=== PATIENT | male | born 1970 | race Two or more races ===

== ENCOUNTER 2018-07-22 13:27 | Inpatient (IN) | payer OTHER ==
[~2018-07-22] VITALS: Ht 167.6 cm; Wt 101.6 kg
[2018-07-22 14:02] LABS: Basophils # (auto) 0 uL; Basophils % (auto) 0.4 % (0.0-2.0); Eosinophils # (auto) 0.1 uL; Eosinophils % (auto) 1.5 % (0.0-7.0); Hematocrit 46.4 % (41.0-53.0); Hemoglobin 15.3 g/dL (13.5-17.5); Lymphocytes # (auto) 1.1 uL; Lymphocytes % (auto) 12.9 % (10.0-50.0); Mean Corpuscular Hemoglobin 31.7 pg (28.0-32.0); Mean Corpuscular Hgb Conc. 33.1 g/dL (32.0-36.0); Mean Corpuscular Volume 95.8 fL (80.0-100.0); Monocytes % (auto) 11.2 % (0.0-12.0); Neutrophils # (auto) 6.4 uL; Nucleated Red Blood Cells % 0.1 %; Platelet Count (auto) 155 10^3/uL (140-450); Red Blood Cells 4.84 10^6/uL (4.5-5.90); Red Cell Distribution Width 13.9 % (11.8-14.3); White Blood Cell 8.7 10^3/uL (4.4-10.8)
[2018-07-22 14:22] LABS: Albumin 3.2 g/dL (3.4-5.0); Magnesium 2.3 mg/dL (1.6-2.6); Potassium 4.5 mmol/L (3.5-5.1)
[2018-07-22 14:24] LABS: BUN/Creatinine Ratio 19.8
[2018-07-22 14:39] LABS: Bilirubin, Total 0.6 mg/dL (0.2-1.0); Total Protein 7.7 g/dL (6.4-8.2)
[2018-07-22] MEDS ORDERED: IOHEXOL 350 MG/ML 100ML IJ ONE (18:07)
[2018-07-22] MEDS ORDERED: MORPHINE SULFATE 4 MG/ML SYR/VIAL IV PRN (20:30)
[2018-07-22] MEDS ORDERED: NITROGLYCERIN 0.4 MG SL TAB SL PRN (20:30)
[2018-07-22] MEDS ORDERED: TEMAZEPAM 15 MG CAP PO PRN (20:30)
[2018-07-22] MEDS ORDERED: ONDANSETRON HCL 4 MG/2 ML VIAL IV PRN (20:30)
[2018-07-22] MEDS ORDERED: FUROSEMIDE 20 MG/2 ML VIAL IV ONE (20:30)
[2018-07-22] MEDS ORDERED: ACETAMINOPHEN 325 MG TAB PO PRN (20:30)
[2018-07-22 21:59] LABS: Urine Bacteria NONE SEEN /hpf (None Seen); Urine Blood Negative /uL (Negative); Urine Specific Gravity 1.015 (1.001-1.035); Urine WBC <1 /hpf (0 - 3)
[2018-07-22] MEDS ORDERED: ATORVASTATIN 20 MG TAB PO SCH (22:00)
[2018-07-22] MEDS: FAMOTIDINE 20 MG TAB PO SCH (22:06)
[2018-07-23 03:35] VITALS: BP 151/100
[2018-07-23] MEDS ORDERED: cloNIDine HCL 0.1 MG TAB PO ONE (05:45)
[2018-07-23] MEDS ORDERED: FUROSEMIDE 20 MG TAB PO SCH (06:00)
[2018-07-23 07:15] LABS: Basophils # (auto) 0 uL; Basophils % (auto) 0.5 % (0.0-2.0); Eosinophils # (auto) 0.1 uL; Eosinophils % (auto) 2.3 % (0.0-7.0); Hematocrit 46.4 % (41.0-53.0); Hemoglobin 15.4 g/dL (13.5-17.5); Lymphocytes # (auto) 0.9 uL; Lymphocytes % (auto) 16.3 % (10.0-50.0); Mean Corpuscular Hemoglobin 31.3 pg (28.0-32.0); Mean Corpuscular Hgb Conc. 33.3 g/dL (32.0-36.0); Monocytes # (auto) 0.6 uL; Monocytes % (auto) 10.6 % (0.0-12.0); Neutrophils % (auto) 70.3 % (37.0-80.0); Nucleated Red Blood Cells % 0.1 %; Platelet Count (auto) 143 10^3/uL (140-450); Red Blood Cells 4.93 10^6/uL (4.5-5.90); Red Cell Distribution Width 14.2 % (11.8-14.3); White Blood Cell 5.6 10^3/uL (4.4-10.8)
[2018-07-23 07:35] LABS: Albumin 3.1 g/dL (3.4-5.0); BUN/Creatinine Ratio 18.3; Calcium 8.3 mg/dL (8.5-10.1); Potassium 4.2 mmol/L (3.5-5.1)
[2018-07-23 07:36] LABS: Bilirubin, Total 0.7 mg/dL (0.2-1.0); Total Protein 7.7 g/dL (6.4-8.2)
[2018-07-23] MEDS: FAMOTIDINE 20 MG TAB PO SCH (08:20)
[2018-07-23] MEDS ORDERED: ASPirin 81 mg TAB PO SCH (10:00)
[2018-07-23 10:13] VITALS: BP 141/101
== END 2018-07-23 12:56 | disposition left against medical advice (07) | DRG 292 ==
LOC: ER 13:31 → TELE 20:25
PROVIDERS: ADMIT Nurse Practitioner; ATTEND Internal Medicine
DX: I50.31 Acute diastolic (congestive) heart failure (principal); I31.3 Pericardial effusion (noninflammatory); R18.8 Other ascites; F19.10 Other psychoactive substance abuse, uncomplicated; R06.03 Acute respiratory distress; K74.60 Unspecified cirrhosis of liver; Z87.891 Personal history of nicotine dependence
CPT/HCPCS: 36415; 71046; 71275; 80053; 81001; 83735; 83880; 84484; 85025; 85379; 87804; 93005; 96374; 99291; G0378

== ENCOUNTER 2022-06-24 02:43 | Inpatient (IN) | payer OTHER, MEDICAID ==
[~2022-06-24] VITALS: Ht 167.6 cm; Wt 75.0 kg
[~2022-06-24 02:43] MED LIST: ASPI-325 PO; ATOR20TA50 PO; CAR3125T PO; CLOP75TA70 PO; FURO40TA4 PO; LISI-716 PO; POTA-220 PO
[2022-06-24 04:03] LABS: Basophils # (auto) 0 10 ^3/uL (0-0.2); Basophils % (auto) 0.4 % (0.0-2.0); Eosinophils # (auto) 0.1 10 ^3/uL (0-0.8); Hematocrit 46.4 % (41.0-53.0); Hemoglobin 15.4 g/dL (13.5-17.5); Lymphocytes # (auto) 1.8 10 ^3/uL (0.4-5.4); Lymphocytes % (auto) 25.9 % (10.0-50.0); Mean Corpuscular Hemoglobin 30.5 pg (28.0-32.0); Mean Corpuscular Hgb Conc. 33.1 g/dL (32.0-36.0); Mean Corpuscular Volume 92.2 fL (80.0-100.0); Monocytes # (auto) 0.6 10 ^3/uL (0-1.3); Monocytes % (auto) 8.4 % (0.0-12.0); Neutrophils # (auto) 4.3 10 ^3/uL (1.6-8.6); Neutrophils % (auto) 63.3 % (37.0-80.0); Nucleated Red Blood Cells % 0.2 %; Red Blood Cells 5.03 10^6/uL (4.5-5.90); Red Cell Distribution Width 13.7 % (11.8-14.3); White Blood Cell 6.8 10^3/uL (4.4-10.8)
[2022-06-24 04:19] LABS: Albumin 2.8 g/dL (3.4-5.0); BUN/Creatinine Ratio 25.6; Calcium 8.4 mg/dL (8.5-10.1); Potassium 4.2 mmol/L (3.5-5.1)
[2022-06-24 04:22] LABS: Bilirubin, Total 0.4 mg/dL (0.2-1.0); Total Protein 7.2 g/dL (6.4-8.2)
[2022-06-24] MEDS ORDERED: LORazepam 2MG/ML-1ML VIAL IV ONE ×2 (07:30→20:45)
[2022-06-24] MEDS ORDERED: ASPirin 81 mg TAB PO ONE (07:30)
[2022-06-24] MEDS ORDERED: SODIUM CHLORIDE 0.9% 1,000 ML IV SCH (09:15)
[2022-06-24] MEDS ORDERED: NITROGLYCERIN 0.4 MG SL TAB SL PRN (09:15)
[2022-06-24] MEDS ORDERED: MORPHINE SULFATE INJ 2 MG/ml SYRG IV PRN (09:15)
[2022-06-24] MEDS ORDERED: ENOXAPARIN SOD 80 MG/0.8ML SYRINGE SC ONE (09:30)
[2022-06-24 09:47] LABS: INR 1.09 (0.9-1.15); Partial Thromboplastin Time 28.3 sec (24.6-33.4)
[2022-06-24] MEDS: POTASSIUM CHL 10 Meq TABLET PO SCH (09:49)
[2022-06-24] MEDS: LISINOPRIL 10 MG TAB PO SCH (09:49)
[2022-06-24] MEDS: CARVEDILOL 3.125 MG TAB PO SCH ×2 (09:50→21:31)
[2022-06-24] MEDS ORDERED: DEXTROSE (50%) 50ML SYRG IV PRN ×2 (10:45→11:30)
[2022-06-24] MEDS ORDERED: FUROSEMIDE 20 MG/2 ML VIAL IV ONE (10:45)
[2022-06-24] MEDS ORDERED: CLOPIDOGREL BISULFATE 75 MG TAB PO ONE (10:45)
[2022-06-24] MEDS ORDERED: ACCU-CHEK COMFORT CURVE STRIP VI SCH (11:30)
[2022-06-24] MEDS: InsuLIN REG 1unit/0.01ml Soln (100units/ml) SC SCH ×3 (11:30→21:53)
[2022-06-24] MEDS ORDERED: InsuLIN REG 1unit/0.01ml Soln (100units/ml) SC SCH ×2 (11:30→22:00)
[2022-06-24] MEDS ORDERED: hydrALAZINE HCL 20 MG/ML VL IV PRN (11:30)
[2022-06-24 11:55] LABS: Cholesterol 128 mg/dL (< 200)
[2022-06-24 11:57] LABS: HDL Cholesterol 53 mg/dL (40-59); LDL Cholesterol 73 mg/dL (< 100); Triglycerides 72 mg/dL (< 150)
[2022-06-24] MEDS: ACCU-CHEK COMFORT CURVE STRIP VI SCH ×3 (11:59→21:31)
[2022-06-24] MEDS: FUROSEMIDE 20 MG/2 ML VIAL IV SCH (17:47)
[2022-06-24] MEDS: ATORVASTATIN 20 MG TAB PO SCH (21:30)
[2022-06-24] MEDS ORDERED: ENOXAPARIN SOD 80 MG/0.8ML SYRINGE SC SCH (22:00)
[2022-06-24] MEDS ORDERED: ENOXAPARIN SOD 100 MG/1 ML SYRINGE SC SCH (22:00)
[2022-06-25] VITALS (9 sets, daily range): BP systolic 96–138; BP diastolic 71–98
[2022-06-25 02:50] LABS: Alcohol, Urine < 3.0 mg/dL (0-10); Amphetamine Screen, Urine POSITIVE (NEGATIVE); Barbiturate Scree,Urine NEGATIVE (NEGATIVE); Benzodiazephine Screen, Urine NEGATIVE (NEGATIVE); Cannabinoid Screen, Urine NEGATIVE (NEGATIVE); Cocaine Screen, Urine NEGATIVE (NEGATIVE); Phencyclidine Screen, Urine NEGATIVE (NEGATIVE)
[2022-06-25 02:53] LABS: Urine Bacteria FEW /hpf (None Seen); Urine Blood 3+ /uL (Negative); Urine Specific Gravity 1.016 (1.001-1.035); Urine WBC 1 /hpf (0 - 3)
[2022-06-25 02:57] LABS: Opiate Scree,Urine NEGATIVE (NEGATIVE)
[2022-06-25] MEDS: ACCU-CHEK COMFORT CURVE STRIP VI SCH ×4 (06:19→22:00)
[2022-06-25] MEDS: InsuLIN REG 1unit/0.01ml Soln (100units/ml) SC SCH ×4 (06:20→22:00)
[2022-06-25] MEDS: FUROSEMIDE 20 MG/2 ML VIAL IV SCH ×2 (06:21→17:55)
[2022-06-25 06:24] LABS: INR 1.08 (0.9-1.15); Partial Thromboplastin Time 32.1 sec (24.6-33.4)
[2022-06-25 06:32] LABS: Basophils # (auto) 0.1 10 ^3/uL (0-0.2); Basophils % (auto) 0.6 % (0.0-2.0); Eosinophils # (auto) 0.1 10 ^3/uL (0-0.8); Eosinophils % (auto) 1.6 % (0.0-7.0); Hematocrit 49.8 % (41.0-53.0); Hemoglobin 16.6 g/dL (13.5-17.5); Lymphocytes # (auto) 1.9 10 ^3/uL (0.4-5.4); Lymphocytes % (auto) 22.6 % (10.0-50.0); Mean Corpuscular Hemoglobin 30.6 pg (28.0-32.0); Mean Corpuscular Hgb Conc. 33.3 g/dL (32.0-36.0); Mean Corpuscular Volume 91.9 fL (80.0-100.0); Monocytes # (auto) 0.8 10 ^3/uL (0-1.3); Neutrophils # (auto) 5.6 10 ^3/uL (1.6-8.6); Neutrophils % (auto) 66.2 % (37.0-80.0); Nucleated Red Blood Cells % 0.1 %; Red Blood Cells 5.42 10^6/uL (4.5-5.90); Red Cell Distribution Width 13.7 % (11.8-14.3); White Blood Cell 8.5 10^3/uL (4.4-10.8)
[2022-06-25 06:38] LABS: Potassium 4.7 mmol/L (3.5-5.1)
[2022-06-25 06:57] LABS: Albumin 2.9 g/dL (3.4-5.0); Bilirubin, Total 0.8 mg/dL (0.2-1.0); Calcium 8.4 mg/dL (8.5-10.1); Total Protein 7.5 g/dL (6.4-8.2)
[2022-06-25] MEDS ORDERED: FUROSEMIDE 20 MG TAB PO SCH (07:00)
[2022-06-25] MEDS ORDERED: IODIXANOL 320MG/ML 100ML BTL IV ONE (13:01)
[2022-06-25] MEDS ORDERED: LIDOCAINE 2%HCL (LOCAL ANESTH.) INJ 10ml MDV ONE (13:02)
[2022-06-25] MEDS ORDERED: HEPARIN SODIUM (PORCINE) 5000 UNITS/ML 1ML VIAL ONE (13:04)
[2022-06-25] MEDS ORDERED: ANGIOMAX 250 MG VIAL IV ONE (13:04)
[2022-06-25] MEDS ORDERED: MIDAZOLAM HCL 2MG/2ML 2ml VIAL (1mg/ml) ONE (13:05)
[2022-06-25] MEDS ORDERED: VERAPAMIL 2.5MG/ML INJ 2ML VIAL IV ONE (13:05)
[2022-06-25] MEDS ORDERED: fentaNYL CITRATE 100 MCG/2 ML VL ONE (13:05)
[2022-06-25] MEDS ORDERED: SODIUM CHL 0.9% 0 ML ONE (13:05)
[2022-06-25] MEDS: LISINOPRIL 10 MG TAB PO SCH (14:20)
[2022-06-25] MEDS: CLOPIDOGREL BISULFATE 75 MG TAB PO SCH (14:21)
[2022-06-25] MEDS: CARVEDILOL 3.125 MG TAB PO SCH ×2 (14:21→22:00)
[2022-06-25] MEDS: ASPirin-EC 81 mg tab PO SCH (14:21)
[2022-06-25] MEDS: POTASSIUM CHL 10 Meq TABLET PO SCH (14:22)
[2022-06-25] MEDS: NICOTINE 7MG/24HR TOPICAL PATCH TD SCH (14:24)
[2022-06-25] MEDS: ONDANSETRON HCL 4 MG/2 ML VIAL IV PRN (17:55)
[2022-06-25] MEDS: ACETAMINOPHEN 325 MG TAB PO PRN (17:56)
[2022-06-25] MEDS: ATORVASTATIN 20 MG TAB PO SCH (22:00)
[2022-06-26 05:00] VITALS: BP 118/79
[2022-06-26 05:38] LABS: BUN/Creatinine Ratio 27.4; Calcium 8.8 mg/dL (8.5-10.1); Magnesium 2.1 mg/dL (1.6-2.6); Potassium 4.6 mmol/L (3.5-5.1)
[2022-06-26] MEDS: FUROSEMIDE 20 MG/2 ML VIAL IV SCH (06:00)
[2022-06-26] MEDS: InsuLIN REG 1unit/0.01ml Soln (100units/ml) SC SCH ×2 (06:31→12:14)
[2022-06-26 09:00] VITALS: BP 126/86
[2022-06-26] MEDS: ASPirin-EC 81 mg tab PO SCH (09:19)
[2022-06-26] MEDS: POTASSIUM CHL 10 Meq TABLET PO SCH (09:19)
[2022-06-26] MEDS: CARVEDILOL 3.125 MG TAB PO SCH (09:19)
[2022-06-26] MEDS: CLOPIDOGREL BISULFATE 75 MG TAB PO SCH (09:19)
[2022-06-26] MEDS: NICOTINE 7MG/24HR TOPICAL PATCH TD SCH (09:20)
[2022-06-26] MEDS: LISINOPRIL 10 MG TAB PO SCH (09:20)
[2022-06-26] MEDS: ACETAMINOPHEN 325 MG TAB PO PRN (11:09)
[2022-06-26] MEDS: ACCU-CHEK COMFORT CURVE STRIP VI SCH (12:13)
[2022-06-26] MEDS: ONDANSETRON HCL 4 MG/2 ML VIAL IV PRN (12:27)
[2022-06-26 12:57] VITALS: BP 107/73
[2022-06-26] MEDS ORDERED: FUROSEMIDE 20 MG/2 ML VIAL IV ONE (13:00)
[2022-06-26] MEDS ORDERED: POTASSIUM CHL 20 Meq TABLET PO ONE (13:00)
[2022-06-26 15:18] VITALS: BP 107/73
[2022-06-26 16:32] VITALS: BP 125/45
== END 2022-06-26 18:08 | disposition home or self-care (01) | DRG 280 ==
LOC: ER 02:43 → TELE 09:12 → TELE-WESTW 06-25 16:03
PROVIDERS: ADMIT Registered Nurse; ATTEND Internal Medicine
PROC: 4A023N7 Measurement of Cardiac Sampling and Pressure, Left Heart, Percutaneous Approach (ICD-10-PCS; principal; 2022-06-25)
PROC: B211YZZ Fluoroscopy of Multiple Coronary Arteries using Other Contrast (ICD-10-PCS; 2022-06-25)
PROC: B215YZZ Fluoroscopy of Left Heart using Other Contrast (ICD-10-PCS; 2022-06-25)
DX: I21.4 Non-ST elevation (NSTEMI) myocardial infarction (principal); I50.21 Acute systolic (congestive) heart failure; E11.9 Type 2 diabetes mellitus without complications; E78.5 Hyperlipidemia, unspecified; F17.200 Nicotine dependence, unspecified, uncomplicated; I11.0 Hypertensive heart disease with heart failure; R91.8 Other nonspecific abnormal finding of lung field; F15.10 Other stimulant abuse, uncomplicated; Z20.822 Contact with and (suspected) exposure to COVID-19; I25.10 Atherosclerotic heart disease of native coronary artery without angina pectoris; I25.2 Old myocardial infarction; Z95.5 Presence of coronary angioplasty implant and graft; Z83.3 Family history of diabetes mellitus; Z86.711 Personal history of pulmonary embolism
CPT/HCPCS: 36415; 71045; 80048; 80053; 80061; 80307; 81001; 82962; 83735; 83880; 84443; 84484; 85025; 85610; 85730; 87426; 93005; 93458; 96374; 99152; 99291; G0378; J1815; J2001; J2250; J2405; Q9967

== ENCOUNTER → 2022-09-17 | Emergency (ER) | payer OTHER, MEDICAID ==
[~2022-09-17] VITALS: Ht 167.6 cm; Wt 73.4 kg
[2022-09-17 18:34] VITALS: BP 137/80
== END | disposition left against medical advice (07) ==
LOC: ER 16:24
DX: R10.30 Lower abdominal pain, unspecified (principal); R21 Rash and other nonspecific skin eruption; Z53.21 Procedure and treatment not carried out due to patient leaving prior to being seen by health care provider

== ENCOUNTER 2023-04-02 11:12 | Inpatient (IN) | payer SELFPAY ==
[~2023-04-02] VITALS: Ht 167.6 cm; Wt 74.4 kg
[~2023-04-02 11:12] MED LIST changes: +ATOR40TA52 PO; +EMPA1TAB PO; +INSLANTI SC; +INSLISPI SC; -LISI-716 PO; +LISI10TA34 PO; +SACU1TAB PO; +SPIR25TA PO; +[UNRECOGNIZED DRUG - CODE] PO
[2023-04-02] MEDS ORDERED: ONDANSETRON HCL 4 MG/2 ML VIAL IV ONE (11:30)
[2023-04-02] MEDS ORDERED: NALOXONE HCL 1MG/ML 2ML SYRINGE IV ONE (11:45)
[2023-04-02 12:02] LABS: Basophils # (auto) 0 10 ^3/uL (0-0.2); Basophils % (auto) 0.4 % (0.0-2.0); Eosinophils # (auto) 0.1 10 ^3/uL (0-0.8); Eosinophils % (auto) 2.4 % (0.0-7.0); Hemoglobin 16.8 g/dL (13.5-17.5); Lymphocytes # (auto) 1.5 10 ^3/uL (0.4-5.4); Lymphocytes % (auto) 25.4 % (10.0-50.0); Mean Corpuscular Hemoglobin 31.1 pg (28.0-32.0); Mean Corpuscular Hgb Conc. 34.2 g/dL (32.0-36.0); Mean Corpuscular Volume 90.9 fL (80.0-100.0); Monocytes # (auto) 0.5 10 ^3/uL (0-1.3); Monocytes % (auto) 9.3 % (0.0-12.0); Neutrophils # (auto) 3.6 10 ^3/uL (1.6-8.6); Neutrophils % (auto) 62.5 % (37.0-80.0); Nucleated Red Blood Cells % 0.1 %; Red Blood Cells 5.39 10^6/uL (4.5-5.90); White Blood Cell 5.8 10^3/uL (4.4-10.8)
[2023-04-02 12:42] LABS: Alanine Aminotransferase 24 U/L (7-40); Albumin 4.1 g/dL (3.2-4.8); Alkaline Phosphatase 67 U/L (46-116); Anion Gap 9 (5-15); Aspartate Aminotransferase 30 U/L (13-40); BUN/Creatinine Ratio 17.3 (10.0-20.0); Bilirubin, Total 1.4 mg/dL (0.2-1.0); Blood Urea Nitrogen 18 mg/dL (9-23); Carbon Dioxide 26 mmol/L (20-30); Chloride 104 mmol/L (98-107); Glucose 240 mg/dL (74-106); Potassium 3.4 mmol/L (3.5-5.1); Sodium 139 mmol/L (136-145); Total Protein 7.3 g/dL (5.7-8.2)
[2023-04-02] MEDS ORDERED: ASPirin 325 MG TAB PO ONE (13:00)
[2023-04-02 13:39] LABS: Acetaminophen < 2.0 UG/ML (10.0-20.0)
[2023-04-02 13:42] LABS: Salicylate < 3.0 mg/dL (2.8-20.0)
[2023-04-02 13:50] VITALS: PULSE 60; RESP 14; O2SAT 91
[2023-04-02] MEDS ORDERED: NITROGLYCERIN 0.4 MG SL TAB SL PRN (14:00)
[2023-04-02] MEDS ORDERED: ALBUTEROL MEDNEB 2.5 mg/3ml NEB NEB PRN (14:00)
[2023-04-02] MEDS ORDERED: MORPHINE SULFATE INJ 2 MG/ml SYRG IV PRN (14:00)
[2023-04-02] MEDS ORDERED: ACETAMINOPHEN 500 MG TAB PO PRN (14:00)
[2023-04-02] MEDS ORDERED: ONDANSETRON HCL 4 MG/2 ML VIAL IV PRN (14:00)
[2023-04-02] MEDS ORDERED: DOCUSATE SOD 100 MG CAP PO PRN (14:00)
[2023-04-02] MEDS ORDERED: NALOXONE HCL 0.4 MG/ML VIAL IV ONE (14:00)
[2023-04-02] MEDS ORDERED: IPRATROPIUM BROM 0.5 MG/2.5ML INH SOL NEB PRN (14:00)
[2023-04-02] MEDS ORDERED: DEXTROSE (50%) 50ML SYRG IV PRN (14:00)
[2023-04-02 15:02] VITALS: BP 149/83; PULSE 76; RESP 16; TEMP 97.5; O2SAT 98
[2023-04-02 15:51] LABS: Urine Bacteria MOD /hpf (None Seen); Urine Blood Negative /uL (Negative); Urine Clarity HAZY (Clear); Urine Color Yellow (Yellow); Urine Mucus MODERATE (None Seen); Urine Protein, UAD 2+ (Negative); Urine Specific Gravity 1.034 (1.001-1.035); Urine Sperm PRESENT /hpf (None Seen); Urine WBC 3 /hpf (0 - 3); Urine pH 5.5 (5.0-8.0)
[2023-04-02 16:02] LABS: Amphetamine Screen, Urine Pos (NEGATIVE)
[2023-04-02 16:03] LABS: Barbiturate Scree,Urine Neg (NEGATIVE); Benzodiazephine Screen, Urine Neg (NEGATIVE); Cannabinoid Screen, Urine Neg (NEGATIVE); Cocaine Screen, Urine Neg (NEGATIVE); Opiate Scree,Urine Neg (NEGATIVE); Phencyclidine Screen, Urine Neg (NEGATIVE)
[2023-04-02] MEDS: ACCU-CHEK COMFORT CURVE STRIP VI SCH ×2 (18:05→23:09)
[2023-04-02] MEDS: InsuLIN REG 1unit/0.01ml Soln (100units/ml) SC SCH ×2 (18:05→23:05)
[2023-04-02 19:00] VITALS: O2SAT 94
[2023-04-02] MEDS ORDERED: ATORVASTATIN 20 MG TAB PO SCH (22:00)
[2023-04-02 23:00] VITALS: BP 124/76; PULSE 60; RESP 18; TEMP 97.4; O2SAT 99
[2023-04-02 23:07] VITALS: PULSE 60; RESP 18; O2SAT 99
[2023-04-02] MEDS: CARVEDILOL 3.125 MG TAB PO SCH (23:07)
[2023-04-03 05:00] VITALS: BP 110/71; PULSE 67; RESP 19; TEMP 97.7; O2SAT 95
[2023-04-03] MEDS: InsuLIN REG 1unit/0.01ml Soln (100units/ml) SC SCH (06:16)
[2023-04-03 06:23] VITALS: O2SAT 95
[2023-04-03] MEDS ORDERED: EMPAGLIFLOZIN 10 MG TAB PO SCH (07:00)
[2023-04-03] MEDS: ACCU-CHEK COMFORT CURVE STRIP VI SCH (07:00)
[2023-04-03 08:00] VITALS: PULSE 62; RESP 20; O2SAT 96
[2023-04-03] MEDS ORDERED: cefTRIAXone 1GM/50ML D5W 50 ML IV SCH (09:00)
[2023-04-03] MEDS: CARVEDILOL 3.125 MG TAB PO SCH (09:41)
[2023-04-03 09:57] VITALS: BP 108/73; PULSE 62; RESP 20; TEMP 97.9; O2SAT 96
[2023-04-03] MEDS ORDERED: FUROSEMIDE 40 MG TAB PO SCH (10:00)
[2023-04-03] MEDS ORDERED: CLOPIDOGREL BISULFATE 75 MG TAB PO SCH (10:00)
[2023-04-03] MEDS ORDERED: SPIRONOLACTONE 25 MG TAB PO SCH (10:00)
[2023-04-03] MEDS ORDERED: ASPirin-EC 81 mg tab PO SCH (10:00)
[2023-04-03 13:35] VITALS: BP 100/71; PULSE 63; RESP 19; TEMP 97.3; O2SAT 94
== END 2023-04-03 16:00 | disposition home or self-care (01) | DRG 917 ==
LOC: ER 11:12 → EDBD 11:12 → TELE 13:51 → TELE-CENTR 21:33
PROVIDERS: ADMIT Nurse Practitioner Acute Care; ATTEND Nurse Practitioner Acute Care
DX: T40.411A Poisoning by fentanyl or fentanyl analogs, accidental (unintentional), initial encounter (principal); I21.A1 Myocardial infarction type 2; I50.23 Acute on chronic systolic (congestive) heart failure; I42.0 Dilated cardiomyopathy; Z59.01 Sheltered homelessness; I11.0 Hypertensive heart disease with heart failure; E11.9 Type 2 diabetes mellitus without complications; J45.909 Unspecified asthma, uncomplicated; E78.5 Hyperlipidemia, unspecified; I07.1 Rheumatic tricuspid insufficiency; I25.10 Atherosclerotic heart disease of native coronary artery without angina pectoris; Z83.3 Family history of diabetes mellitus; Z87.891 Personal history of nicotine dependence; Z95.5 Presence of coronary angioplasty implant and graft; Y92.89 Other specified places as the place of occurrence of the external cause; Z86.711 Personal history of pulmonary embolism; Z79.4 Long term (current) use of insulin; Z91.199 Patient's noncompliance with other medical treatment and regimen due to unspecified reason
CPT/HCPCS: 36415; 70450; 71045; 80053; 80307; 80329; 81001; 82962; 84484; 85025; 93005; G0378; J1815; J2405

== ENCOUNTER 2023-05-26 16:59 | Inpatient (IN) | payer SELFPAY ==
[~2023-05-26] VITALS: Ht 167.6 cm; Wt 63.6 kg
[2023-05-26 18:39] LABS: INR 1.14 (0.9-1.15); Prothrombin Time 11.9 sec (9.3-11.8)
[2023-05-26 18:43] LABS: Alanine Aminotransferase 22 U/L (7-40); Alkaline Phosphatase 110 U/L (46-116)
[2023-05-26 18:44] LABS: Albumin 3.6 g/dL (3.2-4.8); Anion Gap 9 (5-15); Aspartate Aminotransferase 22 U/L (13-40); BUN/Creatinine Ratio 22.4 (10.0-20.0); Bilirubin, Total 0.9 mg/dL (0.2-1.0); Blood Urea Nitrogen 19 mg/dL (9-23); Carbon Dioxide 20 mmol/L (20-30); Chloride 109 mmol/L (98-107); Glucose 215 mg/dL (74-106); Magnesium 1.8 mg/dL (1.6-2.6); Sodium 138 mmol/L (136-145); Total Protein 6.3 g/dL (5.7-8.2)
[2023-05-26 19:12] LABS: Basophils # (auto) 0 10 ^3/uL (0-0.2); Basophils % (auto) 0.7 % (0.0-2.0); Eosinophils # (auto) 0.1 10 ^3/uL (0-0.8); Eosinophils % (auto) 2.5 % (0.0-7.0); Hematocrit 44.6 % (41.0-53.0); Lymphocytes % (auto) 16.9 % (10.0-50.0); Mean Corpuscular Hemoglobin 31.2 pg (28.0-32.0); Mean Corpuscular Hgb Conc. 33.5 g/dL (32.0-36.0); Mean Corpuscular Volume 93.1 fL (80.0-100.0); Monocytes # (auto) 0.7 10 ^3/uL (0-1.3); Monocytes % (auto) 11.2 % (0.0-12.0); Neutrophils % (auto) 68.7 % (37.0-80.0); Nucleated Red Blood Cells % 0.2 %; Red Blood Cells 4.79 10^6/uL (4.5-5.90); Red Cell Distribution Width 14.1 % (11.8-14.3); White Blood Cell 5.8 10^3/uL (4.4-10.8)
[2023-05-26] MEDS ORDERED: ASPirin 325 MG TAB PO ONE (19:45)
[2023-05-26] MEDS ORDERED: FUROSEMIDE 100 MG/10ML VIAL IV ONE (20:00)
[2023-05-26] MEDS ORDERED: MORPHINE SULFATE INJ 2 MG/ml SYRG IV PRN (22:30)
[2023-05-26] MEDS ORDERED: hydrALAZINE HCL 20 MG/ML VL IV PRN (22:30)
[2023-05-26] MEDS ORDERED: ACETAMINOPHEN 325 MG TAB PO PRN (22:30)
[2023-05-26] MEDS ORDERED: NITROGLYCERIN 0.4 MG SL TAB SL PRN (22:30)
[2023-05-26] MEDS ORDERED: ONDANSETRON HCL 4 MG/2 ML VIAL IV PRN (22:30)
[2023-05-26 22:32] LABS: COVID19 ANTIGEN SOFIA FIA NEGATIVE (NEGATIVE)
[2023-05-27 06:26] LABS: Basophils # (auto) 0 10 ^3/uL (0-0.2); Basophils % (auto) 0.7 % (0.0-2.0); Eosinophils # (auto) 0.2 10 ^3/uL (0-0.8); Eosinophils % (auto) 3.6 % (0.0-7.0); Hematocrit 46.3 % (41.0-53.0); Hemoglobin 15.7 g/dL (13.5-17.5); Lymphocytes # (auto) 1.3 10 ^3/uL (0.4-5.4); Lymphocytes % (auto) 20.1 % (10.0-50.0); Mean Corpuscular Hemoglobin 31.3 pg (28.0-32.0); Mean Corpuscular Volume 92.1 fL (80.0-100.0); Monocytes # (auto) 0.9 10 ^3/uL (0-1.3); Monocytes % (auto) 13.1 % (0.0-12.0); Neutrophils # (auto) 4.1 10 ^3/uL (1.6-8.6); Neutrophils % (auto) 62.5 % (37.0-80.0); Nucleated Red Blood Cells % 0.1 %; Red Blood Cells 5.02 10^6/uL (4.5-5.90); Red Cell Distribution Width 14.1 % (11.8-14.3); White Blood Cell 6.6 10^3/uL (4.4-10.8)
[2023-05-27 06:37] LABS: Alanine Aminotransferase 20 U/L (7-40); Albumin 3.9 g/dL (3.2-4.8); Alkaline Phosphatase 98 U/L (46-116); Anion Gap 8 (5-15); Aspartate Aminotransferase 22 U/L (13-40); BUN/Creatinine Ratio 14.8 (10.0-20.0); Blood Urea Nitrogen 17 mg/dL (9-23); Calcium 8.7 mg/dL (8.5-10.1); Carbon Dioxide 24 mmol/L (20-30); Chloride 107 mmol/L (98-107); Glucose 145 mg/dL (74-106); Potassium 4.1 mmol/L (3.5-5.1); Sodium 139 mmol/L (136-145)
[2023-05-27 06:38] LABS: Bilirubin, Total 0.9 mg/dL (0.2-1.0)
[2023-05-27] MEDS: FUROSEMIDE 20 MG/2 ML VIAL IV SCH ×2 (07:52→17:39)
[2023-05-27 09:13] VITALS: BP 128/93; PULSE 57; PULSE 70; RESP 16; TEMP 98.1; O2SAT 96
[2023-05-27] MEDS: CARVEDILOL 3.125 MG TAB PO SCH ×2 (10:00→20:31)
[2023-05-27] MEDS: ASPirin 81 mg TAB PO SCH (10:23)
[2023-05-27] MEDS: CLOPIDOGREL BISULFATE 75 MG TAB PO SCH (10:28)
[2023-05-27] MEDS: LISINOPRIL 10 MG TAB PO SCH (10:40)
[2023-05-27 12:00] VITALS: BP 127/84; PULSE 60; RESP 18; TEMP 98.2; O2SAT 93
[2023-05-27 16:00] VITALS: BP 131/81; PULSE 91; RESP 18; TEMP 98; O2SAT 96
[2023-05-27 18:55] LABS: Urine Bacteria NONE SEEN /hpf (None Seen); Urine Blood Negative /uL (Negative); Urine Clarity Clear (Clear); Urine Color Yellow (Yellow); Urine Protein, UAD 1+ (Negative); Urine Specific Gravity 1.018 (1.001-1.035); Urine WBC <1 /hpf (0 - 3); Urine pH 6.5 (5.0-8.0)
[2023-05-27 19:05] LABS: Amphetamine Screen, Urine Pos (NEGATIVE); Barbiturate Scree,Urine Neg (NEGATIVE); Benzodiazephine Screen, Urine Neg (NEGATIVE); Cannabinoid Screen, Urine Neg (NEGATIVE); Cocaine Screen, Urine Neg (NEGATIVE); Opiate Scree,Urine Neg (NEGATIVE); Phencyclidine Screen, Urine Neg (NEGATIVE)
[2023-05-27 19:30] VITALS: PULSE 73; RESP 19; O2SAT 94
[2023-05-27 20:35] VITALS: BP 112/72; PULSE 73; RESP 16; TEMP 97.9; O2SAT 98
[2023-05-27 22:00] VITALS: BP 137/72; PULSE 74; RESP 18; TEMP 97.7; O2SAT 100
[2023-05-27] MEDS ORDERED: ATORVASTATIN 20 MG TAB PO SCH (22:00)
[2023-05-28 04:52] VITALS: BP 123/74; PULSE 85; RESP 20; TEMP 97.8; O2SAT 99
[2023-05-28] MEDS: FUROSEMIDE 20 MG/2 ML VIAL IV SCH (05:41)
[2023-05-28] MEDS ORDERED: DEXTROSE (50%) 50ML SYRG IV PRN (06:15)
[2023-05-28] MEDS ORDERED: EMPAGLIFLOZIN 10 MG TAB PO SCH (07:00)
[2023-05-28 08:00] VITALS: PULSE 89
[2023-05-28 08:30] VITALS: BP 120/69; PULSE 87; RESP 20; TEMP 98; O2SAT 96
[2023-05-28] MEDS: ASPirin 81 mg TAB PO SCH (08:30)
[2023-05-28] MEDS: LISINOPRIL 10 MG TAB PO SCH (08:30)
[2023-05-28] MEDS: CLOPIDOGREL BISULFATE 75 MG TAB PO SCH (08:30)
[2023-05-28] MEDS: CARVEDILOL 3.125 MG TAB PO SCH (08:31)
[2023-05-28] MEDS ORDERED: SPIRONOLACTONE 25 MG TAB PO SCH (10:00)
[2023-05-28] MEDS ORDERED: InsuLIN REG 1unit/0.01ml Soln (100units/ml) SC SCH (12:00)
[2023-05-28] MEDS ORDERED: ACCU-CHEK COMFORT CURVE STRIP VI SCH (12:00)
[2023-05-28 12:30] VITALS: BP 121/65; PULSE 90; RESP 20; TEMP 98.3; O2SAT 96
[2023-05-28 12:34] VITALS: BP 121/65; PULSE 90
== END 2023-05-28 13:35 | disposition home or self-care (01) | DRG 280 ==
LOC: ER 16:59 → TELE 22:33 → TELE-WESTW 05-27 08:52
PROVIDERS: ADMIT Nurse Practitioner; ATTEND Family Medicine
DX: I21.4 Non-ST elevation (NSTEMI) myocardial infarction (principal); I50.43 Acute on chronic combined systolic (congestive) and diastolic (congestive) heart failure; J96.00 Acute respiratory failure, unspecified whether with hypoxia or hypercapnia; I42.7 Cardiomyopathy due to drug and external agent; E11.9 Type 2 diabetes mellitus without complications; E78.00 Pure hypercholesterolemia, unspecified; I11.0 Hypertensive heart disease with heart failure; F15.10 Other stimulant abuse, uncomplicated; F17.200 Nicotine dependence, unspecified, uncomplicated; F19.10 Other psychoactive substance abuse, uncomplicated; T50.905A Adverse effect of unspecified drugs, medicaments and biological substances, initial encounter; I25.10 Atherosclerotic heart disease of native coronary artery without angina pectoris; Z20.822 Contact with and (suspected) exposure to COVID-19; I27.20 Pulmonary hypertension, unspecified; Z83.3 Family history of diabetes mellitus; Z71.6 Tobacco abuse counseling; Z90.79 Acquired absence of other genital organ(s); Z91.199 Patient's noncompliance with other medical treatment and regimen due to unspecified reason; Z95.5 Presence of coronary angioplasty implant and graft; Y92.89 Other specified places as the place of occurrence of the external cause
CPT/HCPCS: 36415; 71045; 80053; 80307; 81001; 83735; 83880; 84484; 85025; 85610; 85730; 87426; 93005; 96374; 96375; G0378; J2405

== ENCOUNTER 2023-06-15 12:48 | Inpatient (IN) | payer MEDICAID ==
[~2023-06-15] VITALS: Ht 167.6 cm; Wt 77.8 kg
[~2023-06-15 12:48] MED LIST changes: -ASPI-325 PO; -ATOR20TA50 PO; -POTA-220 PO
[2023-06-15 14:33] LABS: Basophils # (auto) 0 10 ^3/uL (0-0.2); Basophils % (auto) 0.6 % (0.0-2.0); Eosinophils # (auto) 0.1 10 ^3/uL (0-0.8); Eosinophils % (auto) 2.5 % (0.0-7.0); Hematocrit 47.3 % (41.0-53.0); Hemoglobin 15.6 g/dL (13.5-17.5); Lymphocytes % (auto) 19.2 % (10.0-50.0); Mean Corpuscular Hemoglobin 30.8 pg (28.0-32.0); Mean Corpuscular Volume 93.6 fL (80.0-100.0); Monocytes # (auto) 0.5 10 ^3/uL (0-1.3); Monocytes % (auto) 9.5 % (0.0-12.0); Neutrophils # (auto) 3.6 10 ^3/uL (1.6-8.6); Neutrophils % (auto) 68.2 % (37.0-80.0); Red Blood Cells 5.06 10^6/uL (4.5-5.90); Red Cell Distribution Width 14.2 % (11.8-14.3); White Blood Cell 5.2 10^3/uL (4.4-10.8)
[2023-06-15] MEDS ORDERED: FUROSEMIDE 40 MG/4 ML VIAL IV ONE (14:45)
[2023-06-15 14:51] LABS: Alanine Aminotransferase 26 U/L (7-40); Albumin 3.5 g/dL (3.2-4.8); Alkaline Phosphatase 77 U/L (46-116); Anion Gap 4 (5-15); Aspartate Aminotransferase 44 U/L (13-40); BUN/Creatinine Ratio 17.9 (10.0-20.0); Blood Urea Nitrogen 19 mg/dL (9-23); Calcium 8.4 mg/dL (8.7-10.4); Carbon Dioxide 28 mmol/L (20-30); Chloride 108 mmol/L (98-107); Glucose 185 mg/dL (74-106); Magnesium 1.9 mg/dL (1.6-2.6); Potassium 4.3 mmol/L (3.5-5.1); Sodium 140 mmol/L (136-145)
[2023-06-15 14:52] LABS: Bilirubin, Total 0.7 mg/dL (0.2-1.0); Total Protein 6.1 g/dL (5.7-8.2)
[2023-06-15] MEDS ORDERED: HEPARIN SODIUM (PORCINE) 5000 UNITS/ML 1ML VIAL IV ONE (15:45)
[2023-06-15] MEDS ORDERED: HEPARIN DRIP/D5W 100UNITS/ML 250 ML IV SCH (15:45)
[2023-06-15] MEDS ORDERED: NITROGLYCERIN 0.4 MG SL TAB SL PRN (16:00)
[2023-06-15] MEDS ORDERED: MORPHINE SULFATE INJ 2 MG/ml SYRG IV PRN (16:00)
[2023-06-15] MEDS ORDERED: DEXTROSE (50%) 50ML SYRG IV PRN (16:00)
[2023-06-15 16:12] LABS: Triglycerides 103 mg/dL (< 150)
[2023-06-15 16:13] LABS: LDL Cholesterol 91 mg/dL (< 100)
[2023-06-15 16:14] LABS: Cholesterol 144 mg/dL (< 200); HDL Cholesterol 40 mg/dL (40-59)
[2023-06-15 16:29] LABS: INR 1.17 (0.9-1.15); Partial Thromboplastin Time 28.2 SEC (24.5-34.5); Prothrombin Time 12.2 sec (9.3-11.8)
[2023-06-15 16:45] VITALS: PULSE 93; RESP 93; O2SAT 94
[2023-06-15] MEDS: InsuLIN REG 1unit/0.01ml Soln (100units/ml) SC SCH ×2 (17:00→22:31)
[2023-06-15] MEDS: ACCU-CHEK COMFORT CURVE STRIP VI SCH ×2 (17:18→22:31)
[2023-06-15] MEDS: ACETAMINOPHEN 325 MG TAB PO PRN (18:43)
[2023-06-15 20:00] VITALS: PULSE 86; RESP 26; O2SAT 97
[2023-06-15] MEDS ORDERED: ATORVASTATIN 20 MG TAB PO SCH (22:00)
[2023-06-15] MEDS: SACUBITRIL-VALSARTAN 24mg/26mg TAB PO SCH (22:30)
[2023-06-15] MEDS: CLOPIDOGREL BISULFATE 75 MG TAB PO SCH (22:30)
[2023-06-15] MEDS: CARVEDILOL 3.125 MG TAB PO SCH (22:31)
[2023-06-15 23:32] LABS: INR 1.23 (0.9-1.15); Partial Thromboplastin Time 47.5 SEC (24.5-34.5); Prothrombin Time 12.7 sec (9.3-11.8)
[2023-06-16] MEDS ORDERED: HEPARIN DRIP/D5W 100UNITS/ML 250 ML IV SCH (00:15)
[2023-06-16] MEDS: ACETAMINOPHEN 325 MG TAB PO PRN (01:42)
[2023-06-16 05:29] LABS: INR 1.24 (0.9-1.15); Partial Thromboplastin Time 54.1 SEC (24.5-34.5); Prothrombin Time 12.8 sec (9.3-11.8)
[2023-06-16 05:36] LABS: Alanine Aminotransferase 22 U/L (7-40); Albumin 3.2 g/dL (3.2-4.8); Alkaline Phosphatase 65 U/L (46-116); Anion Gap 8 (5-15); Aspartate Aminotransferase 31 U/L (13-40); Bilirubin, Total 0.7 mg/dL (0.2-1.0); Blood Urea Nitrogen 17 mg/dL (9-23); Calcium 8.2 mg/dL (8.5-10.1); Carbon Dioxide 23 mmol/L (20-30); Chloride 108 mmol/L (98-107); Glucose 160 mg/dL (74-106); Potassium 4.2 mmol/L (3.5-5.1); Sodium 139 mmol/L (136-145); Total Protein 5.8 g/dL (5.7-8.2)
[2023-06-16 06:41] LABS: Amphetamine Screen, Urine Pos (NEGATIVE)
[2023-06-16 06:42] LABS: Barbiturate Scree,Urine Neg (NEGATIVE); Benzodiazephine Screen, Urine Neg (NEGATIVE); Cannabinoid Screen, Urine Neg (NEGATIVE); Cocaine Screen, Urine Neg (NEGATIVE); Opiate Scree,Urine Neg (NEGATIVE); Phencyclidine Screen, Urine Neg (NEGATIVE)
[2023-06-16 06:45] LABS: Urine Bacteria NONE SEEN /hpf (None Seen); Urine Blood Negative /uL (Negative); Urine Clarity Clear (Clear); Urine Color Yellow (Yellow); Urine Mucus FEW (None Seen); Urine Protein, UAD 2+ (Negative); Urine Specific Gravity 1.026 (1.001-1.035); Urine Urobilinogen Normal (Negative); Urine WBC 2 /hpf (0 - 3)
[2023-06-16] MEDS ORDERED: EMPAGLIFLOZIN 10 MG TAB PO SCH (07:00)
[2023-06-16] MEDS: InsuLIN REG 1unit/0.01ml Soln (100units/ml) SC SCH ×2 (07:00→11:30)
[2023-06-16] MEDS: ACCU-CHEK COMFORT CURVE STRIP VI SCH ×2 (07:08→11:30)
[2023-06-16 07:30] VITALS: PULSE 74; RESP 21; O2SAT 100
[2023-06-16 08:42] LABS: COVID19 ANTIGEN SOFIA FIA NEGATIVE (NEGATIVE)
[2023-06-16] MEDS ORDERED: ASPirin-EC 81 mg tab PO SCH (10:00)
[2023-06-16] MEDS ORDERED: SPIRONOLACTONE 25 MG TAB PO SCH (10:00)
[2023-06-16] MEDS ORDERED: FUROSEMIDE 20 MG/2 ML VIAL IV SCH (10:00)
[2023-06-16] MEDS ORDERED: FUROSEMIDE 40 MG/4 ML VIAL IV SCH (10:00)
[2023-06-16 10:33] VITALS: PULSE 75; RESP 17; O2SAT 94
[2023-06-16 11:18] LABS: Basophils # (auto) 0 10 ^3/uL (0-0.2); Basophils % (auto) 0.6 % (0.0-2.0); Eosinophils # (auto) 0.2 10 ^3/uL (0-0.8); Eosinophils % (auto) 3.5 % (0.0-7.0); Hematocrit 46.3 % (41.0-53.0); Hemoglobin 15.6 g/dL (13.5-17.5); Lymphocytes # (auto) 1.5 10 ^3/uL (0.4-5.4); Lymphocytes % (auto) 22.9 % (10.0-50.0); Mean Corpuscular Hemoglobin 31.6 pg (28.0-32.0); Mean Corpuscular Hgb Conc. 33.8 g/dL (32.0-36.0); Mean Corpuscular Volume 93.4 fL (80.0-100.0); Monocytes # (auto) 0.6 10 ^3/uL (0-1.3); Monocytes % (auto) 9.3 % (0.0-12.0); Neutrophils # (auto) 4.3 10 ^3/uL (1.6-8.6); Neutrophils % (auto) 63.7 % (37.0-80.0); Nucleated Red Blood Cells % 0.1 %; Red Blood Cells 4.95 10^6/uL (4.5-5.90); Red Cell Distribution Width 14.3 % (11.8-14.3); White Blood Cell 6.7 10^3/uL (4.4-10.8)
[2023-06-16] MEDS: SACUBITRIL-VALSARTAN 24mg/26mg TAB PO SCH (11:25)
[2023-06-16] MEDS: CARVEDILOL 3.125 MG TAB PO SCH (11:27)
[2023-06-16] MEDS: CLOPIDOGREL BISULFATE 75 MG TAB PO SCH (11:28)
[2023-06-16 11:43] LABS: INR 1.11 (0.9-1.15); Partial Thromboplastin Time 63.2 SEC (24.5-34.5); Prothrombin Time 11.6 sec (9.3-11.8)
[2023-06-16 13:00] VITALS: BP 125/80; PULSE 75; RESP 17; TEMP 97.1; O2SAT 93
== END 2023-06-16 14:10 | disposition left against medical advice (07) | DRG 194 ==
LOC: ER 12:48 → TELE 15:51 → TELE-WESTW 06-16 10:25
PROVIDERS: ADMIT Nurse Practitioner Family; ATTEND Family Medicine
DX: I11.0 Hypertensive heart disease with heart failure (principal); I21.A1 Myocardial infarction type 2; I42.0 Dilated cardiomyopathy; I25.10 Atherosclerotic heart disease of native coronary artery without angina pectoris; I50.23 Acute on chronic systolic (congestive) heart failure; E78.5 Hyperlipidemia, unspecified; F15.10 Other stimulant abuse, uncomplicated; Z20.822 Contact with and (suspected) exposure to COVID-19; Z83.3 Family history of diabetes mellitus; Z98.61 Coronary angioplasty status; Z53.29 Procedure and treatment not carried out because of patient's decision for other reasons; Z91.199 Patient's noncompliance with other medical treatment and regimen due to unspecified reason; Z91.148 Patient's other noncompliance with medication regimen for other reason; I25.2 Old myocardial infarction
CPT/HCPCS: 36415; 71045; 80053; 80061; 80307; 81001; 82962; 83036; 83735; 83880; 84443; 84484; 85025; 85379; 85610; 85730; 87081; 87426; 93005; 93970; 99291; G0378; J1815

== ENCOUNTER 2023-11-13 16:41 | Inpatient (IN) | payer MEDICAID, OTHER ==
[~2023-11-13] VITALS: Ht 167.6 cm; Wt 75.5 kg
[~2023-11-13 16:41] MED LIST changes: -CAR3125T PO; +CARV-214 PO
[2023-11-13 17:45] LABS: Basophils # (auto) 0.1 10 ^3/uL (0-0.2); Basophils % (auto) 0.9 % (0.0-2.0); Eosinophils # (auto) 0.2 10 ^3/uL (0-0.8); Eosinophils % (auto) 2.5 % (0.0-7.0); Hemoglobin 16.9 g/dL (13.5-17.5); Lymphocytes # (auto) 1.5 10 ^3/uL (0.4-5.4); Lymphocytes % (auto) 22.9 % (10.0-50.0); Mean Corpuscular Hemoglobin 31.4 pg (28.0-32.0); Mean Corpuscular Hgb Conc. 33.7 g/dL (32.0-36.0); Mean Corpuscular Volume 93.1 fL (80.0-100.0); Monocytes # (auto) 0.5 10 ^3/uL (0-1.3); Monocytes % (auto) 8.2 % (0.0-12.0); Neutrophils # (auto) 4.4 10 ^3/uL (1.6-8.6); Neutrophils % (auto) 65.5 % (37.0-80.0); Nucleated Red Blood Cells % 0.2 %; Red Blood Cells 5.38 10^6/uL (4.5-5.90); Red Cell Distribution Width 13.7 % (11.8-14.3); White Blood Cell 6.7 10^3/uL (4.4-10.8)
[2023-11-13 17:52] LABS: Alanine Aminotransferase 33 U/L (7-40); Albumin 3.9 g/dL (3.2-4.8); Alkaline Phosphatase 97 U/L (46-116); Anion Gap 3 (5-15); Aspartate Aminotransferase 31 U/L (13-40); BUN/Creatinine Ratio 14.5 (10.0-20.0); Blood Urea Nitrogen 18 mg/dL (9-23); Carbon Dioxide 28 mmol/L (20-30); Chloride 105 mmol/L (98-107); Glucose 201 mg/dL (74-106); Potassium 4.6 mmol/L (3.5-5.1); Sodium 136 mmol/L (136-145)
[2023-11-13 17:53] LABS: Bilirubin, Total 0.7 mg/dL (0.2-1.0)
[2023-11-13 18:02] LABS: INR 1.06 (0.9-1.15); Partial Thromboplastin Time 26.4 SEC (24.5-34.5); Prothrombin Time 11.2 sec (9.3-11.8)
[2023-11-13] MEDS: ASPirin 325 MG TAB PO ONE (19:01)
[2023-11-13] MEDS: HEPARIN SODIUM (PORCINE) 5000 UNITS/ML 1ML VIAL IV ONE (19:16)
[2023-11-13 19:40] VITALS: PULSE 77; RESP 16; O2SAT 94
[2023-11-13] MEDS: HEPARIN DRIP/D5W 100UNITS/ML 250 ML IV SCH (19:50)
[2023-11-13] MEDS ORDERED: ONDANSETRON HCL 4 MG/2 ML VIAL IV PRN (21:45)
[2023-11-13] MEDS ORDERED: hydrALAZINE HCL 20 MG/ML VL IV PRN (21:45)
[2023-11-13] MEDS ORDERED: DEXTROSE (50%) 50ML SYRG IV PRN (21:45)
[2023-11-13] MEDS ORDERED: DOCUSATE SOD 100 MG CAP PO PRN (21:45)
[2023-11-13] MEDS ORDERED: ACETAMINOPHEN 325 MG TAB PO PRN (21:45)
[2023-11-13] MEDS: ACCU-CHEK COMFORT CURVE STRIP VI SCH (22:00)
[2023-11-13] MEDS: SODIUM CHLOR 0.9% PF (SALINE LOCK) 10ML VIAL/SYR IV SCH (22:00)
[2023-11-13] MEDS: InsuLIN REG 1unit/0.01ml Soln (100units/ml) SC SCH (23:06)
[2023-11-13] MEDS: FUROSEMIDE 40 MG/4 ML VIAL IV ONE (23:07)
[2023-11-13] MEDS: ATORVASTATIN 20 MG TAB PO SCH (23:07)
[2023-11-13] MEDS: CARVEDILOL 3.125 MG TAB PO SCH (23:07)
[2023-11-13] MEDS: ALBUTEROL SULF 2.5 MG/0.5ML(0.5%) NEB SOLN NEB ONE (23:41)
[2023-11-13] MEDS: IPRATROPIUM BROM 0.5 MG/2.5ML INH SOL NEB ONE (23:41)
[2023-11-14] VITALS (9 sets, daily range): BP systolic 108–135; BP diastolic 69–96; PULSE 68–80; RESP 15–20; TEMP 97.3–98.3; O2SAT 96–99
[2023-11-14] MEDS: MELATONIN 5 MG TAB PO ONE ×2 (00:13→21:47)
[2023-11-14 02:22] LABS: Basophils # (auto) 0 10 ^3/uL (0-0.2); Basophils % (auto) 0.6 % (0.0-2.0); Eosinophils # (auto) 0.2 10 ^3/uL (0-0.8); Eosinophils % (auto) 2.8 % (0.0-7.0); Hematocrit 49.8 % (41.0-53.0); Hemoglobin 16.9 g/dL (13.5-17.5); Lymphocytes # (auto) 1.7 10 ^3/uL (0.4-5.4); Lymphocytes % (auto) 27.6 % (10.0-50.0); Mean Corpuscular Hemoglobin 31.6 pg (28.0-32.0); Mean Corpuscular Volume 92.8 fL (80.0-100.0); Monocytes # (auto) 0.5 10 ^3/uL (0-1.3); Monocytes % (auto) 8.2 % (0.0-12.0); Neutrophils # (auto) 3.8 10 ^3/uL (1.6-8.6); Neutrophils % (auto) 60.8 % (37.0-80.0); Nucleated Red Blood Cells % 0.2 %; Red Blood Cells 5.36 10^6/uL (4.5-5.90); Red Cell Distribution Width 13.8 % (11.8-14.3); White Blood Cell 6.3 10^3/uL (4.4-10.8)
[2023-11-14 02:38] LABS: Alanine Aminotransferase 31 U/L (7-40); Albumin 3.8 g/dL (3.2-4.8); Alkaline Phosphatase 71 U/L (46-116); Anion Gap 6 (5-15); Aspartate Aminotransferase 27 U/L (13-40); BUN/Creatinine Ratio 18.3 (10.0-20.0); Blood Urea Nitrogen 20 mg/dL (9-23); Calcium 9.1 mg/dL (8.7-10.4); Carbon Dioxide 25 mmol/L (20-30); Chloride 106 mmol/L (98-107); Glucose 135 mg/dL (74-106); Sodium 137 mmol/L (136-145)
[2023-11-14 02:39] LABS: Bilirubin, Total 0.9 mg/dL (0.2-1.0); Total Protein 7.1 g/dL (5.7-8.2)
[2023-11-14] MEDS: HYDROcodone-ACET 5/325MG TAB PO PRN (02:55)
[2023-11-14] MEDS: HEPARIN DRIP/D5W 100UNITS/ML 250 ML IV SCH (03:19)
[2023-11-14] MEDS: NITROGLYCERIN 0.4 MG SL TAB SL PRN (04:06)
[2023-11-14] MEDS: MORPHINE SULFATE INJ 2 MG/ml SYRG IV PRN (04:25)
[2023-11-14 04:38] LABS: Urine Bacteria None Seen /hpf (None Seen)
[2023-11-14 04:48] LABS: Urine Blood Negative /uL (Negative); Urine Clarity Clear (Clear); Urine Color Light-Yellow (Yellow); Urine Protein, UAD 1+ (Negative); Urine Specific Gravity 1.009 (1.001-1.035); Urine Urobilinogen Normal (Negative); Urine WBC <1 /hpf (0 - 3)
[2023-11-14] MEDS: InsuLIN REG 1unit/0.01ml Soln (100units/ml) SC SCH (06:03)
[2023-11-14] MEDS: ASPirin 81 mg TAB PO SCH (10:37)
[2023-11-14] MEDS: FUROSEMIDE 40 MG/4 ML VIAL IV SCH (10:38)
[2023-11-14 11:21] LABS: INR 1.13 (0.9-1.15); Partial Thromboplastin Time 62.5 SEC (24.5-34.5); Prothrombin Time 11.9 sec (9.3-11.8)
[2023-11-14 14:00] LABS: Amphetamine Screen, Urine Pos (NEGATIVE); Barbiturate Scree,Urine Neg (NEGATIVE); Benzodiazephine Screen, Urine Neg (NEGATIVE); Cocaine Screen, Urine Neg (NEGATIVE); Opiate Scree,Urine Neg (NEGATIVE)
[2023-11-14 14:01] LABS: Cannabinoid Screen, Urine Neg (NEGATIVE); Phencyclidine Screen, Urine Neg (NEGATIVE)
[2023-11-14 17:12] LABS: INR 1.16 (0.9-1.15); Partial Thromboplastin Time 63.9 SEC (24.5-34.5); Prothrombin Time 12.2 sec (9.3-11.8)
[2023-11-14 22:08] LABS: INR 1.13 (0.9-1.15); Partial Thromboplastin Time 53.1 SEC (24.5-34.5); Prothrombin Time 11.9 sec (9.3-11.8)
[2023-11-15 01:00] VITALS: BP 112/88; PULSE 69; RESP 20; TEMP 98.3; O2SAT 99
[2023-11-15 04:11] LABS: INR 1.18 (0.9-1.15); Prothrombin Time 12.4 sec (9.3-11.8)
[2023-11-15 05:00] VITALS: BP 112/75; PULSE 59; RESP 18; TEMP 97.9; O2SAT 99
[2023-11-15 08:00] VITALS: BP 117/88; PULSE 51; PULSE 79; PULSE 84; RESP 16; RESP 18; TEMP 97.8; O2SAT 94; O2SAT 97
[2023-11-15 08:16] LABS: INR 1.15 (0.9-1.15); Prothrombin Time 12.1 sec (9.3-11.8)
[2023-11-15 08:28] LABS: Partial Thromboplastin Time 70.9 SEC (24.5-34.5)
[2023-11-15 09:11] LABS: Basophils # (auto) 0.1 10 ^3/uL (0-0.2); Basophils % (auto) 0.7 % (0.0-2.0); Eosinophils # (auto) 0.2 10 ^3/uL (0-0.8); Eosinophils % (auto) 2.4 % (0.0-7.0); Hematocrit 51.1 % (41.0-53.0); Hemoglobin 17.2 g/dL (13.5-17.5); Lymphocytes # (auto) 1.5 10 ^3/uL (0.4-5.4); Lymphocytes % (auto) 16.9 % (10.0-50.0); Mean Corpuscular Hemoglobin 30.9 pg (28.0-32.0); Mean Corpuscular Hgb Conc. 33.6 g/dL (32.0-36.0); Mean Corpuscular Volume 91.9 fL (80.0-100.0); Monocytes # (auto) 0.7 10 ^3/uL (0-1.3); Monocytes % (auto) 8.1 % (0.0-12.0); Neutrophils # (auto) 6.5 10 ^3/uL (1.6-8.6); Neutrophils % (auto) 71.9 % (37.0-80.0); Nucleated Red Blood Cells % 0.1 %; Red Blood Cells 5.56 10^6/uL (4.5-5.90); Red Cell Distribution Width 13.8 % (11.8-14.3)
[2023-11-15 12:00] VITALS: BP 117/81; PULSE 85; RESP 16; TEMP 97.8; O2SAT 95
[2023-11-15 16:00] VITALS: BP 126/57; PULSE 75; RESP 18; TEMP 97.8; O2SAT 98
[2023-11-15 20:00] VITALS: BP 122/67; PULSE 61; PULSE 72; RESP 16; RESP 20; TEMP 98.4; O2SAT 98
[2023-11-15] MEDS: HEPARIN DRIP/D5W 100UNITS/ML 250 ML IV SCH (20:00)
[2023-11-15 20:03] LABS: Basophils # (auto) 0 10 ^3/uL (0-0.2); Basophils % (auto) 0.6 % (0.0-2.0); Eosinophils # (auto) 0.2 10 ^3/uL (0-0.8); Eosinophils % (auto) 3.1 % (0.0-7.0); Hematocrit 50.1 % (41.0-53.0); Hemoglobin 16.8 g/dL (13.5-17.5); Lymphocytes # (auto) 1.3 10 ^3/uL (0.4-5.4); Lymphocytes % (auto) 16.7 % (10.0-50.0); Mean Corpuscular Hemoglobin 30.8 pg (28.0-32.0); Mean Corpuscular Hgb Conc. 33.5 g/dL (32.0-36.0); Mean Corpuscular Volume 91.8 fL (80.0-100.0); Monocytes # (auto) 0.6 10 ^3/uL (0-1.3); Monocytes % (auto) 8.4 % (0.0-12.0); Neutrophils # (auto) 5.4 10 ^3/uL (1.6-8.6); Neutrophils % (auto) 71.2 % (37.0-80.0); Nucleated Red Blood Cells % 0.1 %; Red Blood Cells 5.46 10^6/uL (4.5-5.90); Red Cell Distribution Width 13.5 % (11.8-14.3); White Blood Cell 7.6 10^3/uL (4.4-10.8)
[2023-11-15 20:26] LABS: INR 1.16 (0.9-1.15); Partial Thromboplastin Time 60.1 SEC (24.5-34.5); Prothrombin Time 12.2 sec (9.3-11.8)
[2023-11-16] VITALS (8 sets, daily range): BP systolic 106–124; BP diastolic 76–88; PULSE 61–76; RESP 16–20; TEMP 96.7–98.7; O2SAT 95–99
[2023-11-16 06:50] LABS: INR 1.15 (0.9-1.15); Partial Thromboplastin Time 62.4 SEC (24.5-34.5); Prothrombin Time 12.1 sec (9.3-11.8)
[2023-11-16 09:23] LABS: Basophils # (auto) 0 10 ^3/uL (0-0.2); Basophils % (auto) 0.6 % (0.0-2.0); Eosinophils # (auto) 0.2 10 ^3/uL (0-0.8); Hematocrit 51.4 % (41.0-53.0); Hemoglobin 17.3 g/dL (13.5-17.5); Lymphocytes # (auto) 1.5 10 ^3/uL (0.4-5.4); Lymphocytes % (auto) 19.9 % (10.0-50.0); Mean Corpuscular Hemoglobin 30.9 pg (28.0-32.0); Mean Corpuscular Hgb Conc. 33.7 g/dL (32.0-36.0); Mean Corpuscular Volume 91.6 fL (80.0-100.0); Monocytes # (auto) 0.8 10 ^3/uL (0-1.3); Monocytes % (auto) 10.8 % (0.0-12.0); Neutrophils # (auto) 4.9 10 ^3/uL (1.6-8.6); Neutrophils % (auto) 65.7 % (37.0-80.0); Nucleated Red Blood Cells % 0.3 %; Red Blood Cells 5.61 10^6/uL (4.5-5.90); White Blood Cell 7.5 10^3/uL (4.4-10.8)
[2023-11-16 11:43] LABS: INR 1.13 (0.9-1.15); Partial Thromboplastin Time 65.3 SEC (24.5-34.5); Prothrombin Time 11.9 sec (9.3-11.8)
[2023-11-16] MEDS: TEMAZEPAM 15 MG CAP PO ONE (23:27)
[2023-11-17 05:00] VITALS: BP 118/85; PULSE 69; RESP 17; TEMP 98.6; O2SAT 91
[2023-11-17 06:03] LABS: Basophils # (auto) 0 10 ^3/uL (0-0.2); Basophils % (auto) 0.6 % (0.0-2.0); Eosinophils # (auto) 0.2 10 ^3/uL (0-0.8); Eosinophils % (auto) 3.2 % (0.0-7.0); Hematocrit 52.7 % (41.0-53.0); Lymphocytes # (auto) 1.6 10 ^3/uL (0.4-5.4); Lymphocytes % (auto) 22.5 % (10.0-50.0); Mean Corpuscular Hemoglobin 31.3 pg (28.0-32.0); Mean Corpuscular Hgb Conc. 34.1 g/dL (32.0-36.0); Mean Corpuscular Volume 91.7 fL (80.0-100.0); Monocytes # (auto) 0.8 10 ^3/uL (0-1.3); Monocytes % (auto) 11.4 % (0.0-12.0); Neutrophils # (auto) 4.5 10 ^3/uL (1.6-8.6); Neutrophils % (auto) 62.3 % (37.0-80.0); Nucleated Red Blood Cells % 0.2 %; Red Blood Cells 5.75 10^6/uL (4.5-5.90); Red Cell Distribution Width 13.8 % (11.8-14.3); White Blood Cell 7.3 10^3/uL (4.4-10.8)
[2023-11-17 06:13] LABS: INR 1.15 (0.9-1.15); Partial Thromboplastin Time 65.1 SEC (24.5-34.5); Prothrombin Time 12.1 sec (9.3-11.8)
[2023-11-17 08:00] VITALS: BP 127/90; PULSE 64; PULSE 73; RESP 22; TEMP 98.6; O2SAT 97
[2023-11-17] MEDS ORDERED: ASPI-498 PO (09:50)
[2023-11-17] MEDS ORDERED: FURO1TAB31 PO (09:50)
[2023-11-17] MEDS ORDERED: CARV6.2517 PO (09:50)
[2023-11-17] MEDS ORDERED: ATOR-507 PO (09:50)
[2023-11-17] MEDS ORDERED: POTA-36 PO (09:50)
== END 2023-11-17 11:00 | disposition home or self-care (01) | DRG 190 ==
LOC: ER 16:41 → TELE 23:50 → TELE-CENTR 23:50
PROVIDERS: ADMIT Nurse Practitioner Family; ATTEND Family Medicine
DX: I21.4 Non-ST elevation (NSTEMI) myocardial infarction (principal); I50.23 Acute on chronic systolic (congestive) heart failure; I27.20 Pulmonary hypertension, unspecified; I42.0 Dilated cardiomyopathy; E11.65 Type 2 diabetes mellitus with hyperglycemia; I11.0 Hypertensive heart disease with heart failure; E78.00 Pure hypercholesterolemia, unspecified; F15.10 Other stimulant abuse, uncomplicated; I08.3 Combined rheumatic disorders of mitral, aortic and tricuspid valves; I50.82 Biventricular heart failure; Z87.891 Personal history of nicotine dependence; Z83.3 Family history of diabetes mellitus; Z95.5 Presence of coronary angioplasty implant and graft; Z82.0 Family history of epilepsy and other diseases of the nervous system; Z91.148 Patient's other noncompliance with medication regimen for other reason
CPT/HCPCS: 36415; 71045; 80053; 80307; 81001; 82962; 83880; 84484; 85025; 85379; 85610; 85730; 87081; 93005; 93306; 94640; 96365; 96375; 96376; 99291; G0378; J1815

== ENCOUNTER 2023-12-03 05:34 | Inpatient (IN) | payer OTHER ==
[~2023-12-03] VITALS: Ht 167.6 cm; Wt 105.0 kg
[~2023-12-03 05:34] MED LIST changes: +ASPI-498 PO; +ATOR-507 PO; +CARV6.2517 PO; +FURO1TAB31 PO; +POTA-36 PO
[2023-12-03 06:30] VITALS: PULSE 77; RESP 15; O2SAT 97
[2023-12-03 06:50] LABS: Basophils # (auto) 0.1 10 ^3/uL (0-0.2); Basophils % (auto) 0.9 % (0.0-2.0); Eosinophils # (auto) 0.2 10 ^3/uL (0-0.8); Eosinophils % (auto) 3.2 % (0.0-7.0); Hematocrit 49.7 % (41.0-53.0); Hemoglobin 16.8 g/dL (13.5-17.5); Lymphocytes # (auto) 1.6 10 ^3/uL (0.4-5.4); Lymphocytes % (auto) 24.5 % (10.0-50.0); Mean Corpuscular Hgb Conc. 33.7 g/dL (32.0-36.0); Mean Corpuscular Volume 91.9 fL (80.0-100.0); Monocytes # (auto) 0.6 10 ^3/uL (0-1.3); Monocytes % (auto) 9.5 % (0.0-12.0); Neutrophils % (auto) 61.9 % (37.0-80.0); Nucleated Red Blood Cells % 0.1 %; Red Blood Cells 5.41 10^6/uL (4.5-5.90); Red Cell Distribution Width 13.7 % (11.8-14.3); White Blood Cell 6.6 10^3/uL (4.4-10.8)
[2023-12-03 07:05] LABS: INR 1.03 (0.9-1.15); Partial Thromboplastin Time 26.2 SEC (24.5-34.5); Prothrombin Time 10.9 sec (9.3-11.8)
[2023-12-03 07:14] LABS: Alanine Aminotransferase 28 U/L (7-40); Albumin 3.8 g/dL (3.2-4.8); Alkaline Phosphatase 93 U/L (46-116); Anion Gap 6 (5-15); Aspartate Aminotransferase 28 U/L (13-40); BUN/Creatinine Ratio 20.5 (10.0-20.0); Bilirubin, Total 0.5 mg/dL (0.2-1.0); Blood Urea Nitrogen 17 mg/dL (9-23); Calcium 8.7 mg/dL (8.5-10.1); Carbon Dioxide 24 mmol/L (20-30); Chloride 109 mmol/L (98-107); Glucose 127 mg/dL (74-106); Potassium 4.7 mmol/L (3.5-5.1); Sodium 139 mmol/L (136-145); Total Protein 6.7 g/dL (5.7-8.2)
[2023-12-03 08:00] VITALS: PULSE 90; RESP 25; O2SAT 95
[2023-12-03] MEDS: ASPirin 81 mg TAB PO ONE (08:02)
[2023-12-03] MEDS: ACETAMINOPHEN 325 MG TAB PO ONE (08:02)
[2023-12-03] MEDS: FUROSEMIDE 40 MG/4 ML VIAL IV ONE (09:27)
[2023-12-03] MEDS: ASPirin-EC 81 mg tab PO SCH (10:00)
[2023-12-03] MEDS: SPIRONOLACTONE 25 MG TAB PO SCH (10:00)
[2023-12-03] MEDS ORDERED: PATIENTS OWN MEDICATION (Carvedilol (Coreg) 1 TAB) PO SCH (10:00)
[2023-12-03] MEDS: PATIENTS OWN MEDICATION (Lisinopril 10 MG) PO SCH (10:00)
[2023-12-03] MEDS ORDERED: NITROGLYCERIN 0.4 MG SL TAB SL PRN ×2 (10:00)
[2023-12-03] MEDS ORDERED: MORPHINE SULFATE INJ 2 MG/ml SYRG IV PRN (10:00)
[2023-12-03] MEDS: CLOPIDOGREL BISULFATE 75 MG TAB PO SCH (10:33)
[2023-12-03] MEDS: DOCUSATE SOD 100 MG CAP PO SCH (10:33)
[2023-12-03] MEDS: CARVEDILOL 3.125 MG TAB PO SCH (10:34)
[2023-12-03] MEDS: SACUBITRIL-VALSARTAN 24mg/26mg TAB PO SCH (10:34)
[2023-12-03] MEDS: MORPHINE SULFATE 4 MG/ML SYR/VIAL IV PRN (10:35)
[2023-12-03 10:42] LABS: INR 1.07 (0.9-1.15); Prothrombin Time 11.3 sec (9.3-11.8)
[2023-12-03 14:16] VITALS: BP 123/93; PULSE 65; RESP 16; TEMP 98.2; O2SAT 95
[2023-12-03] MEDS ORDERED: ENOXAPARIN SOD 60 MG/0.6 ML SYRINGE SC SCH (16:00)
[2023-12-03 17:00] VITALS: BP 129/86; PULSE 67; RESP 18; TEMP 97.7; O2SAT 98
[2023-12-03] MEDS: FUROSEMIDE 40 MG/4 ML VIAL IV SCH (17:30)
[2023-12-03] MEDS: ENOXAPARIN SOD 60 MG/0.6 ML SYRINGE SC SCH (17:30)
[2023-12-03] MEDS: MORPHINE SULFATE INJ 2 MG/ml SYRG IV PRN (18:34)
[2023-12-03 20:00] VITALS: PULSE 70; RESP 20; O2SAT 96
[2023-12-03 21:00] VITALS: BP 122/86; PULSE 73; RESP 20; TEMP 97.8; O2SAT 96
[2023-12-03 21:37] LABS: Urine Bacteria None Seen /hpf (None Seen); Urine WBC None Seen /hpf (0 - 3)
[2023-12-03 21:45] LABS: Urine Blood Negative /uL (Negative); Urine Clarity Clear (Clear); Urine Color Colorless (Yellow); Urine Protein, UAD TRACE (Negative); Urine Specific Gravity 1.007 (1.001-1.035); Urine Urobilinogen Normal (Negative)
[2023-12-03] MEDS: ACETAMINOPHEN 325 MG TAB PO PRN (21:53)
[2023-12-04] VITALS (9 sets, daily range): BP systolic 111–122; BP diastolic 63–86; PULSE 64–79; RESP 18–20; TEMP 97.6–98; O2SAT 91–98
[2023-12-04] MEDS: EMPAGLIFLOZIN 10 MG TAB PO SCH (05:43)
[2023-12-04 06:35] LABS: Basophils # (auto) 0 10 ^3/uL (0-0.2); Basophils % (auto) 0.5 % (0.0-2.0); Eosinophils # (auto) 0.2 10 ^3/uL (0-0.8); Lymphocytes % (auto) 16.2 % (10.0-50.0); Monocytes # (auto) 0.8 10 ^3/uL (0-1.3); Nucleated Red Blood Cells % 0.4 %
[2023-12-04 06:37] LABS: Eosinophils % (auto) 2.6 % (0.0-7.0); Hemoglobin 19.6 g/dL (13.5-17.5); Lymphocytes # (auto) 1.4 10 ^3/uL (0.4-5.4); Mean Corpuscular Hemoglobin 31.2 pg (28.0-32.0); Mean Corpuscular Hgb Conc. 33.9 g/dL (32.0-36.0); Monocytes % (auto) 8.7 % (0.0-12.0); Neutrophils # (auto) 6.4 10 ^3/uL (1.6-8.6); Red Blood Cells 6.29 10^6/uL (4.5-5.90); Red Cell Distribution Width 13.9 % (11.8-14.3); White Blood Cell 8.9 10^3/uL (4.4-10.8)
[2023-12-04 06:42] LABS: Alanine Aminotransferase 26 U/L (7-40); Albumin 3.9 g/dL (3.2-4.8); Alkaline Phosphatase 69 U/L (46-116); Anion Gap 8 (5-15); Aspartate Aminotransferase 25 U/L (13-40); BUN/Creatinine Ratio 16.2 (10.0-20.0); Bilirubin, Total 1.1 mg/dL (0.2-1.0); Blood Urea Nitrogen 16 mg/dL (9-23); Calcium 9.4 mg/dL (8.5-10.1); Carbon Dioxide 23 mmol/L (20-30); Chloride 104 mmol/L (98-107); Cholesterol 178 mg/dL (< 200); Glucose 122 mg/dL (74-106); HDL Cholesterol 54 mg/dL (40-59); LDL Cholesterol 121 mg/dL (< 100); Potassium 4.4 mmol/L (3.5-5.1); Sodium 135 mmol/L (136-145); Total Protein 7.4 g/dL (5.7-8.2); Triglycerides 106 mg/dL (< 150)
[2023-12-04 06:49] LABS: Hematocrit 57.8 % (41.0-53.0)
[2023-12-04 08:27] LABS: Phosphorus 5.3 mg/dL (2.4-5.1)
[2023-12-04] MEDS: ENOXAPARIN SOD 60 MG/0.6 ML SYRINGE SC SCH (09:19)
[2023-12-04] MEDS: ATORVASTATIN 20 MG TAB PO SCH (09:19)
[2023-12-04] MEDS: ENOXAPARIN SOD 40 MG/0.4 ML SYRINGE SC ONE (14:30)
[2023-12-04 15:43] LABS: Amphetamine Screen, Urine Neg (NEGATIVE); Barbiturate Scree,Urine Neg (NEGATIVE); Benzodiazephine Screen, Urine Neg (NEGATIVE); Cannabinoid Screen, Urine Neg (NEGATIVE); Cocaine Screen, Urine Neg (NEGATIVE); Opiate Scree,Urine Neg (NEGATIVE); Phencyclidine Screen, Urine Neg (NEGATIVE)
[2023-12-04] MEDS: IBUPROFEN 600 MG TAB PO PRN (22:14)
[2023-12-05] VITALS (8 sets, daily range): BP systolic 105–142; BP diastolic 73–90; PULSE 61–79; RESP 16–18; TEMP 98–98.7; O2SAT 93–100
[2023-12-05] MEDS: ONDANSETRON HCL 4 MG/2 ML VIAL IV PRN (05:45)
[2023-12-05 06:43] LABS: Basophils # (auto) 0 10 ^3/uL (0-0.2); Basophils % (auto) 0.5 % (0.0-2.0); Eosinophils # (auto) 0.2 10 ^3/uL (0-0.8); Eosinophils % (auto) 2.6 % (0.0-7.0); Hemoglobin 19.8 g/dL (13.5-17.5); Lymphocytes # (auto) 1.6 10 ^3/uL (0.4-5.4); Lymphocytes % (auto) 21.8 % (10.0-50.0); Mean Corpuscular Hemoglobin 31.5 pg (28.0-32.0); Mean Corpuscular Hgb Conc. 34.4 g/dL (32.0-36.0); Mean Corpuscular Volume 91.5 fL (80.0-100.0); Monocytes # (auto) 0.8 10 ^3/uL (0-1.3); Monocytes % (auto) 10.2 % (0.0-12.0); Neutrophils # (auto) 4.8 10 ^3/uL (1.6-8.6); Neutrophils % (auto) 64.9 % (37.0-80.0); Nucleated Red Blood Cells % 0.1 %; Red Blood Cells 6.28 10^6/uL (4.5-5.90); Red Cell Distribution Width 13.9 % (11.8-14.3); White Blood Cell 7.4 10^3/uL (4.4-10.8)
[2023-12-05 06:51] LABS: Hematocrit 57.5 % (41.0-53.0)
[2023-12-05 07:15] LABS: Alanine Aminotransferase 23 U/L (7-40); Alkaline Phosphatase 65 U/L (46-116); Anion Gap 8 (5-15); Blood Urea Nitrogen 24 mg/dL (9-23); Calcium 9.6 mg/dL (8.7-10.4); Carbon Dioxide 26 mmol/L (20-30); Chloride 102 mmol/L (98-107); Glucose 121 mg/dL (74-106); Potassium 4.3 mmol/L (3.5-5.1); Sodium 136 mmol/L (136-145)
[2023-12-05 07:16] LABS: Albumin 3.8 g/dL (3.2-4.8); Aspartate Aminotransferase 21 U/L (13-40)
[2023-12-05 07:17] LABS: Bilirubin, Total 0.8 mg/dL (0.2-1.0); Phosphorus 4.8 mg/dL (2.4-5.1); Total Protein 7.5 g/dL (5.7-8.2)
[2023-12-05] MEDS: ENOXAPARIN SOD 40 MG/0.4 ML SYRINGE SC SCH (09:37)
[2023-12-06 01:00] VITALS: BP 104/61; PULSE 64; RESP 17; TEMP 98; O2SAT 100
[2023-12-06 05:00] VITALS: BP 109/68; PULSE 93; RESP 18; TEMP 98.1; O2SAT 92
[2023-12-06 07:30] VITALS: PULSE 68
[2023-12-06 08:40] VITALS: BP 112/79; PULSE 67; RESP 17; TEMP 97.8; O2SAT 97
[2023-12-06] MEDS ORDERED: CARV-214 PO (12:21)
[2023-12-06] MEDS ORDERED: ACET-1882 PO (12:21)
[2023-12-06] MEDS ORDERED: LANC-636 XX (12:21)
[2023-12-06] MEDS ORDERED: BLOO1KIT60 XX (12:21)
[2023-12-06] MEDS ORDERED: METF500S3 PO (12:21)
[2023-12-06 12:35] VITALS: BP 105/79; PULSE 67; RESP 17; TEMP 98; O2SAT 95
[2023-12-06 13:48] VITALS: BP 105/79; PULSE 67; RESP 17; TEMP 98; O2SAT 95
[2023-12-06] MEDS ORDERED: FUROSEMIDE 20 MG TAB PO SCH (18:00)
== END 2023-12-06 15:16 | disposition home or self-care (01) | DRG 812 ==
LOC: ER 05:34 → TELE 09:55 → TELE-E-ADS 13:37
PROVIDERS: ADMIT Internal Medicine; ATTEND Internal Medicine
DX: T43.651A Poisoning by methamphetamines accidental (unintentional), initial encounter (principal); J96.00 Acute respiratory failure, unspecified whether with hypoxia or hypercapnia; I21.A1 Myocardial infarction type 2; I50.23 Acute on chronic systolic (congestive) heart failure; I11.0 Hypertensive heart disease with heart failure; I27.20 Pulmonary hypertension, unspecified; I42.7 Cardiomyopathy due to drug and external agent; E78.00 Pure hypercholesterolemia, unspecified; F12.90 Cannabis use, unspecified, uncomplicated; F17.210 Nicotine dependence, cigarettes, uncomplicated; I25.10 Atherosclerotic heart disease of native coronary artery without angina pectoris; E11.9 Type 2 diabetes mellitus without complications; Z83.3 Family history of diabetes mellitus; Z79.4 Long term (current) use of insulin; Z79.899 Other long term (current) drug therapy; Z95.5 Presence of coronary angioplasty implant and graft; Z82.0 Family history of epilepsy and other diseases of the nervous system; Y92.89 Other specified places as the place of occurrence of the external cause
CPT/HCPCS: 36415; 71045; 80053; 80061; 80307; 81001; 82306; 82607; 83036; 83735; 83880; 84100; 84443; 84484; 85025; 85379; 85610; 85730; 93005; G0378; J2405

== ENCOUNTER 2024-01-14 14:57 | Inpatient (IN) | payer OTHER ==
[~2024-01-14] VITALS: Ht 167.6 cm; Wt 72.0 kg
[~2024-01-14 14:57] MED LIST changes: +ACET-1882 PO; -ATOR-507 PO; +BLOO1KIT60 XX; -CARV6.2517 PO; -FURO40TA4 PO; +LANC-636 XX; -LISI10TA34 PO; +METF500S3 PO; -POTA-36 PO; -[UNRECOGNIZED DRUG - CODE] PO
[2024-01-14 15:36] LABS: Basophils # (auto) 0 10 ^3/uL (0-0.2); Basophils % (auto) 0.6 % (0.0-2.0); Eosinophils # (auto) 0.2 10 ^3/uL (0-0.8); Eosinophils % (auto) 3.7 % (0.0-7.0); Hematocrit 47.9 % (41.0-53.0); Hemoglobin 16.1 g/dL (13.5-17.5); Lymphocytes # (auto) 1.4 10 ^3/uL (0.4-5.4); Lymphocytes % (auto) 23.1 % (10.0-50.0); Mean Corpuscular Hemoglobin 30.8 pg (28.0-32.0); Mean Corpuscular Hgb Conc. 33.6 g/dL (32.0-36.0); Mean Corpuscular Volume 91.7 fL (80.0-100.0); Monocytes # (auto) 0.7 10 ^3/uL (0-1.3); Monocytes % (auto) 10.5 % (0.0-12.0); Neutrophils # (auto) 3.9 10 ^3/uL (1.6-8.6); Neutrophils % (auto) 62.1 % (37.0-80.0); Nucleated Red Blood Cells % 0.1 %; Platelet Count (auto) 184 10^3/uL (140-450); Red Blood Cells 5.22 10^6/uL (4.5-5.90); White Blood Cell 6.2 10^3/uL (4.4-10.8)
[2024-01-14 15:50] LABS: Alanine Aminotransferase 27 U/L (7-40); Alkaline Phosphatase 98 U/L (46-116); Calcium 9.1 mg/dL (8.7-10.4); Carbon Dioxide 31 mmol/L (20-30); Chloride 110 mmol/L (98-107)
[2024-01-14 15:51] LABS: Albumin 3.7 g/dL (3.2-4.8); Anion Gap 2 (5-15); Aspartate Aminotransferase 29 U/L (13-40); BUN/Creatinine Ratio 21.1 (10.0-20.0); Bilirubin, Total 0.6 mg/dL (0.2-1.0); Blood Urea Nitrogen 19 mg/dL (9-23); Glucose 98 mg/dL (74-106); Potassium 4.4 mmol/L (3.5-5.1); Sodium 143 mmol/L (136-145); Total Protein 6.5 g/dL (5.7-8.2)
[2024-01-14] MEDS: ASPirin 325 MG TAB PO ONE (16:49)
[2024-01-14] MEDS: NITROGLYCERIN 0.4 MG SL TAB SL ONE (16:51)
[2024-01-14 17:25] VITALS: PULSE 78; RESP 14; O2SAT 97
[2024-01-14] MEDS: FUROSEMIDE 40 MG/4 ML VIAL IV ONE (18:02)
[2024-01-14 19:30] VITALS: PULSE 74; RESP 16; O2SAT 96
[2024-01-14 20:14] LABS: Urine Bacteria None Seen /hpf (None Seen)
[2024-01-14 20:23] LABS: Urine Blood Negative /uL (Negative); Urine Clarity Clear (Clear); Urine Color Colorless (Yellow); Urine Protein, UAD Negative (Negative); Urine Specific Gravity 1.006 (1.001-1.035); Urine Urobilinogen Normal (Negative); Urine WBC <1 /hpf (0 - 3)
[2024-01-14] MEDS ORDERED: DOCUSATE SOD 100 MG CAP PO PRN (21:15)
[2024-01-14] MEDS ORDERED: ACETAMINOPHEN 325 MG TAB PO PRN (21:15)
[2024-01-14] MEDS ORDERED: DEXTROSE (50%) 50ML SYRG IV PRN (21:15)
[2024-01-14] MEDS: InsuLIN REG 1unit/0.01ml Soln (100units/ml) SC SCH (22:00)
[2024-01-14] MEDS: ACCU-CHEK COMFORT CURVE STRIP VI SCH (22:20)
[2024-01-14] MEDS: SODIUM CHLOR 0.9% PF (SALINE LOCK) 10ML VIAL/SYR IV SCH (22:24)
[2024-01-14] MEDS: ATORVASTATIN 20 MG TAB PO SCH (22:24)
[2024-01-14] MEDS: HYDROcodone-ACET 5/325MG TAB PO PRN (23:22)
[2024-01-14] MEDS ORDERED: NITROGLYCERIN 0.4 MG SL TAB SL PRN (23:45)
[2024-01-15] VITALS (7 sets, daily range): BP systolic 121–135; BP diastolic 68–97; PULSE 56–79; RESP 16–22; TEMP 97.4–98.5; O2SAT 92–96
[2024-01-15] MEDS: MORPHINE SULFATE INJ 2 MG/ml SYRG IV PRN (00:08)
[2024-01-15] MEDS: ONDANSETRON HCL 4 MG/2 ML VIAL IV PRN (00:08)
[2024-01-15 05:46] LABS: Basophils # (auto) 0.1 10 ^3/uL (0-0.2); Basophils % (auto) 0.6 % (0.0-2.0); Eosinophils # (auto) 0.3 10 ^3/uL (0-0.8); Eosinophils % (auto) 3.3 % (0.0-7.0); Hematocrit 50.6 % (41.0-53.0); Hemoglobin 17.2 g/dL (13.5-17.5); Lymphocytes # (auto) 1.9 10 ^3/uL (0.4-5.4); Lymphocytes % (auto) 22.8 % (10.0-50.0); Mean Corpuscular Hemoglobin 31.1 pg (28.0-32.0); Mean Corpuscular Volume 91.4 fL (80.0-100.0); Monocytes # (auto) 0.7 10 ^3/uL (0-1.3); Monocytes % (auto) 8.7 % (0.0-12.0); Neutrophils # (auto) 5.5 10 ^3/uL (1.6-8.6); Neutrophils % (auto) 64.6 % (37.0-80.0); Nucleated Red Blood Cells % 0.2 %; Platelet Count (auto) 188 10^3/uL (140-450); Red Blood Cells 5.53 10^6/uL (4.5-5.90); Red Cell Distribution Width 14.2 % (11.8-14.3); White Blood Cell 8.5 10^3/uL (4.4-10.8)
[2024-01-15 06:17] LABS: Alanine Aminotransferase 25 U/L (7-40); Albumin 3.8 g/dL (3.2-4.8); Alkaline Phosphatase 82 U/L (46-116); Anion Gap 1 (5-15); Aspartate Aminotransferase 26 U/L (13-40); BUN/Creatinine Ratio 13.9 (10.0-20.0); Blood Urea Nitrogen 15 mg/dL (9-23); Calcium 9.3 mg/dL (8.7-10.4); Carbon Dioxide 29 mmol/L (20-30); Chloride 107 mmol/L (98-107); Glucose 120 mg/dL (74-106); Potassium 5.5 mmol/L (3.5-5.1); Sodium 137 mmol/L (136-145)
[2024-01-15 06:18] LABS: Bilirubin, Total 0.8 mg/dL (0.2-1.0)
[2024-01-15 06:19] LABS: Total Protein 6.9 g/dL (5.7-8.2)
[2024-01-15] MEDS: ASPirin 81 mg TAB PO SCH (10:34)
[2024-01-15] MEDS: CLOPIDOGREL BISULFATE 75 MG TAB PO SCH (10:34)
[2024-01-15] MEDS: FUROSEMIDE 40 MG/4 ML VIAL IV SCH ×2 (10:35→17:02)
[2024-01-15] MEDS: CARVEDILOL 3.125 MG TAB PO ONE (10:42)
[2024-01-15 11:08] LABS: Amphetamine Screen, Urine Neg (NEGATIVE)
[2024-01-15 11:09] LABS: Barbiturate Scree,Urine Neg (NEGATIVE); Benzodiazephine Screen, Urine Neg (NEGATIVE); Cannabinoid Screen, Urine Neg (NEGATIVE); Cocaine Screen, Urine Neg (NEGATIVE); Opiate Scree,Urine Neg (NEGATIVE); Phencyclidine Screen, Urine Neg (NEGATIVE)
[2024-01-15] MEDS: SACUBITRIL-VALSARTAN 24mg/26mg TAB PO SCH (23:08)
[2024-01-15] MEDS: CARVEDILOL 3.125 MG TAB PO SCH (23:09)
[2024-01-16 05:00] VITALS: BP 107/64; PULSE 52; RESP 18; TEMP 98; O2SAT 99
[2024-01-16 08:00] VITALS: BP 125/82; PULSE 61; PULSE 67; PULSE 73; RESP 16; RESP 18; TEMP 97.2; O2SAT 95; O2SAT 97
[2024-01-16] MEDS: EMPAGLIFLOZIN 10 MG TAB PO SCH (11:31)
[2024-01-16 13:09] VITALS: BP 117/84; PULSE 67; RESP 18; TEMP 97.9; O2SAT 95
== END 2024-01-16 14:25 | disposition home or self-care (01) | DRG 194 ==
LOC: ER 14:57 → TELE-EAST 23:46 → TELE 23:46 → TELE-EAST 01-15 02:40
PROVIDERS: ADMIT Nurse Practitioner Family; ATTEND Family Medicine
DX: I11.0 Hypertensive heart disease with heart failure (principal); I21.A1 Myocardial infarction type 2; I27.20 Pulmonary hypertension, unspecified; T43.621A Poisoning by amphetamines, accidental (unintentional), initial encounter; I50.23 Acute on chronic systolic (congestive) heart failure; I42.0 Dilated cardiomyopathy; E11.9 Type 2 diabetes mellitus without complications; F15.10 Other stimulant abuse, uncomplicated; I25.10 Atherosclerotic heart disease of native coronary artery without angina pectoris; I36.1 Nonrheumatic tricuspid (valve) insufficiency; E87.5 Hyperkalemia; E78.00 Pure hypercholesterolemia, unspecified; Z79.1 Long term (current) use of non-steroidal anti-inflammatories (NSAID); Z79.899 Other long term (current) drug therapy; Z79.82 Long term (current) use of aspirin; Z79.4 Long term (current) use of insulin; Z86.711 Personal history of pulmonary embolism; Z82.0 Family history of epilepsy and other diseases of the nervous system; Z83.3 Family history of diabetes mellitus; Z91.199 Patient's noncompliance with other medical treatment and regimen due to unspecified reason; Z91.148 Patient's other noncompliance with medication regimen for other reason; Z87.891 Personal history of nicotine dependence; Z98.61 Coronary angioplasty status; Y92.89 Other specified places as the place of occurrence of the external cause
CPT/HCPCS: 36415; 71045; 80053; 80307; 81001; 82962; 83880; 84484; 85025; 93005; 93971; 99291; G0378; J1815; J2405

== ENCOUNTER 2024-03-02 06:14 | Inpatient (IN) | payer OTHER ==
[~2024-03-02] VITALS: Ht 167.6 cm; Wt 72.5 kg
[2024-03-02] MEDS: ASPirin 81 mg TAB PO ONE (08:15)
[2024-03-02] MEDS: SODIUM CHLORIDE 0.9% 1,000 ML IV ONE (08:15)
[2024-03-02 08:54] LABS: Basophils # (auto) 0 10 ^3/uL (0-0.2); Basophils % (auto) 0.5 % (0.0-2.0); Eosinophils # (auto) 0.1 10 ^3/uL (0-0.8); Eosinophils % (auto) 1.4 % (0.0-7.0); Hemoglobin 18.5 g/dL (13.5-17.5); Lymphocytes # (auto) 1.5 10 ^3/uL (0.4-5.4); Lymphocytes % (auto) 16.1 % (10.0-50.0); Mean Corpuscular Hemoglobin 32.8 pg (28.0-32.0); Mean Corpuscular Hgb Conc. 35.7 g/dL (32.0-36.0); Mean Corpuscular Volume 91.8 fL (80.0-100.0); Monocytes # (auto) 0.8 10 ^3/uL (0-1.3); Monocytes % (auto) 8.6 % (0.0-12.0); Neutrophils # (auto) 6.9 10 ^3/uL (1.6-8.6); Neutrophils % (auto) 73.4 % (37.0-80.0); Nucleated Red Blood Cells % 0.1 %; Platelet Count (auto) 197 10^3/uL (140-450); Red Blood Cells 5.66 10^6/uL (4.5-5.90); Red Cell Distribution Width 14.2 % (11.8-14.3); White Blood Cell 9.4 10^3/uL (4.4-10.8)
[2024-03-02 09:05] LABS: Alanine Aminotransferase 32 U/L (7-40); Albumin 4.4 g/dL (3.2-4.8); Alkaline Phosphatase 86 U/L (46-116); Anion Gap 6 (5-15); Aspartate Aminotransferase 26 U/L (13-40); BUN/Creatinine Ratio 14.2 (10.0-20.0); Bilirubin, Total 0.9 mg/dL (0.2-1.0); Blood Urea Nitrogen 16 mg/dL (9-23); Calcium 9.5 mg/dL (8.7-10.4); Carbon Dioxide 27 mmol/L (20-31); Chloride 106 mmol/L (98-107); Glucose 121 mg/dL (74-106); Potassium 4.6 mmol/L (3.5-5.1); Sodium 139 mmol/L (136-145)
[2024-03-02 12:50] LABS: Urine Bacteria None Seen /hpf (None Seen)
[2024-03-02 13:18] LABS: Urine Blood Negative /uL (Negative); Urine Clarity Clear (Clear); Urine Color Yellow (Yellow); Urine Mucus FEW (None Seen); Urine Protein, UAD 2+ (Negative); Urine Specific Gravity 1.024 (1.001-1.035); Urine Urobilinogen Normal (Negative); Urine WBC <1 /hpf (0 - 3); Urine pH 5.5 (5.0-9.0)
[2024-03-02] MEDS ORDERED: MORPHINE SULFATE INJ 2 MG/ml SYRG IV PRN (17:00)
[2024-03-02] MEDS ORDERED: NITROGLYCERIN 0.4 MG SL TAB SL PRN (17:00)
[2024-03-02] MEDS ORDERED: TEMAZEPAM 15 MG CAP PO PRN (17:00)
[2024-03-02] MEDS ORDERED: ONDANSETRON HCL 4 MG/2 ML VIAL IV PRN (17:00)
[2024-03-02 21:30] VITALS: PULSE 84; RESP 15; O2SAT 96
[2024-03-02] MEDS: FUROSEMIDE 40 MG/4 ML VIAL IV ONE (21:35)
[2024-03-02 21:42] VITALS: BP 128/88; PULSE 76; RESP 20; TEMP 97.9; O2SAT 97
[2024-03-02 22:18] VITALS: PULSE 76; RESP 20; O2SAT 97
[2024-03-02] MEDS: SACUBITRIL-VALSARTAN 24mg/26mg TAB PO SCH (22:57)
[2024-03-02] MEDS: CARVEDILOL 3.125 MG TAB PO SCH (23:00)
[2024-03-03] VITALS (8 sets, daily range): BP systolic 99–130; BP diastolic 65–89; PULSE 55–75; RESP 14–18; TEMP 96.8–98.1; O2SAT 92–100
[2024-03-03] MEDS: FUROSEMIDE 40 MG/4 ML VIAL IV SCH (06:00)
[2024-03-03] MEDS: EMPAGLIFLOZIN 10 MG TAB PO SCH (06:14)
[2024-03-03 07:10] LABS: Basophils # (auto) 0.1 10 ^3/uL (0-0.2); Basophils % (auto) 0.7 % (0.0-2.0); Eosinophils # (auto) 0.2 10 ^3/uL (0-0.8); Eosinophils % (auto) 2.4 % (0.0-7.0); Hematocrit 53.9 % (41.0-53.0); Hemoglobin 18.8 g/dL (13.5-17.5); Lymphocytes # (auto) 1.6 10 ^3/uL (0.4-5.4); Lymphocytes % (auto) 20.1 % (10.0-50.0); Mean Corpuscular Hemoglobin 32.1 pg (28.0-32.0); Mean Corpuscular Hgb Conc. 34.8 g/dL (32.0-36.0); Monocytes # (auto) 0.9 10 ^3/uL (0-1.3); Monocytes % (auto) 11.3 % (0.0-12.0); Neutrophils # (auto) 5.1 10 ^3/uL (1.6-8.6); Neutrophils % (auto) 65.5 % (37.0-80.0); Nucleated Red Blood Cells % 0.1 %; Platelet Count (auto) 194 10^3/uL (140-450); Red Blood Cells 5.86 10^6/uL (4.5-5.90); Red Cell Distribution Width 14.5 % (11.8-14.3); White Blood Cell 7.8 10^3/uL (4.4-10.8)
[2024-03-03 07:14] LABS: Alanine Aminotransferase 27 U/L (7-40); Albumin 4.1 g/dL (3.2-4.8); Alkaline Phosphatase 74 U/L (46-116); Anion Gap 7 (5-15); Aspartate Aminotransferase 26 U/L (13-40); BUN/Creatinine Ratio 14.8 (10.0-20.0); Bilirubin, Total 1.3 mg/dL (0.2-1.0); Blood Urea Nitrogen 13 mg/dL (9-23); Calcium 9.4 mg/dL (8.7-10.4); Carbon Dioxide 24 mmol/L (20-31); Chloride 104 mmol/L (98-107); Glucose 126 mg/dL (74-106); Potassium 4.1 mmol/L (3.5-5.1); Sodium 135 mmol/L (136-145); Total Protein 7.5 g/dL (5.7-8.2)
[2024-03-03] MEDS: CLOPIDOGREL BISULFATE 75 MG TAB PO SCH (10:56)
[2024-03-03] MEDS: SPIRONOLACTONE 25 MG TAB PO SCH (10:57)
[2024-03-03] MEDS: ASPirin-EC 81 mg tab PO SCH (10:57)
[2024-03-03] MEDS: ACETAMINOPHEN 325 MG TAB PO PRN (13:03)
[2024-03-03 13:09] LABS: Amphetamine Screen, Urine Pos (NEGATIVE); Barbiturate Scree,Urine Neg (NEGATIVE); Benzodiazephine Screen, Urine Neg (NEGATIVE); Cannabinoid Screen, Urine Neg (NEGATIVE); Cocaine Screen, Urine Neg (NEGATIVE); Opiate Scree,Urine Neg (NEGATIVE); Phencyclidine Screen, Urine Neg (NEGATIVE)
[2024-03-03] MEDS: FUROSEMIDE 40 MG TAB PO SCH (16:00)
[2024-03-03 19:04] LABS: Chloride 102 mmol/L (98-107); Potassium 4.7 mmol/L (3.5-5.1); Sodium 136 mmol/L (136-145)
[2024-03-03 19:05] LABS: Anion Gap 5 (5-15); Carbon Dioxide 29 mmol/L (20-31)
[2024-03-03 19:10] LABS: BUN/Creatinine Ratio 16.8 (10.0-20.0); Blood Urea Nitrogen 18 mg/dL (9-23); Glucose 99 mg/dL (74-106)
[2024-03-03] MEDS: ATORVASTATIN 20 MG TAB PO SCH (21:59)
[2024-03-04 00:31] VITALS: BP 93/58; PULSE 55; RESP 14; TEMP 96.6; O2SAT 97
[2024-03-04 04:48] VITALS: BP 122/82; PULSE 64; RESP 13; TEMP 97.7; O2SAT 96
[2024-03-04 07:50] LABS: Basophils # (auto) 0 10 ^3/uL (0-0.2); Basophils % (auto) 0.6 % (0.0-2.0); Eosinophils # (auto) 0.2 10 ^3/uL (0-0.8); Monocytes # (auto) 0.8 10 ^3/uL (0-1.3); Red Cell Distribution Width 14.5 % (11.8-14.3)
[2024-03-04 07:57] LABS: Eosinophils % (auto) 2.3 % (0.0-7.0); Hematocrit 61.9 % (41.0-53.0); Lymphocytes # (auto) 1.4 10 ^3/uL (0.4-5.4); Lymphocytes % (auto) 18.3 % (10.0-50.0); Mean Corpuscular Hemoglobin 31.9 pg (28.0-32.0); Mean Corpuscular Hgb Conc. 34.8 g/dL (32.0-36.0); Mean Corpuscular Volume 91.7 fL (80.0-100.0); Neutrophils # (auto) 5.3 10 ^3/uL (1.6-8.6); Neutrophils % (auto) 68.8 % (37.0-80.0); Platelet Count (auto) 213 10^3/uL (140-450); Red Blood Cells 6.75 10^6/uL (4.5-5.90); White Blood Cell 7.8 10^3/uL (4.4-10.8)
[2024-03-04 08:00] LABS: Hemoglobin 21.5 g/dL (13.5-17.5)
[2024-03-04 08:10] VITALS: PULSE 63; PULSE 69; RESP 14
[2024-03-04 08:55] LABS: % Iron Saturation 32.6 % (20-55)
[2024-03-04 09:00] VITALS: BP 107/77; PULSE 69; RESP 14; TEMP 97.5; O2SAT 98
[2024-03-04] MEDS ORDERED: FURO1TAB31 PO (09:19)
[2024-03-04] MEDS ORDERED: SACU1TAB PO (09:19)
[2024-03-04] MEDS ORDERED: CLOP75TA70 PO (09:19)
[2024-03-04] MEDS ORDERED: ATOR40TA52 PO (09:19)
[2024-03-04] MEDS ORDERED: CARV-214 PO (09:19)
[2024-03-04] MEDS ORDERED: SPIR25TA PO (09:19)
[2024-03-04] MEDS ORDERED: METF500S3 PO (09:19)
[2024-03-04] MEDS ORDERED: ASPI-498 PO (09:19)
[2024-03-04] MEDS ORDERED: EMPA1TAB PO (09:19)
[2024-03-04 09:36] LABS: Platelet Estimate Adequate; Tear Drop Cells FEW
[2024-03-04] MEDS ORDERED: SPIRONOLACTONE 25 MG TAB PO SCH (10:00)
[2024-03-04] MEDS ORDERED: FUROSEMIDE 40 MG TAB PO SCH (10:00)
[2024-03-04 11:41] VITALS: BP 107/77; PULSE 69; RESP 14; TEMP 97.5; O2SAT 93
[2024-03-04 13:00] VITALS: BP 107/74; PULSE 78; RESP 16; TEMP 97.8; O2SAT 98
== END 2024-03-04 16:37 | disposition home or self-care (01) | DRG 194 ==
LOC: ER 06:14 → TELE-WESTW 16:52 → TELE 17:35 → TELE-WESTW 21:42
PROVIDERS: ADMIT Nurse Practitioner Family; ATTEND Student in an Organized Health Care Education/Training Program
DX: I11.0 Hypertensive heart disease with heart failure (principal); J96.21 Acute and chronic respiratory failure with hypoxia; I21.A1 Myocardial infarction type 2; I50.43 Acute on chronic combined systolic (congestive) and diastolic (congestive) heart failure; I27.20 Pulmonary hypertension, unspecified; F15.10 Other stimulant abuse, uncomplicated; E11.9 Type 2 diabetes mellitus without complications; E78.5 Hyperlipidemia, unspecified; I25.10 Atherosclerotic heart disease of native coronary artery without angina pectoris; I42.0 Dilated cardiomyopathy; F17.210 Nicotine dependence, cigarettes, uncomplicated; Z79.84 Long term (current) use of oral hypoglycemic drugs; Z79.899 Other long term (current) drug therapy; Z91.199 Patient's noncompliance with other medical treatment and regimen due to unspecified reason; Z83.3 Family history of diabetes mellitus; Z95.5 Presence of coronary angioplasty implant and graft; Z82.0 Family history of epilepsy and other diseases of the nervous system
CPT/HCPCS: 36415; 71045; 71046; 80048; 80053; 80307; 81001; 83540; 83550; 83735; 83880; 84443; 84484; 85025; 85379; 93005; 96361; 96374; G0378

== ENCOUNTER 2024-04-05 08:01 | Inpatient (IN) | payer OTHER ==
[~2024-04-05] VITALS: Ht 167.6 cm; Wt 74.9 kg
[~2024-04-05 08:01] MED LIST changes: -INSLANTI SC; -INSLISPI SC
--- NOTE | 2024-04-05 08:23 | ED.PDOC ---
SOB-HPI HPI Comments 53-year-old male with PMHx CHF, HTN, DM, [place], HLD presents with a chief complaint of SOB x 3 days. Patient states that he feels SOB upon exertion and at rest. Patient mentions that the SOB has been worsening over the past x 3 days. Patient relays that he has been taking his Lasix and ASA as prescribed. Patient has history of methamphetamine abuse. No other symptoms or modifying factors present at this time. Chief Complaint: Shortness of Breath Time Seen by MD: 08:17 Primary Care Provider: NONE Reviewed notes: Medications, Allergies Information Source: Patient Mode of Arrival: Ambulatory Severity: Moderate Timing: Days Duration: Since onset Context: At Rest, With Light Exertion PE Risk Factors: None History of: CHF Prehospital treatment: None Modifying Factors: Laying flat Past Medical History PAST MEDICAL HISTORY: CHF, DM, High Lipids, HTN, [place] Surgical History: PTCA Family History Family History: Family hx of DM Social History Smoker: Quit Less Than 1 Year, Cigarettes Alcohol: Occasionally Drugs: Marijuana, Methamphetamine Lives In: Home Constitutional: denies: chills, diaphoresis, fatigue, fever, malaise, sweats, weakness, others EENTM: denies: blurred vision, double vision, ear bleeding, ear discharge, ear drainage, ear pain, ear ringing, eye pain, eye redness, hearing loss, mouth pain, mouth swelling, nasal discharge, nose bleeding, nose congestion, nose pain, photophobia, tearing, throat pain, throat swelling, voice changes, others Respiratory: reports: SOB at rest, shortness of breath, SOB with excertion; denies: cough, hemoptysis, orthopnea, stridor, wheezing, others Cardiovascular: denies: chest pain, dizzy spells, diaphoresis, Dyspnea on exertion, edema, irregular heart beat, left arm pain, lightheadedness, palpitations, PND, syncope, others Gastrointestinal: denies: abdomen distended, abdominal pain, blood streaked bowels, constipated, diarrhea, dysphagia, difficulty swallowing, hematemesis, melena, nausea, poor appetite, poor fluid intake, rectal bleeding, rectal pain, vomiting, others Genitourinary: denies: burning, dysuria, flank pain, frequency, hematuria, incontinence, penile discharge, penile sore, pain, testicle pain, testicle swelling, urgency, others Neurological: denies: dizziness, fainting, headache, left sided numbness, left sided weakness, numbness, paresthesia, pre-existing deficit, right sided numbness, right sided weakness, seizure, speech problems, tingling, tremors, weakness, others Musculoskeletal: denies: back pain, gout, joint pain, joint swelling, muscle pain, muscle stiffness, neck pain, others Integumetry: denies: bruises, change in color, change in hair/nails, dryness, laceration, lesions, lumps, rash, wounds, others Allergic/Immunocompromised: denies: Difficulty Healing, Frequent Infections, Hives, Itching, others Hematologic/Lymphatic: denies: anemia, blood clots, easy bleeding, easy bruising, swollen glands, others Endocrine: denies: excessive hunger, excessive sweating, excessive thirst, excessive urination, flushing, intolerance to cold, intolerance to heat, unexplained weight gain, unexplained weight loss, others Psychiatric: denies: anxiety, bipolar disorder, depression, hopeless, panic disorder, schizophrenia, sleepless, suicidal, others All Other Systems: Reviewed and Negative Physical Exam General Appearance: Moderate Distress, Normal HEENT: Normal ENT Inspection, Pharynx Normal, TMs Normal Neck: Full Range of Motion, Non-Tender, Normal, Normal Inspection Respiratory: Chest Non-Tender, No Accessory Muscle Use, Normal Breath Sounds, Respiratory Distress Cardiovascular: No Edema, No JVD, No Murmur, No Gallop, Normal Peripheral Pulses, Regular Rate/Rhythm Breast Exam: Deferred Gastrointestinal: No Organomegaly, Non Tender, No Pulsatile Mass, Normal Bowel Sounds, Soft Genitalia: Deferred Pelvic: Deferred Rectal: Deferred Extremities: No calf tenderness, Normal capillary refill, Normal inspection, Normal range of motion, Non-tender, No pedal edema Musculoskeletal : Apperance: Normal Neurologic: Alert, capacity planning engineer II-XII nml as Tested, No Motor Deficits, Normal Affect, Normal Mood, No Sensory Deficits Cerebellar Function: NOT DONE Reflexes: NOT DONE Skin: Dry, Normal Color, Warm Peripheral Pulses: 3+ Radial (R), 3+ Radial (L) Lymphatic: No Adenopathy Was a procedure done? Was a procedure done?: No Differential Dx Differential Diagnosis: Anxiety, Asthma, Bronchitis X-Ray, Labs, Meds, VS Vital Signs Date Time Temp Pulse Resp B/P (MAP) Pulse Ox O2 Delivery O2 Flow Rate FiO2 04/05/24 08:38 97.0 84 18 122/81 (95) 99 97.0 04/05/24 08:38 18 99 Nasal Cannula* 2 28 04/05/24 08:10 97.9 76 18 139/95 (110) 96 04/05/24 08:10 72 04/05/24 08:10 18 96 Room Air* 0 21 Lab Test 04/05/24 08:30 Range/Units White Blood Count Pending Red Blood Count Pending Hemoglobin Pending Hematocrit Pending Mean Corpuscular Volume Pending Mean Corpuscular Hemoglobin Pending Mean Corpuscular Hemoglobin Concent Pending Red Cell Distribution Width Pending Platelet Count Pending Mean Platelet Volume Pending Neutrophils (%) (Auto) Pending Lymphocytes (%) (Auto) Pending Monocytes (%) (Auto) Pending Basophils (%) (Auto) Pending Neutrophils # (Auto) Pending Lymphocytes # (Auto) Pending Monocytes # (Auto) Pending Sodium Level Pending Potassium Level Pending Chloride Level Pending Carbon Dioxide Level Pending Anion Gap Pending Blood Urea Nitrogen Pending Creatinine Pending Glomerular Filtration Rate Calc Pending BUN/Creatinine Ratio Pending Serum Glucose Pending Calcium Level Pending B-Type Natriuretic Peptide Pending Patient alert. Complaining of shortness a breath. Vitals stable. Answering all questions. No leg swelling. Continues to use accessory muscles. Possible anxiety. Used drugs in the past. Reviewed his previous visit. EKG reviewed does not show any acute changes. Continues to have shortness a breath. Chest x-ray reviewed does not show any acute changes. Explained to the patient. Continue cardiac monitoring. Time of 1ST Reevaluation: 08:47 Reevaluation 1ST: Unchanged Patient Education/Counseling: Diagnosis, Treatment, Prognosis Family Education/Counseling: No Family Present Departure 1 Departure Time of Disposition: 08:32 Impression: Primary Impression: CHF (congestive heart failure) Qualified Codes: I50.43 - Acute on chronic combined systolic (congestive) and diastolic (congestive) heart failure Disposition: ADMITTED INPATIENT Admit to: Med Surg Condition: Guarded Critical Care Note Critical Care Time?: Yes (45 min-critical care time only) Stability Stability form required: No Heart Score Heart Score: Heart Score Response (Comments) Value History Slightly Suspicious 0 EKG Normal 0 Age 45-64 1 Risk Factors >3 or Hx ASHD 2 Troponin Normal limit 0 Total 3 I personally scribed for PAMELA FINCH MD ([email or web address]) on 04/05/24 at 08:23. Electronically submitted by Daniel Rubio ([email or web address]). PAMELA FINCH MD Apr 05, 2024 08:23
[2024-04-05 08:38] VITALS: RESP 18; O2SAT 99
--- NOTE | 2024-04-05 08:55 | DVH ---
XY CHEST PORTABLE, HISTORY: sob COMPARISON: XY CHEST PORTABLE on DOS: 03/03/24, XY CHEST PORTABLE on DOS: 01/14/24, XY CHEST PORTABLE o n DOS: 12/03/23 XY CHEST PORTABLE on DOS: 03/03/24, XY CHEST PORTABLE on DOS: 01/14/24, XY CHEST PORTABLE on DOS: 4 TECHNICAL DATA: 1 view of the chest was obtained. FINDINGS: Lines and tubes: None Cardiomediastinal silhouette: prominent Pulmonary vasculature: normal Lung expansion: normal Lung airspace: normal Lung interstitium: normal Pleura: normal Pneumothorax: no Bones: Unremarkable Other: no IMPRESSION: No acute intrathoracic abnormality.
[2024-04-05 08:58] LABS: Basophils # (auto) 0 10 ^3/uL (0-0.2); Eosinophils # (auto) 0.1 10 ^3/uL (0-0.8); Lymphocytes # (auto) 1.2 10 ^3/uL (0.4-5.4); Lymphocytes % (auto) 18.8 % (10.0-50.0); Monocytes # (auto) 0.5 10 ^3/uL (0-1.3); Neutrophils # (auto) 4.5 10 ^3/uL (1.6-8.6)
[2024-04-05 09:00] LABS: Basophils % (auto) 0.3 % (0.0-2.0); Hematocrit 53.5 % (41.0-53.0); Hemoglobin 17.8 g/dL (13.5-17.5); Mean Corpuscular Hgb Conc. 33.3 g/dL (32.0-36.0); Mean Corpuscular Volume 93.3 fL (80.0-100.0); Monocytes % (auto) 8.5 % (0.0-12.0); Neutrophils % (auto) 70.4 % (37.0-80.0); Nucleated Red Blood Cells % 0.3 %; Platelet Count (auto) 171 10^3/uL (140-450); Red Blood Cells 5.73 10^6/uL (4.5-5.90); Red Cell Distribution Width 14.1 % (11.8-14.3); White Blood Cell 6.4 10^3/uL (4.4-10.8)
[2024-04-05 09:05] LABS: Chloride 108 mmol/L (98-107); Potassium 4.4 mmol/L (3.5-5.1); Sodium 136 mmol/L (136-145)
[2024-04-05 09:06] LABS: Anion Gap 4 (5-15); Calcium 9.4 mg/dL (8.7-10.4); Carbon Dioxide 24 mmol/L (20-31)
[2024-04-05 09:11] LABS: BUN/Creatinine Ratio 22.4 (10.0-20.0); Blood Urea Nitrogen 17 mg/dL (9-23); Glucose 145 mg/dL (74-106)
[2024-04-05] MEDS ORDERED: ONDANSETRON HCL 4 MG/2 ML VIAL IV PRN (10:00)
[2024-04-05] MEDS ORDERED: NITROGLYCERIN 0.4 MG SL TAB SL PRN (10:00)
[2024-04-05] MEDS ORDERED: ACETAMINOPHEN 325 MG TAB PO PRN (10:00)
[2024-04-05] MEDS ORDERED: DEXTROSE (50%) 50ML SYRG IV PRN (10:00)
[2024-04-05] MEDS ORDERED: MORPHINE SULFATE INJ 2 MG/ml SYRG IV PRN (10:00)
--- NOTE | 2024-04-05 10:02 | DVHHP2 ---
History of Present Illness Reason for Visit: Acute exacerbation of congestive heart failure History of Present Illness The patient is a 53-year-old male with past medical history of CHF hyperlipidemi a NV, DM, and hypertension who presented to [facility] ED with complaint of shortness of breaths for the past 3 days. Patient reports symptoms progressively get worse with shortness of breaths at rest, with exertion, getting worse today that prompted this visit. Patient was seen and evaluated in the ED, laboratory data shows WBC 6.4, platelets 171, sodium 136, potassium 4.4, BUN 17, creatinine 0.76, glucose 145, BNP 1281.74, blood pressure 122/81, heart rate 84, temperature 97.0 F, O2 saturation 99% on oxygen. Chest x-ray showed no acute intrathoracic abnormality. Patient was started on IV Lasix, please see medication orders section in the computer. On my assessment, patient denies chest pain, no headache, no dizziness, diaphoresis, currently on oxygen, no nausea, no vomiting, no fever, no chills. Patient was admitted for further evaluation and medical management. Past Medical History CHF, DM, High Lipids, HTN, [place] Past Surgical History PTCA Family History Reviewed, noncontributory to the management of this case. Past Social History The patient lives at home, denies smoking, alcohol or illicit drugs abuse. Review of Systems Constitutional: Yes: Weakness; No: Fever, Chills, Sweats, Malaise, Other Eyes: No: Pain, Vision change, Conjunctivae inflammation, Eyelid inflammation, Other, Redness ENT: No: Ear pain, Ear discharge, Nose pain, Nose discharge, Nose congestion, Mouth pain, Mouth swelling, Throat pain, Throat swelling, Other Respiratory: Shortness of breath, SOB with excertion, Other (SOB at rest); No: Cough, Dry, Wheezing, Hemoptysis, Pleuritic Pain, Sputum, Wheezing Cardiovascular: No: Chest Pain, Palpitations, Orthopnea, Paroxysmal Noc. Dyspnea, Edema, Lt Headedness, Other Gastrointestinal: No: Nausea, Vomiting, Abdominal Pain, Diarrhea, Constipation, Melena, Hematochezia, Other Genitourinary: No Dysuria, No Frequency, No Incontinence, No Hematuria, No Retention, No Other Musculoskeletal: No: other, neck pain, shoulder pain, arm pain, back pain, hand pain, leg pain, foot pain Skin: No: Rash, Lesions, Jaundice, Bruising, Other Neurological: No: Weakness, Numbness, Incoordination, Change in speech, Confusion, Seizures, Other Allergies: Coded Allergies: No Known Drug Allergy (Verified Allergy, Unknown, 04/01/23) Exam Vital Signs Vital Signs Date Time Temp Pulse Resp B/P (MAP) Pulse Ox O2 Delivery O2 Flow Rate FiO2 04/05/24 08:38 97.0 84 18 122/81 (95) 99 97.0 04/05/24 08:38 Nasal Cannula* 2 28 General Appearance: Alert, Oriented X3, Cooperative, No acute distress HEENT: Atraumatic, PERRLA, EOMI, Mucous membr. moist/pink Respiratory: Clear to auscultation, Normal air movement Cardiovascular: Regular rate, Normal S1, Normal S2, No murmurs Abdominal: Normal bowel sounds, Soft, No tenderness, No hepatospenomegaly, No masses Extremities: No clubbing, No cyanosis, No edema, Normal pulses, No tenderness/swelling Skin: No rashes, No breakdown, No significant lesion Neuro: Normal speech, Normal tone, Sensation intact, Cranial nerves 3-12 NL, Reflexes 2+, Other (Generalized weakness) Psych/Mental Status: Mental status NL, Mood NL Labs/Xrays Labs Test 04/05/24 08:30 Range/Units White Blood Count 6.4 4.4-10.8 10^3/uL Red Blood Count 5.73 4.5-5.90 10^6/uL Hemoglobin 17.8 H 13.5-17.5 g/dL Hematocrit 53.5 H 41.0-53.0 % Mean Corpuscular Volume 93.3 80.0-100.0 fL Mean Corpuscular Hemoglobin 31.0 28.0-32.0 pg Mean Corpuscular Hemoglobin Concent 33.3 32.0-36.0 g/dL Red Cell Distribution Width 14.1 11.8-14.3 % Platelet Count 171 140-450 10^3/uL Mean Platelet Volume 8.6 6.9-10.8 fL Neutrophils (%) (Auto) 70.4 37.0-80.0 % Lymphocytes (%) (Auto) 18.8 10.0-50.0 % Monocytes (%) (Auto) 8.5 0.0-12.0 % Eosinophils (%) (Auto) 2.0 0.0-7.0 % Basophils (%) (Auto) 0.3 0.0-2.0 % Neutrophils # (Auto) 4.5 1.6-8.6 10 ^3/uL Lymphocytes # (Auto) 1.2 0.4-5.4 10 ^3/uL Monocytes # (Auto) 0.5 0-1.3 10 ^3/uL Eosinophils # (Auto) 0.1 0-0.8 10 ^3/uL Basophils # (Auto) 0 0-0.2 10 ^3/uL Nucleated Red Blood Cells 0.3 % Sodium Level 136 136-145 mmol/L Potassium Level 4.4 3.5-5.1 mmol/L Chloride Level 108 H 98-107 mmol/L Carbon Dioxide Level 24 20-31 mmol/L Anion Gap 4 L 5-15 Blood Urea Nitrogen 17 9-23 mg/dL Creatinine 0.76 0.700-1.30 mg/dL Glomerular Filtration Rate Calc 108 >90 mL/min BUN/Creatinine Ratio 22.4 H 10.0-20.0 Serum Glucose 145 H 74-106 mg/dL Calcium Level 9.4 8.7-10.4 mg/dL B-Type Natriuretic Peptide 1281.74 0-100 pg/mL PATIENT: SOPHIE STORY ACCT: [id number] UNIT: [id number] : 1970 LOC: ER ROOM / BED: / AGE / SEX: 53 / M ADM STATUS: REG ER SERVICE 0820 ORDERING PHYSICIAN: PAMELA FINCH MD PROCEDURE(s): CXRP - CHEST PORTABLE REASON: sob ORDER NUMBER(s): [id number], ACCESSION NUMBER(s): [id number] XY CHEST PORTABLE, HISTORY: sob COMPARISON: XY CHEST PORTABLE on DOS: 03/03/24, XY CHEST PORTABLE on DOS: 01/14/24, XY CHEST PORTABLE on DOS: 12/03/23 XY CHEST PORTABLE on DOS: 03/03/24, XY CHEST PORTABLE on DOS: 01/14/24, XY CHEST PORTABLE on DOS: 12/03/23 TECHNICAL DATA: 1 view of the chest was obtained. FINDINGS: Lines and tubes: None Cardiomediastinal silhouette: prominent Pulmonary vasculature: normal Lung expansion: normal Lung airspace: normal Lung interstitium: normal Pleura: normal Pneumothorax: no Bones: Unremarkable Other: no IMPRESSION: No acute intrathoracic abnormality. Assessment/Plan Assessment/Plan Acute respiratory distress Generalized weakness Diabetes mellitus with hyperglycemia Acute exacerbation of congestive heart failure Plan 1. Admit to telemetry unit 2. Breathing treatment 3. Pain control management 4. Management of fluids and electrolytes 5. Consultation for hospitalist 6. Diagnostic tests chest x-ray 7. DVT prophylaxis-on aspirin 8. Repeat labs CBC, CMP in a.m. 9. Continue with current medical management 10. Treatment plan discussed with patient and RN. Patient verbalized understanding. Plan discussed with: Patient, Other (RN) Problem List: (1) Acute respiratory distress (2) Generalized weakness (3) Diabetes mellitus with hyperglycemia (4) Acute exacerbation of congestive heart failure Date of Service: Apr 05, 2024 Billing Provider: BAUDILIO COOLEY DNP Common Visit Codes: [id number] INP/OBS CARE (HIGH) BAUDILIO COOLEY DNP Apr 05, 2024 10:02
[2024-04-05] MEDS: CLOPIDOGREL BISULFATE 75 MG TAB PO SCH (10:52)
[2024-04-05] MEDS: CARVEDILOL 3.125 MG TAB PO SCH (10:53)
[2024-04-05] MEDS: ASPirin 81 mg TAB PO SCH (10:53)
[2024-04-05] MEDS: ACCU-CHEK COMFORT CURVE STRIP VI SCH (10:54)
[2024-04-05] MEDS: FUROSEMIDE 40 MG/4 ML VIAL IV ONE (10:54)
[2024-04-05] MEDS: InsuLIN REG 1unit/0.01ml Soln (100units/ml) SC SCH (11:04)
[2024-04-05] MEDS: SODIUM CHLOR 0.9% PF (SALINE LOCK) 10ML VIAL/SYR IV SCH (14:07)
[2024-04-05 16:36] VITALS: BP 132/94; PULSE 73; PULSE 86; RESP 18; TEMP 97; O2SAT 96
[2024-04-05] MEDS: HYDROcodone-ACET 5/325MG TAB PO PRN (16:36)
[2024-04-05 17:00] VITALS: BP 123/85; PULSE 67; RESP 17; TEMP 97.9; O2SAT 93
[2024-04-05] MEDS ORDERED: FURO1TAB31 PO (18:07)
[2024-04-05] MEDS ORDERED: METF-929 PO (18:07)
[2024-04-05] MEDS ORDERED: ASPI-543 PO (18:07)
[2024-04-05] MEDS ORDERED: EMPA1TAB PO (18:07)
[2024-04-05] MEDS ORDERED: CLOP75TA70 PO (18:07)
[2024-04-05 20:00] VITALS: PULSE 60; PULSE 62; RESP 18; O2SAT 98
[2024-04-05 21:00] VITALS: BP 113/78; PULSE 62; RESP 18; TEMP 98; O2SAT 93
[2024-04-05] MEDS: ATORVASTATIN 20 MG TAB PO SCH (22:23)
[2024-04-06] VITALS (9 sets, daily range): BP systolic 99–124; BP diastolic 69–75; PULSE 59–70; RESP 16–20; TEMP 97.7–98.4; O2SAT 92–98
[2024-04-06 06:20] LABS: Basophils # (auto) 0 10 ^3/uL (0-0.2); Basophils % (auto) 0.6 % (0.0-2.0); Eosinophils # (auto) 0.2 10 ^3/uL (0-0.8); Eosinophils % (auto) 2.8 % (0.0-7.0); Lymphocytes # (auto) 1.1 10 ^3/uL (0.4-5.4); Lymphocytes % (auto) 15.7 % (10.0-50.0); Mean Corpuscular Hemoglobin 31.9 pg (28.0-32.0); Mean Corpuscular Hgb Conc. 34.6 g/dL (32.0-36.0); Mean Corpuscular Volume 92.2 fL (80.0-100.0); Monocytes # (auto) 0.8 10 ^3/uL (0-1.3); Monocytes % (auto) 11.6 % (0.0-12.0); Neutrophils # (auto) 4.8 10 ^3/uL (1.6-8.6); Neutrophils % (auto) 69.3 % (37.0-80.0); Platelet Count (auto) 191 10^3/uL (140-450); Red Blood Cells 5.96 10^6/uL (4.5-5.90); Red Cell Distribution Width 14.1 % (11.8-14.3); White Blood Cell 6.9 10^3/uL (4.4-10.8)
[2024-04-06 06:32] LABS: Alanine Aminotransferase 23 U/L (7-40); Alkaline Phosphatase 71 U/L (46-116); Anion Gap 6 (5-15); Aspartate Aminotransferase 22 U/L (13-40); BUN/Creatinine Ratio 23.5 (10.0-20.0); Bilirubin, Total 1.3 mg/dL (0.2-1.0); Blood Urea Nitrogen 23 mg/dL (9-23); Calcium 9.7 mg/dL (8.7-10.4); Carbon Dioxide 27 mmol/L (20-31); Chloride 104 mmol/L (98-107); Glucose 106 mg/dL (74-106); Potassium 4.3 mmol/L (3.5-5.1); Sodium 137 mmol/L (136-145); Total Protein 7.5 g/dL (5.7-8.2)
[2024-04-06] MEDS: FUROSEMIDE 40 MG/4 ML VIAL IV SCH (08:42)
--- NOTE | 2024-04-06 08:42 | ECG ---
[facility] Test Date: 2024-04-05 Test Time: 08:10:48 Pat Name: SOPHIE STORY Department: ER Room: [address] [place] [address] 6 Gender: M Material Flow Analyst: DR RICE: 1970 Requested By: PAMELA FINCH Order Number: [id number] Reading MD: Max Gallo Measurements Intervals [place] Rate: 72 P: 36 DC: 174 QRS: 78 QRSD: 106 T: 135 QT: 445 QTc: 488 Interpretive Statements Sinus rhythm Probable left atrial enlargement Left ventricular hypertrophy Abnormal T, consider ischemia, lateral leads Electronically Signed On 04-07-2024 11:53:01 PST by Max Gallo Please click the below link to view image of tracing.
[2024-04-06] MEDS: DOCUSATE SOD 100 MG CAP PO PRN (08:43)
--- NOTE | 2024-04-06 12:17 | CONS ---
Pharmacy Clinical Information: From Concurrent Heart Failure CQM, KyleAustyn is a 53 year old male with PMH of CHF, HLD, [place], DM, and HTN. His home medications for heart failure include entresto, empagliflozin, carvedilol, and spironolactone. His inpatient medications include carvedilol and furosemide. 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
--- NOTE | 2024-04-06 14:08 | DVHPN2 ---
Subjective Patient reports that his respiratory status has improved Reviewed: Care Plan, H&P, Labs, Medications Changes from previous H/P or p: No Changes Eyes: No Pain, No Vision change, No Conjunctivae inflammation, No Eyelid inflammation, No Other, No Redness ENT: No Ear pain, No Ear discharge, No Nose pain, No Nose discharge, No Nose congestion, No Mouth pain, No Mouth swelling, No Throat pain, No Throat swelling, No Other Cardiovascular: No Chest Pain, No Palpitations, No Orthopnea, No Paroxysmal Noc. Dyspnea, No Edema, No Lt Headedness, No Other Respiratory: No Cough, No Dry; Shortness of breath, SOB with excertion; No Wheezing, No Hemoptysis, No Pleuritic Pain, No Sputum; Other (SOB at rest) Gastrointestinal: No Nausea, No Vomiting, No Abdominal Pain, No Diarrhea, No Constipation, No Melena, No Hematochezia, No Other Genitourinary: No Dysuria, No Frequency, No Incontinence, No Hematuria, No Retention, No Other Musculoskeletal: No other, No neck pain, No shoulder pain, No arm pain, No back pain, No hand pain, No leg pain, No foot pain Skin: No Rash, No Lesions, No Jaundice, No Bruising, No Other Objective Vitals Vital Signs Date Time Temp Pulse Resp B/P (MAP) Pulse Ox O2 Delivery O2 Flow Rate FiO2 04/06/24 12:19 97.9 70 16 99/69 (79) 94 97.9 04/06/24 08:00 Nasal Cannula* 2 28 Intake/Output Intake and Output 04/06/24 07:00 Intake Total 950 ml Output Total 1501 ml Balance -551 ml Intake Oral 950 ml Output Urine Total 1500 ml Stool Total 1 ml # Voids 2 General Appearance: Alert, Oriented X3, Cooperative, mild distress HEENT: Atraumatic, PERRLA Lungs: Clear to auscultation, Normal air movement Cardiovascular: Normal S1, Normal S2 Abdomen: Normal bowel sounds, Soft, No tenderness Musculoskeletal: Normal sensory function, Normal motor function Neuro: Normal gait, Normal speech Psych/Mental Status: Mental status NL, Mood NL Medications Current Medications Medications Dose Ordered Sig/Kimberly Route Start Time Stop Time Status Last Admin Dose Admin Aspirin 81 mg DAILY PO 04/05/24 10:00 04/06/24 08:42 81 MG Clopidogrel Bisulfate 75 mg DAILY PO 04/05/24 10:00 04/06/24 08:43 75 MG Carvedilol 3.125 mg Q12HR PO 04/05/24 10:00 04/06/24 08:43 3.125 MG Furosemide 40 mg DAILY IV 04/06/24 10:00 04/06/24 08:42 40 MG Atorvastatin Calcium 40 mg HS PO 04/05/24 22:00 04/05/24 22:23 40 MG Diagnostic Test (Pha) 1 strip ACHS 04/05/24 11:30 04/06/24 10:46 1 STRIP Insulin Human Regular ACHS SC 04/05/24 11:30 04/06/24 11:02 6 UNITS Dextrose 50 ml UD PRN IV 04/05/24 10:00 Sodium Chloride 10 ml Q8HR IV 04/05/24 14:00 04/06/24 10:46 10 ML Acetaminophen/ Hydrocodone Bitart 1 tab Q4HP PRN PO 04/05/24 10:00 04/06/24 08:44 1 TAB Ondansetron HCl 4 mg Q4HP PRN IV 04/05/24 10:00 Docusate Sodium 100 mg BIDPRN PRN PO 04/05/24 10:00 04/06/24 08:43 100 MG Acetaminophen 650 mg Q6HP PRN PO 04/05/24 10:00 Nitroglycerin 0.4 mg Q5MINP PRN SL 04/05/24 10:00 Morphine Sulfate 2 mg Q30M PRN IV 04/05/24 10:00 Laboratory Results Laboratory Tests 04/06/24 05:30 Chemistry Test 04/06/24 05:30 Albumin 4.0 g/dL (3.2-4.8) Calcium Level 9.7 mg/dL (8.7-10.4) Total Protein 7.5 g/dL (5.7-8.2) LFT Test 04/06/24 05:30 Alanine Aminotransferase (ALT) 23 U/L (7-40) Alkaline Phosphatase 71 U/L (46-116) Aspartate Amino Transferase (AST) 22 U/L (13-40) Total Bilirubin 1.3 mg/dL (0.2-1.0) H Microbiology Microbiology Date/Time Source Procedure Growth Status 04/05/24 18:30 Nose MRSA Screen - Final Complete Labs and/or images reviewed: Labs reviewed by me, Image(s) reviewed by me Assessment/Plan Assessment/Plan Impression: -acute hypoxic respiratory failure -acute decompensated systolic and diastolic heart failure -history of coronary artery disease with stent placement to RCA -history of amphetamine use Plan: -discussed plan of care with the patient. Patient states that he does intermittently use methamphetamines. Patient also reports that his insurance has stopped coverage and certain medications and due to the cost he states he was not taking them. Patient states it may be Entresto after questioning the patient. -UDS -continue dual antiplatelet therapy -chest x-ray reviewed. No pulmonary vascular congestion. Change IV diuretic to p.o. Lasix 20 mg p.o. daily -continue carvedilol, add lisinopril 10 mg p.o. daily -reassess vital signs tomorrow, possibly add further GDM T medications Total time spent with patient discussing and formulating plan of care: 35 minutes. This medical document was created using an electronic medical record system with [employer] dictation system. Although this document has been carefully reviewed, there may still be some phonetic and typographical errors. These areas are purely typographical due to imperfections of the software programs, and do not reflect any compromise in the patient's medical care. Plan discussed with: Patient, Other (RN) My Orders Orders - ELEANOR PITTS NP Procedure Category Date Status Time Drug Screen LAB 04/06/24 Logged 10:35 Date of Service: Apr 06, 2024 Billing Provider: ELEANOR PITTS NP Common Visit Codes: [id number] INP/OBS CARE(HIGH) ELEANOR PITTS NP Apr 06, 2024 14:08
[2024-04-07 01:00] VITALS: BP 123/90; PULSE 79; RESP 18; TEMP 97.9; O2SAT 94
[2024-04-07 04:01] LABS: Amphetamine Screen, Urine Pos (NEGATIVE); Barbiturate Scree,Urine Neg (NEGATIVE); Benzodiazephine Screen, Urine Neg (NEGATIVE); Cocaine Screen, Urine Neg (NEGATIVE); Opiate Scree,Urine Pos (NEGATIVE); Phencyclidine Screen, Urine Neg (NEGATIVE)
[2024-04-07 04:03] LABS: Cannabinoid Screen, Urine Neg (NEGATIVE)
[2024-04-07 05:00] VITALS: BP 125/91; PULSE 90; RESP 18; TEMP 98; O2SAT 91
[2024-04-07 08:00] VITALS: PULSE 59; PULSE 68; RESP 15; O2SAT 96
[2024-04-07] MEDS: LISINOPRIL 5 MG TAB PO SCH (08:38)
[2024-04-07] MEDS: FUROSEMIDE 20 MG TAB PO SCH (08:39)
[2024-04-07 09:26] VITALS: BP 132/86; PULSE 73; RESP 15; TEMP 98.1; O2SAT 96
[2024-04-07] MEDS ORDERED: LISI-275 PO (11:49)
[2024-04-07 12:49] VITALS: BP 115/78; PULSE 64; RESP 16; TEMP 98.2; O2SAT 94
--- NOTE | 2024-04-07 12:49 | DVHDS2 ---
Discharge Summary Date of Admission Apr 05, 2024 at 10:02 Date of Discharge: Apr 07, 2024 Admitting Diagnosis Acute decompensated systolic heart failure Labs/Diagnostic Data: Laboratory Results Test 04/07/24 11:26 04/07/24 02:15 04/06/24 05:30 04/05/24 08:30 POC Glucose 116 mg/dl (70-106) Urine Opiates Screen Pos (NEGATIVE) Urine Fentanyl Screen Neg (NEGATIVE) Urine Barbiturates Screen Neg (NEGATIVE) Urine Phencyclidine Screen Neg (NEGATIVE) Urine Amphetamines Screen Pos (NEGATIVE) Urine Benzodiazepines Screen Neg (NEGATIVE) Urine Cocaine Screen Neg (NEGATIVE) Urine Cannabinoids Screen Neg (NEGATIVE) White Blood Count 6.9 10^3/uL (4.4-10.8) Red Blood Count 5.96 10^6/uL (4.5-5.90) Hemoglobin 19.0 g/dL (13.5-17.5) Hematocrit 55.0 % (41.0-53.0) Mean Corpuscular Volume 92.2 fL (80.0-100.0) Mean Corpuscular Hemoglobin 31.9 pg (28.0-32.0) Mean Corpuscular Hemoglobin Concent 34.6 g/dL (32.0-36.0) Red Cell Distribution Width 14.1 % (11.8-14.3) Platelet Count 191 10^3/uL (140-450) Mean Platelet Volume 8.4 fL (6.9-10.8) Neutrophils (%) (Auto) 69.3 % (37.0-80.0) Lymphocytes (%) (Auto) 15.7 % (10.0-50.0) Monocytes (%) (Auto) 11.6 % (0.0-12.0) Eosinophils (%) (Auto) 2.8 % (0.0-7.0) Basophils (%) (Auto) 0.6 % (0.0-2.0) Neutrophils # (Auto) 4.8 10 ^3/uL (1.6-8.6) Lymphocytes # (Auto) 1.1 10 ^3/uL (0.4-5.4) Monocytes # (Auto) 0.8 10 ^3/uL (0-1.3) Eosinophils # (Auto) 0.2 10 ^3/uL (0-0.8) Basophils # (Auto) 0 10 ^3/uL (0-0.2) Nucleated Red Blood Cells 0.0 % Sodium Level 137 mmol/L (136-145) Potassium Level 4.3 mmol/L (3.5-5.1) Chloride Level 104 mmol/L (98-107) Carbon Dioxide Level 27 mmol/L (20-31) Anion Gap 6 (5-15) Blood Urea Nitrogen 23 mg/dL (9-23) Creatinine 0.98 mg/dL (0.700-1.30) Glomerular Filtration Rate Calc 93 mL/min (>90) BUN/Creatinine Ratio 23.5 (10.0-20.0) Serum Glucose 106 mg/dL (74-106) Calcium Level 9.7 mg/dL (8.7-10.4) Total Bilirubin 1.3 mg/dL (0.2-1.0) Aspartate Amino Transferase (AST) 22 U/L (13-40) Alanine Aminotransferase (ALT) 23 U/L (7-40) Alkaline Phosphatase 71 U/L (46-116) Total Protein 7.5 g/dL (5.7-8.2) Albumin 4.0 g/dL (3.2-4.8) B-Type Natriuretic Peptide 1281.74 pg/mL (0-100) Other Laboratory Tests 04/06/24 05:30 Brief Hx & Hospital Course: History of Present Illness The patient is a 53-year-old male with past medical history of CHF hyperlipidemia GA, DM, and hypertension who presented to [facility] ED with complaint of shortness of breaths for the past 3 days. Patient reports symptoms progressively get worse with shortness of breaths at rest, with exertion, getting worse today that prompted this visit. Patient was seen and evaluated in the ED, laboratory data shows WBC 6.4, platelets 171, sodium 136, potassium 4.4, BUN 17, creatinine 0.76, glucose 145, BNP 1281.74, blood pressure 122/81, heart rate 84, temperature 97.0 F, O2 saturation 99% on oxygen. Chest x-ray showed no acute intrathoracic abnormality. Patient was started on IV Lasix, please see medication orders section in the computer. On my assessment, patient denies chest pain, no headache, no dizziness, diaphoresis, currently on oxygen, no nausea, no vomiting, no fever, no chills. Patient was admitted for further evaluation and medical management. Course of hospitalization: Patient was placed on O2 supplementation which has been weaned off. Further discussion with the patient reveals that he continues to use methamphetamines in addition to not being able to afford his current medications for heart failure which she believes is Entresto. Patient states that the medication is not covered by his insurance. Patient was continued on IV diuresis, beta-charlotte therapy with carvedilol, spironolactone, as well as starting lisinopril in the hospital to monitor for tolerance by the patient with respect to his blood pressure. The patient states that his symptoms have improved. He will be discharged home with continuation of carvedilol, spironolactone, p.o. Lasix, as well as lisinopril 5 mg p.o. daily. He is instructed to follow up with his PCP in 1-2 weeks. The patient was also found to be positive for amphetamines on UDS. Lifestyle modification education given to the patient with respect to stop using illicit drugs was performed with the patient. Patient states that he will attempt to stop using drugs and has turned down any resources at this time. Physical exam General: Alert and Oriented x3. No acute distress. Well-nourished. Eyes: EOMI. Anicteric. HENT: Moist mucous membranes. Poor dentition Lungs: Clear to auscultation bilaterally. No accessory muscle use. Cardiovascular: Regular rate and rhythm. No murmur. No JVD. Abdomen: Soft, non-tender and non-distended. No palpable masses. Extremities: No edema. Non-tender. Skin: No rashes or lesions. Warm. Neurologic: No focal neurological deficits. CN II-XII grossly intact, but not individually tested. Psychiatric: Cooperative. Appropriate mood and affect. Total time spent with patient discussing and formulating plan of care: 35 minutes. This medical document was created using an electronic medical record system with [employer] system. Although this document has been carefully reviewed, there may still be some phonetic and typographical errors. These areas are purely typographical due to imperfections of the software programs, and do not reflect any compromise in the patient's medical care. 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 Continue beta-charlotte therapy, change CLAUDIA inhibitor to lisinopril, continue Lasix 36 Discharge Statement: "Patient was advised to return to the ER or call 911 if any headaches, dizziness, shortness of breath, chest pain, abdominal pain, bleeding, fevers, or worsening of medical condition. Patient was counseled about treatment plan, medications, possible side effects, patientverbalized understanding. All questions were answered to the best of my ability. This discharge took greater then 30 minutes in planning, reviewing documentation, counseling the patient, and discussing with other team members." ASSESSMENT ASSESSMENT Assessment Acute decompensated systolic heart failure Date of Service: Apr 07, 2024 Billing Provider: ELEANOR PITTS NP Common Visit Codes: 07862-HCT/OBS DISCH DAY >30min ELEANOR PITTS NP Apr 07, 2024 12:49
[2024-04-07 13:23] VITALS: BP 132/86; PULSE 73; TEMP 36.8
== END 2024-04-07 15:40 | disposition home or self-care (01) | DRG 194 ==
LOC: ER 08:01 → TELE 10:02 → TELE-E-ADS 11:48
PROVIDERS: ADMIT Nurse Practitioner Acute Care; ATTEND Nurse Practitioner Acute Care
DX: I11.0 Hypertensive heart disease with heart failure (principal); J96.01 Acute respiratory failure with hypoxia; I50.43 Acute on chronic combined systolic (congestive) and diastolic (congestive) heart failure; E11.65 Type 2 diabetes mellitus with hyperglycemia; E78.5 Hyperlipidemia, unspecified; I25.10 Atherosclerotic heart disease of native coronary artery without angina pectoris; Z79.899 Other long term (current) drug therapy; Z87.891 Personal history of nicotine dependence; Z83.3 Family history of diabetes mellitus; Z95.5 Presence of coronary angioplasty implant and graft; F15.10 Other stimulant abuse, uncomplicated
CPT/HCPCS: 36415; 71045; 80048; 80053; 80307; 82962; 83880; 85025; 87081; 93005; 96374; 96375; 99291; G0378; J1815

== ENCOUNTER 2024-05-05 04:31 | Inpatient (IN) | payer OTHER ==
[~2024-05-05] VITALS: Ht 167.6 cm; Wt 79.5 kg
[2024-05-05] VITALS (8 sets, daily range): BP systolic 113–148; BP diastolic 65–92; PULSE 70–102; RESP 10–21; TEMP 97.5–98.8; O2SAT 93–98
[~2024-05-05 04:31] MED LIST changes: -ACET-1882 PO; -BLOO1KIT60 XX; -EMPA1TAB PO; -LANC-636 XX; +LISI-275 PO; -SACU1TAB PO
--- NOTE | 2024-05-05 04:58 | ED.PDOC ---
SOB-HPI HPI Comments A 53 year old male presents to the ED with a chief complaint of shortness of breath onset 1 week. Patient states he began experiencing a cough with yellow phlegm about 1 week ago, causing shortness of breath. Patient states he was admitted to this hospital about 1 month ago due to CHF exacerbation. He is currently experiencing LUQ pain as well as nausea, vomiting, diarrhea, dizziness. Past medical history of HTN, MO, HLD, DM, CHF. Denies chest pain. No other symptoms or modifying factors present at this time. Chief Complaint: Chest Pain Time Seen by MD: 04:43 Primary Care Provider: NONE Reviewed notes: Medications, Allergies Mode of Arrival: Ambulatory Severity: Moderate Timing: Weeks Duration: Since onset PE Risk Factors: None Prehospital treatment: None Modifying Factors: Laying flat Associated Signs and Symptoms: Cough If cough with SOB: Yellow Vital Signs Vital Signs Date Time Temp Pulse Resp B/P (MAP) Pulse Ox O2 Delivery O2 Flow Rate FiO2 05/05/24 05:35 18 96 Room Air* 0 21 05/05/24 04:36 86 05/05/24 04:35 97.9 143/103 (116) Past Medical History PAST MEDICAL HISTORY: CHF, DM, High Lipids, HTN, MO Surgical History: PTCA, Unknown Family History Family History: Family hx of DM Social History Smoker: Quit Less Than 1 Year, Cigarettes Alcohol: Occasionally Drugs: Marijuana, Methamphetamine Lives In: Home EKG EKG : Pulse Rate (adult): 164 [place]: Normal Cardiac Rhythm: NSR (86 bpm) Comments Right axis deviation. Borderline T wave abnormalities. Borderline prolonged QT interval. N-stemi. Was a procedure done? Was a procedure done?: No X-Ray, Labs, Meds, VS Vital Signs Date Time Temp Pulse Resp B/P (MAP) Pulse Ox O2 Delivery O2 Flow Rate FiO2 05/05/24 05:35 18 96 Room Air* 0 21 05/05/24 04:36 86 05/05/24 04:35 97.9 86 18 143/103 (116) 95 Lab Test 05/05/24 04:45 Range/Units White Blood Count 5.7 4.4-10.8 10^3/uL Red Blood Count 5.03 4.5-5.90 10^6/uL Hemoglobin 15.7 13.5-17.5 g/dL Hematocrit 46.7 41.0-53.0 % Mean Corpuscular Volume 92.9 80.0-100.0 fL Mean Corpuscular Hemoglobin 31.2 28.0-32.0 pg Mean Corpuscular Hemoglobin Concent 33.6 32.0-36.0 g/dL Red Cell Distribution Width 13.2 11.8-14.3 % Platelet Count 196 140-450 10^3/uL Mean Platelet Volume 7.5 6.9-10.8 fL Neutrophils (%) (Auto) 61.8 37.0-80.0 % Lymphocytes (%) (Auto) 23.3 10.0-50.0 % Monocytes (%) (Auto) 10.9 0.0-12.0 % Eosinophils (%) (Auto) 3.2 0.0-7.0 % Basophils (%) (Auto) 0.8 0.0-2.0 % Neutrophils # (Auto) 3.5 1.6-8.6 10 ^3/uL Lymphocytes # (Auto) 1.3 0.4-5.4 10 ^3/uL Monocytes # (Auto) 0.6 0-1.3 10 ^3/uL Eosinophils # (Auto) 0.2 0-0.8 10 ^3/uL Basophils # (Auto) 0 0-0.2 10 ^3/uL Nucleated Red Blood Cells 0.0 % Sodium Level 139 136-145 mmol/L Potassium Level 4.3 3.5-5.1 mmol/L Chloride Level 109 H 98-107 mmol/L Carbon Dioxide Level 25 20-31 mmol/L Anion Gap 5 5-15 Blood Urea Nitrogen 17 9-23 mg/dL Creatinine 1.17 0.700-1.30 mg/dL Glomerular Filtration Rate Calc 75 >90 mL/min BUN/Creatinine Ratio 14.5 10.0-20.0 Serum Glucose 164 H 74-106 mg/dL Calcium Level 8.7 8.7-10.4 mg/dL Total Bilirubin 0.4 0.2-1.0 mg/dL Aspartate Amino Transferase (AST) 16 13-40 U/L Alanine Aminotransferase (ALT) 19 7-40 U/L Alkaline Phosphatase 96 46-116 U/L Troponin I High Sensitivity 447 *H </=54 ng/L B-Type Natriuretic Peptide 1115.84 0-100 pg/mL Total Protein 6.7 5.7-8.2 g/dL Albumin 3.6 3.2-4.8 g/dL Current Medications Medications (Trade) Dose Ordered Sig/Kimberly Route Start Time Stop Time Status Last Admin Albuterol (Ventolin Medneb) 2.5 mg ONCE ONCE NEB 05/05/24 05:00 05/05/24 05:01 DC 05/05/24 05:33 Ipratropium [place] (Atrovent Medneb) 0.5 mg ONCE ONCE NEB 05/05/24 05:00 05/05/24 05:01 DC 05/05/24 05:35 Aspirin 324 mg ONCE ONCE PO 05/05/24 05:00 05/05/24 05:01 DC 05/05/24 05:52 [place] [id number] Ph: [phone] DIAGNOSTIC IMAGING Diagnostic Imaging Report : [id number] Signed PATIENT: SOPHIE STORY ACCT: [id number] UNIT: [id number] : 1970 LOC: ER ROOM / BED: / AGE / SEX: 53 / M ADM STATUS: REG ER SERVICE [id number] ORDERING PHYSICIAN: CHRISTA TRIMBLE MD PROCEDURE(s): CXR1 - CHEST XRAY 1 VIEW REASON: cp ORDER NUMBER(s): [id number], ACCESSION NUMBER(s): [id number] CHEST RADIOGRAPH Indication: cp Technique: Single frontal view of the chest was obtained Comparison: XY CHEST PORTABLE on DOS: 04/05/24, XY CHEST PORTABLE on DOS: 03/03/24, XY CHEST PORTABLE on DOS: 01/14/24, XY CHEST PORTABLE on DOS: 12/03/23, XY CHEST PORTABLE on DOS: 11/13/23 FINDINGS: Lines and Tubes: None Lungs: No focal consolidation. Pleura: No effusion. No pneumothorax. Cardiomediastinal contours: Unremarkable Bones: No acute osseous abnormality. IMPRESSION: No acute cardiopulmonary disease. ATED BY: ANGEL GOSS MD DICTATED DATE/TIME: 05/05/24518 SIGNED BY: ANGEL GOSS MD SIGNED DATE/TIME: 05/05/24518 CC: Time of 1ST Reevaluation: 05:13 Reevaluation 1ST: Unchanged Patient Education/Counseling: Diagnosis, Treatment, Prognosis Family Education/Counseling: No Family Present Departure 1 Departure Time of Disposition: 05:57 Impression: Primary Impression: Non-STEMI (non-ST elevated myocardial infarction) Additional Impression: Shortness of breath Disposition: ADMITTED INPATIENT Condition: Guarded Critical Care Note Critical Care Time?: No Stability Stability form required: No I personally scribed for CHRISTA TRIMBLE MD ([email or web address]) on 05/05/24 at 04:58. Electronically submitted by Crystal Odonnell ([email or web address]). I personally scribed for CHRISTA TRIMBLE MD ([email or web address]) on 05/05/24 at 05:27. Electronically submitted by Crystal Odonnell ([email or web address]). I personally scribed for CHRISTA TRIMBLE MD ([email or web address]) on 05/05/24 at 05:49. Electronically submitted by Crystal Odonnell ([email or web address]). I personally scribed for CHRISTA TRIMBLE MD ([email or web address]) on 05/05/24 at 05:59. Electronically submitted by Crystal Odonnell ([email or web address]). CHRISTA TRIMBLE MD May 05, 2024 04:58
[2024-05-05 05:13] LABS: Basophils # (auto) 0 10 ^3/uL (0-0.2); Basophils % (auto) 0.8 % (0.0-2.0); Eosinophils # (auto) 0.2 10 ^3/uL (0-0.8); Eosinophils % (auto) 3.2 % (0.0-7.0); Hematocrit 46.7 % (41.0-53.0); Hemoglobin 15.7 g/dL (13.5-17.5); Lymphocytes # (auto) 1.3 10 ^3/uL (0.4-5.4); Lymphocytes % (auto) 23.3 % (10.0-50.0); Mean Corpuscular Hemoglobin 31.2 pg (28.0-32.0); Mean Corpuscular Hgb Conc. 33.6 g/dL (32.0-36.0); Mean Corpuscular Volume 92.9 fL (80.0-100.0); Monocytes # (auto) 0.6 10 ^3/uL (0-1.3); Monocytes % (auto) 10.9 % (0.0-12.0); Neutrophils # (auto) 3.5 10 ^3/uL (1.6-8.6); Neutrophils % (auto) 61.8 % (37.0-80.0); Platelet Count (auto) 196 10^3/uL (140-450); Red Blood Cells 5.03 10^6/uL (4.5-5.90); Red Cell Distribution Width 13.2 % (11.8-14.3); White Blood Cell 5.7 10^3/uL (4.4-10.8)
--- NOTE | 2024-05-05 05:22 | DVH ---
CHEST RADIOGRAPH Indication: cp Technique: Single frontal view of the chest was obtained Comparison: XY CHEST PORTABLE on DOS: 04/05/24, XY CHEST PORTABLE on DOS: 03/03/24, XY CHEST PORTABLE o n DOS: 01/14/24, XY CHEST PORTABLE on DOS: 12/03/23, XY CHEST PORTABLE on DOS: 11/13/23 FINDINGS: Lines and Tubes: None Lungs: No focal consolidation. Pleura: No effusion. No pneumothorax. Cardiomediastinal contours: Unremarkable Bones: No acute osseous abnormality. IMPRESSION: No acute cardiopulmonary disease.
[2024-05-05 05:26] LABS: Alanine Aminotransferase 19 U/L (7-40); Albumin 3.6 g/dL (3.2-4.8); Alkaline Phosphatase 96 U/L (46-116); Anion Gap 5 (5-15); Aspartate Aminotransferase 16 U/L (13-40); BUN/Creatinine Ratio 14.5 (10.0-20.0); Bilirubin, Total 0.4 mg/dL (0.2-1.0); Blood Urea Nitrogen 17 mg/dL (9-23); Carbon Dioxide 25 mmol/L (20-31); Potassium 4.3 mmol/L (3.5-5.1); Sodium 139 mmol/L (136-145); Total Protein 6.7 g/dL (5.7-8.2)
[2024-05-05 05:33] LABS: Calcium 8.7 mg/dL (8.7-10.4); Chloride 109 mmol/L (98-107); Glucose 164 mg/dL (74-106)
[2024-05-05] MEDS: ALBUTEROL SULF 2.5 MG/0.5ML(0.5%) NEB SOLN NEB ONE (05:33)
[2024-05-05] MEDS: IPRATROPIUM BROM 0.5 MG/2.5ML INH SOL NEB ONE (05:35)
[2024-05-05] MEDS: ASPirin 81 mg TAB PO ONE (05:52)
[2024-05-05] MEDS: HEPARIN DRIP/D5W 100UNITS/ML 250 ML IV SCH (06:00)
[2024-05-05] MEDS: HEPARIN SODIUM (PORCINE) 5000 UNITS/ML 1ML VIAL IV ONE (06:00)
[2024-05-05 06:29] LABS: INR 1.07 (0.9-1.15); Partial Thromboplastin Time 27.2 SEC (24.5-34.5); Prothrombin Time 11.3 sec (9.3-11.8)
--- NOTE | 2024-05-05 06:34 | DVHHP2 ---
History of Present Illness Reason for Visit: Chest pain History of Present Illness KyleAustyn C 53-year-old male with past medical history of hypertension, CT, hyperlipidemia, diabetes, CHF, and PTCA who presents to the ED today with chest pain and shortness of breath x1 week. Patient also reports that he has some epigastric pain, N/V, and dizziness. Patient reports that he has a dry cough with no phlegm production. Patient denies any diarrhea, headache, and back pain. Cardiovascular: CHF, HTN, CT, hyperipidemia Endocrine: Diabetes Past Surgical History PTCA Smoke: Quit ALCOHOL: occassional Drugs: Marijuana, Other (meth) Lives: with Family Domestic Violence: Neg Review of Systems Constitutional: No: Fever, Chills, Sweats, Weakness, Malaise, Other Eyes: No: Pain, Vision change, Conjunctivae inflammation, Eyelid inflammation, Other, Redness ENT: No: Ear pain, Ear discharge, Nose pain, Nose discharge, Nose congestion, Mouth pain, Mouth swelling, Throat pain, Throat swelling, Other Respiratory: Cough; No: Dry, Shortness of breath, SOB with excertion, Wheezing, Hemoptysis, Pleuritic Pain, Sputum, Wheezing, Other Cardiovascular: Chest Pain; No: Palpitations, Orthopnea, Paroxysmal Noc. Dyspnea, Edema, Lt Headedness, Other Gastrointestinal: Nausea, Vomiting; No: Abdominal Pain, Diarrhea, Constipation, Melena, Hematochezia, Other Genitourinary: No Dysuria, No Frequency, No Incontinence, No Hematuria, No Retention, No Other Musculoskeletal: No: other, neck pain, shoulder pain, arm pain, back pain, hand pain, leg pain, foot pain Skin: No: Rash, Lesions, Jaundice, Bruising, Other Neurological: Other (dizziness); No: Weakness, Numbness, Incoordination, Change in speech, Confusion, Seizures Allergies: Coded Allergies: No Known Drug Allergy (Verified Allergy, Unknown, 04/01/23) Medications Current Medications Medications Dose Ordered Sig/Kimberly Route Start Time Stop Time Status Last Admin Dose Admin Heparin Sodium/ Dextrose 250 ml @ 8.184 mls/ hr Q24H IV 05/05/24 06:00 UNV Exam Vital Signs Vital Signs Date Time Temp Pulse Resp B/P (MAP) Pulse Ox O2 Delivery O2 Flow Rate FiO2 05/05/24 06:06 97.8 102 18 148/94 (112) 98 97.8 05/05/24 06:06 Nasal Cannula* 2 28 General Appearance: Alert, Oriented X3, Cooperative, No acute distress HEENT: Atraumatic, PERRLA, EOMI, Mucous membr. moist/pink Respiratory: Clear to auscultation, Normal air movement Cardiovascular: Normal S1, Normal S2, No murmurs Abdominal: Normal bowel sounds, Soft, No tenderness, No hepatospenomegaly, No masses Extremities: No clubbing, No cyanosis, No edema, Normal pulses, No tenderness/swelling Skin: No rashes, No breakdown, No significant lesion Neuro: Normal gait, Normal speech, Strength at 5/5 X4 ext, Normal tone Psych/Mental Status: Mental status NL, Mood NL Labs/Xrays Labs Test 05/05/24 05:53 05/05/24 04:45 Range/Units White Blood Count 5.7 4.4-10.8 10^3/uL Red Blood Count 5.03 4.5-5.90 10^6/uL Hemoglobin 15.7 13.5-17.5 g/dL Hematocrit 46.7 41.0-53.0 % Mean Corpuscular Volume 92.9 80.0-100.0 fL Mean Corpuscular Hemoglobin 31.2 28.0-32.0 pg Mean Corpuscular Hemoglobin Concent 33.6 32.0-36.0 g/dL Red Cell Distribution Width 13.2 11.8-14.3 % Platelet Count 196 140-450 10^3/uL Mean Platelet Volume 7.5 6.9-10.8 fL Neutrophils (%) (Auto) 61.8 37.0-80.0 % Lymphocytes (%) (Auto) 23.3 10.0-50.0 % Monocytes (%) (Auto) 10.9 0.0-12.0 % Eosinophils (%) (Auto) 3.2 0.0-7.0 % Basophils (%) (Auto) 0.8 0.0-2.0 % Neutrophils # (Auto) 3.5 1.6-8.6 10 ^3/uL Lymphocytes # (Auto) 1.3 0.4-5.4 10 ^3/uL Monocytes # (Auto) 0.6 0-1.3 10 ^3/uL Eosinophils # (Auto) 0.2 0-0.8 10 ^3/uL Basophils # (Auto) 0 0-0.2 10 ^3/uL Nucleated Red Blood Cells 0.0 % Sodium Level 139 136-145 mmol/L Potassium Level 4.3 3.5-5.1 mmol/L Chloride Level 109 H 98-107 mmol/L Carbon Dioxide Level 25 20-31 mmol/L Anion Gap 5 5-15 Blood Urea Nitrogen 17 9-23 mg/dL Creatinine 1.17 0.700-1.30 mg/dL Glomerular Filtration Rate Calc 75 >90 mL/min BUN/Creatinine Ratio 14.5 10.0-20.0 Serum Glucose 164 H 74-106 mg/dL Calcium Level 8.7 8.7-10.4 mg/dL Total Bilirubin 0.4 0.2-1.0 mg/dL Aspartate Amino Transferase (AST) 16 13-40 U/L Alanine Aminotransferase (ALT) 19 7-40 U/L Alkaline Phosphatase 96 46-116 U/L B-Type Natriuretic Peptide 1115.84 0-100 pg/mL Total Protein 6.7 5.7-8.2 g/dL Albumin 3.6 3.2-4.8 g/dL CHEST RADIOGRAPH Indication: cp Technique: Single frontal view of the chest was obtained Comparison: XY CHEST PORTABLE on DOS: 04/05/24, XY CHEST PORTABLE on DOS: 03/03/24, XY CHEST PORTABLE on DOS: 01/14/24, XY CHEST PORTABLE on DOS: 12/03/23, XY CHEST PORTABLE on DOS: 11/13/23 FINDINGS: Lines and Tubes: None Lungs: No focal consolidation. Pleura: No effusion. No pneumothorax. Cardiomediastinal contours: Unremarkable Bones: No acute osseous abnormality. IMPRESSION: No acute cardiopulmonary disease. Assessment/Plan Assessment/Plan Assessment: NSTEMI type 2 Obesity History of hypertension CT Hyperlipidemia Diabetes CHF Smoker Marijuana use Meth abuse Plan: Admit to tele Cardiology consult EKG noted Chest x-ray noted Lipid panel Urine drug screen Echo TSH HgbA1C 7.2 ISS and Accu-Cheks Diet as tolerated Monitor labs Trend troponins Pain management Antiemetics Counseled on smoking cessation and substance abuse Home medications reconciled Plan discussed with: Patient Date of Service: May 05, 2024 Billing Provider: SUNDEEP SMITHP Common Visit Codes: 57838-OYSSTCS INP/OBS CARE (MOD) SUNDEEP SMITH [facility] May 05, 2024 06:34
--- NOTE | 2024-05-05 06:40 | ECG ---
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
--- NOTE | 2024-05-05 06:40 | ECG ---
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
[2024-05-05 07:30] LABS: Triglycerides 97 mg/dL (< 150)
[2024-05-05 07:31] LABS: LDL Cholesterol 82 mg/dL (< 100)
[2024-05-05 07:32] LABS: Cholesterol 133 mg/dL (< 200); HDL Cholesterol 40 mg/dL (40-59)
[2024-05-05 07:32] LABS: COVID19 ANTIGEN SOFIA FIA NEGATIVE (NEGATIVE); Rapid Influenza A Negative (Negative); Rapid Influenza B Negative (Negative)
[2024-05-05] MEDS ORDERED: DEXTROSE (50%) 50ML SYRG IV PRN (08:30)
[2024-05-05] MEDS ORDERED: MORPHINE SULFATE INJ 2 MG/ml SYRG IV PRN (08:30)
[2024-05-05] MEDS ORDERED: NITROGLYCERIN 0.4 MG SL TAB SL PRN ×2 (08:30)
[2024-05-05] MEDS ORDERED: ONDANSETRON HCL 4 MG/2 ML VIAL IV PRN (08:30)
[2024-05-05] MEDS ORDERED: MORPHINE SULFATE 4 MG/ML SYR/VIAL IV PRN (08:30)
[2024-05-05] MEDS ORDERED: PATIENTS OWN MEDICATION (Atorvastatin Calcium 1 TAB) PO SCH (10:00)
[2024-05-05] MEDS ORDERED: ASPirin 325 MG TAB PO SCH (10:00)
--- NOTE | 2024-05-05 10:45 | DVHINCON2 ---
Date Seen: May 05, 2024 Referring Physician KENNY Pires Reason for Consultation NSTEMI History of Present Illness This is a 53-year-old male patient who presents to the emergency room with chief complaint of shortness of breath, cough, and chest pain that began one week ago. The patient describes the chest pain as provoked by cough, sharp in nature, midsternal and with radiation to right and left side of chest. Aggravating factors include deep inhalation. The patient decided to come to the emergency room for further evaluation. Cardiology has been consulted for elevated troponin level. Initial twelve lead electrocardiogram reveals normal sinus rhythm with left ventricular hypertrophy without any significant ST segment changes. Initial troponin level of 447ng/L with flat trend thereafter. Initial BNP level of 1115.84pg/mL. Significant past medical history includes coronary artery disease status post multiple PTCAs x2 OLIVIA (on ASA), ischemic/drug-induced cardiomyopathy, congestive heart failure, hypertension, history of pulmonary embolism, type 2 diabetes mellitus, and polysubstance abuse. Patient reports he has not followed up with any paper bag inspector in the outpatient setting. He reports he has been compliant with all of his medications. The patient denies any recent drug use. Patient was recently seen at this facility last month and toxicology report from 04/07/2024 reveals positive amphetamine use. Past Medical History Past medical history reviewed. No other significant than mentioned above. Past Surgical History Denies Family History: Alzheimer's disease G8 FATHER Diabetes mellitus G8 FATHER, Onset:Unknown Hypertension G8 FATHER Family History Family history reviewed. Social History Patient reports prior history of amphetamine use Last toxicology report from 04/07/2024 reveals amphetamine use The patient has a 10 year pack history, reports he no longer smokes Patient denies any alcohol use Allergies: Coded Allergies: No Known Drug Allergy (Verified Allergy, Unknown, 04/01/23) Home Meds Active Scripts Lisinopril (Lisinopril) 5 Mg Tab, 5 MG PO DAILY for 30 Days, #30 TAB 3 Refills Prov:ELEANOR PITTS NP 04/07/24 Metformin HCl (Metformin Hydrochloride) 500 Mg/5 Ml Sanrda, 500 MG PO BID for 30 Days, #60 ML Prov:AYAKA SCHMIDT MD 03/04/24 Carvedilol (COREG) 3.125 Mg Tab, 3.125 MG PO Q12HR for 30 Days, #60 TAB Prov:AYAKA SCHMIDT MD 03/04/24 Furosemide (Lasix) 40 Mg Tab, 40 MG PO DAILY, #90 TAB Prov:AYAKA SCHMIDT MD 03/04/24 Aspirin (ASPIRIN 81) 81 Mg Tab, 81 MG PO DAILY, #90 TAB Prov:AYAKA SCHMIDT MD 03/04/24 Spironolactone (Aldactone) 25 Mg Tab, 12.5 MG PO DAILY, #30 TAB 5 Refills Prov:AYAKA SCHMIDT MD 03/04/24 Atorvastatin Calcium (ATORVASTATIN CALCIUM) 40 Mg Tab, 1 TAB PO DAILY, #30 TAB 5 Refills Prov:AYAKA SCHMIDT MD 03/04/24 Clopidogrel Bisulfate (CLOPIDOGREL) 75 Mg Tab, 1 TAB PO DAILY, #30 TAB 5 Refills Prov:AYAKA SCHMIDT MD 03/04/24 Home Meds Home medications reviewed. Current Medications Current Medications Medications (Trade) Dose Ordered Sig/Kimberly Route PRN Reason Start Time Stop Time Status Last Admin Heparin Sodium/ Dextrose 250 ml @ 8 mls/hr Q24H IV 05/05/24 06:00 05/05/24 09:33 DC Aspirin 81 mg DAILY PO 05/05/24 10:00 UNV Aspirin 325 mg DAILY PO 05/05/24 10:00 UNV Atorvastatin Calcium (Lipitor) 40 mg HS PO 05/05/24 22:00 Morphine Sulfate 2 mg Q30MP PRN IV FOR CHEST PAIN 05/05/24 08:30 UNV Acetaminophen (Tylenol Tablet) 650 mg Q6HP PRN PO MILD PAIN (1-3 PAIN SCALE) 05/05/24 08:30 Lorazepam (Ativan Tablet) 0.5 mg Q6HP PRN PO ANXIETY 05/05/24 08:30 Docusate Sodium (Colace Capsule) 100 mg DAILY PO 05/05/24 10:00 Nitroglycerin (Ntrostat Sublingual) 0.4 mg Q5MINP PRN SL FOR CHEST PAIN 05/05/24 08:30 Ondansetron HCl (Zofran) 4 mg Q4HP PRN IV NAUSEA / VOMITING 05/05/24 08:30 Nitroglycerin (Ntrostat Sublingual) 0.4 mg Q5MINP PRN SL FOR CHEST PAIN 05/05/24 08:30 UNV Morphine Sulfate 2 mg Q30M PRN IV FOR CHEST PAIN 05/05/24 08:30 Diagnostic Test (Pha) (Accu-Chek Comfort Curve T) 1 strip IQ4HR 05/05/24 12:00 Insulin Human Regular (InsuLIN R) IQ4HR SC 05/05/24 12:00 Dextrose 50 ml UD PRN IV Blood Sugar LESS THAN 60 05/05/24 08:30 Aspirin (Ecotrin Enteric Coated Tablet) 81 mg DAILY PO 05/05/24 10:00 UNV Carvedilol (Coreg Tablet) 3.125 mg Q12HR PO 05/05/24 10:00 Furosemide (Lasix Tablet) 40 mg DAILY PO 05/05/24 10:00 Lisinopril (Zestril Tablet) 5 mg DAILY PO 05/05/24 10:00 Spironolactone (Aldactone) 12.5 mg DAILY PO 05/05/24 10:00 Patient Own Medication 1 tab DAILY PO 05/05/24 10:00 UNV Guaifenesin/ Dextromethorphan (Robitussin-Dm Liquid) 10 ml Q4HP PRN PO FOR COUGH 05/05/24 10:15 Review of Systems Constitutional: No symptom reported Ears, Nose, & Throat: No symptom reported Eyes: No symptom reported Neurological: No symptoms reported Pulmonary/Respiratory: Shortness of breath, cough Cardiovascular: Chest pain Gastrointestinal: No symptom reported Genitourinary: No symptom reported Musculoskeletal: No symptom reported Skin: No symptom reported Psychiatric: No symptom reported Endocrine: No symptom reported Hematologic/Lymphatic: No symptom reported Vital Signs Vital Signs Date Time Temp Pulse Resp B/P (MAP) Pulse Ox O2 Delivery O2 Flow Rate FiO2 05/05/24 08:00 68 05/05/24 06:29 97.8 10 131/91 (104) 98 97.8 05/05/24 06:29 Nasal Cannula* 4 36 Physical Exam General Appearance: Cooperative. Obese Pulmonary/Respiratory: Clear, bilateral breaths sounds. Cardiovascular/Chest: Regular rate and rhythm. Peripheral Pulses: 2+ Radial (R). 2+ Radial (L). 2+ Pedal (R). 2+ Pedal (L) Abdominal Exam: Normal bowel sounds. Ankle Exam: Negative ankle edema Lower extremities: Negative lower extremity edema Neuro/Mental Status: A/OX4, coherent. Thoughts/Psych: Normal thought pattern. Appropriate mood and affect. Good judgment and insight. Appearance: No acute distress. Skin Exam: Normal inspection. Normal color. Warm and dry. Labs/Diagnostic Data Labs Test 05/05/24 08:15 05/05/24 05:50 05/05/24 04:45 Range/Units Troponin I High Sensitivity 455 *H </=54 ng/L Influenza Type A Antigen Negative Negative Influenza Type B Antigen Negative Negative SARS-CoV-2 Antigen (Rapid) Negative NEGATIVE White Blood Count 5.7 4.4-10.8 10^3/uL Red Blood Count 5.03 4.5-5.90 10^6/uL Hemoglobin 15.7 13.5-17.5 g/dL Hematocrit 46.7 41.0-53.0 % Mean Corpuscular Volume 92.9 80.0-100.0 fL Mean Corpuscular Hemoglobin 31.2 28.0-32.0 pg Mean Corpuscular Hemoglobin Concent 33.6 32.0-36.0 g/dL Red Cell Distribution Width 13.2 11.8-14.3 % Platelet Count 196 140-450 10^3/uL Mean Platelet Volume 7.5 6.9-10.8 fL Neutrophils (%) (Auto) 61.8 37.0-80.0 % Lymphocytes (%) (Auto) 23.3 10.0-50.0 % Monocytes (%) (Auto) 10.9 0.0-12.0 % Eosinophils (%) (Auto) 3.2 0.0-7.0 % Basophils (%) (Auto) 0.8 0.0-2.0 % Neutrophils # (Auto) 3.5 1.6-8.6 10 ^3/uL Lymphocytes # (Auto) 1.3 0.4-5.4 10 ^3/uL Monocytes # (Auto) 0.6 0-1.3 10 ^3/uL Eosinophils # (Auto) 0.2 0-0.8 10 ^3/uL Basophils # (Auto) 0 0-0.2 10 ^3/uL Nucleated Red Blood Cells 0.0 % Prothrombin Time 11.3 9.3-11.8 sec Prothrombin Time INR 1.07 0.9-1.15 Activated Partial Thromboplast Time 27.2 24.5-34.5 SEC Sodium Level 139 136-145 mmol/L Potassium Level 4.3 3.5-5.1 mmol/L Chloride Level 109 H 98-107 mmol/L Carbon Dioxide Level 25 20-31 mmol/L Anion Gap 5 5-15 Blood Urea Nitrogen 17 9-23 mg/dL Creatinine 1.17 0.700-1.30 mg/dL Glomerular Filtration Rate Calc 75 >90 mL/min BUN/Creatinine Ratio 14.5 10.0-20.0 Serum Glucose 164 H 74-106 mg/dL Calcium Level 8.7 8.7-10.4 mg/dL Total Bilirubin 0.4 0.2-1.0 mg/dL Aspartate Amino Transferase (AST) 16 13-40 U/L Alanine Aminotransferase (ALT) 19 7-40 U/L Alkaline Phosphatase 96 46-116 U/L B-Type Natriuretic Peptide 1115.84 0-100 pg/mL Total Protein 6.7 5.7-8.2 g/dL Albumin 3.6 3.2-4.8 g/dL Triglycerides Level 97 < 150 mg/dL Cholesterol Level 133 < 200 mg/dL LDL Cholesterol 82 < 100 mg/dL HDL Cholesterol 40 40-59 mg/dL Thyroid Stimulating Hormone (TSH) 0.87 0.55-4.78 uIU/mL Assessment Acute on chronic decompensated HFrEF, NYHA class III NSTEMI type II secondary to above Noncardiac chest pain, likely pleuritic Coronary artery disease status post multiple PTCAs x2 OLIVIA (on ASA) Ischemic/drug-induced cardiomyopathy Hypertension Pulmonary hypertension Mitral and tricuspid valve regurgitation, moderate degree History of pulmonary embolism Type 2 diabetes mellitus, uncontrolled (Hgb A1c 7.2%) Polysubstance abuse Obesity Plan/Recommendation We will continue with the following plan/recommendations (Dr. Santos): * Echocardiogram reveals EF 10%, RVSP 67 mmHg * Initiate GDMT for CHF as tolerated * Strict intake and output, daily weights, maintain fluid restriction * Preload and afterload reduction * Single antiplatelet therapy and lipid-lowering agent * UDS Patient seen and examined at bedside with . Elevated troponin level likely secondary to CHF exacerbation. Twelve lead electrocardiogram does not show any significant ST segment changes. Patient educated on medical compliance including routine follow up with Cardiology in the outpatient setting. We will continue with conservative medical management at this time. Thank you for allowing us to care for this patient. Please call with any questions or concerns. Critical care time spent: 43 minutes This medical document was created using an electronic medical record system with voice recognition software and computerized dictation system. Although this document has been carefully reviewed, there might still be some phonetic and typographical errors. Occasional wrong-word or ``sound-alike substitutions may have occurred due to the inherent limitations of voice recognition software. These areas are purely typographical due to imperfections of the software programs and do not reflect any compromise in the patient's medical care. Please read the chart carefully and recognize, using context, where these substitutions have occurred. Plan discussed with: Patient NYHA Physical activity limitations: Class3(Marked) ordinary (activity causes symtoms) Date of Service: May 05, 2024 Billing Provider: KENYA SANTOS MD Cardiology Common Codes: [id number] INP/OBS CARE (High) Cardiology Consultation Codes: [id number] CONSULT <45MIN VAISHALI OSUNA May 05, 2024 10:45
[2024-05-05] MEDS: LORazepam 0.5 MG TAB PO PRN (11:07)
[2024-05-05] MEDS: CARVEDILOL 3.125 MG TAB PO SCH (11:08)
[2024-05-05] MEDS: LISINOPRIL 5 MG TAB PO SCH (11:08)
[2024-05-05] MEDS: DOCUSATE SOD 100 MG CAP PO SCH (11:08)
[2024-05-05] MEDS: SPIRONOLACTONE 25 MG TAB PO SCH (11:09)
[2024-05-05] MEDS: FUROSEMIDE 40 MG TAB PO SCH (11:09)
[2024-05-05] MEDS: guaiFENesin-DM 100/10mg/5ml SYR PO ONE (11:10)
[2024-05-05] MEDS: PNEUMOCOCCAL VACC POLYS 25 MCG/0.5 ML VIAL IM ONE (11:30)
[2024-05-05] MEDS: INFLUENZA TRIVALENT 2024-2025 0.5 ML INJ IM ONE (11:30)
--- NOTE | 2024-05-05 12:58 | DVHPNRES ---
Progress Note Date Seen: May 05, 2024 Resident Creating Document: REBEKAH BARNES RESIDENT Medical Necessity Reason Pt with a Central, PICC or Fol: No Subjective Review of Systems Austyn Wright is a 53-year-old male with a PMH of HTN, HLD, type 2 DM, CAD, PA, PTCA x2 presented to the ED with the chief complaints of cough, shortness of breath and chest pain since 1 week. Patient reported on the day of he developed cough which is associated with worsening of shortness of breaths and later developed chest pain which is pressure-like initially substernal and later towards left chest which is intermittent no radiating, aggravated by exertion, coughing relieved by sitting upright, taking oxygen. Patient reported he does have fever, chills and chronic diarrhea. Patient reported does he uses methamphetamines and last consumption was 3 weeks ago. Patient reported he is on home oxygen 2 L for past 2 months. Patient is sexually active with ex- uses contraception. on my assessment patient denies nausea, vomiting, palpitations, diaphoresis, abdominal pain, or and other acute associated symptoms . Patient reported he had multiple admissions in this facility for ACS and CHF exacerbation. PMH: HTN, HLD, type 2 DM, CAD, PA, PTCA x2 PSH: PTCA, OLIVIA x2 Family history: Reviewed, noncontributory Social history: Lives at home. smokes less than 1 pack per week, methamphetamine and marijuana abuse but denies alcohol and other drug abuse. Sexually active with ex- Allergies: No known allergies Patient seen and examined at the bedside. Patient reported improvement in his pain since admission, no new complaints. Currently on 2-3 L of oxygen at N/C. Currently patient is on Coreg, Lasix 40 mg. Consulted cardiology for further evaluation. Echocardiogram, pending Objective vital signs Vital Sign Date Time Temp Pulse Resp B/P (MAP) Pulse Ox O2 Delivery O2 Flow Rate FiO2 05/05/24 12:56 97.5 73 21 141/90 (107) 95 97.5 05/05/24 10:39 Nasal Cannula* 3 32 medications Current Medications Medications Dose Ordered Sig/Kimberly Route Start Time Stop Time Status Last Admin Dose Admin Aspirin 81 mg DAILY PO 05/05/24 10:00 UNV Aspirin 325 mg DAILY PO 05/05/24 10:00 UNV Atorvastatin Calcium 40 mg HS PO 05/05/24 22:00 Morphine Sulfate 2 mg Q30MP PRN IV 05/05/24 08:30 UNV Acetaminophen 650 mg Q6HP PRN PO 05/05/24 08:30 Lorazepam 0.5 mg Q6HP PRN PO 05/05/24 08:30 05/05/24 11:07 0.5 MG Docusate Sodium 100 mg DAILY PO 05/05/24 10:00 05/05/24 11:08 100 MG Nitroglycerin 0.4 mg Q5MINP PRN SL 05/05/24 08:30 Ondansetron HCl 4 mg Q4HP PRN IV 05/05/24 08:30 Nitroglycerin 0.4 mg Q5MINP PRN SL 05/05/24 08:30 UNV Morphine Sulfate 2 mg Q30M PRN IV 05/05/24 08:30 Diagnostic Test (Pha) 1 strip IQ4HR 05/05/24 12:00 Insulin Human Regular IQ4HR SC 05/05/24 12:00 Dextrose 50 ml UD PRN IV 05/05/24 08:30 Aspirin 81 mg DAILY PO 05/05/24 10:00 UNV Carvedilol 3.125 mg Q12HR PO 05/05/24 10:00 05/05/24 11:08 3.125 MG Furosemide 40 mg DAILY PO 05/05/24 10:00 05/05/24 11:09 40 MG Lisinopril 5 mg DAILY PO 05/05/24 10:00 05/05/24 11:08 5 MG Spironolactone 12.5 mg DAILY PO 05/05/24 10:00 05/05/24 11:09 12.5 MG Patient Own Medication 1 tab DAILY PO 05/05/24 10:00 UNV Guaifenesin/ Dextromethorphan 10 ml Q4HP PRN PO 05/05/24 10:15 Examination Pt is lying on bed General Appearance: Alert, Oriented X3, Cooperative, Not in acute distress HEENT: Atraumatic, Mucous membranes moist/pink Respiratory:On 2 L oxygen NC. Clear to auscultation, Normal air movement, No added sounds Cardiovascular: Regular rate, Normal S1, Normal S2, No murmurs Abdominal: Active bowel sounds, Soft, no distention, no tenderness Extremities: No edema, Normal pulses, No tenderness/swelling Skin: No Significant rash, except past surgical scars Neuro: Normal speech, sensorimotor deficits none Psych/Mental Status: Mental status NL, Mood NL Nurse was there as melloerone during examination laboratory and microbiology Laboratory Tests 05/05/24 04:45 Test 05/05/24 04:45 Range/Units Serum Glucose 164 H 74-106 mg/dL Labs and/or images reviewed: Labs reviewed by me, Image(s) reviewed by me Problem List/Assessment/Plan Problem List/Assessment/Plan # Acute on chronic systolic CHF likely due to polysubstance abuse # Acute on chronic decompensated HFrEF, NYHA class III # acute hypoxic respiratory failure # Coronary artery disease status post multiple PTCAs x2 OLIVIA (on ASA) # Ischemic/drug-induced cardiomyopathy # NSTEMI type 2 likely due to above # ruled out acute pericarditis - currently on telemetry unit - currently on 2-3 L oxygen NC - elevated BNP & troponins x3 - currently on Coreg 3.125 mg and Lasix 40 mg IV b.i.d. - ordered new echocardiogram showed LVEF 10% with RVSP 67 mmHg -initiated GDM T as tolerated -cardiology consulted and evaluated the patient, advised single antiplatelet therapy and lipid-lowering agent, advised about medical compliance and follow up with Cardiology in outpatient. # likely acute bronchitis - currently on guanfacine # uncontrolled type 2 DM with HbA1c 7.2 - continuously monitor - currently on moderate ISS # polysubstance abuse methamphetamines and cannabinoids - UDS - counseled regarding cessation for 17 minutes # History of pulmonary embolism SCDs for now Protonix Cardiac diet Reconciled home meds Goals of care discussed with the patient for more than 27 minutes: Full code status Case management discussed with Dr. Calzada, patient and nurse Plan discussed with: Patient My Orders My Orders Orders - REBEKAH BARNES RESIDENT Procedure Category Date Status Time Acute Hepatitis Panel LAB 05/05/24 In Process 12:47 Hiv 1&2 Antibody LAB 05/05/24 Logged 12:47 RPR LAB 05/05/24 Logged 12:47 Vitamin D, 25-Hydroxy LAB 05/05/24 In Process 12:47 Vitamin B12 LAB 05/05/24 In Process 12:47 Urinalysis LAB 05/05/24 Logged 12:47 Magnesium LAB 05/05/24 In Process 12:47 Blood Alcohol LAB 05/05/24 In Process 12:47 Date of Service: May 05, 2024 Billing Provider: AKHIL CALZADA MD Common Visit Codes: [id number] INP/OBS CARE(HIGH) Secondary Visit Codes: [id number] CARE PLAN 30 MINUTES LATOSHA BARNESPetraSHELLY RESIDENT May 05, 2024 12:58 AKHIL CALZADA MD May 07, 2024 21:04
--- NOTE | 2024-05-05 12:59 | DVHSR ---
APPROVED REPORT EXAM: Two-dimensional and M-mode echocardiogram with Doppler and color Doppler. Blood Pressure: 148/94 mmHg INDICATION Chest Pain RISK FACTORS Height: 66, Weight: 150 DIMENSIONS LVDd6.0 (3.8-5.7cm)LA (2D)5.0 (1.9-4.0cm)Aortic Root3.1 (2.0-3.7cm) LVDs5.6 (2.5-4.0cm)LA (MM) (1.9-4.0cm)Aortic Cusp Exc1.5 (1.5-2.0cm) EF (%) 13.0 (55-70%)Rt. Atrium4.8 (1.9-4.0cm)Asc. Aorta cm IVSd1.1 (0.7-1.1cm)RV (D) (1.8-2.4cm) PWd1.4 (0.7-1.1cm) Mitral Valve MitralMitral Stenosis E wave1.08m/sMV Mean GR.mmHg A wavem/sMV Peak GR.76mmHg E/A ratio0.02D MVAcm2 Aortic Valve Aortic ValveAortic Stenosis V11.03m/Yue Mean GR.3mmHg V21.13m/Yue Peak GR.5mmHg LVOT Diameter2.1 (1.8-2.4cm)Doppler AVA3.16cm2 AI P 1/2 Vkpb191.04ms Pulmonic Valve V20.75m/s Tricuspid Valve TR Velocity3.31m/s [id number] Conclusion Severely dilated left ventricle. Severely reduced left ventricular systolic function estimated eject ion fraction of 10%. There is a grade 1 diastolic dysfunction. Severely dilated right ventricle. Severely reduced right ventricular systolic function. Severely el evated right ventricular systolic pressure 67 mm of mercury. Moderately dilated left atrium. Normal-sized right atrium. The aortic valve is mildly thickened no significant stenosis or regurgitation. There is a moderate mitral valve regurgitation. There is a moderate tricuspid valve regurgitation. The pulmonary valve is grossly normal. No pericardial effusion.
[2024-05-05 13:18] LABS: Magnesium 1.9 mg/dL (1.6-2.6)
[2024-05-05 13:21] LABS: Blood Alcohol < 3.0 mg/dL (<10)
[2024-05-05] MEDS: InsuLIN REG 1unit/0.01ml Soln (100units/ml) SC SCH (13:22)
[2024-05-05] MEDS: ACCU-CHEK COMFORT CURVE STRIP VI SCH (13:30)
[2024-05-05 13:52] LABS: Hepatitis A Ab IgM Negative; Hepatitis B Surface Antigen Negative (Negative)
[2024-05-05 13:53] LABS: Hepatitis B Core IgM Negative (Negative); Hepatitis C Antibody Negative (Negative)
[2024-05-05 14:34] LABS: Urine Bacteria None Seen /hpf (None Seen)
[2024-05-05 14:45] LABS: Urine Blood Negative /uL (Negative); Urine Clarity Clear (Clear); Urine Color Colorless (Yellow); Urine Protein, UAD Negative (Negative); Urine Specific Gravity 1.007 (1.001-1.035); Urine Urobilinogen Normal (Negative); Urine WBC <1 /hpf (0 - 3)
[2024-05-05 14:56] LABS: Amphetamine Screen, Urine Pos (NEGATIVE)
[2024-05-05 14:57] LABS: Phencyclidine Screen, Urine Neg (NEGATIVE)
[2024-05-05 14:58] LABS: Barbiturate Scree,Urine Neg (NEGATIVE); Benzodiazephine Screen, Urine Neg (NEGATIVE); Cannabinoid Screen, Urine Neg (NEGATIVE); Cocaine Screen, Urine Neg (NEGATIVE); Opiate Scree,Urine Neg (NEGATIVE)
[2024-05-05] MEDS: guaiFENesin-DM 100/10mg/5ml SYR PO PRN (16:55)
[2024-05-05] MEDS: ATORVASTATIN 20 MG TAB PO SCH (21:19)
[2024-05-06 01:00] VITALS: BP 114/71; PULSE 63; RESP 18; TEMP 98.1; O2SAT 100
[2024-05-06] MEDS: ACETAMINOPHEN 325 MG TAB PO PRN (01:23)
[2024-05-06 05:00] VITALS: BP 131/79; PULSE 68; RESP 18; TEMP 98.2; O2SAT 92
[2024-05-06 06:13] LABS: Basophils # (auto) 0 10 ^3/uL (0-0.2); Basophils % (auto) 0.5 % (0.0-2.0); Eosinophils # (auto) 0.2 10 ^3/uL (0-0.8); Eosinophils % (auto) 3.3 % (0.0-7.0); Hemoglobin 16.2 g/dL (13.5-17.5); Lymphocytes # (auto) 1.2 10 ^3/uL (0.4-5.4); Lymphocytes % (auto) 16.5 % (10.0-50.0); Mean Corpuscular Hemoglobin 31.1 pg (28.0-32.0); Mean Corpuscular Hgb Conc. 33.8 g/dL (32.0-36.0); Monocytes # (auto) 0.6 10 ^3/uL (0-1.3); Monocytes % (auto) 7.8 % (0.0-12.0); Neutrophils # (auto) 5.4 10 ^3/uL (1.6-8.6); Neutrophils % (auto) 71.9 % (37.0-80.0); Nucleated Red Blood Cells % 0.3 %; Platelet Count (auto) 221 10^3/uL (140-450); Red Blood Cells 5.21 10^6/uL (4.5-5.90); Red Cell Distribution Width 13.3 % (11.8-14.3); White Blood Cell 7.5 10^3/uL (4.4-10.8)
[2024-05-06 06:40] LABS: Alanine Aminotransferase 16 U/L (7-40); Albumin 3.5 g/dL (3.2-4.8); Alkaline Phosphatase 75 U/L (46-116); Anion Gap 8 (5-15); Aspartate Aminotransferase 16 U/L (13-40); BUN/Creatinine Ratio 15.6 (10.0-20.0); Bilirubin, Total 0.8 mg/dL (0.2-1.0); Blood Urea Nitrogen 14 mg/dL (9-23); Calcium 9.1 mg/dL (8.7-10.4); Carbon Dioxide 28 mmol/L (20-31); Chloride 103 mmol/L (98-107); Potassium 3.7 mmol/L (3.5-5.1); Sodium 139 mmol/L (136-145); Total Protein 6.7 g/dL (5.7-8.2)
[2024-05-06 06:43] LABS: Glucose 158 mg/dL (74-106)
[2024-05-06 08:00] VITALS: BP 127/87; PULSE 69; PULSE 76; RESP 18; TEMP 98.2; O2SAT 90
[2024-05-06 08:57] VITALS: BP 117/85; PULSE 70; RESP 16; TEMP 98.8; O2SAT 97
[2024-05-06] MEDS ORDERED: ASPirin 81 mg TAB PO SCH (10:00)
[2024-05-06] MEDS ORDERED: EMPA1TAB PO (10:05)
[2024-05-06] MEDS ORDERED: ACET-1882 PO (10:05)
[2024-05-06] MEDS ORDERED: DEXT1SYP9 PO (10:05)
--- NOTE | 2024-05-06 10:49 | DVHPN2 ---
Consult Progress Note Date Seen: May 06, 2024 Subjective Review of Systems: CVS:Normal, RESPIRATORY:Normal, NEURO:Normal Objective vital signs Vital Sign Date Time Temp Pulse Resp B/P (MAP) Pulse Ox O2 Delivery O2 Flow Rate FiO2 05/06/24 08:57 98.8 70 16 117/85 (96) 97 98.8 05/05/24 20:00 Nasal Cannula* 3 32 Total Intake and Output 05/05/24 05/05/24 05/06/24 15:00 23:00 07:00 Intake Total 110 ml 330 ml 300 ml Output Total 500 ml 450 ml Balance 110 ml -170 ml -150 ml medications Current Medications Medications Dose Ordered Sig/Kimberly Route Start Time Stop Time Status Last Admin Dose Admin Atorvastatin Calcium 40 mg HS PO 05/05/24 22:00 05/05/24 21:19 40 MG Morphine Sulfate 2 mg Q30MP PRN IV 05/05/24 08:30 UNV Acetaminophen 650 mg Q6HP PRN PO 05/05/24 08:30 05/06/24 01:23 650 MG Lorazepam 0.5 mg Q6HP PRN PO 05/05/24 08:30 05/05/24 22:40 0.5 MG Docusate Sodium 100 mg DAILY PO 05/05/24 10:00 05/05/24 11:08 100 MG Nitroglycerin 0.4 mg Q5MINP PRN SL 05/05/24 08:30 Ondansetron HCl 4 mg Q4HP PRN IV 05/05/24 08:30 Nitroglycerin 0.4 mg Q5MINP PRN SL 05/05/24 08:30 UNV Morphine Sulfate 2 mg Q30M PRN IV 05/05/24 08:30 Diagnostic Test (Pha) 1 strip IQ4HR 05/05/24 12:00 05/06/24 08:00 1 STRIP Insulin Human Regular IQ4HR SC 05/05/24 12:00 05/05/24 17:05 2 UNITS Dextrose 50 ml UD PRN IV 05/05/24 08:30 Aspirin 81 mg DAILY PO 05/06/24 10:00 Carvedilol 3.125 mg Q12HR PO 05/05/24 10:00 05/05/24 21:19 3.125 MG Furosemide 40 mg DAILY PO 05/05/24 10:00 05/05/24 11:09 40 MG Lisinopril 5 mg DAILY PO 05/05/24 10:00 05/05/24 11:08 5 MG Spironolactone 12.5 mg DAILY PO 05/05/24 10:00 05/05/24 11:09 12.5 MG Patient Own Medication 1 tab DAILY PO 05/05/24 10:00 UNV Guaifenesin/ Dextromethorphan 10 ml Q4HP PRN PO 05/05/24 10:15 05/05/24 22:40 10 ML Empaglifozin 10 mg DAILY PO 05/06/24 10:00 Examination: LUNGS:Normal, CVS:Normal, NEURO:Normal laboratory and microbiology Laboratory Tests 05/06/24 05:07 Test 05/06/24 05:07 Range/Units Serum Glucose 158 H 74-106 mg/dL Problem List/Assessment/Plan Problem List/Assessment/Plan Acute on chronic decompensated HFrEF, NYHA class III NSTEMI type II secondary to above Noncardiac chest pain, likely pleuritic Coronary artery disease status post multiple PTCAs x2 OLIVIA (on ASA) Ischemic/drug-induced cardiomyopathy Hypertension Pulmonary hypertension Mitral and tricuspid valve regurgitation, moderate degree History of pulmonary embolism Type 2 diabetes mellitus, uncontrolled (Hgb A1c 7.2%) Polysubstance abuse Obesity Plan/Recommendation (Dr. Santos) * Echocardiogram reveals EF 10%, RVSP 67 mmHg * Continue GDMT for CHF as tolerated * Strict intake and output, daily weights, maintain fluid restriction * Preload and afterload reduction * Single antiplatelet therapy and lipid-lowering agent Patient up for discharge. Advised to follow-up with a primary stand in in the outpatient setting. Please call in need of further follow-up. Thank you for allowing us to care for this patient. This medical document was created using an electronic medical record system with voice recognition software and computerized dictation system. Although this document has been carefully reviewed, there might still be some phonetic and typographical errors. Occasional wrong-word or ``sound-alike substitutions may have occurred due to the inherent limitations of voice recognition software. These areas are purely typographical due to imperfections of the software programs and do not reflect any compromise in the patient's medical care. Please read the chart carefully and recognize, using context, where these substitutions have occurred. Plan discussed with: Patient, Other Date of Service: May 06, 2024 Billing Provider: KENYA SANTOS MD Cardiology Common Codes: [id number] INP/OBS CARE(Mod) INDIRA LOREDO [facility] May 06, 2024 10:49
[2024-05-06] MEDS: EMPAGLIFLOZIN 10 MG TAB PO SCH (11:03)
[2024-05-06] MEDS: ASPirin-EC 81 mg tab PO SCH (11:04)
[2024-05-06 13:30] VITALS: BP 117/85; PULSE 70; RESP 16; TEMP 98.8; O2SAT 97
--- NOTE | 2024-05-06 14:16 | DVHDSRES ---
Discharge Summary Date of Admission Resident Creating Document: REBEKAH BARNES RESIDENT May 05, 2024 at 08:17 Date of Discharge: May 06, 2024 Admitting Diagnosis Chest pain and shortness of Breath Labs/Diagnostic Data: Laboratory Results Test 05/06/24 05:07 05/06/24 04:08 05/05/24 14:00 05/05/24 13:49 White Blood Count 7.5 10^3/uL (4.4-10.8) Red Blood Count 5.21 10^6/uL (4.5-5.90) Hemoglobin 16.2 g/dL (13.5-17.5) Hematocrit 48.0 % (41.0-53.0) Mean Corpuscular Volume 92.0 fL (80.0-100.0) Mean Corpuscular Hemoglobin 31.1 pg (28.0-32.0) Mean Corpuscular Hemoglobin Concent 33.8 g/dL (32.0-36.0) Red Cell Distribution Width 13.3 % (11.8-14.3) Platelet Count 221 10^3/uL (140-450) Mean Platelet Volume 7.9 fL (6.9-10.8) Neutrophils (%) (Auto) 71.9 % (37.0-80.0) Lymphocytes (%) (Auto) 16.5 % (10.0-50.0) Monocytes (%) (Auto) 7.8 % (0.0-12.0) Eosinophils (%) (Auto) 3.3 % (0.0-7.0) Basophils (%) (Auto) 0.5 % (0.0-2.0) Neutrophils # (Auto) 5.4 10 ^3/uL (1.6-8.6) Lymphocytes # (Auto) 1.2 10 ^3/uL (0.4-5.4) Monocytes # (Auto) 0.6 10 ^3/uL (0-1.3) Eosinophils # (Auto) 0.2 10 ^3/uL (0-0.8) Basophils # (Auto) 0 10 ^3/uL (0-0.2) Nucleated Red Blood Cells 0.3 % Sodium Level 139 mmol/L (136-145) Potassium Level 3.7 mmol/L (3.5-5.1) Chloride Level 103 mmol/L (98-107) Carbon Dioxide Level 28 mmol/L (20-31) Anion Gap 8 (5-15) Blood Urea Nitrogen 14 mg/dL (9-23) Creatinine 0.90 mg/dL (0.700-1.30) Glomerular Filtration Rate Calc 103 mL/min (>90) BUN/Creatinine Ratio 15.6 (10.0-20.0) Serum Glucose 158 mg/dL (74-106) Calcium Level 9.1 mg/dL (8.7-10.4) Total Bilirubin 0.8 mg/dL (0.2-1.0) Aspartate Amino Transferase (AST) 16 U/L (13-40) Alanine Aminotransferase (ALT) 16 U/L (7-40) Alkaline Phosphatase 75 U/L (46-116) Total Protein 6.7 g/dL (5.7-8.2) Albumin 3.5 g/dL (3.2-4.8) POC Glucose 124 mg/dl (70-106) Urine Color Colorless (Yellow) Urine Clarity Clear (Clear) Urine pH 5.0 (5.0-9.0) Urine Specific [place] 1.007 (1.001-1.035) Urine Protein Negative (Negative) Urine Ketones Negative (Negative) Urine Blood Negative /uL (Negative) Urine Nitrite Negative (Negative) Urine Bilirubin Negative (Negative) Urine Urobilinogen Normal mg/dL (Negative) Urine Leukocyte Esterase Negative /uL (Negative) Urine RBC <1 /hpf (0 - 3) Urine WBC <1 /hpf (0 - 3) Urine Squamous Epithelial Cells None seen /hpf (<5) Urine Bacteria None seen /hpf (None Seen) Urine Glucose Normal mg/dL (Normal) Urine Opiates Screen Neg (NEGATIVE) Urine Fentanyl Screen Neg (NEGATIVE) Urine Barbiturates Screen Neg (NEGATIVE) Urine Phencyclidine Screen Neg (NEGATIVE) Urine Amphetamines Screen Pos (NEGATIVE) Urine Benzodiazepines Screen Neg (NEGATIVE) Urine Cocaine Screen Neg (NEGATIVE) Urine Cannabinoids Screen Neg (NEGATIVE) RPR Titer Additional Testing 1:64 titer (NonRea<1:1) HIV (1&2) Antibody Negative (Negative) Test 05/05/24 08:15 05/05/24 05:50 05/05/24 04:45 Troponin I High Sensitivity 455 ng/L (</=54) Influenza Type A Antigen Negative (Negative) Influenza Type B Antigen Negative (Negative) SARS-CoV-2 Antigen (Rapid) Negative (NEGATIVE) Prothrombin Time 11.3 sec (9.3-11.8) Prothrombin Time INR 1.07 (0.9-1.15) Activated Partial Thromboplast Time 27.2 SEC (24.5-34.5) Hemoglobin A1c 7.2 % A1C (<5.7) Magnesium Level 1.9 mg/dL (1.6-2.6) B-Type Natriuretic Peptide 1115.84 pg/mL (0-100) Triglycerides Level 97 mg/dL (< 150) Cholesterol Level 133 mg/dL (< 200) LDL Cholesterol 82 mg/dL (< 100) HDL Cholesterol 40 mg/dL (40-59) Vitamin B12 Level 554 pg/mL (211-911) Vitamin D 25-Hydroxy 13.8 ng/mL (30.0-100) Thyroid Stimulating Hormone (TSH) 0.87 uIU/mL (0.55-4.78) Plasma/Serum Blood Alcohol < 3.0 mg/dL (<10) Hepatitis A IgM Antibody Negative Hepatitis B Surface Antigen Negative (Negative) Hepatitis B Core IgM Antibody Negative (Negative) Hepatitis C Antibody Negative (Negative) Other Laboratory Tests 05/06/24 05:07 Brief Hx & Hospital Course: Austyn Wright is a 53-year-old male with a PMH of HTN, HLD, type 2 DM, CAD, MT, PTCA x2 presented to the ED with the chief complaints of cough, shortness of breath and chest pain since 1 week. Patient reported on the day of he developed cough which is associated with worsening of shortness of breaths and later developed chest pain which is pressure-like initially substernal and later towards left chest which is intermittent no radiating, aggravated by exertion, coughing relieved by sitting upright, taking oxygen. Patient reported he does have fever, chills and chronic diarrhea. Patient reported does he uses methamphetamines and last consumption was 3 weeks ago. Patient reported he is on home oxygen 2 L for past 2 months. Patient is sexually active with ex- uses contraception. on my assessment patient denies nausea, vomiting, palpitations, diaphoresis, abdominal pain, or and other acute associated symptoms . Patient reported he had multiple admissions in this facility for ACS and CHF exacerbation. Patient required hospital admission for further evaluation and management of chest pain. Elevated BNP & troponins x3 positive. Echocardiogram showed LVEF 10% with RVSP 67 mmHg. Patient was on 2-3 L oxygen, eventually improved breathing. weight loss consultant evaluated the patient advised single antiplatelet therapy and lipid-lowering agent, advised about medical compliance and follow up with Cardiology in outpatient. Blood Bank Laboratory Technician advised GDM D therapy as tolerated. UDS was positive for polysubstance abuse methamphetamines and cannabinoids, counseled regarding cessation for more than 17 minutes. Patient's glucose was continuously monitored due to hyperglycemia. Patient condition was improved, hemodynamically stable and in condition to be discharged home with optimal medical treatment. Patient was advised about healthy lifestyle habits including diet, exercise, cessation of polysubstance abuse and to follow up with PCP and Cardiology after the discharge. Pt is lying on bed General Appearance: Alert, Oriented X3, Cooperative, Not in acute distress HEENT: Atraumatic, Mucous membranes moist/pink Respiratory: Clear to auscultation, Normal air movement, No added sounds Cardiovascular: Regular rate, Normal S1, Normal S2, No murmurs Abdominal: Active bowel sounds, Soft, no distention, no tenderness Extremities: No edema, Normal pulses, No tenderness/swelling Skin: No Significant rash, except past surgical scars Neuro: Normal speech, sensorimotor deficits none Psych/Mental Status: Mental status NL, Mood NL Nurse was there as sharperone during examination Operations or Procedures CXR No acute cardiopulmonary abnormalities detected ECHO Conclusion Severely dilated left ventricle. Severely reduced left ventricular systolic function estimated ejection fraction of 10%. There is a grade 1 diastolic dysfunction. Severely dilated right ventricle. Severely reduced right ventricular systolic function. Severely elevated right ventricular systolic pressure 67 mm of mercury. Moderately dilated left atrium. Normal-sized right atrium. The aortic valve is mildly thickened no significant stenosis or regurgitation. There is a moderate mitral valve regurgitation. There is a moderate tricuspid valve regurgitation. The pulmonary valve is grossly normal. No pericardial effusion. Condition at Discharge: Stable Final Diagnosis/Problems List # Acute on chronic systolic CHF likely due to polysubstance abuse # Acute on chronic decompensated HFrEF, NYHA class III # acute hypoxic respiratory failure # Coronary artery disease status post multiple PTCAs x2 OLIVIA (on ASA) # Ischemic/drug-induced cardiomyopathy # NSTEMI type 2 likely due to above # Likely acute pericarditis # likely acute bronchitis # uncontrolled type 2 DM with HbA1c 7.2 # polysubstance abuse methamphetamines and cannabinoids # History of pulmonary embolism Discharge Disposition: Home Discharge Instruct/Medications Diet: Consistent carbohydrate, Cardiac 2g Na,low cholest Activity: No Restrictions, As Tolerated Follow Up/Referral: pcp and cardio Medications: per EMR Discharge Statement: "Patient was advised to return to the ER or call 911 if any headaches, dizziness, shortness of breath, chest pain, abdominal pain, bleeding, fevers, or worsening of medical condition. Patient was counseled about treatment plan, medications, possible side effects, patientverbalized understanding. All questions were answered to the best of my ability. This discharge took greater then 30 minutes in planning, reviewing documentation, counseling the patient, and discussing with other team members." ASSESSMENT ASSESSMENT Assessment ACute on cheonic HFrEF Date of Service: May 06, 2024 Billing Provider: AKHIL OTTO MD Common Visit Codes: 47212-OTP/OBS DISCH DAY >30min REBEKAH BARNES RESIDENT May 06, 2024 14:15 AKHIL OTTO MD May 07, 2024 21:04
== END 2024-05-06 14:45 | disposition home or self-care (01) | DRG 812 ==
LOC: ER 04:31 → TELE 08:17 → TELE-EAST 09:41
PROVIDERS: ADMIT Internal Medicine Geriatric Medicine; ATTEND Internal Medicine Geriatric Medicine
DX: T43.621A Poisoning by amphetamines, accidental (unintentional), initial encounter (principal); J96.01 Acute respiratory failure with hypoxia; I21.A1 Myocardial infarction type 2; I30.9 Acute pericarditis, unspecified; I50.23 Acute on chronic systolic (congestive) heart failure; T40.721A Poisoning by synthetic cannabinoids, accidental (unintentional), initial encounter; I11.0 Hypertensive heart disease with heart failure; I27.20 Pulmonary hypertension, unspecified; E66.9 Obesity, unspecified; E78.5 Hyperlipidemia, unspecified; F17.200 Nicotine dependence, unspecified, uncomplicated; I25.10 Atherosclerotic heart disease of native coronary artery without angina pectoris; I08.1 Rheumatic disorders of both mitral and tricuspid valves; I42.7 Cardiomyopathy due to drug and external agent; J20.9 Acute bronchitis, unspecified; I25.5 Ischemic cardiomyopathy; E11.9 Type 2 diabetes mellitus without complications; Z68.28 Body mass index [BMI] 28.0-28.9, adult; Z83.3 Family history of diabetes mellitus; Z86.711 Personal history of pulmonary embolism; Z82.49 Family history of ischemic heart disease and other diseases of the circulatory system; Z82.0 Family history of epilepsy and other diseases of the nervous system; Y92.89 Other specified places as the place of occurrence of the external cause
CPT/HCPCS: 36415; 71045; 80053; 80061; 80074; 80307; 80320; 81001; 82306; 82607; 82962; 83036; 83735; 83880; 84443; 84484; 85025; 85610; 85730; 86592; 86703; 87426; 87804; 93005; 93306; 94640; G0378; J1815

== ENCOUNTER 2024-06-10 00:46 | Inpatient (IN) | payer OTHER ==
[~2024-06-10] VITALS: Ht 167.6 cm; Wt 78.9 kg
[~2024-06-10 00:46] MED LIST changes: +ACET-1882 PO; -CLOP75TA70 PO; +DEXT1SYP9 PO; +EMPA1TAB PO
--- NOTE | 2024-06-10 01:28 | DVH ---
CHEST RADIOGRAPH Indication: cough/sob Technique: Single frontal view of the chest was obtained Comparison: XY CHEST XRAY 1 VIEW on DOS: 05/05/24, XY CHEST PORTABLE on DOS: 04/05/24, XY CHEST PORTABL E on DOS: 03/03/24 FINDINGS: Lines and Tubes: None Lungs: Clear Pleura: No effusion. No pneumothorax. Cardiomediastinal contours: Unremarkable Bones: Unremarkable IMPRESSION: Clear lungs.
--- NOTE | 2024-06-10 01:31 | ED.PDOC ---
SOB-HPI HPI Comments HPI: Poor Historian. 53-year-old male presents to emergency department for evaluation of two day history of shoe off and productive cough. Denies any sick contacts. Denies any fever. Patient uses 2 L nasal cannula at home. Past Medcial History: CHF, hypertension, diabetes, cardiac stents Past Surgical History: Cardiac stents REVIEW OF SYSTEMS: CONSTITUTIONAL: Denies acute: fever, diaphoresis, chills, generalized weakness. HEAD: Denies acute: headache, photophobia Eyes: Denies acute: Double vision, vision loss, eye pain, eye discharge. EARS: Denies acute: tinnitus, hearing loss, ear discharge, ear pain, THROAT: Denies acute: sore throat, swelling, difficulty swallowing , pain with swallow ing, change in voice. NECK: Denies acute: neck pain, neck swelling, stiff neck. HEART: Denies acute : chest pain, palpitations, LUNGS: Denies acute: wheezing, hemoptysis ABDOMEN: Denies acute: abdominal pain, Nausea, Vomiting, diarrhea, melena , hematemesis, hematochezia SKIN: Denies acute: rash, redness, lesions, itchiness. EXTREMITIES: Denies acute: calf pain, numbness, tingling, weakness, denies pain in extremity. Denies acute: Low back pain. Neuro: Denies acute: focal neurological deficit, motor or sensory focal neurological deficit, tremors, seizure like activity, confusion, dizziness, change in mental status, loss of bowel or bladder function, cauda equina like symptoms. : Denies acute: dysuria, hematuria, flank pain, increase in urinary frequency. PSYCH: Denies acute: hallucination, suicidal ideation, homicidal ideation. PHYSICAL EXAM: General: no acute distress, awake and alert. Head: normocephalic, atraumatic. Neck: supple, trachea is midline, no swelling. Throat: Normal phonation. Eyes:, no erythema, no purulent discharge, no proptosis, no icterus. Heart: regular rate, regular rhythm, no significant murmur appreciated. Lungs: no apparent respiratory distress, Able to speak in full sentences. No wheezing, no rhonchi, no crackles. No stridors Clear to auscultation bilaterally. Abdomen: non tender to palpation, non distended, soft, no guarding, no rebound, + bowel sounds. Neuro: Awake, Alert, oriented to name, self, situation, follows commands GCS=15. Speech is normal. Skin: no petechia, no purpura, no cyanosis, non-pale, not jaundice. Lower extremities: --trace bilateral - Pitting edema no deformity, no focal swelling, no calf TTP. Makes eye contact. moves all four extremities. Face: no apparent facial droop. Ambulating in the ED independently. Chief Complaint: Shortness of Breath Time Seen by MD: 00:47 Primary Care Provider: NONE Reviewed notes: Nurses Notes, Allergies Information Source: Patient Mode of Arrival: Ambulatory Past Medical History PAST MEDICAL HISTORY: CHF, DM, High Lipids, HTN, RI Surgical History: PTCA, Unknown Family History Family History: Family hx of DM Social History Smoker: Quit Less Than 1 Year, Cigarettes Alcohol: Occasionally Drugs: Marijuana, Methamphetamine Lives In: Home X-Ray, Labs, Meds, VS Vital Signs Date Time Temp Pulse Resp B/P (MAP) Pulse Ox O2 Delivery O2 Flow Rate FiO2 06/10/24 01:15 96 Room Air* 0 21 06/10/24 01:08 98.6 97 20 145/105 (118) 96 Lab Test 06/10/24 01:42 06/10/24 01:10 Range/Units White Blood Count 7.4 4.4-10.8 10^3/uL Red Blood Count 5.90 4.5-5.90 10^6/uL Hemoglobin 18.5 H 13.5-17.5 g/dL Hematocrit 54.7 H 41.0-53.0 % Mean Corpuscular Volume 92.7 80.0-100.0 fL Mean Corpuscular Hemoglobin 31.3 28.0-32.0 pg Mean Corpuscular Hemoglobin Concent 33.8 32.0-36.0 g/dL Red Cell Distribution Width 13.6 11.8-14.3 % Platelet Count 196 140-450 10^3/uL Mean Platelet Volume 8.1 6.9-10.8 fL Neutrophils (%) (Auto) 70.1 37.0-80.0 % Lymphocytes (%) (Auto) 14.3 10.0-50.0 % Monocytes (%) (Auto) 14.5 H 0.0-12.0 % Eosinophils (%) (Auto) 0.6 0.0-7.0 % Basophils (%) (Auto) 0.5 0.0-2.0 % Neutrophils # (Auto) 5.2 1.6-8.6 10 ^3/uL Lymphocytes # (Auto) 1.1 0.4-5.4 10 ^3/uL Monocytes # (Auto) 1.1 0-1.3 10 ^3/uL Eosinophils # (Auto) 0 0-0.8 10 ^3/uL Basophils # (Auto) 0 0-0.2 10 ^3/uL Nucleated Red Blood Cells 0.1 % Lactic Acid Level 1.3 0.4-2.0 mmol/L Troponin I High Sensitivity 478 *H </=54 ng/L B-Type Natriuretic Peptide 1349.29 0-100 pg/mL Influenza Type A Antigen Negative Negative Influenza Type B Antigen Negative Negative SARS-CoV-2 Antigen (Rapid) Positive *A NEGATIVE Departure 1 Departure Time of Disposition: 02:36 Impression: Primary Impression: COVID-19 virus infection Additional Impressions: Elevated troponin Dyspnea Elevated brain natriuretic peptide (BNP) level Disposition: ADMITTED INPATIENT Admit to: Tele Condition: Guarded Discharged With: Self HARPAL ARMENTA DO Jun 10, 2024 01:31
[2024-06-10 01:57] LABS: Basophils # (auto) 0 10 ^3/uL (0-0.2); Basophils % (auto) 0.5 % (0.0-2.0); Eosinophils # (auto) 0 10 ^3/uL (0-0.8); Hemoglobin 18.5 g/dL (13.5-17.5); Monocytes # (auto) 1.1 10 ^3/uL (0-1.3); Nucleated Red Blood Cells % 0.1 %
[2024-06-10 01:59] LABS: Eosinophils % (auto) 0.6 % (0.0-7.0); Hematocrit 54.7 % (41.0-53.0); Lymphocytes # (auto) 1.1 10 ^3/uL (0.4-5.4); Lymphocytes % (auto) 14.3 % (10.0-50.0); Mean Corpuscular Hemoglobin 31.3 pg (28.0-32.0); Mean Corpuscular Hgb Conc. 33.8 g/dL (32.0-36.0); Mean Corpuscular Volume 92.7 fL (80.0-100.0); Monocytes % (auto) 14.5 % (0.0-12.0); Neutrophils # (auto) 5.2 10 ^3/uL (1.6-8.6); Neutrophils % (auto) 70.1 % (37.0-80.0); Platelet Count (auto) 196 10^3/uL (140-450); Red Cell Distribution Width 13.6 % (11.8-14.3); White Blood Cell 7.4 10^3/uL (4.4-10.8)
[2024-06-10 02:15] LABS: Rapid Influenza A Negative (Negative); Rapid Influenza B Negative (Negative)
[2024-06-10 02:17] LABS: COVID19 ANTIGEN SOFIA FIA POSITIVE (NEGATIVE)
[2024-06-10] MEDS: ALBUTEROL SULF 2.5 MG/0.5ML(0.5%) NEB SOLN NEB ONE (03:19)
[2024-06-10] MEDS: IPRATROPIUM BROM 0.5 MG/2.5ML INH SOL NEB ONE (03:19)
[2024-06-10 03:20] LABS: Alanine Aminotransferase 19 U/L (7-40); Albumin 4.1 g/dL (3.2-4.8); Alkaline Phosphatase 82 U/L (46-116); Anion Gap 7 (5-15); Aspartate Aminotransferase 28 U/L (13-40); BUN/Creatinine Ratio 12.4 (10.0-20.0); Blood Urea Nitrogen 14 mg/dL (9-23); Calcium 9.3 mg/dL (8.7-10.4); Carbon Dioxide 22 mmol/L (20-31); Chloride 104 mmol/L (98-107); Potassium 4.9 mmol/L (3.5-5.1); Total Protein 7.8 g/dL (5.7-8.2)
[2024-06-10 03:40] LABS: Glucose 147 mg/dL (74-106); Sodium 133 mmol/L (136-145)
[2024-06-10] MEDS: ASPirin 325 MG TAB PO ONE (04:21)
[2024-06-10] MEDS: FUROSEMIDE 40 MG/4 ML VIAL IV ONE (04:21)
[2024-06-10] MEDS: DexAMETHasone SOD PHOS 10MG/1ML VIAL INJ IM ONE (04:21)
--- NOTE | 2024-06-10 07:50 | ECG ---
[facility] Test Date: 2024-06-10 Test Time: 01:09:32 Pat Name: SOPHIE STORY Department: ER Room: [address] [place] [address] Gender: M Document Imaging Specialist: MAURI : 1970 Requested By: HARPAL ARMENTA Order Number: [id number] Reading MD: Max Gallo Measurements Intervals [place] Rate: 93 P: 58 IA: 153 QRS: 91 QRSD: 100 T: 63 QT: 380 QTc: 473 Interpretive Statements Sinus rhythm Probable left atrial enlargement Right axis deviation Abnormal R-wave progression, late transition Consider left ventricular hypertrophy Baseline wander in lead(s) V6 Electronically Signed On 06-10-2024 13:14:42 PST by Max Gallo Please click the below link to view image of tracing.
[2024-06-10] MEDS ORDERED: MORPHINE SULFATE INJ 2 MG/ml SYRG IV PRN (11:45)
[2024-06-10] MEDS ORDERED: NITROGLYCERIN 0.4 MG SL TAB SL PRN ×2 (11:45)
[2024-06-10] MEDS ORDERED: MORPHINE SULFATE 4 MG/ML SYR/VIAL IV PRN (11:45)
[2024-06-10] MEDS ORDERED: ONDANSETRON HCL 4 MG/2 ML VIAL IV PRN (11:45)
[2024-06-10] MEDS ORDERED: ACETAMINOPHEN 325 MG TAB PO PRN (11:45)
[2024-06-10] MEDS ORDERED: ALBUTEROL SULF 2.5 MG/0.5ML(0.5%) NEB SOLN NEB SCH (12:00)
[2024-06-10] MEDS ORDERED: REMDESIVIR PER PHARMACY 0 ML IV SCH (12:00)
[2024-06-10] MEDS ORDERED: IPRATROPIUM BROM 0.5 MG/2.5ML INH SOL NEB PRN (12:00)
[2024-06-10] MEDS ORDERED: ALBUTEROL SULF 2.5 MG/0.5ML(0.5%) NEB SOLN NEB PRN (12:00)
[2024-06-10] MEDS ORDERED: IPRATROPIUM BROM 0.5 MG/2.5ML INH SOL NEB SCH (12:00)
[2024-06-10] MEDS ORDERED: ALBUTEROL SULF HFA 90MCG INH 200DOSE IN PRN (12:15)
[2024-06-10 12:19] VITALS: BP 122/85; PULSE 77; RESP 18; O2SAT 94
--- NOTE | 2024-06-10 12:27 | DVHHP2 ---
History of Present Illness Reason for Visit: Chest pain and SOB History of Present Illness Austyn Wright is a 53-year-old male with past medical history of hypertension, hyperlipidemia, diabetes, CHF, CO, and PTCA x2 who presents to the ED with chest pain, shortness of breath, nausea and cough x4 days. Patient reports that he was shaking cigarettes with his neighbor who was recently sick. Patient also reports that he uses 2 L of oxygen via nasal cannula at home. Patient also reports that he smokes half a pack of cigarettes per day and uses meth but denies drinking. Patient denies abdominal pain, vomiting, diarrhea, fever, chills, lightheadedness, and dizziness. Cardiovascular: HTN, CO, hyperipidemia Endocrine: Diabetes Past Surgical History PTCA x2 Family History: None Smoke: <1 pack per day ALCOHOL: none Drugs: Other (Methamphetamine) Lives: with Family Domestic Violence: Neg Review of Systems Constitutional: No: Fever, Chills, Sweats, Weakness, Malaise, Other Eyes: No: Pain, Vision change, Conjunctivae inflammation, Eyelid inflammation, Other, Redness ENT: No: Ear pain, Ear discharge, Nose pain, Nose discharge, Nose congestion, Mouth pain, Mouth swelling, Throat pain, Throat swelling, Other Respiratory: Cough, Shortness of breath; No: Dry, SOB with excertion, Wheezing, Hemoptysis, Pleuritic Pain, Sputum, Wheezing, Other Cardiovascular: Chest Pain; No: Palpitations, Orthopnea, Paroxysmal Noc. Dyspnea, Edema, Lt Headedness, Other Gastrointestinal: Nausea; No: Vomiting, Abdominal Pain, Diarrhea, Constipation, Melena, Hematochezia, Other Genitourinary: No Dysuria, No Frequency, No Incontinence, No Hematuria, No Retention, No Other Musculoskeletal: No: other, neck pain, shoulder pain, arm pain, back pain, hand pain, leg pain, foot pain Skin: No: Rash, Lesions, Jaundice, Bruising, Other Neurological: No: Weakness, Numbness, Incoordination, Change in speech, Confusion, Seizures, Other Allergies: Coded Allergies: No Known Drug Allergy (Verified Allergy, Unknown, 04/01/23) Medications Current Medications Medications Dose Ordered Sig/Kimberly Route Start Time Stop Time Status Last Admin Dose Admin Aspirin 81 mg DAILY PO 06/11/24 10:00 UNV Morphine Sulfate 2 mg Q30MP PRN IV 06/10/24 11:45 UNV Acetaminophen 650 mg Q6HP PRN PO 06/10/24 11:45 UNV Nitroglycerin 0.4 mg Q5MINP PRN SL 06/10/24 11:45 UNV Ondansetron HCl 4 mg Q4HP PRN IV 06/10/24 11:45 UNV Nitroglycerin 0.4 mg Q5MINP PRN SL 06/10/24 11:45 UNV Morphine Sulfate 2 mg Q30M PRN IV 06/10/24 11:45 UNV Exam Vital Signs Vital Signs Date Time Temp Pulse Resp B/P (MAP) Pulse Ox O2 Delivery O2 Flow Rate FiO2 06/10/24 08:40 98.7 77 18 122/85 (97) 94 98.7 06/10/24 03:19 Room Air* 0 21 General Appearance: Alert, Oriented X3, Cooperative, mild distress HEENT: Atraumatic, PERRLA, EOMI, Mucous membr. moist/pink Respiratory: Normal air movement Cardiovascular: Regular rate, Normal S1, Normal S2, No murmurs Abdominal: Normal bowel sounds, Soft, No tenderness, No hepatospenomegaly, No masses Extremities: No clubbing, No cyanosis, No edema, Normal pulses, No tenderness/swelling Skin: No rashes, No breakdown, No significant lesion Neuro: Normal gait, Normal speech, Strength at 5/5 X4 ext, Normal tone, Sensation intact Psych/Mental Status: Mental status NL, Mood NL Labs/Xrays Labs Test 06/10/24 04:48 06/10/24 02:37 06/10/24 01:42 06/10/24 01:10 Range/Units Troponin I High Sensitivity 462 *H </=54 ng/L Sodium Level 133 L 136-145 mmol/L Potassium Level 4.9 3.5-5.1 mmol/L Chloride Level 104 98-107 mmol/L Carbon Dioxide Level 22 20-31 mmol/L Anion Gap 7 5-15 Blood Urea Nitrogen 14 9-23 mg/dL Creatinine 1.13 0.700-1.30 mg/dL Glomerular Filtration Rate Calc 78 >90 mL/min BUN/Creatinine Ratio 12.4 10.0-20.0 Serum Glucose 147 H 74-106 mg/dL Calcium Level 9.3 8.7-10.4 mg/dL Total Bilirubin 1.0 0.2-1.0 mg/dL Aspartate Amino Transferase (AST) 28 13-40 U/L Alanine Aminotransferase (ALT) 19 7-40 U/L Alkaline Phosphatase 82 46-116 U/L Total Protein 7.8 5.7-8.2 g/dL Albumin 4.1 3.2-4.8 g/dL White Blood Count 7.4 4.4-10.8 10^3/uL Red Blood Count 5.90 4.5-5.90 10^6/uL Hemoglobin 18.5 H 13.5-17.5 g/dL Hematocrit 54.7 H 41.0-53.0 % Mean Corpuscular Volume 92.7 80.0-100.0 fL Mean Corpuscular Hemoglobin 31.3 28.0-32.0 pg Mean Corpuscular Hemoglobin Concent 33.8 32.0-36.0 g/dL Red Cell Distribution Width 13.6 11.8-14.3 % Platelet Count 196 140-450 10^3/uL Mean Platelet Volume 8.1 6.9-10.8 fL Neutrophils (%) (Auto) 70.1 37.0-80.0 % Lymphocytes (%) (Auto) 14.3 10.0-50.0 % Monocytes (%) (Auto) 14.5 H 0.0-12.0 % Eosinophils (%) (Auto) 0.6 0.0-7.0 % Basophils (%) (Auto) 0.5 0.0-2.0 % Neutrophils # (Auto) 5.2 1.6-8.6 10 ^3/uL Lymphocytes # (Auto) 1.1 0.4-5.4 10 ^3/uL Monocytes # (Auto) 1.1 0-1.3 10 ^3/uL Eosinophils # (Auto) 0 0-0.8 10 ^3/uL Basophils # (Auto) 0 0-0.2 10 ^3/uL Nucleated Red Blood Cells 0.1 % Lactic Acid Level 1.3 0.4-2.0 mmol/L B-Type Natriuretic Peptide 1349.29 0-100 pg/mL Influenza Type A Antigen Negative Negative Influenza Type B Antigen Negative Negative SARS-CoV-2 Antigen (Rapid) Positive *A NEGATIVE CHEST RADIOGRAPH Indication: cough/sob Technique: Single frontal view of the chest was obtained Comparison: XY CHEST XRAY 1 VIEW on DOS: 05/05/24, XY CHEST PORTABLE on DOS: 04/05/24, XY CHEST PORTABLE on DOS: 03/03/24 FINDINGS: Lines and Tubes: None Lungs: Clear Pleura: No effusion. No pneumothorax. Cardiomediastinal contours: Unremarkable Bones: Unremarkable IMPRESSION: Clear lungs. Assessment/Plan Assessment/Plan Assessment/Plan: Atypical chest pain r/o ACS Acute on chronic CHF exacerbation History of PTCA x2 Hyponatremia COVID positive Respiratory treatments remdisivir pharmacy dosing Decadron given in ER Aspirin Lasix EKG Elevated troponin's Influenza panel Chest x-ray noted Lactic BNP Cardiology consult EKG in a.m. Labs A.m. labs Echo done on 05/05/24 EF 10% Chronic hypertension Chronic hyperlipidemia Goal directed medication therapy heart failure Carvedilol continue home medication Lasix, spironolactone continue home medication Jardiance, continue home medication Atorvastatin, continue home medication Lisinopril, continue home medication Diabetes uncontrolled Hemoglobin A1c ISS and Accu-Checks Substance abuse Counseled patient on cessation of substance abuse FEN/PPX cardiac diet hl DVT ppx - Patient ambulating no need for dvt ppx PUD ppx - not indicated no history of GERD or GIB home medications reconciled discussed plan of care with patient and nurse Admit to tele Plan discussed with: Patient My Orders Orders - SUNDEEP SMITH Procedure Category Date Status Time * Cardiology Consult CONS 06/10/24 Transmitted 10:48 Admit ADMIT 06/10/24 Transmitted 11:42 Code Status CODE 06/10/24 Transmitted 11:42 Vital Signs JESSICA 06/10/24 In Process 11:42 International Accounting Manager JESSICA 06/10/24 In Process 11:42 Cardiac DIET 06/10/24 Transmitted Diet-2gna,Lofat,Lochol Lunch Aspirin Tablet PHA 06/11/24 Logged 10:00 Morphine Sulfate PHA 06/10/24 Logged Injection 11:45 Acetaminophen Tablet PHA 06/10/24 Logged (Tylenol Tablet) 11:45 Complete Blood Count LAB 06/11/24 Verified 04:00 Comprehensive LAB 06/11/24 Verified Metabolic Panel 04:00 Education - Smoking JESSICA 06/10/24 In Process Cessation 11:42 Nitroglycerin PHA 06/10/24 Logged Sublingual (Ntrostat 11:45 Ondansetron Hcl PHA 06/10/24 Logged (Zofran) 11:45 Electrocardigram EKG 06/11/24 Logged 04:00 Cardiac JESSICA 06/10/24 In Process Rehabilitation - Outpa Nitroglycerin PHA 06/10/24 Logged Sublingual (Ntrostat 11:45 Morphine Sulfate PHA 06/10/24 Logged Injection 11:45 Stat Ekg For Chest JESSICA 06/10/24 In Process Pain 11:42 Notify Of Changes [facility] 06/10/24 In Process From Base 11:42 Aviation Metalsmith For JESSICA 06/10/24 In Process 24 Hours 11:42 Emergency Dysrhythmia [facility] 06/10/24 In Process Protocol 11:42 Rhythm Strips Once [facility] 06/10/24 In Process Every Shift 11:42 Oxygen By Nasal RT 06/10/24 Transmitted Cannula 11:42 Furosemide Injection PHA 06/11/24 Verified (Lasix Injection) 10:00 Aspirin Enteric PHA 06/11/24 Verified Coated Tablet 10:00 Carvedilol Tablet PHA 06/10/24 Verified (Coreg Tablet) 22:00 Empagliflozin PHA 06/11/24 Verified (Jardiance) 10:00 Furosemide Tablet PHA 06/11/24 Verified (Lasix Tablet) 10:00 Lisinopril Tablet PHA 06/11/24 Verified (Zestril Tablet) 10:00 Spironolactone PHA 06/11/24 Verified (Aldactone) 10:00 (Nf) Atorvastatin PHA 06/11/24 Verified Calcium 10:00 Date of Service: Jun 10, 2024 Billing Provider: SUNDEEP SMITH Common Visit Codes: [id number] INP/OBS CARE (HIGH) SUNDEEP SMITH Jun 10, 2024 12:27
[2024-06-10] MEDS ORDERED: DEXTROSE (50%) 50ML SYRG IV PRN (12:30)
[2024-06-10 13:02] VITALS: PULSE 67; RESP 24; O2SAT 88
[2024-06-10] MEDS: REMDESIVIR 200mg in NS 210mL LOADING DOSE ADULT IV ONE (13:50)
--- NOTE | 2024-06-10 17:03 | DVHINCON2 ---
Date Seen: Jun 10, 2024 Referring Physician KENNY Pires Reason for Consultation Elevated troponin and history of PTCA History of Present Illness This is a 53-year-old male patient who presents to the emergency room with chief complaint of shortness of breath and chest pain. The patient reports that he began experiencing a cough approximately four days ago and began to notice shortness of breath and chest pain associated with his cough. He describes the chest pain as provoked by coughing or upon deep inhalation, intermittent, sharp in nature, substernal and nonradiating. Initial twelve lead electrocardiogram reveals normal sinus rhythm with nonspecific ST segment depression to lateral lead (V6). Initial troponin level of 478ng/L with flat trend thereafter. Initial BNP level of 1349.29pg/mL. Significant past medical history includes coronary artery disease status post multiple PTCAs x2 OLIVIA (on ASA), ischemic/drug-induced cardiomyopathy, congestive heart failure, hypertension, history of pulmonary embolism, type 2 diabetes mellitus, and polysubstance abuse. Patient reports he has not followed up with any home day care provider in the outpatient setting. He reports he has been compliant with all of his medications. The patient does admit to recent methamphetamine use within the past three days. Of note, the patient was seen and discharged from this facility last month for similar complaints. Past Medical History Past medical history reviewed. No other significant than mentioned above. Past Surgical History Denies Family History: Alzheimer's disease G8 FATHER Diabetes mellitus G8 FATHER, Onset:Unknown Hypertension G8 FATHER Family History Family history reviewed. Social History Patient reports amphetamine use approximately three days ago, toxicology screen positive for amphetamines Patient has a 10 pack-year history, states he currently smokes approximately one pack per week now Patient denies any alcohol use Allergies: Coded Allergies: No Known Drug Allergy (Verified Allergy, Unknown, 04/01/23) Home Meds Active Scripts Empagliflozin (Jardiance) 10 Mg Tab, 10 MG PO DAILY for 30 Days, #30 TAB Prov:JUDD ESTES RESIDENT 05/06/24 Dextromethorphan-Guaifenesin (Robitussin-Dm) 10 Ml Sr, 10 ML PO Q4HP PRN for 10 Days, #10 SYP Prov:JUDD ESTES RESIDENT 05/06/24 Acetaminophen (Acetaminophen) 325 Mg Tab, 650 MG PO Q6HP PRN for 10 Days, #80 TAB Prov:JUDD ESTES 05/06/24 Lisinopril (Lisinopril) 5 Mg Tab, 5 MG PO DAILY for 30 Days, #30 TAB 3 Refills Prov:ELEANOR PITTS NP 04/07/24 Metformin HCl (Metformin Hydrochloride) 500 Mg/5 Ml Sandra, 500 MG PO BID for 30 Days, #60 ML Prov:AYAKA SCHMIDT MD 03/04/24 Carvedilol (COREG) 3.125 Mg Tab, 3.125 MG PO Q12HR for 30 Days, #60 TAB Prov:AYAKA SCHMIDT MD 03/04/24 Furosemide (Lasix) 40 Mg Tab, 40 MG PO DAILY, #90 TAB Prov:AYAKA SCHMIDT MD 03/04/24 Aspirin (ASPIRIN 81) 81 Mg Tab, 81 MG PO DAILY, #90 TAB Prov:AYAKA SCHMIDT MD 03/04/24 Spironolactone (Aldactone) 25 Mg Tab, 12.5 MG PO DAILY, #30 TAB 5 Refills Prov:AYAKA SCHMIDT MD 03/04/24 Atorvastatin Calcium (ATORVASTATIN CALCIUM) 40 Mg Tab, 1 TAB PO DAILY, #30 TAB 5 Refills Prov:AYAKA SCHMIDT MD 03/04/24 Home Meds Home medications reviewed. Current Medications Current Medications Medications (Trade) Dose Ordered Sig/Kimberly Route PRN Reason Start Time Stop Time Status Last Admin Aspirin 81 mg DAILY PO 06/11/24 10:00 UNV Morphine Sulfate 2 mg Q30MP PRN IV FOR CHEST PAIN 06/10/24 11:45 Acetaminophen (Tylenol Tablet) 650 mg Q6HP PRN PO MILD PAIN (1-3 PAIN SCALE) 06/10/24 11:45 Nitroglycerin (Ntrostat Sublingual) 0.4 mg Q5MINP PRN SL FOR CHEST PAIN 06/10/24 11:45 Ondansetron HCl (Zofran) 4 mg Q4HP PRN IV NAUSEA / VOMITING 06/10/24 11:45 Nitroglycerin (Ntrostat Sublingual) 0.4 mg Q5MINP PRN SL FOR CHEST PAIN 06/10/24 11:45 UNV Morphine Sulfate 2 mg Q30M PRN IV FOR CHEST PAIN 06/10/24 11:45 UNV Furosemide (Lasix Injection) 40 mg DAILY IV 06/11/24 10:00 Aspirin (Ecotrin Enteric Coated Tablet) 81 mg DAILY PO 06/11/24 10:00 Carvedilol (Coreg Tablet) 3.125 mg Q12HR PO 06/10/24 22:00 Empaglifozin (Jardiance) 10 mg DAILY PO 06/11/24 10:00 Furosemide (Lasix Tablet) 40 mg DAILY PO 06/11/24 10:00 UNV Lisinopril (Zestril Tablet) 5 mg DAILY PO 06/11/24 10:00 Spironolactone (Aldactone) 12.5 mg DAILY PO 06/11/24 10:00 Atorvastatin Calcium (Lipitor) 40 mg HS PO 06/11/24 22:00 Remdesivir 0 ml @ 0 mls/hr PER PHARMACY IV 06/10/24 12:00 06/12/24 12:01 Albuterol (Ventolin Medneb) 2.5 mg Q6HWA NEB 06/10/24 12:00 06/10/24 12:18 DC Albuterol (Ventolin Medneb) 2.5 mg Q4HPRN PRN NEB SHORTNESS OF BREATH 06/10/24 12:00 Cancel Ipratropium [place] (Atrovent Medneb) 0.5 mg Q4HPRN PRN NEB SHORTNESS OF BREATH 06/10/24 12:00 Ipratropium [place] (Atrovent Medneb) 0.5 mg Q6HWA NEB 06/10/24 12:00 06/10/24 12:18 DC Albuterol (Ventolin Hfa) 180 mcg TID PRN IN SHORTNESS OF BREATH 06/10/24 12:15 Diagnostic Test (Pha) (Accu-Chek Comfort Curve T) 1 strip ACHS 06/10/24 17:00 Insulin Human Regular (InsuLIN R) ACHS SC 06/10/24 17:00 Dextrose 50 ml UD PRN IV Blood Sugar LESS THAN 60 06/10/24 12:30 Remdesivir 100 mg/ Sodium Chloride 250 ml @ 250 mls/hr DAILY@1500 IV 06/11/24 15:00 06/12/24 15:59 Review of Systems Constitutional: No symptom reported Ears, Nose, & Throat: No symptom reported Eyes: No symptom reported Neurological: No symptoms reported Pulmonary/Respiratory: Shortness of breath Cardiovascular: Chest pain Gastrointestinal: No symptom reported Genitourinary: No symptom reported Musculoskeletal: No symptom reported Skin: No symptom reported Psychiatric: No symptom reported Endocrine: No symptom reported Hematologic/Lymphatic: No symptom reported Vital Signs Vital Signs Date Time Temp Pulse Resp B/P (MAP) Pulse Ox O2 Delivery O2 Flow Rate FiO2 06/10/24 15:13 69 102/57 (72) 94 06/10/24 15:02 20 06/10/24 13:02 Nasal Cannula* 2 28 06/10/24 08:40 98.7 98.7 Physical Exam General Appearance: Cooperative. Well-developed. Well-nourished. No acute distress. Pulmonary/Respiratory: Coarse bilateral upper lobes Cardiovascular/Chest: Regular rate and rhythm. Peripheral Pulses: 2+ Radial (R). 2+ Radial (L). 2+ Pedal (R). 2+ Pedal (L) Abdominal Exam: Normal bowel sounds. Ankle Exam: Negative ankle edema Lower extremities: Negative lower extremity edema Neuro/Mental Status: A/OX4, coherent. Thoughts/Psych: Normal thought pattern. Appropriate mood and affect. Good judgment and insight. Appearance: No acute distress. Skin Exam: Normal inspection. Normal color. Warm and dry. Labs/Diagnostic Data Labs Test 06/10/24 04:48 06/10/24 02:37 06/10/24 01:42 06/10/24 01:10 Range/Units Troponin I High Sensitivity 462 *H </=54 ng/L Sodium Level 133 L 136-145 mmol/L Potassium Level 4.9 3.5-5.1 mmol/L Chloride Level 104 98-107 mmol/L Carbon Dioxide Level 22 20-31 mmol/L Anion Gap 7 5-15 Blood Urea Nitrogen 14 9-23 mg/dL Creatinine 1.13 0.700-1.30 mg/dL Glomerular Filtration Rate Calc 78 >90 mL/min BUN/Creatinine Ratio 12.4 10.0-20.0 Serum Glucose 147 H 74-106 mg/dL Calcium Level 9.3 8.7-10.4 mg/dL Total Bilirubin 1.0 0.2-1.0 mg/dL Aspartate Amino Transferase (AST) 28 13-40 U/L Alanine Aminotransferase (ALT) 19 7-40 U/L Alkaline Phosphatase 82 46-116 U/L Total Protein 7.8 5.7-8.2 g/dL Albumin 4.1 3.2-4.8 g/dL White Blood Count 7.4 4.4-10.8 10^3/uL Red Blood Count 5.90 4.5-5.90 10^6/uL Hemoglobin 18.5 H 13.5-17.5 g/dL Hematocrit 54.7 H 41.0-53.0 % Mean Corpuscular Volume 92.7 80.0-100.0 fL Mean Corpuscular Hemoglobin 31.3 28.0-32.0 pg Mean Corpuscular Hemoglobin Concent 33.8 32.0-36.0 g/dL Red Cell Distribution Width 13.6 11.8-14.3 % Platelet Count 196 140-450 10^3/uL Mean Platelet Volume 8.1 6.9-10.8 fL Neutrophils (%) (Auto) 70.1 37.0-80.0 % Lymphocytes (%) (Auto) 14.3 10.0-50.0 % Monocytes (%) (Auto) 14.5 H 0.0-12.0 % Eosinophils (%) (Auto) 0.6 0.0-7.0 % Basophils (%) (Auto) 0.5 0.0-2.0 % Neutrophils # (Auto) 5.2 1.6-8.6 10 ^3/uL Lymphocytes # (Auto) 1.1 0.4-5.4 10 ^3/uL Monocytes # (Auto) 1.1 0-1.3 10 ^3/uL Eosinophils # (Auto) 0 0-0.8 10 ^3/uL Basophils # (Auto) 0 0-0.2 10 ^3/uL Nucleated Red Blood Cells 0.1 % Hemoglobin A1c 7.4 H <5.7 % A1C Lactic Acid Level 1.3 0.4-2.0 mmol/L B-Type Natriuretic Peptide 1349.29 0-100 pg/mL Influenza Type A Antigen Negative Negative Influenza Type B Antigen Negative Negative SARS-CoV-2 Antigen (Rapid) Positive *A NEGATIVE Assessment Acute on chronic decompensated HFrEF, NYHA class III COVID positive NSTEMI type II secondary to above Noncardiac chest pain, likely pleuritic Coronary artery disease status post multiple PTCAs x2 OLIVIA (on ASA) Ischemic/drug-induced cardiomyopathy Hypertension Pulmonary hypertension Mitral and tricuspid valve regurgitation, moderate degree History of pulmonary embolism Type 2 diabetes mellitus, uncontrolled (Hgb A1c 7.4%) Polysubstance abuse Obesity Plan/Recommendation We will continue with the following plan/recommendations (Dr. Mcdaniel): * Echocardiogram from 05/05/24 reveals EF 10%, RVSP 67 mmHg * Initiate guideline directed medical therapy for CHF as tolerated * Strict intake and output, daily weights, maintain fluid restriction * Preload and afterload reduction * Single antiplatelet therapy and lipid-lowering agent * Risk factor modifications, counseled * Adherence to medication regimen * Cessation of substance use Patient seen and examined at bedside with . At this time we will continue with conservative medical management. Thank you for allowing us to care for this patient. Please call with any questions or concerns. Critical care time spent: 44 minutes This medical document was created using an electronic medical record system with voice recognition software and computerized dictation system. Although this document has been carefully reviewed, there might still be some phonetic and typographical errors. Occasional wrong-word or ``sound-alike substitutions may have occurred due to the inherent limitations of voice recognition software. These areas are purely typographical due to imperfections of the software programs and do not reflect any compromise in the patient's medical care. Please read the chart carefully and recognize, using context, where these substitutions have occurred. Plan discussed with: Patient NYHA Physical activity limitations: Class3(Marked) ordinary (activity causes symtoms) Date of Service: Jun 10, 2024 Billing Provider: VAISHALI OSUNA Cardiology Common Codes: [id number] INP/OBS CARE (High) Cardiology Consultation Codes: [id number] CONSULT <45MIN VAISHALI OSUNA Jun 10, 2024 17:03
[2024-06-10 17:09] LABS: Urine Bacteria None Seen /hpf (None Seen)
[2024-06-10 17:26] LABS: Urine Blood Negative /uL (Negative); Urine Clarity Clear (Clear); Urine Color Light-Yellow (Yellow); Urine Protein, UAD 1+ (Negative); Urine Specific Gravity 1.033 (1.001-1.035); Urine Squamous Epithelial Cell None Seen /hpf (<5); Urine Urobilinogen Normal (Negative); Urine WBC <1 /hpf (0 - 3); Urine pH 5.5 (5.0-9.0)
[2024-06-10] MEDS: ACCU-CHEK COMFORT CURVE STRIP VI SCH (17:40)
[2024-06-10] MEDS: InsuLIN REG 1unit/0.01ml Soln (100units/ml) SC SCH (17:45)
[2024-06-10 18:07] LABS: Amphetamine Screen, Urine Pos (NEGATIVE); Barbiturate Scree,Urine Neg (NEGATIVE); Benzodiazephine Screen, Urine Neg (NEGATIVE); Cannabinoid Screen, Urine Neg (NEGATIVE); Cocaine Screen, Urine Neg (NEGATIVE); Opiate Scree,Urine Neg (NEGATIVE); Phencyclidine Screen, Urine Neg (NEGATIVE)
[2024-06-10 19:50] VITALS: RESP 14; O2SAT 94
--- NOTE | 2024-06-10 21:03 | DVHINCON2 ---
Date Seen: Jun 10, 2024 Referring Physician KENNY Pires Reason for Consultation Elevated troponin and history of PTCA History of Present Illness This is a 53-year-old male with a past medical history includes coronary artery disease status post multiple PTCAs x2 OLIVIA (on ASA), ischemic/drug-induced c ardiomyopathy, congestive heart failure, hypertension, history of pulmonary embolism, type 2 diabetes mellitus, and polysubstance abuse who presents to the ED with complaint of shortness of breath and chest pain. Patient reports that he began experiencing a cough approximately four days ago and began to notice shortness of breath and chest pain associated with his cough. He describes the chest pain as provoked by coughing or upon deep inhalation, intermittent, sharp in nature, substernal and nonradiating. Initial twelve lead electrocardiogram reveals normal sinus rhythm with nonspecific ST segment depression to lateral lead (V6). Initial troponin level of 478ng/L with flat trend thereafter. Initial BNP level of 1349.29pg/mL. Chest x-ray shows NAD. Patient reports he has not followed up with any supervisor labor gang in the outpatient setting. He reports he has been compliant with all of his medications. The patient does admit to recent methamphetamine use within the past three days. Of note, the patient was seen and discharged from this facility last month for similar complaints. Family History: Alzheimer's disease G8 FATHER Diabetes mellitus G8 FATHER, Onset:Unknown Hypertension G8 FATHER Allergies: Coded Allergies: No Known Drug Allergy (Verified Allergy, Unknown, 04/01/23) Home Meds Active Scripts Empagliflozin (Jardiance) 10 Mg Tab, 10 MG PO DAILY for 30 Days, #30 TAB Prov:JUDD ESTES RESIDENT 05/06/24 Dextromethorphan-Guaifenesin (Robitussin-Dm) 10 Ml Sr, 10 ML PO Q4HP PRN for 10 Days, #10 SYP Prov:JUDD ESTES RESIDENT 05/06/24 Acetaminophen (Acetaminophen) 325 Mg Tab, 650 MG PO Q6HP PRN for 10 Days, #80 TAB Prov:JUDD ESTES RESIDENT 05/06/24 Lisinopril (Lisinopril) 5 Mg Tab, 5 MG PO DAILY for 30 Days, #30 TAB 3 Refills Prov:ELEANOR PITTS NP 04/07/24 Metformin HCl (Metformin Hydrochloride) 500 Mg/5 Ml Sandra, 500 MG PO BID for 30 Days, #60 ML Prov:AYAKA SCHMIDT MD 03/04/24 Carvedilol (COREG) 3.125 Mg Tab, 3.125 MG PO Q12HR for 30 Days, #60 TAB Prov:AYAKA SCHMIDT MD 03/04/24 Furosemide (Lasix) 40 Mg Tab, 40 MG PO DAILY, #90 TAB Prov:AYAKA SCHMIDT MD 03/04/24 Aspirin (ASPIRIN 81) 81 Mg Tab, 81 MG PO DAILY, #90 TAB Prov:AYAKA SCHMIDT MD 03/04/24 Spironolactone (Aldactone) 25 Mg Tab, 12.5 MG PO DAILY, #30 TAB 5 Refills Prov:AYAKA SCHMIDT MD 03/04/24 Atorvastatin Calcium (ATORVASTATIN CALCIUM) 40 Mg Tab, 1 TAB PO DAILY, #30 TAB 5 Refills Prov:AYAKA SCHMIDT MD 03/04/24 Current Medications Current Medications Medications (Trade) Dose Ordered Sig/Kimberly Route PRN Reason Start Time Stop Time Status Last Admin Aspirin 81 mg DAILY PO 06/11/24 10:00 UNV Morphine Sulfate 2 mg Q30MP PRN IV FOR CHEST PAIN 06/10/24 11:45 Acetaminophen (Tylenol Tablet) 650 mg Q6HP PRN PO MILD PAIN (1-3 PAIN SCALE) 06/10/24 11:45 Nitroglycerin (Ntrostat Sublingual) 0.4 mg Q5MINP PRN SL FOR CHEST PAIN 06/10/24 11:45 Ondansetron HCl (Zofran) 4 mg Q4HP PRN IV NAUSEA / VOMITING 06/10/24 11:45 Nitroglycerin (Ntrostat Sublingual) 0.4 mg Q5MINP PRN SL FOR CHEST PAIN 06/10/24 11:45 UNV Morphine Sulfate 2 mg Q30M PRN IV FOR CHEST PAIN 06/10/24 11:45 UNV Furosemide (Lasix Injection) 40 mg DAILY IV 06/11/24 10:00 Aspirin (Ecotrin Enteric Coated Tablet) 81 mg DAILY PO 06/11/24 10:00 Carvedilol (Coreg Tablet) 3.125 mg Q12HR PO 06/10/24 22:00 Empaglifozin (Jardiance) 10 mg DAILY PO 06/11/24 10:00 Furosemide (Lasix Tablet) 40 mg DAILY PO 06/11/24 10:00 UNV Lisinopril (Zestril Tablet) 5 mg DAILY PO 06/11/24 10:00 Spironolactone (Aldactone) 12.5 mg DAILY PO 06/11/24 10:00 Atorvastatin Calcium (Lipitor) 40 mg HS PO 06/11/24 22:00 Remdesivir 0 ml @ 0 mls/hr PER PHARMACY IV 06/10/24 12:00 06/12/24 12:01 Albuterol (Ventolin Medneb) 2.5 mg Q6HWA NEB 06/10/24 12:00 06/10/24 12:18 DC Albuterol (Ventolin Medneb) 2.5 mg Q4HPRN PRN NEB SHORTNESS OF BREATH 06/10/24 12:00 Cancel Ipratropium [place] (Atrovent Medneb) 0.5 mg Q4HPRN PRN NEB SHORTNESS OF BREATH 06/10/24 12:00 Ipratropium [place] (Atrovent Medneb) 0.5 mg Q6HWA NEB 06/10/24 12:00 06/10/24 12:18 DC Albuterol (Ventolin Hfa) 180 mcg TID PRN IN SHORTNESS OF BREATH 06/10/24 12:15 Diagnostic Test (Pha) (Accu-Chek Comfort Curve T) 1 strip ACHS 06/10/24 17:00 06/10/24 17:40 Insulin Human Regular (InsuLIN R) ACHS SC 06/10/24 17:00 06/10/24 17:45 Dextrose 50 ml UD PRN IV Blood Sugar LESS THAN 60 06/10/24 12:30 Remdesivir 100 mg/ Sodium Chloride 250 ml @ 250 mls/hr DAILY@1500 IV 06/11/24 15:00 06/12/24 15:59 Review of Systems Constitutional: No symptom reported Ears, Nose, & Throat: No symptom reported Eyes: No symptom reported Neurological: No symptoms reported Pulmonary/Respiratory: Shortness of breath Cardiovascular: Chest pain Gastrointestinal: No symptom reported Genitourinary: No symptom reported Musculoskeletal: No symptom reported Skin: No symptom reported Psychiatric: No symptom reported Endocrine: No symptom reported Hematologic/Lymphatic: No symptom reported Vital Signs Vital Signs Date Time Temp Pulse Resp B/P (MAP) Pulse Ox O2 Delivery O2 Flow Rate FiO2 06/10/24 18:00 66 118/72 (87) 96 06/10/24 15:02 20 06/10/24 13:02 Nasal Cannula* 2 28 06/10/24 08:40 98.7 98.7 Physical Exam GENERAL: Awake, alert, oriented. LUNGS: Clear. CARDIOVASCULAR: Heart sounds are good. ABDOMEN: Soft. Labs/Diagnostic Data Labs Test 06/10/24 17:00 06/10/24 04:48 06/10/24 02:37 06/10/24 01:42 Range/Units Urine Color Light-yellow Yellow Urine Clarity Clear Clear Urine pH 5.5 5.0-9.0 Urine Specific [place] 1.033 1.001-1.035 Urine Protein 1+ H Negative Urine Ketones Negative Negative Urine Blood Negative Negative /uL Urine Nitrite Negative Negative Urine Bilirubin Negative Negative Urine Urobilinogen Normal Negative mg/dL Urine Leukocyte Esterase Negative Negative /uL Urine RBC 1 0 - 3 /hpf Urine WBC <1 0 - 3 /hpf Urine Squamous Epithelial Cells None seen <5 /hpf Urine Bacteria None seen None Seen /hpf Urine Glucose 4+ H Normal mg/dL Urine Opiates Screen Neg NEGATIVE Urine Fentanyl Screen Neg NEGATIVE Urine Barbiturates Screen Neg NEGATIVE Urine Phencyclidine Screen Neg NEGATIVE Urine Amphetamines Screen Pos NEGATIVE Urine Benzodiazepines Screen Neg NEGATIVE Urine Cocaine Screen Neg NEGATIVE Urine Cannabinoids Screen Neg NEGATIVE Troponin I High Sensitivity 462 *H </=54 ng/L Sodium Level 133 L 136-145 mmol/L Potassium Level 4.9 3.5-5.1 mmol/L Chloride Level 104 98-107 mmol/L Carbon Dioxide Level 22 20-31 mmol/L Anion Gap 7 5-15 Blood Urea Nitrogen 14 9-23 mg/dL Creatinine 1.13 0.700-1.30 mg/dL Glomerular Filtration Rate Calc 78 >90 mL/min BUN/Creatinine Ratio 12.4 10.0-20.0 Serum Glucose 147 H 74-106 mg/dL Calcium Level 9.3 8.7-10.4 mg/dL Total Bilirubin 1.0 0.2-1.0 mg/dL Aspartate Amino Transferase (AST) 28 13-40 U/L Alanine Aminotransferase (ALT) 19 7-40 U/L Alkaline Phosphatase 82 46-116 U/L Total Protein 7.8 5.7-8.2 g/dL Albumin 4.1 3.2-4.8 g/dL White Blood Count 7.4 4.4-10.8 10^3/uL Red Blood Count 5.90 4.5-5.90 10^6/uL Hemoglobin 18.5 H 13.5-17.5 g/dL Hematocrit 54.7 H 41.0-53.0 % Mean Corpuscular Volume 92.7 80.0-100.0 fL Mean Corpuscular Hemoglobin 31.3 28.0-32.0 pg Mean Corpuscular Hemoglobin Concent 33.8 32.0-36.0 g/dL Red Cell Distribution Width 13.6 11.8-14.3 % Platelet Count 196 140-450 10^3/uL Mean Platelet Volume 8.1 6.9-10.8 fL Neutrophils (%) (Auto) 70.1 37.0-80.0 % Lymphocytes (%) (Auto) 14.3 10.0-50.0 % Monocytes (%) (Auto) 14.5 H 0.0-12.0 % Eosinophils (%) (Auto) 0.6 0.0-7.0 % Basophils (%) (Auto) 0.5 0.0-2.0 % Neutrophils # (Auto) 5.2 1.6-8.6 10 ^3/uL Lymphocytes # (Auto) 1.1 0.4-5.4 10 ^3/uL Monocytes # (Auto) 1.1 0-1.3 10 ^3/uL Eosinophils # (Auto) 0 0-0.8 10 ^3/uL Basophils # (Auto) 0 0-0.2 10 ^3/uL Nucleated Red Blood Cells 0.1 % Hemoglobin A1c 7.4 H <5.7 % A1C Lactic Acid Level 1.3 0.4-2.0 mmol/L B-Type Natriuretic Peptide 1349.29 0-100 pg/mL Test 06/10/24 01:10 Range/Units Influenza Type A Antigen Negative Negative Influenza Type B Antigen Negative Negative SARS-CoV-2 Antigen (Rapid) Positive *A NEGATIVE Assessment Acute on chronic decompensated HFrEF, NYHA class III. COVID positive. NSTEMI type II secondary to above. Noncardiac chest pain, likely pleuritic. Coronary artery disease status post multiple PTCAs x2 OLIVIA (on ASA). Ischemic/drug-induced cardiomyopathy. Hypertension. Pulmonary hypertension. Mitral and tricuspid valve regurgitation, moderate degree. History of pulmonary embolism. Type 2 diabetes mellitus, uncontrolled (Hgb A1c 7.4%). Polysubstance abuse. Obesity. Plan/Recommendation I agree with your ongoing assessment and care of plan. Patient has been seen by Lorie Chandler NP on my behalf, her and I discussed the plan with the patient. Echocardiogram from 05/05/24 reveals EF 10%, RVSP 67 mmHg. Initiate guideline directed medical therapy for CHF as tolerated. Strict intake and output, daily weights, maintain fluid restriction. Preload and afterload reduction. Single antiplatelet therapy and lipid-lowering agent. Risk factor modifications, counseled. Adherence to medication regimen. Cessation of substance use. Additional plan as per the hospital course. Plan discussed with: Patient NYHA Physical activity limitations: Class3(Marked) ordinary Date of Service: Jun 10, 2024 Billing Provider: TORI ROB MD Cardiology Common Codes: [id number] INP/OBS CARE (High) Cardiology Consultation Codes: [id number] CONSULT <45MIN TORI ROB MD Jun 10, 2024 19:55
[2024-06-10 21:48] VITALS: BP 126/72; PULSE 75; PULSE 76; RESP 15; RESP 18; TEMP 98.6; O2SAT 95; O2SAT 96
[2024-06-10] MEDS: CARVEDILOL 3.125 MG TAB PO SCH (22:56)
[2024-06-10 23:30] VITALS: O2SAT 95
[2024-06-10] MEDS: HYDROcodone-ACET 5/325MG TAB PO PRN (23:58)
[2024-06-11] VITALS (10 sets, daily range): BP systolic 108–122; BP diastolic 67–82; PULSE 62–80; RESP 17–19; TEMP 97–97.9; O2SAT 90–98
[2024-06-11 06:47] LABS: Basophils # (auto) 0 10 ^3/uL (0-0.2); Basophils % (auto) 0.1 % (0.0-2.0); Eosinophils # (auto) 0 10 ^3/uL (0-0.8); Nucleated Red Blood Cells % 0.1 %
[2024-06-11 06:50] LABS: Hematocrit 50.9 % (41.0-53.0); Hemoglobin 17.6 g/dL (13.5-17.5); Lymphocytes # (auto) 0.9 10 ^3/uL (0.4-5.4); Lymphocytes % (auto) 9.3 % (10.0-50.0); Mean Corpuscular Hemoglobin 31.4 pg (28.0-32.0); Mean Corpuscular Hgb Conc. 34.5 g/dL (32.0-36.0); Mean Corpuscular Volume 90.8 fL (80.0-100.0); Monocytes % (auto) 10.5 % (0.0-12.0); Neutrophils # (auto) 7.8 10 ^3/uL (1.6-8.6); Neutrophils % (auto) 80.1 % (37.0-80.0); Platelet Count (auto) 205 10^3/uL (140-450); Red Blood Cells 5.61 10^6/uL (4.5-5.90); Red Cell Distribution Width 13.4 % (11.8-14.3); White Blood Cell 9.8 10^3/uL (4.4-10.8)
[2024-06-11 07:06] LABS: Alanine Aminotransferase 18 U/L (7-40); Albumin 3.8 g/dL (3.2-4.8); Alkaline Phosphatase 72 U/L (46-116); Anion Gap 9 (5-15); Aspartate Aminotransferase 18 U/L (13-40); BUN/Creatinine Ratio 28.3 (10.0-20.0); Bilirubin, Total 0.7 mg/dL (0.2-1.0); Calcium 9.5 mg/dL (8.7-10.4); Carbon Dioxide 22 mmol/L (20-31); Chloride 103 mmol/L (98-107); Potassium 4.7 mmol/L (3.5-5.1)
[2024-06-11 07:13] LABS: Blood Urea Nitrogen 30 mg/dL (9-23); Glucose 169 mg/dL (74-106); Sodium 134 mmol/L (136-145)
[2024-06-11 07:17] LABS: Total Protein 7.5 g/dL (5.7-8.2)
[2024-06-11] MEDS: SPIRONOLACTONE 25 MG TAB PO SCH (09:50)
[2024-06-11] MEDS: ASPirin-EC 81 mg tab PO SCH (09:51)
[2024-06-11] MEDS: LISINOPRIL 5 MG TAB PO SCH (09:57)
[2024-06-11] MEDS: FUROSEMIDE 40 MG/4 ML VIAL IV SCH (09:58)
[2024-06-11] MEDS: EMPAGLIFLOZIN 10 MG TAB PO SCH (09:58)
[2024-06-11] MEDS ORDERED: ASPirin 81 mg TAB PO SCH (10:00)
[2024-06-11] MEDS ORDERED: FUROSEMIDE 40 MG TAB PO SCH (10:00)
--- NOTE | 2024-06-11 15:13 | DVHPN2 ---
Assessment/Plan Assessment/Plan Progress note Subjective 53 yo M with amphetamine use, HFrEF, admitted with SOB, found to have COVID. seen by cardio seen by me during rounds on nasal canula, at home uses O2 as needed. improving. no active chest pain Objective Physical exam alert oriented x4 on nasal canula s1 s2 RRR systolic murmur mild rhonchi abdomen soft nontender trace LE edema Assessment and plan COVID PNA acute on chronic systolic heart failure heart failure with reduced ejection fraction type 2 SC 2/2 PNA CAD s/p OLIVIA on ASA methamphetamine use HTN PH hx of PE NIDDM c/w remdesevir, decadron cardio recs appreciated titrate O2 to keep spo2 > 88% ISS resume home meds lasix maintain net -500-1L Diet cardiac DVT ppx lovenox Plan discussed with: Patient My Orders Orders - AYAKA SCHMIDT MD Procedure Category Date Status Time Basic Metabolic Panel LAB 06/12/24 Verified 04:00 Magnesium LAB 06/12/24 Verified 04:00 Phosphorus LAB 06/12/24 Verified 04:00 Enoxaparin Sodium PHA 06/12/24 Transmitted (Lovenox) 10:00 Dexamethasone PHA 06/12/24 Verified Injection (Decadron 10:00 Dexamethasone PHA 06/11/24 Verified Injection (Decadron 15:15 Date of Service: Jun 11, 2024 Billing Provider: AYAKA SCHMIDT MD Common Visit Codes: [id number] INP/OBS CARE(HIGH) AYAKA SCHMIDT MD Jun 11, 2024 15:13
[2024-06-11] MEDS: DexAMETHasone SOD PHOS 10MG/1ML VIAL INJ IV ONE (15:46)
[2024-06-11] MEDS: REMDESIVIR 100mg in NS 230mL (3 DAY REGIMEN) IV SCH (16:34)
[2024-06-11] MEDS: ATORVASTATIN 20 MG TAB PO SCH (21:53)
--- NOTE | 2024-06-11 22:00 | DVHPN2 ---
Progress Note - Dictate Date Seen: Jun 11, 2024 Medical Necessity Reason Pt with a Central, PICC or Fol: No Subjective Patient was seen and evaluated in follow up. Patient is on 2 LPM NC. Patient is c/o generalized pain. BUN 30, GLUC 264. Covid +, receiving Remdesivir therapy. Patient is on 2 LPM NC. vital signs Vital Sign Date Time Temp Pulse Resp B/P (MAP) Pulse Ox O2 Delivery O2 Flow Rate FiO2 06/11/24 16:40 97.7 64 17 108/73 (85) 98 97.7 06/11/24 10:00 Nasal Cannula* 2 28 Total Intake and Output 06/10/24 06/10/24 06/11/24 15:00 23:00 07:00 Intake Total 150 ml Output Total 500 ml Balance -500 ml 150 ml medications Current Medications Medications Dose Ordered Sig/Kimberly Route Start Time Stop Time Status Last Admin Dose Admin Aspirin 81 mg DAILY PO 06/11/24 10:00 UNV Morphine Sulfate 2 mg Q30MP PRN IV 06/10/24 11:45 Acetaminophen 650 mg Q6HP PRN PO 06/10/24 11:45 Nitroglycerin 0.4 mg Q5MINP PRN SL 06/10/24 11:45 Ondansetron HCl 4 mg Q4HP PRN IV 06/10/24 11:45 Nitroglycerin 0.4 mg Q5MINP PRN SL 06/10/24 11:45 UNV Morphine Sulfate 2 mg Q30M PRN IV 06/10/24 11:45 UNV Furosemide 40 mg DAILY IV 06/11/24 10:00 06/11/24 09:58 40 MG Aspirin 81 mg DAILY PO 06/11/24 10:00 06/11/24 09:51 81 MG Carvedilol 3.125 mg Q12HR PO 06/10/24 22:00 06/11/24 09:57 3.125 MG Empaglifozin 10 mg DAILY PO 06/11/24 10:00 06/11/24 09:58 10 MG Furosemide 40 mg DAILY PO 06/11/24 10:00 UNV Lisinopril 5 mg DAILY PO 06/11/24 10:00 06/11/24 09:57 5 MG Spironolactone 12.5 mg DAILY PO 06/11/24 10:00 06/11/24 09:50 12.5 MG Atorvastatin Calcium 40 mg HS PO 06/11/24 22:00 Remdesivir 0 ml @ 0 mls/hr PER PHARMACY IV 06/10/24 12:00 06/12/24 12:01 Albuterol 2.5 mg Q4HPRN PRN NEB 06/10/24 12:00 Cancel Ipratropium [place] 0.5 mg Q4HPRN PRN NEB 06/10/24 12:00 Cancel Albuterol 180 mcg TID PRN IN 06/10/24 12:15 Cancel Diagnostic Test (Pha) 1 strip ACHS 06/10/24 17:00 06/11/24 16:55 1 STRIP Insulin Human Regular ACHS SC 06/10/24 17:00 06/11/24 16:55 6 UNITS Dextrose 50 ml UD PRN IV 06/10/24 12:30 Remdesivir 100 mg/ Sodium Chloride 250 ml @ 250 mls/hr DAILY@1500 IV 06/11/24 15:00 06/12/24 15:59 06/11/24 16:34 250 MLS/HR Acetaminophen/ Hydrocodone Bitart 1 tab Q6HPRN PRN PO 06/10/24 23:45 06/11/24 09:59 1 TAB Enoxaparin Sodium 40 mg DAILY SC 06/12/24 10:00 Dexamethasone Sodium Phosphate 6 mg DAILY IV 06/12/24 10:00 objective GENERAL: Awake, alert, oriented. LUNGS: Clear. CARDIOVASCULAR: Heart sounds are good. ABDOMEN: Soft. laboratory and microbiology Laboratory Tests 06/11/24 05:57 Test 06/11/24 05:57 Range/Units Serum Glucose 169 H 74-106 mg/dL Problem List Acute on chronic decompensated HFrEF, NYHA class III. COVID positive. NSTEMI type II secondary to above. Noncardiac chest pain, likely pleuritic. Coronary artery disease status post multiple PTCAs x2 OLIVIA (on ASA). Ischemic/drug-induced cardiomyopathy. Hypertension. Pulmonary hypertension. Mitral and tricuspid valve regurgitation, moderate degree. History of pulmonary embolism. Type 2 diabetes mellitus, uncontrolled (Hgb A1c 7.4%). Polysubstance abuse. Obesity. Assessment/Plan Continued all current supportive medical care. Morphine and [place] for pain management. Aspirin, Lipitor. Coreg, Lisinopril. DVT prophylactics. Jardiance. Diuretics with Lasix. Additional plan as per the hospital course. Plan discussed with: Patient TORI ROB MD Jun 11, 2024 18:01
[2024-06-12] VITALS (8 sets, daily range): BP systolic 101–115; BP diastolic 65–77; PULSE 56–68; RESP 16–20; TEMP 97.7–98.4; O2SAT 94–100
[2024-06-12 06:56] LABS: Anion Gap 6 (5-15); Carbon Dioxide 27 mmol/L (20-31); Chloride 101 mmol/L (98-107)
[2024-06-12 06:57] LABS: Calcium 9.6 mg/dL (8.7-10.4)
[2024-06-12 07:02] LABS: Magnesium 2.2 mg/dL (1.6-2.6)
[2024-06-12 07:04] LABS: Blood Urea Nitrogen 30 mg/dL (9-23); Glucose 168 mg/dL (74-106); Phosphorus 4.4 mg/dL (2.4-5.1); Potassium 5.3 mmol/L (3.5-5.1); Sodium 134 mmol/L (136-145)
[2024-06-12] MEDS: ENOXAPARIN SOD 40 MG/0.4 ML SYRINGE SC SCH (09:45)
[2024-06-12] MEDS: DexAMETHasone SOD PHOS 10MG/1ML VIAL INJ IV SCH (09:45)
[2024-06-12] MEDS ORDERED: PRED20TA2 PO (16:07)
--- NOTE | 2024-06-12 20:17 | DVHDS2 ---
Discharge Summary Date of Admission Jun 10, 2024 at 11:42 Date of Discharge: Jun 12, 2024 Labs/Diagnostic Data: Laboratory Results Test 06/12/24 17:36 06/12/24 06:25 06/11/24 05:57 06/10/24 17:00 POC Glucose 153 mg/dl (70-106) Sodium Level 134 mmol/L (136-145) Potassium Level 5.3 mmol/L (3.5-5.1) Chloride Level 101 mmol/L (98-107) Carbon Dioxide Level 27 mmol/L (20-31) Anion Gap 6 (5-15) Blood Urea Nitrogen 30 mg/dL (9-23) Creatinine 1.11 mg/dL (0.700-1.30) Glomerular Filtration Rate Calc 80 mL/min (>90) BUN/Creatinine Ratio 27.0 (10.0-20.0) Serum Glucose 168 mg/dL (74-106) Calcium Level 9.6 mg/dL (8.7-10.4) Phosphorus Level 4.4 mg/dL (2.4-5.1) Magnesium Level 2.2 mg/dL (1.6-2.6) White Blood Count 9.8 10^3/uL (4.4-10.8) Red Blood Count 5.61 10^6/uL (4.5-5.90) Hemoglobin 17.6 g/dL (13.5-17.5) Hematocrit 50.9 % (41.0-53.0) Mean Corpuscular Volume 90.8 fL (80.0-100.0) Mean Corpuscular Hemoglobin 31.4 pg (28.0-32.0) Mean Corpuscular Hemoglobin Concent 34.5 g/dL (32.0-36.0) Red Cell Distribution Width 13.4 % (11.8-14.3) Platelet Count 205 10^3/uL (140-450) Mean Platelet Volume 8.2 fL (6.9-10.8) Neutrophils (%) (Auto) 80.1 % (37.0-80.0) Lymphocytes (%) (Auto) 9.3 % (10.0-50.0) Monocytes (%) (Auto) 10.5 % (0.0-12.0) Eosinophils (%) (Auto) 0.0 % (0.0-7.0) Basophils (%) (Auto) 0.1 % (0.0-2.0) Neutrophils # (Auto) 7.8 10 ^3/uL (1.6-8.6) Lymphocytes # (Auto) 0.9 10 ^3/uL (0.4-5.4) Monocytes # (Auto) 1.0 10 ^3/uL (0-1.3) Eosinophils # (Auto) 0 10 ^3/uL (0-0.8) Basophils # (Auto) 0 10 ^3/uL (0-0.2) Nucleated Red Blood Cells 0.1 % Total Bilirubin 0.7 mg/dL (0.2-1.0) Aspartate Amino Transferase (AST) 18 U/L (13-40) Alanine Aminotransferase (ALT) 18 U/L (7-40) Alkaline Phosphatase 72 U/L (46-116) Total Protein 7.5 g/dL (5.7-8.2) Albumin 3.8 g/dL (3.2-4.8) Urine Color Light-yellow (Yellow) Urine Clarity Clear (Clear) Urine pH 5.5 (5.0-9.0) Urine Specific [place] 1.033 (1.001-1.035) Urine Protein 1+ (Negative) Urine Ketones Negative (Negative) Urine Blood Negative /uL (Negative) Urine Nitrite Negative (Negative) Urine Bilirubin Negative (Negative) Urine Urobilinogen Normal mg/dL (Negative) Urine Leukocyte Esterase Negative /uL (Negative) Urine RBC 1 /hpf (0 - 3) Urine WBC <1 /hpf (0 - 3) Urine Squamous Epithelial Cells None seen /hpf (<5) Urine Bacteria None seen /hpf (None Seen) Urine Glucose 4+ mg/dL (Normal) Urine Opiates Screen Neg (NEGATIVE) Urine Fentanyl Screen Neg (NEGATIVE) Urine Barbiturates Screen Neg (NEGATIVE) Urine Phencyclidine Screen Neg (NEGATIVE) Urine Amphetamines Screen Pos (NEGATIVE) Urine Benzodiazepines Screen Neg (NEGATIVE) Urine Cocaine Screen Neg (NEGATIVE) Urine Cannabinoids Screen Neg (NEGATIVE) Test 06/10/24 04:48 06/10/24 01:42 06/10/24 01:10 Troponin I High Sensitivity 462 ng/L (</=54) Hemoglobin A1c 7.4 % A1C (<5.7) Lactic Acid Level 1.3 mmol/L (0.4-2.0) B-Type Natriuretic Peptide 1349.29 pg/mL (0-100) Influenza Type A Antigen Negative (Negative) Influenza Type B Antigen Negative (Negative) SARS-CoV-2 Antigen (Rapid) Positive (NEGATIVE) Other Laboratory Tests 06/12/24 06:25 06/11/24 05:57 Brief Hx & Hospital Course: 53 M, meth use, smoker admitted for chest pain. seen and cleared by cardio. patient found to have covid, started on decadron and remdesevir. Using O2 at home as needed per patient. No furhter o2 requirements in hospital, discharged with prednisone. Condition at Discharge: Good Final Diagnosis/Problems List COVID PNA Discharge Disposition: Home Discharge Instruct/Medications Diet: Consistent carbohydrate, Cardiac 2g Na,low cholest Activity: No Restrictions, As Tolerated 37 Discharge Statement: "Patient was advised to return to the ER or call 911 if any headaches, dizziness, shortness of breath, chest pain, abdominal pain, bleeding, fevers, or worsening of medical condition. Patient was counseled about treatment plan, medications, possible side effects, patientverbalized understanding. All questions were answered to the best of my ability. This discharge took greater then 30 minutes in planning, reviewing documentation, counseling the patient, and discussing with other team members." ASSESSMENT ASSESSMENT Assessment COVID PNA acute on chronic systolic heart failure heart failure with reduced ejection fraction type 2 MA 2/2 PNA CAD s/p OLIVIA on ASA methamphetamine use HTN PH hx of PE NIDDM Date of Service: Jun 12, 2024 Billing Provider: AYAKA SCHMIDT MD Common Visit Codes: 03645-TEQ/OBS DISCH DAY >30min AYAKA SCHMIDT MD Jun 12, 2024 20:17
--- NOTE | 2024-06-12 23:08 | DVHPN2 ---
Progress Note - Dictate Date Seen: Jun 12, 2024 Medical Necessity Reason Pt with a Central, PICC or Fol: No Subjective Patient was seen and evaluated in follow up. Patient has no new complaints at this time. Patient denies any cardiac symptoms. Patient is cardiac stable for discharge. Telemetry reviewed. vital signs Vital Sign Date Time Temp Pulse Resp B/P (MAP) Pulse Ox O2 Delivery O2 Flow Rate FiO2 06/12/24 17:20 98.3 68 17 98 06/12/24 13:00 101/65 (77) 06/12/24 09:48 Nasal Cannula* 1 24 Total Intake and Output 06/11/24 06/11/24 06/12/24 15:00 23:00 07:00 Intake Total 1400 ml 100 ml Balance 1400 ml 100 ml medications Current Medications Medications Dose Ordered Sig/Kimberly Route Start Time Stop Time Status Last Admin Dose Admin Aspirin 81 mg DAILY PO 06/11/24 10:00 UNV Nitroglycerin 0.4 mg Q5MINP PRN SL 06/10/24 11:45 UNV Morphine Sulfate 2 mg Q30M PRN IV 06/10/24 11:45 UNV Furosemide 40 mg DAILY PO 06/11/24 10:00 UNV Albuterol 2.5 mg Q4HPRN PRN NEB 06/10/24 12:00 Cancel Ipratropium [place] 0.5 mg Q4HPRN PRN NEB 06/10/24 12:00 Cancel Albuterol 180 mcg TID PRN IN 06/10/24 12:15 Cancel objective GENERAL: Awake, alert, oriented. LUNGS: Clear. CARDIOVASCULAR: Heart sounds are good. ABDOMEN: Soft. laboratory and microbiology Laboratory Tests 06/12/24 06:25 06/11/24 05:57 Test 06/12/24 06:25 Range/Units Serum Glucose 168 H 74-106 mg/dL Problem List Acute on chronic decompensated HFrEF, NYHA class III. COVID positive. NSTEMI type II secondary to above. Noncardiac chest pain, likely pleuritic. Coronary artery disease status post multiple PTCAs x2 OLIVIA (on ASA). Ischemic/drug-induced cardiomyopathy. Hypertension. Pulmonary hypertension. Mitral and tricuspid valve regurgitation, moderate degree. History of pulmonary embolism. Type 2 diabetes mellitus, uncontrolled (Hgb A1c 7.4%). Polysubstance abuse. Obesity. Assessment/Plan Continued all current supportive medical care. Morphine and [place] for pain management. Aspirin, Lipitor. Coreg, Lisinopril. DVT prophylactics. Jardiance. Diuretics with Lasix. Additional plan as per the hospital course. Plan discussed with: Patient TORI ROB MD Jun 12, 2024 19:19
--- NOTE | 2024-06-13 16:58 | ECG ---
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
--- NOTE | 2024-06-14 15:56 | ECG ---
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
== END 2024-06-12 18:00 | disposition home or self-care (01) | DRG 137 ==
LOC: ER 00:46 → TELE 11:42 → TELE-EAST 21:45
PROC: XW033E5 Introduction of Remdesivir Anti-infective into Peripheral Vein, Percutaneous Approach, New Technology Group 5 (ICD-10-PCS; principal; 2024-06-10)
DX: U07.1 COVID-19 (principal); J12.82 Pneumonia due to coronavirus disease 2019; I21.A1 Myocardial infarction type 2; I50.23 Acute on chronic systolic (congestive) heart failure; I11.0 Hypertensive heart disease with heart failure; I42.7 Cardiomyopathy due to drug and external agent; I27.20 Pulmonary hypertension, unspecified; E66.9 Obesity, unspecified; F15.90 Other stimulant use, unspecified, uncomplicated; E87.1 Hypo-osmolality and hyponatremia; E78.5 Hyperlipidemia, unspecified; I25.10 Atherosclerotic heart disease of native coronary artery without angina pectoris; I08.1 Rheumatic disorders of both mitral and tricuspid valves; I25.5 Ischemic cardiomyopathy; E11.9 Type 2 diabetes mellitus without complications; Z68.28 Body mass index [BMI] 28.0-28.9, adult; Z95.5 Presence of coronary angioplasty implant and graft; Z83.3 Family history of diabetes mellitus; Z86.711 Personal history of pulmonary embolism; Z82.0 Family history of epilepsy and other diseases of the nervous system; Z82.49 Family history of ischemic heart disease and other diseases of the circulatory system; Z79.84 Long term (current) use of oral hypoglycemic drugs; Z87.891 Personal history of nicotine dependence
CPT/HCPCS: 36415; 71045; 80048; 80053; 80307; 81001; 82962; 83036; 83605; 83735; 83880; 84100; 84484; 85025; 87426; 87804; 93005; 94640; G0378; J1100; J1815

== ENCOUNTER 2024-07-30 10:59 | Inpatient (IN) | payer OTHER ==
[~2024-07-30] VITALS: Ht 167.6 cm; Wt 72.7 kg
[~2024-07-30 10:59] MED LIST changes: +METF-370 PO; +PRED20TA2 PO
--- NOTE | 2024-07-30 11:26 | ED.PDOC ---
SOB-HPI HPI Comments 53Y M with PMHx DM, CHF, HTN, HLD, and ME s/p stents presents to ED for chief complaint SOB x1day. Pt denies chest pain, dizziness, and n/v/d. Pt states SOB began yesterday after doing yard work. Pt uses 2L/min O2 at home but did not bring his supplemental oxygen to the ED. No other signs/symptoms reported. Time Seen by MD: 11:18 Primary Care Provider: NONE Reviewed notes: Nurses Notes, Medications, Allergies Information Source: Patient Mode of Arrival: Ambulatory Severity: Moderate Timing: Days Duration: Since onset Context: With Light Exertion PE Risk Factors: None History of: CHF Prehospital treatment: None Modifying Factors: Nothing Associated Signs and Symptoms: None Past Medical History PAST MEDICAL HISTORY: CHF, DM, High Lipids, HTN, ME Surgical History: PTCA Family History Family History: Family hx of DM Social History Smoker: Quit Less Than 1 Year, Cigarettes Alcohol: Occasionally Drugs: Marijuana, Methamphetamine Lives In: Home Constitutional: denies: chills, diaphoresis, fatigue, fever, malaise, sweats, weakness, others EENTM: denies: blurred vision, double vision, ear bleeding, ear discharge, ear drainage, ear pain, ear ringing, eye pain, eye redness, hearing loss, mouth pain, mouth swelling, nasal discharge, nose bleeding, nose congestion, nose pain, photophobia, tearing, throat pain, throat swelling, voice changes, others Respiratory: reports: shortness of breath; denies: cough, hemoptysis, orthopnea, SOB at rest, SOB with excertion, stridor, wheezing, others Cardiovascular: denies: chest pain, dizzy spells, diaphoresis, Dyspnea on exertion, edema, irregular heart beat, left arm pain, lightheadedness, palpitations, PND, syncope, others Gastrointestinal: denies: abdomen distended, abdominal pain, blood streaked bowels, constipated, diarrhea, dysphagia, difficulty swallowing, hematemesis, melena, nausea, poor appetite, poor fluid intake, rectal bleeding, rectal pain, vomiting, others Genitourinary: denies: burning, dysuria, flank pain, frequency, hematuria, incontinence, penile discharge, penile sore, pain, testicle pain, testicle swelling, urgency, others Neurological: denies: dizziness, fainting, headache, left sided numbness, left sided weakness, numbness, paresthesia, pre-existing deficit, right sided numbness, right sided weakness, seizure, speech problems, tingling, tremors, weakness, others Musculoskeletal: denies: back pain, gout, joint pain, joint swelling, muscle pain, muscle stiffness, neck pain, others Integumetry: denies: bruises, change in color, change in hair/nails, dryness, laceration, lesions, lumps, rash, wounds, others Allergic/Immunocompromised: denies: Difficulty Healing, Frequent Infections, Hives, Itching, others Hematologic/Lymphatic: denies: anemia, blood clots, easy bleeding, easy bruising, swollen glands, others Endocrine: denies: excessive hunger, excessive sweating, excessive thirst, excessive urination, flushing, intolerance to cold, intolerance to heat, unexplained weight gain, unexplained weight loss, others Psychiatric: denies: anxiety, bipolar disorder, depression, hopeless, panic disorder, schizophrenia, sleepless, suicidal, others All Other Systems: Reviewed and Negative Physical Exam General Appearance: Mild Distress HEENT: Other (Pupils symmetric. Moist mucous membranes.) Neck: Full Range of Motion, Normal Inspection Respiratory: Decreased Breath Sounds, No Accessory Muscle Use, Normal Breath Sounds, Other (Tachypneic) Cardiovascular: No Edema, No JVD, Regular Rate/Rhythm Breast Exam: Deferred Gastrointestinal: Non Tender, Soft Genitalia: Deferred Pelvic: Deferred Rectal: Deferred Extremities: Normal inspection, Normal range of motion, Non-tender, No pedal edema Musculoskeletal : Apperance: Normal Neurologic: Alert (Oriented x4), Normal Affect, Normal Mood, Other (Ambulatory. No gross focal deficit.) Cerebellar Function: NOT DONE Reflexes: NOT DONE Skin: Dry, Normal Color, Warm Lymphatic: NOT DONE EKG EKG : Comments Sinus rhythm, rate 79, normal OK and QRS intervals, QTC prolonged at 482, right axis deviation, inferior T-wave inversion with minimal ST depression, other nonspecific T change. Was a procedure done? Was a procedure done?: No Differential Dx Differential Diagnosis: Asthma, CHF, COPD, Hyperventilation, Myocardial infarction, Pneumonia, Pulmonary Embolism, Respiratory Distress, URI X-Ray, Labs, Meds, VS Vital Signs Date Time Temp Pulse Resp B/P (MAP) Pulse Ox O2 Delivery O2 Flow Rate FiO2 3/25 12:38 80 27 137/98 (111) 92 07/30/24 12:30 81 15 95 Nasal Cannula* 2 28 07/30/24 12:09 97.9 81 59 143/102 (116) 91 97.9 07/30/24 12:00 81 07/30/24 11:58 139/104 07/30/24 11:48 97.9 87 36 142/105 (117) 94 97.9 07/30/24 11:42 20 96 Nasal Cannula* 2 28 07/30/24 11:21 79 07/30/24 11:16 97.2 79 20 133/95 (108) 96 Lab Test 07/30/24 12:31 07/30/24 11:27 07/30/24 11:00 Range/Units Troponin I High Sensitivity 618 *H 579 *H </=54 ng/L White Blood Count 4.9 4.4-10.8 10^3/uL Red Blood Count 5.25 4.5-5.90 10^6/uL Hemoglobin 16.2 13.5-17.5 g/dL Hematocrit 49.2 41.0-53.0 % Mean Corpuscular Volume 93.6 80.0-100.0 fL Mean Corpuscular Hemoglobin 30.8 28.0-32.0 pg Mean Corpuscular Hemoglobin Concent 32.9 32.0-36.0 g/dL Red Cell Distribution Width 14.7 H 11.8-14.3 % Platelet Count 155 140-450 10^3/uL Mean Platelet Volume 8.2 6.9-10.8 fL Neutrophils (%) (Auto) 66.6 37.0-80.0 % Lymphocytes (%) (Auto) 21.7 10.0-50.0 % Monocytes (%) (Auto) 9.2 0.0-12.0 % Eosinophils (%) (Auto) 2.1 0.0-7.0 % Basophils (%) (Auto) 0.4 0.0-2.0 % Neutrophils # (Auto) 3.3 1.6-8.6 10 ^3/uL Lymphocytes # (Auto) 1.1 0.4-5.4 10 ^3/uL Monocytes # (Auto) 0.5 0-1.3 10 ^3/uL Eosinophils # (Auto) 0.1 0-0.8 10 ^3/uL Basophils # (Auto) 0 0-0.2 10 ^3/uL Nucleated Red Blood Cells 0.1 % Sodium Level 139 136-145 mmol/L Potassium Level 4.3 3.5-5.1 mmol/L Chloride Level 109 H 98-107 mmol/L Carbon Dioxide Level 21 20-31 mmol/L Anion Gap 9 5-15 Blood Urea Nitrogen 22 9-23 mg/dL Creatinine 1.08 0.700-1.30 mg/dL Glomerular Filtration Rate Calc 83 >90 mL/min BUN/Creatinine Ratio 20.4 H 10.0-20.0 Serum Glucose 156 H 74-106 mg/dL Hemoglobin A1c 7.2 H <5.7 % A1C Calcium Level 9.2 8.7-10.4 mg/dL B-Type Natriuretic Peptide 2288.72 0-100 pg/mL Urine Color Light-yellow Yellow Urine Clarity Clear Clear Urine pH 5.5 5.0-9.0 Urine Specific [place] 1.018 1.001-1.035 Urine Protein 1+ H Negative Urine Ketones Negative Negative Urine Blood Negative Negative /uL Urine Nitrite Negative Negative Urine Bilirubin Negative Negative Urine Urobilinogen Normal Negative mg/dL Urine Leukocyte Esterase Negative Negative /uL Urine RBC None seen 0 - 3 /hpf Urine Microscopic WBC 1 0-3 /HPF Urine Squamous Epithelial Cells Few <5 /hpf Urine Bacteria None seen None Seen /hpf Urine Glucose 4+ H Normal mg/dL Urine Opiates Screen Neg NEGATIVE Urine Fentanyl Screen Neg NEGATIVE Urine Barbiturates Screen Neg NEGATIVE Urine Phencyclidine Screen Neg NEGATIVE Urine Amphetamines Screen Pos NEGATIVE Urine Benzodiazepines Screen Neg NEGATIVE Urine Cocaine Screen Neg NEGATIVE Urine Cannabinoids Screen Neg NEGATIVE Current Medications Medications (Trade) Dose Ordered Sig/Kimberly Route Start Time Stop Time Status Last Admin Furosemide (Lasix Injection) 40 mg ONCE ONCE IV 07/30/24 11:30 07/30/24 11:31 DC 07/30/24 11:58 Albuterol (Ventolin Medneb) 2.5 mg ONCE ONCE NEB 07/30/24 11:30 07/30/24 11:31 DC 07/30/24 11:41 Ipratropium [place] (Atrovent Medneb) 0.5 mg ONCE ONCE NEB 07/30/24 11:30 07/30/24 11:31 DC 07/30/24 11:41 Aspirin 325 mg ONCE ONCE PO 07/30/24 13:15 07/30/24 13:16 DC 07/30/24 13:56 ORDERING PHYSICIAN: JOSE GUADALUPE SHARMA MD PROCEDURE(s): CXRP - CHEST PORTABLE REASON: sob ORDER NUMBER(s): [id number], ACCESSION NUMBER(s): [id number] CHEST RADIOGRAPH Indication: sob Technique: Single frontal view of the chest was obtained COMPARISON: XY CHEST PORTABLE on DOS: 06/10/24, XY CHEST XRAY 1 VIEW on DOS: 05/05/24, XY CHEST PORTABLE on DOS: 04/05/24, XY CHEST PORTABLE on DOS: 03/03/24, XY CHEST PORTABLE on DOS: 01/14/24 FINDINGS: Lines and Tubes: None Lungs: Clear Pleura: No effusion. No pneumothorax. Cardiomediastinal contours: Cardiomegaly Bones: Unremarkable IMPRESSION: Cardiomegaly X-Ray, Labs, Meds, VS Comment 53Y M with PMHx DM, CHF, HTN, HLD, and ME s/p stents presents to ED for chief complaint SOB x1. Vitals remarkable for respiratory rate 22, BP 137/98 Exam remarkable for diminished breath sounds and tachypnea Rhythm strip independently interpreted by me: Sinus rhythm, rate 79, no ectopy. Chest x-ray IMPRESSION: Cardiomegaly CBC unremarkable, metabolic panel unremarkable, serial troponins 579 and 618, BNP 2288.72 Patient treated with the following in the ED: Albuterol 2.5 mg/Atrovent 0.5 mg nebulized, Lasix 40 mg IV, Nitro-Bid 1/2 inch to chest wall, aspirin 325 mg p.o. On re-evaluation, patient is not in respiratory distress and vitals were stable. Plan is to admit the patient for Cardiology evaluation. Time of 1ST Reevaluation: 11:48 Reevaluation 1ST: Unchanged Patient Education/Counseling: Diagnosis, Treatment Family Education/Counseling: No Family Present Departure 1 Departure Time of Disposition: 14:00 Impression: Primary Impression: NSTEMI (non-ST elevated myocardial infarction) Additional Impressions: Acute exacerbation of congestive heart failure Qualified Codes: I50.9 - Heart failure, unspecified [id number] respiratory failure Qualified Codes: J96.20 - Acute and chronic respiratory failure, unspecified whether with hypoxia or hypercapnia Disposition: ADMITTED INPATIENT Admit to: [facility] Condition: Guarded Critical Care Note Critical Care Time?: Yes (35 min-critical care time only) Critical care comment: Critical care time including multiple bedside re-evaluations, review of lab and imaging studies, and discussion of the case with the admitting provider. Patient is high risk for hemodynamic and/or respiratory decompensation. Stability Stability form required: No Heart Score Heart Score: Heart Score Response (Comments) Value History Slightly Suspicious 0 EKG Repolarization Disturb 1 Age 45-64 1 Risk Factors >3 or Hx ASHD 2 Troponin >3 x's Normal limit 2 Total 6 I personally scribed for JOSE GUADALUPE SHARMA MD ([facility]) on 07/30/24 at 11:26. Electronically submitted by Fatmata Barrientos (Deep [employer]). I personally scribed for JOSE GUADALUPE SHARMA MD ([facility]) on 07/30/24 at 11:52. Electronically submitted by Fatmata Barrientos (Deep Driver). JOSE GUADALUPE SHARMA MD Jul 30, 2024 11:26
[2024-07-30 11:35] LABS: Basophils # (auto) 0 10 ^3/uL (0-0.2); Basophils % (auto) 0.4 % (0.0-2.0); Eosinophils # (auto) 0.1 10 ^3/uL (0-0.8); Eosinophils % (auto) 2.1 % (0.0-7.0); Hematocrit 49.2 % (41.0-53.0); Hemoglobin 16.2 g/dL (13.5-17.5); Lymphocytes # (auto) 1.1 10 ^3/uL (0.4-5.4); Lymphocytes % (auto) 21.7 % (10.0-50.0); Mean Corpuscular Hemoglobin 30.8 pg (28.0-32.0); Mean Corpuscular Hgb Conc. 32.9 g/dL (32.0-36.0); Mean Corpuscular Volume 93.6 fL (80.0-100.0); Monocytes # (auto) 0.5 10 ^3/uL (0-1.3); Monocytes % (auto) 9.2 % (0.0-12.0); Neutrophils # (auto) 3.3 10 ^3/uL (1.6-8.6); Neutrophils % (auto) 66.6 % (37.0-80.0); Nucleated Red Blood Cells % 0.1 %; Platelet Count (auto) 155 10^3/uL (140-450); Red Blood Cells 5.25 10^6/uL (4.5-5.90); Red Cell Distribution Width 14.7 % (11.8-14.3); White Blood Cell 4.9 10^3/uL (4.4-10.8)
[2024-07-30] MEDS: ALBUTEROL SULF 2.5 MG/0.5ML(0.5%) NEB SOLN NEB ONE (11:41)
[2024-07-30] MEDS: IPRATROPIUM BROM 0.5 MG/2.5ML INH SOL NEB ONE (11:41)
[2024-07-30 11:47] LABS: Potassium 4.3 mmol/L (3.5-5.1); Sodium 139 mmol/L (136-145)
[2024-07-30 11:48] LABS: Anion Gap 9 (5-15); Calcium 9.2 mg/dL (8.7-10.4); Carbon Dioxide 21 mmol/L (20-31)
--- NOTE | 2024-07-30 11:49 | DVH ---
CHEST RADIOGRAPH Indication: sob Technique: Single frontal view of the chest was obtained COMPARISON: XY CHEST PORTABLE on DOS: 06/10/24, XY CHEST XRAY 1 VIEW on DOS: 05/05/24, XY CHEST PORTABL E on DOS: 04/05/24, XY CHEST PORTABLE on DOS: 03/03/24, XY CHEST PORTABLE on DOS: 01/14/24 FINDINGS: Lines and Tubes: None Lungs: Clear Pleura: No effusion. No pneumothorax. Cardiomediastinal contours: Cardiomegaly Bones: Unremarkable IMPRESSION: Cardiomegaly
[2024-07-30 11:53] LABS: BUN/Creatinine Ratio 20.4 (10.0-20.0); Blood Urea Nitrogen 22 mg/dL (9-23)
[2024-07-30] MEDS: FUROSEMIDE 40 MG/4 ML VIAL IV ONE (11:56)
[2024-07-30 12:07] LABS: Chloride 109 mmol/L (98-107); Glucose 156 mg/dL (74-106)
[2024-07-30 12:30] VITALS: PULSE 81; RESP 15; O2SAT 95
[2024-07-30 12:35] LABS: Urine Bacteria None Seen /hpf (None Seen)
[2024-07-30] MEDS: NITROGLYCERIN 2% OINT 1GM PKG TD ONE (13:15)
[2024-07-30 13:25] LABS: Urine Blood Negative /uL (Negative); Urine Clarity Clear (Clear); Urine Color Light-Yellow (Yellow); Urine Protein, UAD 1+ (Negative); Urine Specific Gravity 1.018 (1.001-1.035); Urine Squamous Epithelial Cell FEW /hpf (<5); Urine Urobilinogen Normal (Negative); Urine WBC 1 /HPF (0-3); Urine pH 5.5 (5.0-9.0)
[2024-07-30] MEDS ORDERED: CLOP75TA70 (13:28)
[2024-07-30] MEDS ORDERED: ASPI-628 (13:28)
[2024-07-30] MEDS ORDERED: CARV3.1240 (13:28)
[2024-07-30] MEDS ORDERED: FURO40TA4 (13:28)
[2024-07-30] MEDS ORDERED: ONDANSETRON HCL 4 MG/2 ML VIAL IV PRN (13:30)
[2024-07-30] MEDS ORDERED: MORPHINE SULFATE INJ 2 MG/ml SYRG IV PRN (13:30)
[2024-07-30] MEDS ORDERED: ACETAMINOPHEN 500 MG TAB or CAP PO PRN (13:30)
[2024-07-30] MEDS ORDERED: DOCUSATE SOD 100 MG CAP PO PRN (13:30)
[2024-07-30] MEDS ORDERED: TEMAZEPAM 15 MG CAP PO PRN (13:30)
[2024-07-30] MEDS ORDERED: ALBUTEROL SULF 2.5 MG/0.5ML(0.5%) NEB SOLN NEB PRN (13:30)
[2024-07-30] MEDS ORDERED: IPRATROPIUM BROM 0.5 MG/2.5ML INH SOL NEB PRN (13:30)
[2024-07-30 13:37] VITALS: BP 137/98; PULSE 80; RESP 22; TEMP 97.9; O2SAT 96
--- NOTE | 2024-07-30 13:41 | DVHHP2 ---
History of Present Illness Reason for Visit: Shortness of breath History of Present Illness The patient was a 53-year-old male presenting to the emergency room with acute shortness of breath. Patient was attributes shortness of breaths to yard work that he was performing. Patient has a significant history of coronary artery d isease, with stent placement to his distal RCA, decompensated systolic heart failure with ejection fraction of less than 20%, and amphetamine use as well as diabetes mellitus. The patient was well known to me from previous admissions, and states that he was using illicit drugs prior to coming in the hospital. At the current time he denies any chest pain. And denies having chest pain prior to coming to the hospital. Patient was noted to be hypertensive. Patient will be admitted for further treatment. Cardiovascular: CAD, CHF, HTN Endocrine: Diabetes Past Surgical History: Other (PTCA) Smoke: No ALCOHOL: none Drugs: Other (amphetamines) Lives: with Family Domestic Violence: Neg Review of Systems Constitutional: No: Fever, Chills, Sweats, Weakness, Malaise, Other Eyes: No: Pain, Vision change, Conjunctivae inflammation, Eyelid inflammation, Other, Redness Respiratory: Shortness of breath, SOB with excertion Cardiovascular: No: Chest Pain, Palpitations, Orthopnea, Paroxysmal Noc. Dyspnea, Edema, Lt Headedness, Other Gastrointestinal: No: Nausea, Vomiting, Abdominal Pain, Diarrhea, Constipation, Melena, Hematochezia, Other Genitourinary: No Dysuria, No Frequency, No Incontinence, No Hematuria, No Retention, No Other Musculoskeletal: No: other, neck pain, shoulder pain, arm pain, back pain, hand pain, leg pain, foot pain Skin: No: Rash, Lesions, Jaundice, Bruising, Other Neurological: No: Weakness, Numbness, Incoordination, Change in speech, Confusion, Seizures, Other Allergies: Coded Allergies: No Known Drug Allergy (Verified Allergy, Unknown, 04/01/23) Medications Current Medications Medications Dose Ordered Sig/Kimberly Route Start Time Stop Time Status Last Admin Dose Admin Aspirin 81 mg DAILY PO 07/31/24 10:00 UNV Carvedilol 3.125 mg Q12HR PO 07/30/24 22:00 UNV Empaglifozin 10 mg DAILY PO 07/31/24 10:00 UNV Lisinopril 5 mg DAILY PO 07/31/24 10:00 UNV Spironolactone 12.5 mg DAILY PO 07/31/24 10:00 UNV Exam Vital Signs Vital Signs Date Time Temp Pulse Resp B/P (MAP) Pulse Ox O2 Delivery O2 Flow Rate FiO2 07/30/24 12:38 80 27 137/98 (111) 92 07/30/24 12:30 Nasal Cannula* 2 28 07/30/24 12:09 97.9 97.9 General Appearance: Alert, Oriented X3, Cooperative, mild distress HEENT: Atraumatic, PERRLA Respiratory: Clear to auscultation, Normal air movement Cardiovascular: Normal S1, Normal S2 Abdominal: Normal bowel sounds Neuro: Normal gait, Normal speech Psych/Mental Status: Mental status NL, Mood NL Labs/Xrays Labs Test 07/30/24 12:31 07/30/24 11:27 07/30/24 11:00 Range/Units White Blood Count 4.9 4.4-10.8 10^3/uL Red Blood Count 5.25 4.5-5.90 10^6/uL Hemoglobin 16.2 13.5-17.5 g/dL Hematocrit 49.2 41.0-53.0 % Mean Corpuscular Volume 93.6 80.0-100.0 fL Mean Corpuscular Hemoglobin 30.8 28.0-32.0 pg Mean Corpuscular Hemoglobin Concent 32.9 32.0-36.0 g/dL Red Cell Distribution Width 14.7 H 11.8-14.3 % Platelet Count 155 140-450 10^3/uL Mean Platelet Volume 8.2 6.9-10.8 fL Neutrophils (%) (Auto) 66.6 37.0-80.0 % Lymphocytes (%) (Auto) 21.7 10.0-50.0 % Monocytes (%) (Auto) 9.2 0.0-12.0 % Eosinophils (%) (Auto) 2.1 0.0-7.0 % Basophils (%) (Auto) 0.4 0.0-2.0 % Neutrophils # (Auto) 3.3 1.6-8.6 10 ^3/uL Lymphocytes # (Auto) 1.1 0.4-5.4 10 ^3/uL Monocytes # (Auto) 0.5 0-1.3 10 ^3/uL Eosinophils # (Auto) 0.1 0-0.8 10 ^3/uL Basophils # (Auto) 0 0-0.2 10 ^3/uL Nucleated Red Blood Cells 0.1 % Sodium Level 139 136-145 mmol/L Potassium Level 4.3 3.5-5.1 mmol/L Chloride Level 109 H 98-107 mmol/L Carbon Dioxide Level 21 20-31 mmol/L Anion Gap 9 5-15 Blood Urea Nitrogen 22 9-23 mg/dL Creatinine 1.08 0.700-1.30 mg/dL Glomerular Filtration Rate Calc 83 >90 mL/min BUN/Creatinine Ratio 20.4 H 10.0-20.0 Serum Glucose 156 H 74-106 mg/dL Calcium Level 9.2 8.7-10.4 mg/dL B-Type Natriuretic Peptide 2288.72 0-100 pg/mL Urine Color Light-yellow Yellow Urine Clarity Clear Clear Urine pH 5.5 5.0-9.0 Urine Specific [place] 1.018 1.001-1.035 Urine Protein 1+ H Negative Urine Ketones Negative Negative Urine Blood Negative Negative /uL Urine Nitrite Negative Negative Urine Bilirubin Negative Negative Urine Urobilinogen Normal Negative mg/dL Urine Leukocyte Esterase Negative Negative /uL Urine RBC None seen 0 - 3 /hpf Urine Microscopic WBC 1 0-3 /HPF Urine Squamous Epithelial Cells Few <5 /hpf Urine Bacteria None seen None Seen /hpf Urine Glucose 4+ H Normal mg/dL Assessment/Plan Assessment/Plan Impression: -NSTEMI type 2 secondary to accelerated hypertension -amphetamine abuse -history of CAD with previous stent placement -diabetes mellitus Plan: -admit to telemetry unit -serial troponin -start guideline directed medical therapy for heart failure -IV diuresis -restart dual antiplatelet therapy with Plavix and aspirin -UDS -pain management -bronchodilators as needed -given patient was currently and has not had any chest pain as well as lack of ST changes on EKG, cardiology consultation will be held at this time. If troponins continue to trend up, consider Cardiology consultation at that time. Total time spent with patient discussing and formulating plan of care: 35 minutes. This medical document was created using an electronic medical record system with [employer] system. Although this document has been carefully reviewed, there may still be some phonetic and typographical errors. These areas are purely typographical due to imperfections of the software programs, and do not reflect any compromise in the patient's medical care. Plan discussed with: Patient, Other (RN) My Orders Orders - ELEANOR PITTS NP Procedure Category Date Status Time Admit ADMIT 07/30/24 Transmitted 13:23 Aspirin Enteric PHA 07/31/24 Logged Coated Tablet 10:00 Carvedilol Tablet PHA 07/30/24 Logged (Coreg Tablet) 22:00 Empagliflozin PHA 07/31/24 Logged (Jardiance) 10:00 Lisinopril Tablet PHA 07/31/24 Logged (Zestril Tablet) 10:00 Spironolactone PHA 07/31/24 Logged (Aldactone) 10:00 Clopidogrel Bisulfate PHA 07/31/24 Transmitted (Plavix) 10:00 Morphine Sulfate PHA 07/30/24 Transmitted Injection 13:30 Hydrocodone-Acet PHA 07/30/24 Transmitted 5/325mg Tab ([place] 13:30 Acetaminophen Tablet PHA 07/30/24 Transmitted (Tylenol Tablet) 13:30 Ondansetron Hcl PHA 07/30/24 Transmitted (Zofran) 13:30 Docusate Sodium PHA 07/30/24 Transmitted Capsule (Colace 13:30 Albuterol Medneb PHA 07/30/24 Transmitted (Ventolin Medneb) 13:30 Ipratropium Medneb PHA 07/30/24 Transmitted (Atrovent Medneb) 13:30 Drug Screen LAB 07/30/24 Transmitted 13:28 Temazepam (Restoril) PHA 07/30/24 Transmitted 13:30 Date of Service: Jul 30, 2024 Billing Provider: ELEANOR PITTS NP Common Visit Codes: [id number] INP/OBS CARE (HIGH) ELEANOR PITTS NP Jul 30, 2024 13:41
[2024-07-30] MEDS: ASPirin 325 MG TAB PO ONE (13:56)
[2024-07-30] MEDS: CLOPIDOGREL BISULFATE 75 MG TAB PO ONE (14:12)
[2024-07-30 15:09] LABS: Amphetamine Screen, Urine Pos (NEGATIVE); Barbiturate Scree,Urine Neg (NEGATIVE); Benzodiazephine Screen, Urine Neg (NEGATIVE); Cannabinoid Screen, Urine Neg (NEGATIVE); Cocaine Screen, Urine Neg (NEGATIVE); Opiate Scree,Urine Neg (NEGATIVE); Phencyclidine Screen, Urine Neg (NEGATIVE)
[2024-07-30 17:58] VITALS: O2SAT 97
[2024-07-30 20:00] VITALS: PULSE 79; RESP 18; O2SAT 98
[2024-07-30] MEDS: CARVEDILOL 3.125 MG TAB PO SCH (23:05)
[2024-07-30 23:31] VITALS: BP 128/77; PULSE 70; RESP 18; TEMP 98.2; O2SAT 99
[2024-07-31] VITALS (11 sets, daily range): BP systolic 110–128; BP diastolic 68–88; PULSE 65–89; RESP 14–18; TEMP 97.4–98.4; O2SAT 95–100
[2024-07-31] MEDS: HYDROcodone-ACET 5/325MG TAB PO PRN (07:00)
[2024-07-31] MEDS: SPIRONOLACTONE 25 MG TAB PO SCH (08:52)
[2024-07-31] MEDS: EMPAGLIFLOZIN 10 MG TAB PO SCH (08:52)
[2024-07-31] MEDS: ASPirin-EC 81 mg tab PO SCH (08:52)
[2024-07-31] MEDS: CLOPIDOGREL BISULFATE 75 MG TAB PO SCH (08:52)
[2024-07-31] MEDS: LISINOPRIL 5 MG TAB PO SCH (08:53)
--- NOTE | 2024-07-31 23:27 | DVHPN2 ---
Subjective 07/31 patient presented with shortness of breath, on oxygen in holding area. Patient appears to be doing well, conversing in full sentences. No increased work of breathing. Patient initially endorses that he has oxygen and but later when told that he was dependent on oxygen now admits that there is no home oxygen and he was no home oxygen tank. UDS is still positive with meth. Cardiology was consulted. Patient on exam appears euvolemic today. Reviewed: H&P Changes from previous H/P or p: No Changes General: Per HPI Eyes: No Pain, No Vision change, No Conjunctivae inflammation, No Eyelid inflammation, No Other, No Redness Cardiovascular: No Chest Pain, No Palpitations, No Orthopnea, No Paroxysmal Noc. Dyspnea, No Edema, No Lt Headedness, No Other Respiratory: Shortness of breath, SOB with excertion Gastrointestinal: No Nausea, No Vomiting, No Abdominal Pain, No Diarrhea, No Constipation, No Melena, No Hematochezia, No Other Genitourinary: No Dysuria, No Frequency, No Incontinence, No Hematuria, No Retention, No Other Musculoskeletal: No other, No neck pain, No shoulder pain, No arm pain, No back pain, No hand pain, No leg pain, No foot pain Skin: No Rash, No Lesions, No Jaundice, No Bruising, No Other Objective Vitals Vital Signs Date Time Temp Pulse Resp B/P (MAP) Pulse Ox O2 Delivery O2 Flow Rate FiO2 07/31/24 21:04 113/78 07/31/24 21:00 97.8 73 18 98 97.8 07/31/24 20:00 Nasal Cannula* 2 28 Intake/Output Intake and Output 07/31/24 07:00 # Voids 6 Exam GEN: Healthy appearing, well-developed, NAD. HEENT: NC/AT; MMM. CV: RRR, no m/r/g. LUNGS: CTAB, no w/r/c. ABD: Soft, NT/ND, NBS, no masses or organomegaly. EXT: skin Warm, well perfused. no rashes. No clubbing, cyanosis, or edema. NEURO: Ambulating with no limitations. No focal deficits. Medications Current Medications Medications Dose Ordered Sig/Kimberly Route Start Time Stop Time Status Last Admin Dose Admin Aspirin 81 mg DAILY PO 07/31/24 10:00 07/31/24 08:52 81 MG Carvedilol 3.125 mg Q12HR PO 07/30/24 22:00 07/31/24 21:04 3.125 MG Empaglifozin 10 mg DAILY PO 07/31/24 10:00 07/31/24 08:52 10 MG Lisinopril 5 mg DAILY PO 07/31/24 10:00 07/31/24 08:53 5 MG Spironolactone 12.5 mg DAILY PO 07/31/24 10:00 07/31/24 08:52 12.5 MG Clopidogrel Bisulfate 75 mg DAILY PO 07/31/24 10:00 07/31/24 08:52 75 MG Morphine Sulfate 1 mg Q4HPRN PRN IV 07/30/24 13:30 Acetaminophen/ Hydrocodone Bitart 1 tab Q6HPRN PRN PO 07/30/24 13:30 07/31/24 07:00 1 TAB Acetaminophen 500 mg Q8HP PRN PO 07/30/24 13:30 Ondansetron HCl 4 mg Q6HP PRN IV 07/30/24 13:30 Docusate Sodium 100 mg BID PRN PO 07/30/24 13:30 Albuterol 2.5 mg Q4HPRN PRN NEB 07/30/24 13:30 Ipratropium Carbon 0.5 mg Q4HPRN PRN NEB 07/30/24 13:30 Temazepam 15 mg HSPRN PRN PO 07/30/24 13:30 Laboratory Results Laboratory Tests 07/30/24 11:27 Urinalysis Test 07/30/24 11:00 Urine Color Light-yellow (Yellow) Urine Clarity Clear (Clear) Urine pH 5.5 (5.0-9.0) Urine Specific [place] 1.018 (1.001-1.035) Urine Protein 1+ (Negative) H Urine Ketones Negative (Negative) Urine Blood Negative /uL (Negative) Urine Nitrite Negative (Negative) Urine Bilirubin Negative (Negative) Urine Urobilinogen Normal mg/dL (Negative) Urine Leukocyte Esterase Negative /uL (Negative) Urine RBC None seen /hpf (0 - 3) Urine Microscopic WBC 1 /HPF (0-3) Urine Squamous Epithelial Cells Few /hpf (<5) Urine Bacteria None seen /hpf (None Seen) Urine Glucose 4+ mg/dL (Normal) H Microbiology Microbiology Date/Time Source Procedure Growth Status 07/30/24 23:40 Nose MRSA Screen - Final Complete Labs and/or images reviewed: Labs reviewed by me, Image(s) reviewed by me Assessment/Plan Assessment/Plan 07/31 patient presented with shortness of breath, on oxygen in holding area. Patient appears to be doing well, conversing in full sentences. No increased work of breathing. Patient initially endorses that he has oxygen and but later when told that he was dependent on oxygen now admits that there is no home oxygen and he was no home oxygen tank. UDS is still positive with meth. Cardiology was consulted. Patient on exam appears euvolemic today. Acute exacerbation on chronic systolic heart failure, due to methamphetamine substance abuse Acute hypoxic respiratory failure due to acute exacerbation of heart Type 2 NSTEMI due to above Type 2 diabetes Glucosuria History of polysubstance abuse Methamphetamine abuse CAD status post OLIVIA X 2 - CXR with signs of pulmonary vascular congestion - BNP elevated, Troponinemia - requiring oxygen to maintain saturations above 90 - UDS positive with meth - this is likely another exacerbation of heart failure due to methamphetamine abuse. - consult on cessation of drug abuse -IV diuresis -GDM T as tolerated (Coreg, Jardiance, lisinopril, Aldactone,) -continue DA PT (aspirin 81, Plavix 75) -duo nebs p.r.n. - patient appears euvolemic on exam now has oxygen requirement at baseline. We will re-evaluate for oxygen and vomiting a.m.. Plan discussed with: Patient Date of Service: Jul 31, 2024 Billing Provider: JOSE MORAES MD Common Visit Codes: [id number] INP/OBS CARE(HIGH) JOSE MORAES MD Jul 31, 2024 23:27
[2024-08-01 01:00] VITALS: BP 98/63; PULSE 67; RESP 19; TEMP 97.9; O2SAT 98
[2024-08-01 05:00] VITALS: BP 114/82; PULSE 69; RESP 19; TEMP 97.6; O2SAT 99
[2024-08-01 07:41] LABS: Anion Gap 10 (5-15); Carbon Dioxide 23 mmol/L (20-31); Chloride 103 mmol/L (98-107); Potassium 5.1 mmol/L (3.5-5.1)
[2024-08-01 07:42] LABS: Calcium 9.1 mg/dL (8.7-10.4)
[2024-08-01 07:45] LABS: Sodium 136 mmol/L (136-145)
[2024-08-01 07:47] LABS: BUN/Creatinine Ratio 19.5 (10.0-20.0); Blood Urea Nitrogen 24 mg/dL (9-23); Glucose 150 mg/dL (74-106)
[2024-08-01 08:00] VITALS: PULSE 62; PULSE 71; RESP 17; O2SAT 95
[2024-08-01 08:50] VITALS: BP 123/87; PULSE 71; RESP 17; TEMP 98.2; O2SAT 95
[2024-08-01 10:00] VITALS: O2SAT 95
[2024-08-01 10:38] LABS: Base Excess 1.3 mmol/L (-2.0-3.0)
[2024-08-01 12:33] LABS: Base Excess -1.7 mmol/L (-2.0-3.0)
[2024-08-01 12:52] VITALS: BP 116/78; PULSE 70; RESP 17; TEMP 98.8; O2SAT 96
--- NOTE | 2024-08-01 14:40 | DVHDS2 ---
Discharge Summary Date of Admission Jul 30, 2024 at 13:23 Date of Discharge: Aug 01, 2024 Labs/Diagnostic Data: Laboratory Results Test 08/01/24 12:26 08/01/24 09:47 08/01/24 06:20 07/31/24 12:32 Blood Gas Specimen Type Arterial Blood Gas Sample Site Right radial Blood Gas Patient Temperature 37.0 Arterial Blood Date Drawn [id number] Arterial Blood pH 7.423 (7.350-7.450) Arterial Blood Partial Pressure CO2 34.2 mmHg (35.0-48.0) Arterial Blood Partial Pressure O2 70.2 mmHg (83.0-108.0) Arterial Blood HCO3 21.8 mmol/L (21.0-28.0) Arterial Blood Oxygen Saturation 93.9 % (94.0-98.0) Arterial Blood Base Excess -1.7 mmol/L (-2.0-3.0) Arterial Blood Oxyhemoglobin 92.8 % (94.0-98.0) Arterial Blood Carboxyhemoglobin 0.8 % (0.5-1.5) Arterial Blood Methemoglobin 0.4 % (0.0-1.5) Omega Test Yes Blood Gas Total Hemoglobin 17.60 g/dL (13.5-17.5) Blood Gas Modality Room air FiO2 % 21.0 Blood Gas Liter Flow 3.00 Blood Gas Critical Value Read Back Yes Blood Gas Notified Whom jose Varghese md Blood Gas Notified Time [id number] Blood Gas Notified By shireen Murillo rt. Sodium Level 136 mmol/L (136-145) Potassium Level 5.1 mmol/L (3.5-5.1) Chloride Level 103 mmol/L (98-107) Carbon Dioxide Level 23 mmol/L (20-31) Anion Gap 10 (5-15) Blood Urea Nitrogen 24 mg/dL (9-23) Creatinine 1.23 mg/dL (0.700-1.30) Glomerular Filtration Rate Calc 71 mL/min (>90) BUN/Creatinine Ratio 19.5 (10.0-20.0) Serum Glucose 150 mg/dL (74-106) Calcium Level 9.1 mg/dL (8.7-10.4) POC Glucose 133 mg/dl (70-106) Test 07/31/24 08:49 07/30/24 11:27 07/30/24 11:00 Troponin I High Sensitivity 609 ng/L (</=54) White Blood Count 4.9 10^3/uL (4.4-10.8) Red Blood Count 5.25 10^6/uL (4.5-5.90) Hemoglobin 16.2 g/dL (13.5-17.5) Hematocrit 49.2 % (41.0-53.0) Mean Corpuscular Volume 93.6 fL (80.0-100.0) Mean Corpuscular Hemoglobin 30.8 pg (28.0-32.0) Mean Corpuscular Hemoglobin Concent 32.9 g/dL (32.0-36.0) Red Cell Distribution Width 14.7 % (11.8-14.3) Platelet Count 155 10^3/uL (140-450) Mean Platelet Volume 8.2 fL (6.9-10.8) Neutrophils (%) (Auto) 66.6 % (37.0-80.0) Lymphocytes (%) (Auto) 21.7 % (10.0-50.0) Monocytes (%) (Auto) 9.2 % (0.0-12.0) Eosinophils (%) (Auto) 2.1 % (0.0-7.0) Basophils (%) (Auto) 0.4 % (0.0-2.0) Neutrophils # (Auto) 3.3 10 ^3/uL (1.6-8.6) Lymphocytes # (Auto) 1.1 10 ^3/uL (0.4-5.4) Monocytes # (Auto) 0.5 10 ^3/uL (0-1.3) Eosinophils # (Auto) 0.1 10 ^3/uL (0-0.8) Basophils # (Auto) 0 10 ^3/uL (0-0.2) Nucleated Red Blood Cells 0.1 % Hemoglobin A1c 7.2 % A1C (<5.7) B-Type Natriuretic Peptide 2288.72 pg/mL (0-100) Urine Color Light-yellow (Yellow) Urine Clarity Clear (Clear) Urine pH 5.5 (5.0-9.0) Urine Specific [place] 1.018 (1.001-1.035) Urine Protein 1+ (Negative) Urine Ketones Negative (Negative) Urine Blood Negative /uL (Negative) Urine Nitrite Negative (Negative) Urine Bilirubin Negative (Negative) Urine Urobilinogen Normal mg/dL (Negative) Urine Leukocyte Esterase Negative /uL (Negative) Urine RBC None seen /hpf (0 - 3) Urine Microscopic WBC 1 /HPF (0-3) Urine Squamous Epithelial Cells Few /hpf (<5) Urine Bacteria None seen /hpf (None Seen) Urine Glucose 4+ mg/dL (Normal) Urine Opiates Screen Neg (NEGATIVE) Urine Fentanyl Screen Neg (NEGATIVE) Urine Barbiturates Screen Neg (NEGATIVE) Urine Phencyclidine Screen Neg (NEGATIVE) Urine Amphetamines Screen Pos (NEGATIVE) Urine Benzodiazepines Screen Neg (NEGATIVE) Urine Cocaine Screen Neg (NEGATIVE) Urine Cannabinoids Screen Neg (NEGATIVE) Other Laboratory Tests 08/01/24 06:20 07/30/24 11:27 Brief Hx & Hospital Course: HPI: 53-year-old male presenting to the emergency room with acute shortness of breath. Patient was attributes shortness of breaths to yard work that he was performing. Patient has a significant history of coronary artery disease, with stent placement to his distal RCA, decompensated systolic heart failure with ejection fraction of less than 20%, and amphetamine use as well as diabetes mellitus. The patient was well known to me from previous admissions, and states that he was using illicit drugs prior to coming in the hospital. At the current time he denies any chest pain. And denies having chest pain prior to coming to the hospital. Patient was noted to be hypertensive. summary: On admit CXR with signs of pulmonary vascular congestion. BNP elevated, Troponinemia . requiring oxygen to maintain saturations above 90. UDS positive with meth. this is likely another exacerbation of heart failure due to methamphetamine abuse. Patient was given slow diuresis, counseled on drug cessation, continue GDM T, continuing DA PT,. Patient improves rapidly and is weaned off of oxygen. Confirm no requirement of oxygen, appears euvolemic, ambulating and tolerating p.o.. Ready for discharge with plan below diagnosis: Acute exacerbation on chronic systolic heart failure, due to methamphetamine substance abuse Acute hypoxic respiratory failure due to acute exacerbation of heart Type 2 NSTEMI due to above Type 2 diabetes Glucosuria History of polysubstance abuse Methamphetamine abuse CAD status post OLIVIA X 2 Discharge plan: -Continue home medications ( aspirin 81, Coreg 3.125 twice daily, Plavix 75, Jardiance 10, lisinopril 5, Aldactone 12.5,) -Drug abuse cessation advised -Follow up with PCP Condition at Discharge: Fair Final Diagnosis/Problems List Acute exacerbation on chronic systolic heart failure, due to methamphetamine substance abuse Acute hypoxic respiratory failure due to acute exacerbation of heart Type 2 NSTEMI due to above Type 2 diabetes Glucosuria History of polysubstance abuse Methamphetamine abuse CAD status post OLIVIA X 2 Discharge Disposition: Home Discharge Instruct/Medications Diet: Cardiac 2g Na,low cholest Activity: No Restrictions, As Tolerated Follow Up/Referral: pcp Medications: below Discharge Statement: "Patient was advised to return to the ER or call 911 if any headaches, dizziness, shortness of breath, chest pain, abdominal pain, bleeding, fevers, or worsening of medical condition. Patient was counseled about treatment plan, medications, possible side effects, patientverbalized understanding. All questions were answered to the best of my ability. This discharge took greater then 30 minutes in planning, reviewing documentation, counseling the patient, and discussing with other team members." Date of Service: Aug 01, 2024 Billing Provider: JOSE VARGHESE MD Common Visit Codes: [id number] DISCH DAY >30min JOSE VARGHESE MD Aug 01, 2024 14:40
== END 2024-08-01 16:31 | disposition home or self-care (01) | DRG 194 ==
LOC: ER 10:59 → OVERFLOW 13:23 → TELE-EAST 07-31 17:50
PROVIDERS: ADMIT Student in an Organized Health Care Education/Training Program; ATTEND Student in an Organized Health Care Education/Training Program
DX: I11.0 Hypertensive heart disease with heart failure (principal); J96.01 Acute respiratory failure with hypoxia; I21.A1 Myocardial infarction type 2; I50.23 Acute on chronic systolic (congestive) heart failure; E11.9 Type 2 diabetes mellitus without complications; F15.10 Other stimulant abuse, uncomplicated; I25.10 Atherosclerotic heart disease of native coronary artery without angina pectoris; Z83.3 Family history of diabetes mellitus; Z87.891 Personal history of nicotine dependence; Z95.5 Presence of coronary angioplasty implant and graft; Z99.81 Dependence on supplemental oxygen
CPT/HCPCS: 36415; 36600; 71045; 80048; 80307; 81001; 82805; 82962; 83036; 83880; 84484; 85025; 87081; 94640; 96374; 99291; G0378

== ENCOUNTER 2024-08-02 10:06 | Emergency (ER) | payer OTHER ==
[~2024-08-02] VITALS: Ht 167.6 cm; Wt 73.8 kg
[~2024-08-02 10:06] MED LIST changes: +CLOP75TA70; -DEXT1SYP9 PO; -METF500S3 PO; -PRED20TA2 PO
[2024-08-02 10:24] VITALS: BP 136/88
--- NOTE | 2024-08-02 10:29 | ED.PDOC ---
SOB-HPI HPI Comments 53 year old male presents to the ED with chief complaint of SOB and Headache. Patient reports that he was recently discharged from [facility] yesterday for his SOB, however, after discharge he started to experience more SOB while at home along with an associated headache. Patient relays that he was prescribed O2 to take home with him, however, he has not been able to set it up and did not use it all day yesterday. Patient denies any chest pain, dizziness, N/V, fever, chills, or cough. Time Seen by MD: 10:22 Primary Care Provider: NONE Reviewed notes: Nurses Notes, Crown Pouncer Notes, Medications, Allergies Information Source: Patient Mode of Arrival: Ambulatory Severity: Moderate Timing: Days Duration: Since onset Context: At Rest PE Risk Factors: None History of: CHF Modifying Factors: Nothing Associated Signs and Symptoms: None Past Medical History PAST MEDICAL HISTORY: CHF, DM, High Lipids, HTN, [place] Surgical History: PTCA Family History Family History: Reviewed,noncontributory to illness, Family hx of DM Social History Smoker: Cigarettes Alcohol: Occasionally Drugs: Marijuana, Methamphetamine Lives In: Home Constitutional: denies: chills, diaphoresis, fatigue, fever, malaise, sweats, weakness, others EENTM: denies: blurred vision, double vision, ear bleeding, ear discharge, ear drainage, ear pain, ear ringing, eye pain, eye redness, hearing loss, mouth pain, mouth swelling, nasal discharge, nose bleeding, nose congestion, nose pain, photophobia, tearing, throat pain, throat swelling, voice changes, others Respiratory: reports: shortness of breath; denies: cough, hemoptysis, orthopnea, SOB at rest, SOB with excertion, stridor, wheezing, others Cardiovascular: denies: chest pain, dizzy spells, diaphoresis, Dyspnea on exertion, edema, irregular heart beat, left arm pain, lightheadedness, pal pitations, PND, syncope, others Gastrointestinal: denies: abdomen distended, abdominal pain, blood streaked bowels, constipated, diarrhea, dysphagia, difficulty swallowing, hematemesis, melena, nausea, poor appetite, poor fluid intake, rectal bleeding, rectal pain, vomiting, others Genitourinary: denies: burning, dysuria, flank pain, frequency, hematuria, incontinence, penile discharge, penile sore, pain, testicle pain, testicle swelling, urgency, others Neurological: reports: headache; denies: dizziness, fainting, left sided numbness, left sided weakness, numbness, paresthesia, pre-existing deficit, right sided numbness, right sided weakness, seizure, speech problems, tingling, tremors, weakness, others Musculoskeletal: denies: back pain, gout, joint pain, joint swelling, muscle pain, muscle stiffness, neck pain, others Integumetry: denies: bruises, change in color, change in hair/nails, dryness, laceration, lesions, lumps, rash, wounds, others Allergic/Immunocompromised: denies: Difficulty Healing, Frequent Infections, Hives, Itching, others Hematologic/Lymphatic: denies: anemia, blood clots, easy bleeding, easy bruising, swollen glands, others Endocrine: denies: excessive hunger, excessive sweating, excessive thirst, excessive urination, flushing, intolerance to cold, intolerance to heat, unexplained weight gain, unexplained weight loss, others Psychiatric: denies: anxiety, bipolar disorder, depression, hopeless, panic disorder, schizophrenia, sleepless, suicidal, others All Other Systems: Reviewed and Negative Physical Exam General Appearance: Moderate Distress, Normal HEENT: Normal ENT Inspection, PERRL/EOMI Neck: Full Range of Motion, Non-Tender, Normal, Normal Inspection Respiratory: Chest Non-Tender, Lungs Clear, No Accessory Muscle Use, No Respiratory Distress, Normal Breath Sounds Cardiovascular: No Edema, No JVD, No Murmur, No Gallop, Normal Peripheral Pulses, Regular Rate/Rhythm Breast Exam: Deferred Gastrointestinal: No Organomegaly, Non Tender, No Pulsatile Mass, Normal Bowel Sounds, Soft Genitalia: Deferred Pelvic: Deferred Rectal: Deferred Extremities: No calf tenderness, Normal capillary refill, Normal inspection, Normal range of motion, Non-tender, No pedal edema Musculoskeletal : Apperance: Normal Neurologic: Alert, 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 Was a procedure done?: No Differential Dx Differential Diagnosis: Anxiety, Asthma, Bronchitis, CHF, COPD X-Ray, Labs, Meds, VS Vital Signs Date Time Temp Pulse Resp B/P (MAP) Pulse Ox O2 Delivery O2 Flow Rate FiO2 08/02/24 10:24 97.6 71 19 136/88 (104) 95 Patient alert. Complaining of headache. He was discharged from this hospital yesterday. Was given oxygen. Never used oxygen last night. Uses drugs. Reviewed his previous visit. He has a history of drug use. CHF. CT of the head reviewed does not show any acute process. Chest x-ray reviewed does not show any acute process. No leg swelling. Explained to the patient. Was told to use his oxygen. Was told to follow up with his primary care physician. Was told to come back if there is any problem. Time of 1ST Reevaluation: 11:22 Reevaluation 1ST: Improved Patient Education/Counseling: Diagnosis, Treatment Family Education/Counseling: No Family Present Additional Information Previous visit documents reviewed: 07/30/24 for NSTEMI The following tests were ordered, and results were reviewed by me: Head CT, Chest XR Additional Information was gathered from interviewing the following independent historians: None I reviewed and agreed with the following test results read by other providers: Head CT, Chest XR I discussed treatment and results with medical personnel. Departure 1 Departure Time of Disposition: 10:34 Impression: Primary Impression: Autonomic disorder Additional Impressions: Headache Qualified Codes: R51.9 - Headache, unspecified; G89.29 - Other chronic pain Diastolic heart failure Qualified Codes: I50.33 - Acute on chronic diastolic (congestive) heart failure Disposition: 01 HOME / SELF CARE / HOMELESS Condition: Good Discharged With: Self Critical Care Note Critical Care Time?: No Stability Stability form required: No Heart Score Heart Score: Heart Score Response (Comments) Value History N/A 0 EKG N/A 0 Age N/A 0 Risk Factors N/A 0 Troponin N/A 0 Total 0 I personally scribed for PAMELA FINCH MD ([email or web address]) on 08/02/24 at 10:29. Electronically submitted by Tip Weber ([email or web address]). PAMELA FINCH MD Aug 02, 2024 10:29
--- NOTE | 2024-08-02 10:46 | DVH ---
Procedure: XY CHEST PORTABLE 08/02/2024 10:25 AM Indication: sob Comparison: XY CHEST PORTABLE on DOS: 07/30/24, XY CHEST PORTABLE on DOS: 06/10/24, XY CHEST XRAY 1 VIEW on DOS: 05/05/24 TECHNIQUE: XY CHEST PORTABLE FINDINGS: Medical devices: None. Cardiomediastinal: The heart is moderately enlarged. Pulmonary vasculature is within normal limits. Lungs: No focal pulmonary opacity is seen. The costophrenic angles are clear. No pneumothorax. Bones/soft tissues: No acute abnormality is noted. IMPRESSION: 1. No acute cardiopulmonary disease.
--- NOTE | 2024-08-02 10:52 | DVH ---
EXAM: CT HEAD WITHOUT CONTRAST HISTORY: headache COMPARISON: CT HEAD WITHOUT CONTRAST on DOS: 04/02/23 TECHNIQUE: Axial images of the head were obtained and reformatted in coronal and sagittal planes. All CT scans at this medical facility are performed using dose modulation techniques as appropriate t o a performed exam including the following: Automated exposure control was utilized; adjustment of th e MA and/or KV according to patient size; and use of iterative reconstruction technique. CT Dose: CTDI volume is 56.45 mGy. Dose-length product is 1112.4 mGy*cm FINDINGS: There is no evidence of acute intracranial hemorrhage, mass, mass effect midline shift. There is no h ydrocephalus or extra-axial fluid collection. There is a chronic infarct in the medial right occipit al lobe. The george-white matter differentiation is otherwise maintained. The visualized paranasal sinuses and mastoid air cells are clear. The calvarium is intact. IMPRESSION: 1. No acute intracranial process. 2. 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 HS:Y
[2024-08-02 11:43] VITALS: PULSE 79; RESP 20; O2SAT 95
== END 2024-08-02 11:47 | disposition home or self-care (01) ==
LOC: ER 10:06
DX: R51.9 Headache, unspecified (principal); I11.0 Hypertensive heart disease with heart failure; I50.33 Acute on chronic diastolic (congestive) heart failure; E11.9 Type 2 diabetes mellitus without complications; F17.210 Nicotine dependence, cigarettes, uncomplicated; Z86.73 Personal history of transient ischemic attack (TIA), and cerebral infarction without residual deficits
CPT/HCPCS: 70450; 71045

== ENCOUNTER 2024-08-08 09:13 | Emergency (ER) | payer OTHER ==
[~2024-08-08] VITALS: Ht 160 cm; Wt 77.4 kg
[2024-08-08 09:45] VITALS: BP 148/102; PULSE 92; RESP 17; TEMP 97.7; O2SAT 98
[2024-08-08] MEDS ORDERED: ACET500T58 PO (11:45)
[2024-08-08] MEDS ORDERED: AUG875T PO (11:45)
--- NOTE | 2024-08-08 11:45 | ED.PDOC ---
Eye-HPI HPI Comments This is a pleasant 53-year-old male with no pertinent MHx that presents with a chief complaint of localized right ear otalgia x4 weeks Not taking medications at this time reports symptoms are gradually worsening Denies blunt trauma (hand blow to the ear, fall, direct hit) Denies penetrating trauma (Q-tip use, match-stick, gunshot wound, welding spark) Denies ear trauma Denies barotrauma Denies blast injury Denies air travel Denies scuba diving Denies hearing loss Denies persistent ringing in the ear Denies fever chills night sweats unintentional weight loss Denies nausea vomiting severe headache or recent vision changes Chief Complaint: Earache Time Seen by MD: 09:30 Primary Care Provider: pt does not know Reviewed Notes: Nurses Notes, Medications, Allergies Allergies: Coded Allergies: No Known Drug Allergy (Verified Allergy, Unknown, 04/01/23) Home Meds Active Scripts Acetaminophen (Acetaminophen) 500 Mg Tab, 500 MG PO Q6HP PRN for 10 Days, #40 TAB 0 Refills Prov:HUMBERTO URBINA ADVERTISING SALES ASSISTANT 08/08/24 Amoxicillin & Pot Clavulanate (AUGMENTIN TABLET) 875 Mg Tb, 875 MG PO BID for 7 Days, #14 TAB 0 Refills Prov:HUMBERTO URBINA ADVERTISING SALES ASSISTANT 08/08/24 Empagliflozin (Jardiance) 10 Mg Tab, 10 MG PO DAILY for 30 Days, #30 TAB Prov:JUDD ESTES RESIDENT 05/06/24 Acetaminophen (Acetaminophen) 325 Mg Tab, 650 MG PO Q6HP PRN for 10 Days, #80 TAB Prov:JUDD ESTES RESIDENT 05/06/24 Lisinopril (Lisinopril) 5 Mg Tab, 5 MG PO DAILY for 30 Days, #30 TAB 3 Refills Prov:ELEANOR PITTS ADVERTISING SALES ASSISTANT 04/07/24 Carvedilol (COREG) 3.125 Mg Tab, 3.125 MG PO Q12HR for 30 Days, #60 TAB Prov:AYAKA SCHMIDT MD 03/04/24 Furosemide (Lasix) 40 Mg Tab, 40 MG PO DAILY, #90 TAB Prov:AYAKA SCHMIDT MD 03/04/24 Aspirin (ASPIRIN 81) 81 Mg Tab, 81 MG PO DAILY, #90 TAB Prov:AYAKA SCHMIDT MD 03/04/24 Spironolactone (Aldactone) 25 Mg Tab, 12.5 MG PO DAILY, #30 TAB 5 Refills Prov:AYAKA SCHMIDT MD 03/04/24 Atorvastatin Calcium (ATORVASTATIN CALCIUM) 40 Mg Tab, 1 TAB PO DAILY, #30 TAB 5 Refills Prov:AYAKA SCHMIDT MD 03/04/24 Reported Medications Metformin Hydrochloride (Metformin Hcl) 500 Mg Tab, 1 TAB PO BID for 30 Days, #60 08/01/24 Clopidogrel Bisulfate (CLOPIDOGREL) 75 Mg Tab, 1 DAILY 07/30/24 Information Source: Patient Mode of Arrival: Ambulatory Past Medical History PAST MEDICAL HISTORY: CHF, DM, High Lipids, HTN, [place] Surgical History: PTCA Family History Family History: Reviewed,noncontributory to illness, Family hx of DM Social History Smoker: Cigarettes Alcohol: Occasionally Drugs: Marijuana, Methamphetamine Lives In: Home All Other Systems: Reviewed and Negative (Per HPI) Physical Exam General Appearance: No Apparent Distress, Normal HEENT: Head (Normocephalic atraumatic), Normal ENT Inspection, PERRL/EOMI, Pharynx Normal, Other (Bilateral cerumen impaction. No signs of mastoiditis and no pain to the tragus or auricle. Hearing is intact) Neck: Full Range of Motion, Non-Tender, Normal, Normal Inspection Respiratory: Chest Non-Tender, Lungs Clear, No Accessory Muscle Use, No Respiratory Distress, Normal Breath Sounds Cardiovascular: No Edema, No JVD, No Murmur, No Gallop, Normal Peripheral Pulses, Regular Rate/Rhythm Breast Exam: Deferred Gastrointestinal: No Organomegaly, Non Tender, No Pulsatile Mass, Normal Bowel Sounds, Soft Genitalia: Deferred Pelvic: Deferred Rectal: Deferred Extremities: No calf tenderness, Normal capillary refill, Normal inspection, Normal range of motion, Non-tender, No pedal edema Musculoskeletal : Apperance: Normal Neurologic: Alert, 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 Was a procedure done?: Yes Sedation Sedation?: No Other Procedure Procedure Ear lavage Indication Bilateral cerumen impaction Success Yes Informed consent obtained: Yes Risks, benefits, and alternati: Yes EENT DIFF Eye: Other Ear: Cerumen Impaction, Otitis Media X-Ray, Labs, Meds, VS Vital Signs Date Time Temp Pulse Resp B/P (MAP) Pulse Ox O2 Delivery O2 Flow Rate FiO2 08/08/24 09:45 97.7 92 17 148/102 (117) 98 97.7 08/08/24 09:45 92 17 98 Room Air 08/08/24 09:29 97.7 92 17 148/102 (117) 98 X-Ray, Labs, Meds, VS Comment Risk and benefits were discussed including tympanic membrane perforation, hearing loss, otitis externa, vertigo, and minor canal abrasion if wax is adherent to the epithelium Wax was removed with ear lavage system. Patient tolerated procedure well On reevaluation of ear, improved ear cannal with small cerumen, visualization of TM is intact. Rx abx for AOM On reevaluation, patient had symptomatic improvement. Patient is stable for discharge at this time. External notes reviewed. Test results and diagnostic imaging interpreted. All diagnostic findings, discharge care, education and instructions provided Follow-up with PCP in 2 to 3 days Patient verbalized understanding and agreed to treatment plan Vital signs stable, afebrile, no acute distress noted Patient ambulatory with strong steady gait Advised to return precautions for any new or worsening symptoms, return to ER immediately for re-evaluation Patient is aware that the purpose of this visit was for an acute medical emergency requiring emergent stabilization. Chronic conditions, including malignancies have not been ruled out. Patient is instructed to follow up with PCP as directed and discharge instructions for continued care and workup. If unable to arrange follow-up, patient is to return to the emergency department for reassessment. Patient (parent or legal guardian if applicable) was given verbal and written discharge instructions and acknowledges understanding. Time of 1ST Reevaluation: 11:20 Reevaluation 1ST: Improved Patient Education/Counseling: Diagnosis, Treatment Family Education/Counseling: Diagnosis, Treatment Departure 1 Departure Time of Disposition: 11:44 Impression: Primary Impression: Cerumen impaction Qualified Codes: H61.23 - Impacted cerumen, bilateral Additional Impression: AOM (acute otitis media) Qualified Codes: H66.001 - Acute suppurative otitis media without spontaneous rupture of ear drum, right ear Disposition: HOME / SELF CARE / HOMELESS Condition: Stable e-Prescriptions Acetaminophen (Acetaminophen) 500 Mg Tab 500 MG PO Q6HP PRN for 10 Days, #40 TAB 0 Refills Prov: HUMBERTO URBINA ADVERTISING SALES ASSISTANT 08/08/24 Amoxicillin & Pot Clavulanate (AUGMENTIN TABLET) 875 Mg Tb 875 MG PO BID for 7 Days, #14 TAB 0 Refills Prov: HUMBERTO URBINA ADVERTISING SALES ASSISTANT 08/08/24 Critical Care Note Critical Care Time?: No Stability Stability form required: No Heart Score Heart Score: Heart Score Response (Comments) Value History N/A 0 EKG N/A 0 Age N/A 0 Risk Factors N/A 0 Troponin N/A 0 Total 0 HUMBERTO URBINA ADVERTISING SALES ASSISTANT Aug 08, 2024 11:45
== END 2024-08-08 11:51 | disposition home or self-care (01) ==
LOC: ER 09:13
DX: H61.23 Impacted cerumen, bilateral (principal); H66.93 Otitis media, unspecified, bilateral; I11.0 Hypertensive heart disease with heart failure; I50.9 Heart failure, unspecified; E11.9 Type 2 diabetes mellitus without complications; F17.210 Nicotine dependence, cigarettes, uncomplicated; Z79.02 Long term (current) use of antithrombotics/antiplatelets; Z79.82 Long term (current) use of aspirin; Z79.84 Long term (current) use of oral hypoglycemic drugs; Z79.899 Other long term (current) drug therapy
CPT/HCPCS: 69209

== ENCOUNTER 2024-09-12 16:21 | Inpatient (IN) | payer OTHER ==
[~2024-09-12] VITALS: Ht 167.6 cm; Wt 78.2 kg
[~2024-09-12 16:21] MED LIST changes: +ACET500T58 PO; +AUG875T PO
[2024-09-12] MEDS: ASPirin-EC 325mg tab PO ONE (16:30)
[2024-09-12] MEDS: IPRATROPIUM BROM 0.5 MG/2.5ML INH SOL NEB ONE (16:47)
[2024-09-12] MEDS: ALBUTEROL SULF 2.5 MG/0.5ML(0.5%) NEB SOLN NEB ONE (16:47)
--- NOTE | 2024-09-12 16:52 | ED.PDOC ---
HPI Comments 53 y.o male presents to the ED for a chief complaint of chest pain associated with SOB that started 2 days ago. Patient reports pain is constant, non radiating with SOB presentation when laying flat at night. Patient is compliant with all medication. patient has been seen for same complaint recently, was admitted and discharged on 08/04/24 with the following diagnoses: Acute exacerbation on chronic systolic heart failure, due to methamphetamine substance abuse Acute hypoxic respiratory failure due to acute exacerbation of heart Type 2 NSTEMI due to above Type 2 diabetes Glucosuria History of polysubstance abuse Methamphetamine abuse CAD status post OLIVIA X 2 COPD on 2 L nasal cannula at home and uses inhalers. Patient presented to the ED without his supplemental oxygen. Patient is on a blood thinner and Lasix in which he is compliant with taking. Vitals Temperature: 97.5 F Respiratory rate: 20 SpO2: 97% RA Heart rate: 76 Blood pressure: 135/96 Past Medical History: [place], DM, HTN, CHF, hyperlipidemia, NSTEMI, Methamphetamine abuse Past Surgical History: PTCA Social History: methamphetamine HPI: Poor Historian. REVIEW OF SYSTEMS: CONSTITUTIONAL: Denies acute: fever, diaphoresis, chills, HEAD: Denies acute: headache, photophobia Eyes: Denies acute: Double vision, vision loss, eye pain, eye discharge. EARS: Denies acute: tinnitus, hearing loss, ear discharge, ear pain, THROAT: Denies acute: sore throat, swelling, difficulty swallowing , pain with swallowi ng, change in voice. NECK: Denies acute: neck pain, neck swelling, stiff neck. HEART: Denies acute : palpitations, LUNGS: Denies acute: wheezing, cough, hemoptysis ABDOMEN: Denies acute: abdominal pain, Nausea, Vomiting, diarrhea, melena , hematemesis, hematochezia SKIN: Denies acute: rash, redness, lesions, itchiness. EXTREMITIES: Denies acute: calf pain, numbness, tingling, weakness, denies pain in extremity. Denies acute: Low back pain. Neuro: Denies acute: focal neurological deficit, motor or sensory focal neurological deficit, tremors, seizure like activity, confusion, dizziness, change in mental status, loss of bowel or bladder function, cauda equina like symptoms. : Denies acute: dysuria, hematuria, flank pain, increase in urinary frequency. PSYCH: Denies acute: hallucination, suicidal ideation, homicidal ideation. PHYSICAL EXAM: General: -----[id number]---acute distress, awake and alert. Head: normocephalic, atraumatic. Neck: supple, trachea is midline, no swelling. Throat: Normal phonation. Eyes:, no erythema, no purulent discharge, no proptosis, no icterus. Heart: regular rate, regular rhythm, no significant murmur appreciated. Lungs: no apparent respiratory distress, Able to speak in full sentences. No wheezing, no rhonchi, no crackles. No stridors Clear to auscultation bilaterally. Abdomen: non tender to palpation, non distended, soft, no guarding, no rebound, + bowel sounds. Neuro: Awake, Alert, oriented to name, self, situation, follows commands GCS=15. Speech is normal. Skin: no petechia, no purpura, no cyanosis, non-pale, not jaundice. Lower extremities: --2/4 b/l - Pitting edema no deformity, no focal swelling, no calf TTP. Makes eye contact. moves all four extremities. Face: no apparent facial droop. Ambulating in the ED independently. ED COURSE: Chief Complaint: Shortness of Breath Time Seen by MD: 16:15 Primary Care Provider: unknown Reviewed Notes: Nurses Notes, Allergies Allergies: Coded Allergies: No Known Drug Allergy (Verified Allergy, Unknown, 04/01/23) Home Meds Active Scripts Acetaminophen (Acetaminophen) 500 Mg Tab, 500 MG PO Q6HP PRN for 10 Days, #40 TAB 0 Refills Prov:HUMBERTO URBINA CLERICAL AIDE 08/08/24 Amoxicillin & Pot Clavulanate (AUGMENTIN TABLET) 875 Mg Tb, 875 MG PO BID for 7 Days, #14 TAB 0 Refills Prov:HUMBERTO URBINA CLERICAL AIDE 08/08/24 Empagliflozin (Jardiance) 10 Mg Tab, 10 MG PO DAILY for 30 Days, #30 TAB Prov:JUDD ESTES 05/06/24 Acetaminophen (Acetaminophen) 325 Mg Tab, 650 MG PO Q6HP PRN for 10 Days, #80 TAB Prov:JUDD ESTES 05/06/24 Lisinopril (Lisinopril) 5 Mg Tab, 5 MG PO DAILY for 30 Days, #30 TAB 3 Refills Prov:ELEANOR PITTS NP 04/07/24 Carvedilol (COREG) 3.125 Mg Tab, 3.125 MG PO Q12HR for 30 Days, #60 TAB Prov:AYAKA SCHMIDT MD 03/04/24 Furosemide (Lasix) 40 Mg Tab, 40 MG PO DAILY, #90 TAB Prov:AYAKA SCHMIDT MD 03/04/24 Aspirin (ASPIRIN 81) 81 Mg Tab, 81 MG PO DAILY, #90 TAB Prov:AYAKA SCHMIDT MD 03/04/24 Spironolactone (Aldactone) 25 Mg Tab, 12.5 MG PO DAILY, #30 TAB 5 Refills Prov:AYAKA SCHMIDT MD 03/04/24 Atorvastatin Calcium (ATORVASTATIN CALCIUM) 40 Mg Tab, 1 TAB PO DAILY, #30 TAB 5 Refills Prov:AYAKA SCHMIDT MD 03/04/24 Reported Medications Metformin Hydrochloride (Metformin Hcl) 500 Mg Tab, 1 TAB PO BID for 30 Days, #60 08/01/24 Clopidogrel Bisulfate (CLOPIDOGREL) 75 Mg Tab, 1 DAILY 07/30/24 Information Source: Patient Mode of Arrival: Ambulatory Past Medical History PAST MEDICAL HISTORY: CHF, DM, High Lipids, HTN, [place] Surgical History: PTCA Family History Family History: Reviewed,noncontributory to illness, Family hx of DM Social History Smoker: Cigarettes Alcohol: Occasionally Drugs: Marijuana, Methamphetamine Lives In: Home Was a procedure done? Was a procedure done?: No CP Differential Dx Differential Diagnosis: N/A Differential Diagnosis: N/A (DDx include ACS, unstable angina, anxiety, PE, pneumothroax, neoplasm, cardiac ischemia, COPD, asthma, CHF, pleural effusion, tobacco abuse, pneumonia, hypoxia, hypercapnia, anemia., infection/sepsis., pulmonary edema. Asthma, Cardiac tamponade, infection.) Differential Diagnosis: Other (Ddx include but not limitied to gastritis, musculoskeletal pain, radiculopathy, atypical chest pain, dissection, aneurysm, ACS, unstable angina, hiatal hernia, GERD, anxiety, costochondritis, PE, pneumothroax, neoplasm, cardiac ischemia, drug abuse, anemia.) X-Ray, Labs, Meds, VS Vital Signs Date Time Temp Pulse Resp B/P (MAP) Pulse Ox O2 Delivery O2 Flow Rate FiO2 09/12/24 16:47 19 99 Room Air* 0 21 09/12/24 16:30 77 09/12/24 16:29 97.5 76 20 135/96 (109) 97 97.5 Lab Test 09/12/24 20:35 09/12/24 18:57 09/12/24 18:27 09/12/24 17:28 Range/Units Troponin I High Sensitivity 1004 *H 1126 *H 1057 *H </=54 ng/L Magnesium Level 1.7 1.6 1.6-2.6 mg/dL White Blood Count 5.3 4.4-10.8 10^3/uL Red Blood Count 5.11 4.5-5.90 10^6/uL Hemoglobin 15.6 13.5-17.5 g/dL Hematocrit 47.7 41.0-53.0 % Mean Corpuscular Volume 93.3 80.0-100.0 fL Mean Corpuscular Hemoglobin 30.5 28.0-32.0 pg Mean Corpuscular Hemoglobin Concent 32.7 32.0-36.0 g/dL Red Cell Distribution Width 13.6 11.8-14.3 % Platelet Count 132 L 140-450 10^3/uL Mean Platelet Volume 8.4 6.9-10.8 fL Neutrophils (%) (Auto) 69.7 37.0-80.0 % Lymphocytes (%) (Auto) 16.7 10.0-50.0 % Monocytes (%) (Auto) 10.5 0.0-12.0 % Eosinophils (%) (Auto) 2.8 0.0-7.0 % Basophils (%) (Auto) 0.3 0.0-2.0 % Neutrophils # (Auto) 3.7 1.6-8.6 10 ^3/uL Lymphocytes # (Auto) 0.9 0.4-5.4 10 ^3/uL Monocytes # (Auto) 0.6 0-1.3 10 ^3/uL Eosinophils # (Auto) 0.2 0-0.8 10 ^3/uL Basophils # (Auto) 0 0-0.2 10 ^3/uL Nucleated Red Blood Cells 0.1 % Prothrombin Time 11.4 9.3-11.8 sec Prothrombin Time INR 1.08 0.9-1.15 Activated Partial Thromboplast Time 26.7 24.5-34.5 SEC Sodium Level 140 136-145 mmol/L Potassium Level 3.8 3.5-5.1 mmol/L Chloride Level 106 98-107 mmol/L Carbon Dioxide Level 25 20-31 mmol/L Anion Gap 9 5-15 Blood Urea Nitrogen 20 9-23 mg/dL Creatinine 1.02 0.700-1.30 mg/dL Glomerular Filtration Rate Calc 88 >90 mL/min BUN/Creatinine Ratio 19.6 10.0-20.0 Serum Glucose 222 H 74-106 mg/dL Lactic Acid Level 1.8 0.4-2.0 mmol/L Calcium Level 9.3 8.7-10.4 mg/dL Total Bilirubin 0.7 0.2-1.0 mg/dL Aspartate Amino Transferase (AST) 23 13-40 U/L Alanine Aminotransferase (ALT) 22 7-40 U/L Alkaline Phosphatase 118 H 46-116 U/L B-Type Natriuretic Peptide 1894.82 0-100 pg/mL Total Protein 6.6 5.7-8.2 g/dL Albumin 3.8 3.2-4.8 g/dL Current Medications Medications (Trade) Dose Ordered Sig/Kimberly Route Start Time Stop Time Status Last Admin Albuterol (Ventolin Medneb) 2.5 mg ONCE ONCE NEB 09/12/24 16:30 09/12/24 16:33 DC 09/12/24 16:47 Ipratropium [place] (Atrovent Medneb) 1 mg ONCE ONCE NEB 09/12/24 16:30 09/12/24 16:33 DC 09/12/24 16:[address] [address] Ph: [phone] DIAGNOSTIC IMAGING Diagnostic Imaging Report : [id number] Signed PATIENT: SOPHIE STORY ACCT: [id number] UNIT: [id number] : 1970 LOC: ER ROOM / BED: / AGE / SEX: 53 / M ADM STATUS: REG ER SERVICE [id number] ORDERING PHYSICIAN: GEOVANY,HARPAL J DO PROCEDURE(s): CXRP - CHEST PORTABLE REASON: sob ORDER NUMBER(s): [id number], ACCESSION NUMBER(s): [id number] EXAM: XR Chest, 1 View CLINICAL INDICATION: sob TECHNIQUE: Frontal view of the chest. COMPARISON: XY CHEST PORTABLE on DOS: 08/02/24, XY CHEST PORTABLE on DOS: 07/30/24, XY CHEST PORTABLE on DOS: 06/10/24, XY CHEST XRAY 1 VIEW on DOS: 05/05/24, XY CHEST PORTABLE on DOS: 04/05/24 FINDINGS: LUNGS AND PLEURAL SPACES: Unremarkable. No consolidation. No pneumothorax. HEART: Unremarkable. No cardiomegaly. MEDIASTINUM: Unremarkable. Normal mediastinal contour. BONES/JOINTS: Unremarkable. No acute fracture. OTHER FINDINGS: . None. IMPRESSION: No acute cardiopulmonary process. ATED BY: JACKIE MURDOCK MD DICTATED DATE/TIME: 09/12/241710 SIGNED BY: JACKIE MURDOCK MD SIGNED DATE/TIME: 09/12/241710 CC: Time of 1ST Reevaluation: 16:34 Reevaluation 1ST: Unchanged Time of 2ND Reevaluation: 19:10 (The case was discussed with the cardiology on- call team (HPI, physical exam, labs and diagnostic tests that were available at the time of disposition, ED course, treatment plan) on the phone. He recommended heparin drip and admission to the hospital for further evaluation and treatment. Dr. Adame. ) Patient Education/Counseling: Diagnosis, Treatment Family Education/Counseling: No Family Present Comments Patient presented with the above HPI.--dyspnea and cardiac----workup was initiated. patient was found with the above mentioned diagnosis. the following medications were ordered: please refer to order lists of meds and tests obtained by myself Dr. Armenta. Patient ED course and VS have been stabilized. Patient has been reassessed in the ED and remained in a stable condition. Pertinent incidental findings were discussed with the patient and/or family. Patient/family voices understanding and is agreeable with plan. Patient has been observed in the ED adequate length of time to insure improvement/stability. Escalation of care considered: Consideration of escalation to observation or admission Cardiology was consulted. Heparin was initiated. Aspirin and Plavix given. Patient was given Lasix and a breathing treatment in supplemental oxygen Patient was ADMITTED to the medicine team for further evaluation and treatment of their presentation. All the reports of any imaging studies that were ordered by myself were reviewed by myself. Departure 1 Departure Time of Disposition: 17:24 Impression: Primary Impression: NSTEMI (non-ST elevated myocardial infarction) Additional Impression: CHF exacerbation Disposition: ADMITTED INPATIENT Admit to: Tele Condition: Guarded Discharged With: Self Critical Care Note Critical Care Time?: Yes (45 min-critical care time only) Heart Score Heart Score: Heart Score Response (Comments) Value History Highly Suspicious [address]-Deviation 2 Age 45-64 1 Risk Factors >3 or Hx ASHD 2 Troponin >3 x's Normal limit 2 Total 9 I personally scribed for HARPAL ARMENTA DO ([email or web address]) on 09/12/24 at 16:52. Electronically submitted by Chetna Guzman ([employer]). I personally scribed for HARPAL ARMENTA DO ([email or web address]) on 09/12/24 at 17:19. Electronically submitted by Chetna Guzman ([facility]). HARPAL ARMENTA DO Sep 12, 2024 16:52
--- NOTE | 2024-09-12 17:14 | DVH ---
EXAM: XR Chest, 1 View CLINICAL INDICATION: sob TECHNIQUE: Frontal view of the chest. COMPARISON: XY CHEST PORTABLE on DOS: 08/02/24, XY CHEST PORTABLE on DOS: 07/30/24, XY CHEST PORTABLE o n DOS: 06/10/24, XY CHEST XRAY 1 VIEW on DOS: 05/05/24, XY CHEST PORTABLE on DOS: 04/05/24 FINDINGS: LUNGS AND PLEURAL SPACES: Unremarkable. No consolidation. No pneumothorax. HEART: Unremarkable. No cardiomegaly. MEDIASTINUM: Unremarkable. Normal mediastinal contour. BONES/JOINTS: Unremarkable. No acute fracture. OTHER FINDINGS: . None. IMPRESSION: No acute cardiopulmonary process.
[2024-09-12 18:07] LABS: Basophils # (auto) 0 10 ^3/uL (0-0.2); Basophils % (auto) 0.3 % (0.0-2.0); Eosinophils # (auto) 0.2 10 ^3/uL (0-0.8); Eosinophils % (auto) 2.8 % (0.0-7.0); Hematocrit 47.7 % (41.0-53.0); Hemoglobin 15.6 g/dL (13.5-17.5); Lymphocytes # (auto) 0.9 10 ^3/uL (0.4-5.4); Lymphocytes % (auto) 16.7 % (10.0-50.0); Mean Corpuscular Hemoglobin 30.5 pg (28.0-32.0); Mean Corpuscular Hgb Conc. 32.7 g/dL (32.0-36.0); Mean Corpuscular Volume 93.3 fL (80.0-100.0); Monocytes # (auto) 0.6 10 ^3/uL (0-1.3); Monocytes % (auto) 10.5 % (0.0-12.0); Neutrophils # (auto) 3.7 10 ^3/uL (1.6-8.6); Neutrophils % (auto) 69.7 % (37.0-80.0); Nucleated Red Blood Cells % 0.1 %; Platelet Count (auto) 132 10^3/uL (140-450); Red Blood Cells 5.11 10^6/uL (4.5-5.90); Red Cell Distribution Width 13.6 % (11.8-14.3); White Blood Cell 5.3 10^3/uL (4.4-10.8)
[2024-09-12 18:18] LABS: Alanine Aminotransferase 22 U/L (7-40); Albumin 3.8 g/dL (3.2-4.8); Anion Gap 9 (5-15); Aspartate Aminotransferase 23 U/L (13-40); BUN/Creatinine Ratio 19.6 (10.0-20.0); Blood Urea Nitrogen 20 mg/dL (9-23); Calcium 9.3 mg/dL (8.7-10.4); Carbon Dioxide 25 mmol/L (20-31); Chloride 106 mmol/L (98-107); Magnesium 1.6 mg/dL (1.6-2.6); Potassium 3.8 mmol/L (3.5-5.1); Sodium 140 mmol/L (136-145); Total Protein 6.6 g/dL (5.7-8.2)
[2024-09-12 18:19] LABS: Bilirubin, Total 0.7 mg/dL (0.2-1.0)
[2024-09-12 18:20] LABS: INR 1.08 (0.9-1.15); Partial Thromboplastin Time 26.7 SEC (24.5-34.5); Prothrombin Time 11.4 sec (9.3-11.8)
[2024-09-12 18:30] LABS: Alkaline Phosphatase 118 U/L (46-116); Glucose 222 mg/dL (74-106)
[2024-09-12] MEDS ORDERED: HEPARIN DRIP/D5W 100UNITS/ML 250 ML IV SCH (18:45)
[2024-09-12] MEDS: CLOPIDOGREL BISULFATE 75 MG TAB PO ONE (19:15)
--- NOTE | 2024-09-12 20:46 | CONS ---
Pharmacy Clinical Information: HEPARIN DRIP PER RX PROTOCOL RN NOT AVAILABLE aPTT TODAY 09/12 AT 1728 = 26.7 BOLUS 4000 UNITS IVP X1 INITIAL HEPARIN DRIP RATE = 800 UNITS/HR SHASHI Goode Sep 12, 2024 20:46
[2024-09-12] MEDS: methylPREDNISolone SOD SUCC 125 MG/2 ML VL IV ONE (21:39)
[2024-09-12] MEDS: FUROSEMIDE 40 MG/4 ML VIAL IV ONE (21:40)
[2024-09-12 22:00] VITALS: PULSE 86; RESP 20; O2SAT 96
[2024-09-12] MEDS: HEPARIN SODIUM (PORCINE) 5000 UNITS/ML 1ML VIAL IV ONE (22:01)
[2024-09-12] MEDS: SODIUM CHLOR 0.9% PF (SALINE LOCK) 10ML VIAL/SYR IV SCH (22:08)
[2024-09-12] MEDS: HEPARIN DRIP/D5W 100UNITS/ML 250 ML IV SCH (22:13)
[2024-09-12] MEDS: NITROGLYCERIN 0.4 MG SL TAB SL ONE (22:15)
[2024-09-12 22:36] LABS: Amphetamine Screen, Urine Pos (NEGATIVE); Barbiturate Scree,Urine Neg (NEGATIVE); Benzodiazephine Screen, Urine Neg (NEGATIVE)
[2024-09-12 22:37] LABS: Cannabinoid Screen, Urine Neg (NEGATIVE); Cocaine Screen, Urine Neg (NEGATIVE); Opiate Scree,Urine Neg (NEGATIVE); Phencyclidine Screen, Urine Neg (NEGATIVE)
[2024-09-12] MEDS ORDERED: NITROGLYCERIN 0.4 MG SL TAB SL PRN (23:00)
[2024-09-12] MEDS ORDERED: ACETAMINOPHEN 325 MG TAB PO PRN (23:00)
[2024-09-12] MEDS ORDERED: DEXTROSE (50%) 50ML SYRG IV PRN (23:00)
[2024-09-12] MEDS ORDERED: HYDROmorphone HCL 2 MG/ML VL/or syr IV PRN (23:00)
--- NOTE | 2024-09-12 23:01 | DVHHP2 ---
Admitting Diagnosis: Chest pain History of Present Illness 53 y.o male presents to the ED for a chief complaint of chest pain associated with SOB that started 2 days ago. Patient reports pain is constant, non radi ating with SOB presentation when laying flat at night. Patient is compliant with all medication. patient has been seen for same complaint recently, was admitted and discharged on 08/04/24 with the following diagnoses: Acute exacerbation on chronic systolic heart failure, due to methamphetamine substance abuse Acute hypoxic respiratory failure due to acute exacerbation of heart Type 2 NSTEMI due to above Type 2 diabetes Glucosuria History of polysubstance abuse Methamphetamine abuse CAD status post OLIVIA X 2 COPD on 2 L nasal cannula at home and uses inhalers. Patient presented to the ED without his supplemental oxygen. REVIEW OF SYSTEMS: CONSTITUTIONAL: Denies acute: fever, diaphoresis, chills, HEAD: Denies acute: headache, photophobia Eyes: Denies acute: Double vision, vision loss, eye pain, eye discharge. EARS: Denies acute: tinnitus, hearing loss, ear discharge, ear pain, THROAT: Denies acute: sore throat, swelling, difficulty swallowing , pain with swallowing, change in voice. NECK: Denies acute: neck pain, neck swelling, stiff neck. HEART: Denies acute : palpitations, LUNGS: Denies acute: wheezing, cough, hemoptysis ABDOMEN: Denies acute: abdominal pain, Nausea, Vomiting, diarrhea, melena , hematemesis, hematochezia SKIN: Denies acute: rash, redness, lesions, itchiness. EXTREMITIES: Denies acute: calf pain, numbness, tingling, weakness, denies pain in extremity. Denies acute: Low back pain. Neuro: Denies acute: focal neurological deficit, motor or sensory focal neurological deficit, tremors, seizure like activity, confusion, dizziness, change in mental status, loss of bowel or bladder function, cauda equina like symptoms. : Denies acute: dysuria, hematuria, flank pain, increase in urinary frequency. PSYCH: Denies acute: hallucination, suicidal ideation, homicidal ideation. PAST MEDICAL HISTORY: CHF, DM, High Lipids, HTN, [place] Surgical History: PTCA Family History Family History: Reviewed,noncontributory to illness, Family hx of DM Social History Smoker: Cigarettes Alcohol: Occasionally Drugs: Marijuana, Methamphetamine Lives In: Home Patient Family History: Alzheimer's disease G8 FATHER Diabetes mellitus G8 FATHER, Onset:Unknown Hypertension G8 FATHER Allergies: Coded Allergies: No Known Drug Allergy (Verified Allergy, Unknown, 04/01/23) Home Meds Active Scripts Acetaminophen (Acetaminophen) 500 Mg Tab, 500 MG PO Q6HP PRN for 10 Days, #40 TAB 0 Refills Prov:HUMBERTO URBINA METAL ROOM DENTAL TECHNICIAN 08/08/24 Amoxicillin & Pot Clavulanate (AUGMENTIN TABLET) 875 Mg Tb, 875 MG PO BID for 7 Days, #14 TAB 0 Refills Prov:CIARAHUMBERTO METAL ROOM DENTAL TECHNICIAN 08/08/24 Empagliflozin (Jardiance) 10 Mg Tab, 10 MG PO DAILY for 30 Days, #30 TAB Prov:JUDD ESTES RESIDENT 05/06/24 Acetaminophen (Acetaminophen) 325 Mg Tab, 650 MG PO Q6HP PRN for 10 Days, #80 TAB Prov:JUDD ESTES RESIDENT 05/06/24 Lisinopril (Lisinopril) 5 Mg Tab, 5 MG PO DAILY for 30 Days, #30 TAB 3 Refills Prov:ELEANOR PITTS METAL ROOM DENTAL TECHNICIAN 04/07/24 Carvedilol (COREG) 3.125 Mg Tab, 3.125 MG PO Q12HR for 30 Days, #60 TAB Prov:AYAKA SCHMIDT MD 03/04/24 Furosemide (Lasix) 40 Mg Tab, 40 MG PO DAILY, #90 TAB Prov:AYAKA SCHMIDT MD 03/04/24 Aspirin (ASPIRIN 81) 81 Mg Tab, 81 MG PO DAILY, #90 TAB Prov:AYAKA SCHMIDT MD 03/04/24 Spironolactone (Aldactone) 25 Mg Tab, 12.5 MG PO DAILY, #30 TAB 5 Refills Prov:AYAKA SCHMIDT MD 03/04/24 Atorvastatin Calcium (ATORVASTATIN CALCIUM) 40 Mg Tab, 1 TAB PO DAILY, #30 TAB 5 Refills Prov:AYAKA SCHMIDT MD 03/04/24 Reported Medications Metformin Hydrochloride (Metformin Hcl) 500 Mg Tab, 1 TAB PO BID for 30 Days, #60 08/01/24 Clopidogrel Bisulfate (CLOPIDOGREL) 75 Mg Tab, 1 DAILY 07/30/24 Current Medications Current Medications Medications (Trade) Dose Ordered Sig/Kimberly Route PRN Reason Start Time Stop Time Status Last Admin Sodium Chloride (Saline Lock Ns) 10 ml Q8HR IV 09/12/24 22:00 09/12/24 22:08 Heparin Sodium/ Dextrose 250 ml @ 0 mls/hr Q0M IV 09/12/24 18:45 09/12/24 20:41 DC Heparin Sodium/ Dextrose 250 ml @ 8 mls/hr Q24H IV 09/12/24 20:45 09/12/24 22:13 Sodium Chloride (Saline Lock Ns) 10 ml Q8HR IV 09/13/24 06:00 UNV Acetaminophen (Tylenol Tablet) 650 mg Q6HP PRN PO PAIN SCALE 1-3 OR TEMP>100.4 09/12/24 23:00 UNV Acetaminophen/ Hydrocodone Bitart ([place] 5/325MG Tab) 1 tab Q4HP PRN PO MODERATE PAIN (4-6 PAIN SCALE) 09/12/24 23:00 UNV Hydromorphone HCl (Dilaudid Injection) 0.5 mg Q4HP PRN IV SEVERE PAIN (7-10 PAIN SCALE) 09/12/24 23:00 UNV Ondansetron HCl (Zofran) 4 mg Q4HP PRN IV NAUSEA / VOMITING 09/12/24 23:00 UNV Nitroglycerin (Ntrostat Sublingual) 0.4 mg Q5MINP PRN SL FOR CHEST PAIN 09/12/24 23:00 UNV Morphine Sulfate 2 mg Q30M PRN IV FOR CHEST PAIN 09/12/24 23:00 UNV Vital Signs Vital Signs Date Time Temp Pulse Resp B/P (MAP) Pulse Ox O2 Delivery O2 Flow Rate FiO2 09/12/24 22:15 122/68 09/12/24 16:47 19 99 Room Air* 0 21 09/12/24 16:30 77 09/12/24 16:29 97.5 97.5 Physical Exam Generally-54 years old male, well nourished well developed. Mild distress HEENT-atraumatic normocephalic Heart-regular rate and rhythm Lungs decreased breath sounds Abdomen soft nontender nondistended Musculoskeletal-no edema cyanosis Neuro-AO x3, no focal deficits Results Labs Test 09/12/24 21:55 09/12/24 20:35 09/12/24 18:57 09/12/24 17:28 Range/Units Urine Opiates Screen Neg NEGATIVE Urine Fentanyl Screen Neg NEGATIVE Urine Barbiturates Screen Neg NEGATIVE Urine Phencyclidine Screen Neg NEGATIVE Urine Amphetamines Screen Pos NEGATIVE Urine Benzodiazepines Screen Neg NEGATIVE Urine Cocaine Screen Neg NEGATIVE Urine Cannabinoids Screen Neg NEGATIVE Troponin I High Sensitivity 1004 *H </=54 ng/L Magnesium Level 1.7 1.6-2.6 mg/dL White Blood Count 5.3 4.4-10.8 10^3/uL Red Blood Count 5.11 4.5-5.90 10^6/uL Hemoglobin 15.6 13.5-17.5 g/dL Hematocrit 47.7 41.0-53.0 % Mean Corpuscular Volume 93.3 80.0-100.0 fL Mean Corpuscular Hemoglobin 30.5 28.0-32.0 pg Mean Corpuscular Hemoglobin Concent 32.7 32.0-36.0 g/dL Red Cell Distribution Width 13.6 11.8-14.3 % Platelet Count 132 L 140-450 10^3/uL Mean Platelet Volume 8.4 6.9-10.8 fL Neutrophils (%) (Auto) 69.7 37.0-80.0 % Lymphocytes (%) (Auto) 16.7 10.0-50.0 % Monocytes (%) (Auto) 10.5 0.0-12.0 % Eosinophils (%) (Auto) 2.8 0.0-7.0 % Basophils (%) (Auto) 0.3 0.0-2.0 % Neutrophils # (Auto) 3.7 1.6-8.6 10 ^3/uL Lymphocytes # (Auto) 0.9 0.4-5.4 10 ^3/uL Monocytes # (Auto) 0.6 0-1.3 10 ^3/uL Eosinophils # (Auto) 0.2 0-0.8 10 ^3/uL Basophils # (Auto) 0 0-0.2 10 ^3/uL Nucleated Red Blood Cells 0.1 % Prothrombin Time 11.4 9.3-11.8 sec Prothrombin Time INR 1.08 0.9-1.15 Activated Partial Thromboplast Time 26.7 24.5-34.5 SEC Sodium Level 140 136-145 mmol/L Potassium Level 3.8 3.5-5.1 mmol/L Chloride Level 106 98-107 mmol/L Carbon Dioxide Level 25 20-31 mmol/L Anion Gap 9 5-15 Blood Urea Nitrogen 20 9-23 mg/dL Creatinine 1.02 0.700-1.30 mg/dL Glomerular Filtration Rate Calc 88 >90 mL/min BUN/Creatinine Ratio 19.6 10.0-20.0 Serum Glucose 222 H 74-106 mg/dL Lactic Acid Level 1.8 0.4-2.0 mmol/L Calcium Level 9.3 8.7-10.4 mg/dL Total Bilirubin 0.7 0.2-1.0 mg/dL Aspartate Amino Transferase (AST) 23 13-40 U/L Alanine Aminotransferase (ALT) 22 7-40 U/L Alkaline Phosphatase 118 H 46-116 U/L B-Type Natriuretic Peptide 1894.82 0-100 pg/mL Total Protein 6.6 5.7-8.2 g/dL Albumin 3.8 3.2-4.8 g/dL Primary Diagnosis NSTEMI CHF exacerbation Substance abuse Plan Patient states that he had amphetamine use Elevated troponin, chest pain intermittent Heparin drip started in ED for possible ACS Check echo of the heart Cardiology consult Troponin plateau at 1000 IV Lasix 40 mg b.i.d. Strict in and out Daily weights Fluid restriction Potassium greater than four, magnesium greater than two Monitor for chest pain Full code Cardiac diet Heparin for DVT prophylaxis PPI for GI prophylaxis Plan discussed with: Patient Date of Service: Sep 12, 2024 Billing Provider: LUC AGUIRRE MD Common Visit Codes: [id number] INP/OBS CARE (HIGH) LUC AGUIRRE MD Sep 12, 2024 23:01
--- NOTE | 2024-09-12 23:30 | DVH ---
CLINICAL INDICATION: PAIN IN RIGHT SHOULDER TECHNIQUE: XY R HUMERUS XRAY Comparison: None FINDINGS / IMPRESSION: No osseous or joint abnormality with no fracture or dislocation.
--- NOTE | 2024-09-12 23:31 | DVH ---
XY R WRIST 2 VIEW XRAY, September 12, 2024 INDICATION: PAIN IN RIGHT WRIST TECHNICAL DATA: Frontal , bilateral oblique, ulnar deviation and lateral views were obtained of the r ight wrist. COMPARISON: None FINDINGS: There is a deformity involving the medial distal 1st metacarpal suggesting either an old healed fract ure or impaction injury. IMPRESSION: 1. Probable impaction injury of indeterminate age involving the distal shaft of the 1st metacarpal .
--- NOTE | 2024-09-12 23:34 | DVH ---
CLINICAL INDICATION: PAIN IN RIGHT SHOULDER TECHNIQUE: XY R SHOULDER 1V XRAY Comparison: None FINDINGS / IMPRESSION: No osseous or joint abnormality with no fracture or dislocation. Soft tissues appear unremarkable.
[2024-09-13] MEDS: MORPHINE SULFATE INJ 2 MG/ml SYRG IV PRN (00:58)
[2024-09-13] MEDS: ONDANSETRON HCL 4 MG/2 ML VIAL IV PRN (00:59)
[2024-09-13 04:45] LABS: Basophils # (auto) 0 10 ^3/uL (0-0.2); Basophils % (auto) 0.1 % (0.0-2.0); Eosinophils # (auto) 0 10 ^3/uL (0-0.8); Eosinophils % (auto) 0.3 % (0.0-7.0); Hematocrit 48.6 % (41.0-53.0); Hemoglobin 16.5 g/dL (13.5-17.5); Lymphocytes # (auto) 0.3 10 ^3/uL (0.4-5.4); Lymphocytes % (auto) 3.8 % (10.0-50.0); Mean Corpuscular Hemoglobin 31.4 pg (28.0-32.0); Mean Corpuscular Hgb Conc. 33.9 g/dL (32.0-36.0); Mean Corpuscular Volume 92.7 fL (80.0-100.0); Monocytes # (auto) 0.1 10 ^3/uL (0-1.3); Monocytes % (auto) 1.5 % (0.0-12.0); Neutrophils # (auto) 6.4 10 ^3/uL (1.6-8.6); Neutrophils % (auto) 94.3 % (37.0-80.0); Nucleated Red Blood Cells % 0.1 %; Platelet Count (auto) 137 10^3/uL (140-450); Red Blood Cells 5.25 10^6/uL (4.5-5.90); Red Cell Distribution Width 13.7 % (11.8-14.3); White Blood Cell 6.8 10^3/uL (4.4-10.8)
[2024-09-13 04:57] LABS: INR 1.14 (0.9-1.15); Partial Thromboplastin Time 37.6 SEC (24.5-34.5); Prothrombin Time 11.9 sec (9.3-11.8)
[2024-09-13 05:20] LABS: Alanine Aminotransferase 21 U/L (7-40); Albumin 4.1 g/dL (3.2-4.8); Alkaline Phosphatase 103 U/L (46-116); Anion Gap 9 (5-15); Aspartate Aminotransferase 25 U/L (13-40); BUN/Creatinine Ratio 21.4 (10.0-20.0); Calcium 9.3 mg/dL (8.7-10.4); Carbon Dioxide 24 mmol/L (20-31); Chloride 102 mmol/L (98-107); Magnesium 1.6 mg/dL (1.6-2.6); Potassium 4.4 mmol/L (3.5-5.1); Total Protein 7.4 g/dL (5.7-8.2)
[2024-09-13 05:21] LABS: Bilirubin, Total 0.9 mg/dL (0.2-1.0)
[2024-09-13 05:42] LABS: Blood Urea Nitrogen 25 mg/dL (9-23); Glucose 308 mg/dL (74-106); Sodium 135 mmol/L (136-145)
[2024-09-13] MEDS: SODIUM CHLOR 0.9% PF (SALINE LOCK) 10ML VIAL/SYR IV SCH (06:03)
[2024-09-13] MEDS: HEPARIN DRIP/D5W 100UNITS/ML 250 ML IV SCH (06:14)
[2024-09-13] MEDS: InsuLIN REG 1unit/0.01ml Soln (100units/ml) SC SCH (06:26)
[2024-09-13] MEDS: ACCU-CHEK COMFORT CURVE STRIP VI SCH (06:30)
[2024-09-13] MEDS ORDERED: EMPAGLIFLOZIN 10 MG TAB PO SCH (10:00)
[2024-09-13] MEDS: FUROSEMIDE 40 MG/4 ML VIAL IV SCH (10:31)
[2024-09-13] MEDS: CARVEDILOL 3.125 MG TAB PO SCH (10:32)
[2024-09-13] MEDS: ASPirin-EC 81 mg tab PO SCH (10:32)
[2024-09-13] MEDS: ATORVASTATIN 20 MG TAB PO SCH (10:33)
[2024-09-13] MEDS: CLOPIDOGREL BISULFATE 75 MG TAB PO SCH (10:33)
[2024-09-13] MEDS: LISINOPRIL 5 MG TAB PO SCH (10:33)
[2024-09-13] MEDS: SPIRONOLACTONE 25 MG TAB PO SCH (10:34)
[2024-09-13 12:14] LABS: INR 1.09 (0.9-1.15); Partial Thromboplastin Time 35.6 SEC (24.5-34.5); Prothrombin Time 11.5 sec (9.3-11.8)
[2024-09-13] MEDS: MAGNESIUM OXIDE 400 MG TAB PO SCH (15:00)
--- NOTE | 2024-09-13 15:13 | DVHINCON2 ---
Date Seen: Sep 13, 2024 Referring Physician MD Galo Reason for Consultation NSTEMI, CHF exacerbation History of Present Illness This is a 53-year-old man who presented to emergency room with a chief complaint of shortness of breath for two days. The patient complains of progressive shortness of breath associated with orthopnea, MILLER, PND, and intermittent chest pain for one week. Per patient he ran out of most of his home medications approximately two weeks ago and is currently on ASA, atorvastatin, and another unknown medication. Denies following up in the outpatient setting with a primary distribution accounting clerk. He underwent a 12 lead electrocardiogram revealing a sinus rhythm with T-wave inversion to inferior leads as well as lead V5, V6. These changes are similar from those seen on 12 lead electrocardiograms from previous admissions. Troponin levels have remained flat in the 1000s ng/L. 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 Past Medical History Past medical history reviewed. No other significant than mentioned above. Past Surgical History Multiple PTCAs including two OLIVIA Family History: Alzheimer's disease G8 FATHER Diabetes mellitus G8 FATHER, Onset:Unknown Hypertension G8 FATHER Family History Family history reviewed. Social History Denies the use of alcohol or tobacco use. Admits to methamphetamine use. Allergies: Coded Allergies: No Known Drug Allergy (Verified Allergy, Unknown, 04/01/23) Home Meds Active Scripts Acetaminophen (Acetaminophen) 500 Mg Tab, 500 MG PO Q6HP PRN for 10 Days, #40 TAB 0 Refills Prov:HUMBERTO URBINA PSYCHOLOGY DEPARTMENT CHAIR 08/08/24 Amoxicillin & Pot Clavulanate (AUGMENTIN TABLET) 875 Mg Tb, 875 MG PO BID for 7 Days, #14 TAB 0 Refills Prov:HUMBERTO URBINA PSYCHOLOGY DEPARTMENT CHAIR 08/08/24 Empagliflozin (Jardiance) 10 Mg Tab, 10 MG PO DAILY for 30 Days, #30 TAB Prov:JUDD ESTES RESIDENT 05/06/24 Acetaminophen (Acetaminophen) 325 Mg Tab, 650 MG PO Q6HP PRN for 10 Days, #80 TAB Prov:JUDD ESTES RESIDENT 05/06/24 Lisinopril (Lisinopril) 5 Mg Tab, 5 MG PO DAILY for 30 Days, #30 TAB 3 Refills Prov:ELEANOR PITTS NP 04/07/24 Carvedilol (COREG) 3.125 Mg Tab, 3.125 MG PO Q12HR for 30 Days, #60 TAB Prov:AYAKA SCHMIDT MD 03/04/24 Furosemide (Lasix) 40 Mg Tab, 40 MG PO DAILY, #90 TAB Prov:AYAKA SCHMIDT MD 03/04/24 Aspirin (ASPIRIN 81) 81 Mg Tab, 81 MG PO DAILY, #90 TAB Prov:AYAKA SCHMIDT MD 03/04/24 Spironolactone (Aldactone) 25 Mg Tab, 12.5 MG PO DAILY, #30 TAB 5 Refills Prov:AYAKA SCHMIDT MD 03/04/24 Atorvastatin Calcium (ATORVASTATIN CALCIUM) 40 Mg Tab, 1 TAB PO DAILY, #30 TAB 5 Refills Prov:AYAKA SCHMIDT MD 03/04/24 Reported Medications Metformin Hydrochloride (Metformin Hcl) 500 Mg Tab, 1 TAB PO BID for 30 Days, #60 08/01/24 Clopidogrel Bisulfate (CLOPIDOGREL) 75 Mg Tab, 1 DAILY 07/30/24 Home Meds Home medications reviewed. Current Medications Current Medications Medications (Trade) Dose Ordered Sig/Kimberly Route PRN Reason Start Time Stop Time Status Last Admin Sodium Chloride (Saline Lock Ns) 10 ml Q8HR IV 09/12/24 22:00 09/13/24 06:03 Heparin Sodium/ Dextrose 250 ml @ 0 mls/hr Q0M IV 09/12/24 18:45 09/12/24 20:41 DC Heparin Sodium/ Dextrose 250 ml @ 8 mls/hr Q24H IV 09/12/24 20:45 09/13/24 05:51 DC 09/12/24 22:13 Sodium Chloride (Saline Lock Ns) 10 ml Q8HR IV 09/13/24 06:00 09/13/24 06:03 Acetaminophen (Tylenol Tablet) 650 mg Q6HP PRN PO PAIN SCALE 1-3 OR TEMP>100.4 09/12/24 23:00 Acetaminophen/ Hydrocodone Bitart (Ruffin 5/325MG Tab) 1 tab Q4HP PRN PO MODERATE PAIN (4-6 PAIN SCALE) 09/12/24 23:00 Hydromorphone HCl (Dilaudid Injection) 0.5 mg Q4HP PRN IV SEVERE PAIN (7-10 PAIN SCALE) 09/12/24 23:00 Ondansetron HCl (Zofran) 4 mg Q4HP PRN IV NAUSEA / VOMITING 09/12/24 23:00 09/13/24 00:59 Nitroglycerin (Ntrostat Sublingual) 0.4 mg Q5MINP PRN SL FOR CHEST PAIN 09/12/24 23:00 Morphine Sulfate 2 mg Q30M PRN IV FOR CHEST PAIN 09/12/24 23:00 09/13/24 00:58 Aspirin (Ecotrin Enteric Coated Tablet) 81 mg DAILY PO 09/13/24 10:00 09/13/24 10:32 Carvedilol (Coreg Tablet) 3.125 mg Q12HR PO 09/13/24 10:00 09/13/24 10:32 Clopidogrel Bisulfate (Plavix) 75 mg DAILY PO 09/13/24 10:00 09/13/24 10:33 Empaglifozin (Jardiance) 10 mg DAILY PO 09/13/24 10:00 09/13/24 07:43 DC Lisinopril (Zestril Tablet) 5 mg DAILY PO 09/13/24 10:00 09/13/24 10:33 Spironolactone (Aldactone) 12.5 mg DAILY PO 09/13/24 10:00 09/13/24 10:34 Atorvastatin Calcium (Lipitor) 40 mg DAILY PO 09/13/24 10:00 09/13/24 10:33 Furosemide (Lasix Injection) 40 mg BID IV 09/13/24 10:00 09/13/24 10:31 Diagnostic Test (Pha) (Accu-Chek Comfort Curve T) 1 strip ACHS 09/13/24 07:00 09/13/24 11:53 Insulin Human Regular (InsuLIN R) ACHS SC 09/13/24 07:00 09/13/24 11:53 Dextrose 50 ml UD PRN IV Blood Sugar LESS THAN 60 09/12/24 23:00 Heparin Sodium/ Dextrose 250 ml @ 10 mls/hr Q24H IV 09/13/24 06:00 09/13/24 10:43 DC 09/13/24 06:14 Magnesium Oxide (Mag-Ox Tablet) 400 mg BID PO 09/13/24 10:00 UNV Review of Systems Constitutional: No symptom reported Ears, Nose, & Throat: No symptom reported Eyes: No symptom reported Neurological: No symptoms reported Pulmonary/Respiratory: SOB, MILLER, PND Cardiovascular: Chest pain Gastrointestinal: No symptom reported Genitourinary: No symptom reported Musculoskeletal: No symptom reported Skin: No symptom reported Psychiatric: No symptom reported Endocrine: No symptom reported Hemotologic/Lymphatic: No symptom reported Vital Signs Vital Signs Date Time Temp Pulse Resp B/P (MAP) Pulse Ox O2 Delivery O2 Flow Rate FiO2 09/13/24 13:08 98.1 68 15 129/87 (101) 96 98.1 09/13/24 07:47 Room Air* 0 21 Physical Exam General Appearance: Cooperative. Disheveled. Unkept. In no acute distress Head Exam: Normal inspection Neck Exam: Normal inspection. Non-tender. Normal alignment Pulmonary/Respiratory: Chest non-tender. Clear bilateral breath sounds Cardiovascular/Chest: Regular rate and rhythm. S1, S2. SR with T-wave inversion to inferior leads as well as V5, V6. No murmurs. No JVD. Peripheral Pulses: 2+ Radial (R). 2+ Radial (L). 2+ Pedal (R). 2+ Pedal (L) Abdominal Exam: Normal bowel sounds. Soft. Nontender. No hepatospenomegaly. No masses Ankle Exam: Positive pitting ankle edema, 1+ Lower extremities: Positive pitting lower extremity edema, 1+ Neuro/Mental Status: A&O x4. Coherent Thoughts/Psych: Normal thought pattern. Appropriate mood and affect. Good judgement and insight Appearance: In no acute distress Skin Exam: Normal inspection. Normal color. Warm. Dry Labs/Diagnostic Data Labs Test 09/13/24 11:48 09/13/24 11:45 09/13/24 04:30 09/12/24 21:55 Range/Units POC Glucose 383 H 70-106 mg/dl Prothrombin Time 11.5 9.3-11.8 sec Prothrombin Time INR 1.09 0.9-1.15 Activated Partial Thromboplast Time 35.6 H 24.5-34.5 SEC White Blood Count 6.8 # 4.4-10.8 10^3/uL Red Blood Count 5.25 4.5-5.90 10^6/uL Hemoglobin 16.5 13.5-17.5 g/dL Hematocrit 48.6 41.0-53.0 % Mean Corpuscular Volume 92.7 80.0-100.0 fL Mean Corpuscular Hemoglobin 31.4 28.0-32.0 pg Mean Corpuscular Hemoglobin Concent 33.9 32.0-36.0 g/dL Red Cell Distribution Width 13.7 11.8-14.3 % Platelet Count 137 L 140-450 10^3/uL Mean Platelet Volume 8.2 6.9-10.8 fL Neutrophils (%) (Auto) 94.3 H 37.0-80.0 % Lymphocytes (%) (Auto) 3.8 L 10.0-50.0 % Monocytes (%) (Auto) 1.5 0.0-12.0 % Eosinophils (%) (Auto) 0.3 0.0-7.0 % Basophils (%) (Auto) 0.1 0.0-2.0 % Neutrophils # (Auto) 6.4 1.6-8.6 10 ^3/uL Lymphocytes # (Auto) 0.3 L 0.4-5.4 10 ^3/uL Monocytes # (Auto) 0.1 0-1.3 10 ^3/uL Eosinophils # (Auto) 0 0-0.8 10 ^3/uL Basophils # (Auto) 0 0-0.2 10 ^3/uL Nucleated Red Blood Cells 0.1 % Sodium Level 135 #L 136-145 mmol/L Potassium Level 4.4 3.5-5.1 mmol/L Chloride Level 102 98-107 mmol/L Carbon Dioxide Level 24 20-31 mmol/L Anion Gap 9 5-15 Blood Urea Nitrogen 25 H 9-23 mg/dL Creatinine 1.17 0.700-1.30 mg/dL Glomerular Filtration Rate Calc 75 >90 mL/min BUN/Creatinine Ratio 21.4 H 10.0-20.0 Serum Glucose 308 H 74-106 mg/dL Calcium Level 9.3 8.7-10.4 mg/dL Magnesium Level 1.6 1.6-2.6 mg/dL Total Bilirubin 0.9 0.2-1.0 mg/dL Aspartate Amino Transferase (AST) 25 13-40 U/L Alanine Aminotransferase (ALT) 21 7-40 U/L Alkaline Phosphatase 103 46-116 U/L Total Protein 7.4 5.7-8.2 g/dL Albumin 4.1 3.2-4.8 g/dL Urine Opiates Screen Neg NEGATIVE Urine Fentanyl Screen Neg NEGATIVE Urine Barbiturates Screen Neg NEGATIVE Urine Phencyclidine Screen Neg NEGATIVE Urine Amphetamines Screen Pos NEGATIVE Urine Benzodiazepines Screen Neg NEGATIVE Urine Cocaine Screen Neg NEGATIVE Urine Cannabinoids Screen Neg NEGATIVE Test 09/12/24 20:35 09/12/24 17:28 Range/Units Troponin I High Sensitivity 1004 *H </=54 ng/L Lactic Acid Level 1.8 0.4-2.0 mmol/L B-Type Natriuretic Peptide 1894.82 0-100 pg/mL Assessment Acute on chronic decompensated HFrEF, NYHA class III NSTEMI likely type II secondary to above Coronary artery disease status post multiple PTCAs x2 OLIVIA (on ASA) 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 Gallo) Continue with a transthoracic echocardiogram to evaluate cardiac function. Continue GDMT for CHF and up-titrate as tolerated. Continue single-antiplatelet therapy and lipid lowering agent. Preload and afterload reduction with strict I&Os, daily weights, fluid restrictions. Conservative management given poor medical compliance and substance abuse. No invasive cardiac workup indicated at this time. Follow-up with primary distribution accounting clerk within 1-2 weeks post discharge. Strongly advised for polysubstance abuse cessation and medical compliance. There is no further cardiac workup indicated at this time. Kindly call if you need to re-consult. Thank you for allowing us to participate in this patient's care. Please call if you have any questions or concerns. This medical document was created using an electronic medical record system with voice recognition software and computerized dictation system. Although this document has been carefully reviewed, there might still be some phonetic and typographical errors. Occasional wrong-word or ``sound-alike substitutions may have occurred due to the inherent limitations of voice recognition software. These areas are purely typographical due to imperfections of the software programs and do not reflect any compromise in the patient's medical care. Please read the chart carefully and recognize, using context, where these substitutions have occurred. Plan discussed with: Patient, Other NYHA Physical activity limitations: Class3(Marked) ordinary Date of Service: Sep 13, 2024 Billing Provider: INDIRA LOREDO Cardiology Common Codes: [id number] INP/OBS CARE (High) INDIRA LOREDO Sep 13, 2024 15:12
[2024-09-13] MEDS ORDERED: CARVEDILOL 3.125 MG TAB PO ONE (15:45)
--- NOTE | 2024-09-13 15:46 | DVHPNRES ---
Progress Note Date Seen: Sep 13, 2024 Resident Creating Document: MARIA FERNANDA DUFF RESIDENT Medical Necessity Reason Pt with a Central, PICC or Fol: No Subjective Review of Systems Patient is 53-year-old with past medical history of Coronary artery disease with PTCA, HFrEF with 10% ejection fraction came to the hospital with a chief complaint of shortness of breath for past few days as per patient he has progressive shortness of breath with exertion, PND, intermittent chest pain for the past one week. As per patient he has ran out of most of his medication, he is not compliant with follow with primary care physician he usually end up in the hospital when he feels six. Echocardiogram was done which showed 10% ejection fraction, EKG showed sinus rhythm with T inversions in inferior lead, no any other symptoms. PMH: PTCAs x2 OLIVIA including one OLIVIA to the RCA in 2021 (on ASA), ischemic/drug- induced cardiomyopathy, congestive heart failure with HFrEF, hypertension, history of pulmonary embolism, type 2 diabetes mellitus, and polysubstance abuse with methamphetamines. Past surgical history: PTCA with two OLIVIA Personal history: Methamphetamine use Patient complaining of mild shortness of breath, PND, shortness of breath with exertion, mild intermittent chest discomfort. Denying any other complaint at this point. Objective vital signs Vital Sign Date Time Temp Pulse Resp B/P (MAP) Pulse Ox O2 Delivery O2 Flow Rate FiO2 09/13/24 14:52 86 10 159/91 (113) 100 09/13/24 13:08 98.1 98.1 09/13/24 07:47 Room Air* 0 21 Total Intake and Output 09/12/24 09/12/24 09/13/24 15:00 23:00 07:00 Intake Total 64 ml Balance 64 ml medications Current Medications Medications Dose Ordered Sig/Kimberly Route Start Time Stop Time Status Last Admin Dose Admin Sodium Chloride 10 ml Q8HR IV 09/12/24 22:00 09/13/24 14:00 10 ML Sodium Chloride 10 ml Q8HR IV 09/13/24 06:00 09/13/24 14:00 10 ML Acetaminophen 650 mg Q6HP PRN PO 09/12/24 23:00 Acetaminophen/ Hydrocodone Bitart 1 tab Q4HP PRN PO 09/12/24 23:00 Hydromorphone HCl 0.5 mg Q4HP PRN IV 09/12/24 23:00 Ondansetron HCl 4 mg Q4HP PRN IV 09/12/24 23:00 09/13/24 00:59 4 MG Nitroglycerin 0.4 mg Q5MINP PRN SL 09/12/24 23:00 Morphine Sulfate 2 mg Q30M PRN IV 09/12/24 23:00 09/13/24 00:58 2 MG Aspirin 81 mg DAILY PO 09/13/24 10:00 09/13/24 10:32 81 MG Carvedilol 3.125 mg Q12HR PO 09/13/24 10:00 09/13/24 10:32 3.125 MG Clopidogrel Bisulfate 75 mg DAILY PO 09/13/24 10:00 09/13/24 10:33 75 MG Lisinopril 5 mg DAILY PO 09/13/24 10:00 09/13/24 10:33 5 MG Spironolactone 12.5 mg DAILY PO 09/13/24 10:00 09/13/24 10:34 12.5 MG Atorvastatin Calcium 40 mg DAILY PO 09/13/24 10:00 09/13/24 10:33 40 MG Furosemide 40 mg BID IV 09/13/24 10:00 09/13/24 10:31 40 MG Diagnostic Test (Pha) 1 strip ACHS 09/13/24 07:00 09/13/24 11:53 1 STRIP Insulin Human Regular ACHS SC 09/13/24 07:00 09/13/24 11:53 10 UNITS Dextrose 50 ml UD PRN IV 09/12/24 23:00 Magnesium Oxide 400 mg BID PO 09/13/24 10:00 09/13/24 15:00 400 MG Empaglifozin 10 mg DAILY PO 09/14/24 10:00 UNV Enoxaparin Sodium 70 mg Q12HR SC 09/14/24 10:00 UNV Examination General Appearance: Cooperative. Well developed. Well nourished. NAD Head Exam: Normal inspection Neck Exam: Normal inspection. Non-tender. Normal alignment Pulmonary/Respiratory: Chest non-tender. Clear bilateral breath sounds Cardiovascular/Chest: Regular rate and rhythm. No murmurs. No JVD. Peripheral Pulses: 2+ Radial (R). 2+ Radial (L). 2+ Pedal (R). 2+ Pedal (L) Abdominal Exam: Normal bowel sounds. Soft. Nontender. No hepatospenomegaly. No masses Ankle Exam: Negative ankle edema Lower extremities: Negative lower extremity edema Neuro/Mental Status: A&O x4. Coherent Thoughts/Psych: Normal thought pattern. Appropriate mood and affect. Good judgement and insight Appearance: In no acute distress Skin Exam: Normal inspection. Normal color. Warm. Dry laboratory and microbiology Laboratory Tests 09/13/24 04:30 Test 09/13/24 04:30 Range/Units Serum Glucose 308 H 74-106 mg/dL Problem List/Assessment/Plan Problem List/Assessment/Plan Acute on chronic HFrEF Acute on chronic respiratory failure due to above NSTEMI type 2 likely due to CHF Coronary artery disease with a history of PTCA to time OLIVIA Ischemic/drug-induced cardiomyopathy Severe Pulmonary hypertension3 Type 2 diabetes mellitus HGB A1c 7.4 Hypertension Methamphetamine abuse Medically noncompliant Plan/recommendation -known HFrEF with ejection fraction of 10%, severe RVSP 67. Continued with Lasix IV 40 mg b.i.d., lisinopril 5 mg p.o. daily, spironolactone 12.5 mg p.o. daily, carvedilol 3.125 mg p.o. b.i.d.. -single antiplatelet therapy with aspirin, atorvastatin 40 mg p.o. daily. -cardiology consultation: No acute invasive cardiac investigation needed at this point. -echocardiogram: 05/05/2024: Ejection fraction 10%, severe RVSP 67 mmHg. -underwent repeat coronary angiogram on 02/03/2023: Advised on aggressive medical therapy and patient was not qualified for ICD implantation given he is not compliant. -counseled on drug cessation, UDS positive for methamphetamine. -insulin sliding scale for diabetes mellitus -resume home medication for hypertension: Currently on lisinopril, spironolactone, carvedilol. -PUD prophylaxis with Protonix -DVT prophylaxis with Lovenox Goals of care discussed with patient greater than 24 minutes. Full code status. Plan discussed with Dr. Reaves critical care time 40 mins Plan discussed with: Patient, Other (RN) My Orders My Orders Orders - MARIA FERNANDA DUFF Procedure Category Date Status Time Magnesium Oxide PHA 09/13/24 In Process Tablet (Mag-Ox Tablet) 10:00 Date of Service: Sep 13, 2024 Billing Provider: ANDREW REAVES MD Common Visit Codes: [id number] CARE 30-74 MIN MARIA FERNANDA DUFF RESIDENT Sep 13, 2024 15:46 ANDREW REAVES MD Sep 13, 2024 15:53
[2024-09-13] MEDS: PANTOPRAZOLE 40 MG TAB PO ONE (16:02)
[2024-09-13] MEDS: ENOXAPARIN SOD 100 MG/1 ML SYRINGE SC ONE (16:03)
[2024-09-13 19:30] VITALS: PULSE 82; RESP 22; O2SAT 98
[2024-09-13] MEDS ORDERED: CARVEDILOL 3.125 MG TAB PO SCH (22:00)
[2024-09-14] VITALS (10 sets, daily range): BP systolic 108–126; BP diastolic 68–84; PULSE 60–83; RESP 16–19; TEMP 94.4–98.8; O2SAT 94–99
[2024-09-14] MEDS: PANTOPRAZOLE 40 MG TAB PO SCH (05:51)
[2024-09-14] MEDS: HYDROcodone-ACET 5/325MG TAB PO PRN (06:22)
[2024-09-14 08:13] LABS: Basophils # (auto) 0 10 ^3/uL (0-0.2); Basophils % (auto) 0.2 % (0.0-2.0); Eosinophils # (auto) 0 10 ^3/uL (0-0.8); Hematocrit 51.9 % (41.0-53.0); Lymphocytes # (auto) 0.6 10 ^3/uL (0.4-5.4); Lymphocytes % (auto) 4.6 % (10.0-50.0); Mean Corpuscular Hemoglobin 30.4 pg (28.0-32.0); Mean Corpuscular Hgb Conc. 32.8 g/dL (32.0-36.0); Mean Corpuscular Volume 92.8 fL (80.0-100.0); Monocytes # (auto) 0.8 10 ^3/uL (0-1.3); Neutrophils # (auto) 12.1 10 ^3/uL (1.6-8.6); Neutrophils % (auto) 89.2 % (37.0-80.0); Nucleated Red Blood Cells % 0.1 %; Platelet Count (auto) 160 10^3/uL (140-450); Red Blood Cells 5.59 10^6/uL (4.5-5.90); Red Cell Distribution Width 13.7 % (11.8-14.3); White Blood Cell 13.5 10^3/uL (4.4-10.8)
[2024-09-14 08:17] LABS: Chloride 100 mmol/L (98-107); Potassium 4.5 mmol/L (3.5-5.1)
[2024-09-14 08:18] LABS: Anion Gap 10 (5-15); Carbon Dioxide 25 mmol/L (20-31)
[2024-09-14 08:19] LABS: Calcium 9.5 mg/dL (8.7-10.4)
[2024-09-14 08:24] LABS: BUN/Creatinine Ratio 24.4 (10.0-20.0); Magnesium 1.9 mg/dL (1.6-2.6)
[2024-09-14 08:27] LABS: Blood Urea Nitrogen 33 mg/dL (9-23); Glucose 163 mg/dL (74-106); Sodium 135 mmol/L (136-145)
[2024-09-14] MEDS: ENOXAPARIN SOD 100 MG/1 ML SYRINGE SC SCH (10:03)
[2024-09-14] MEDS: EMPAGLIFLOZIN 10 MG TAB PO SCH (10:03)
--- NOTE | 2024-09-14 13:54 | DVHPNRES ---
Progress Note Date Seen: Sep 14, 2024 Resident Creating Document: MARIA FERNANDA DUFF RESIDENT Medical Necessity Reason Pt with a Central, PICC or Fol: No Subjective Review of Systems Patient is 53-year-old with past medical history of Coronary artery disease with PTCA, HFrEF with 10% ejection fraction came to the hospital with a chief complaint of shortness of breath for past few days as per patient he has progressive shortness of breath with exertion, PND, intermittent chest pain for the past one week. As per patient he has ran out of most of his medication, he is not compliant with follow with primary care physician he usually end up in the hospital when he feels six. Echocardiogram was done which showed 10% ejection fraction, EKG showed sinus rhythm with T inversions in inferior lead, no any other symptoms. PMH: PTCAs x2 OLIVIA including one OLIVIA to the RCA in 2021 (on ASA), ischemic/drug- induced cardiomyopathy, congestive heart failure with HFrEF, hypertension, history of pulmonary embolism, type 2 diabetes mellitus, and polysubstance abuse with methamphetamines. Past surgical history: PTCA with two OLIVIA Personal history: Methamphetamine use Patient seen and examined at bedside. Complaining of watery diarrhea, no hematochezia. Shortness of breath improving. No any other new complaints. Objective vital signs Vital Sign Date Time Temp Pulse Resp B/P (MAP) Pulse Ox O2 Delivery O2 Flow Rate FiO2 09/14/24 13:01 98.8 68 19 109/82 (91) 95 98.8 09/14/24 01:12 Nasal Cannula* 2 28 Total Intake and Output 09/13/24 09/13/24 09/14/24 15:00 23:00 07:00 Intake Total 400 ml Output Total 1750 ml 800 ml Balance -1750 ml -400 ml medications Current Medications Medications Dose Ordered Sig/Kimberly Route Start Time Stop Time Status Last Admin Dose Admin Sodium Chloride 10 ml Q8HR IV 09/12/24 22:00 09/14/24 05:51 10 ML Sodium Chloride 10 ml Q8HR IV 09/13/24 06:00 09/14/24 05:52 10 ML Acetaminophen 650 mg Q6HP PRN PO 09/12/24 23:00 Acetaminophen/ Hydrocodone Bitart 1 tab Q4HP PRN PO 09/12/24 23:00 09/14/24 06:22 1 TAB Hydromorphone HCl 0.5 mg Q4HP PRN IV 09/12/24 23:00 Ondansetron HCl 4 mg Q4HP PRN IV 09/12/24 23:00 09/13/24 00:59 4 MG Nitroglycerin 0.4 mg Q5MINP PRN SL 09/12/24 23:00 Morphine Sulfate 2 mg Q30M PRN IV 09/12/24 23:00 09/13/24 00:58 2 MG Aspirin 81 mg DAILY PO 09/13/24 10:00 09/14/24 10:02 81 MG Carvedilol 3.125 mg Q12HR PO 09/13/24 10:00 09/14/24 10:02 3.125 MG Lisinopril 5 mg DAILY PO 09/13/24 10:00 09/14/24 10:04 5 MG Spironolactone 12.5 mg DAILY PO 09/13/24 10:00 09/14/24 10:02 12.5 MG Atorvastatin Calcium 40 mg DAILY PO 09/13/24 10:00 09/14/24 10:02 40 MG Diagnostic Test (Pha) 1 strip ACHS 09/13/24 07:00 09/14/24 12:17 1 STRIP Insulin Human Regular ACHS SC 09/13/24 07:00 09/14/24 12:27 6 UNITS Dextrose 50 ml UD PRN IV 09/12/24 23:00 Magnesium Oxide 400 mg BID PO 09/13/24 10:00 09/14/24 10:02 400 MG Empaglifozin 10 mg DAILY PO 09/14/24 10:00 09/14/24 10:03 10 MG Enoxaparin Sodium 70 mg Q12HR SC 09/14/24 10:00 09/14/24 10:03 70 MG Carvedilol 3.125 mg Q12HR PO 09/13/24 22:00 Cancel Pantoprazole Sodium 40 mg DAILY@0600 PO 09/14/24 06:00 09/14/24 05:51 40 MG Furosemide 20 mg BIDD IV 09/14/24 18:00 Examination General Appearance: Cooperative. Well developed. Well nourished. NAD Head Exam: Normal inspection Neck Exam: Normal inspection. Non-tender. Normal alignment Pulmonary/Respiratory: Chest non-tender. Clear bilateral breath sounds Cardiovascular/Chest: Regular rate and rhythm. No murmurs. No JVD. Peripheral Pulses: 2+ Radial (R). 2+ Radial (L). 2+ Pedal (R). 2+ Pedal (L) Abdominal Exam: Normal bowel sounds. Soft. Nontender. No hepatospenomegaly. No masses Ankle Exam: Negative ankle edema Lower extremities: Negative lower extremity edema Neuro/Mental Status: A&O x4. Coherent Thoughts/Psych: Normal thought pattern. Appropriate mood and affect. Good judgement and insight Appearance: In no acute distress Skin Exam: Normal inspection. Normal color. Warm. Dry laboratory and microbiology Laboratory Tests 09/14/24 07:48 Test 09/14/24 07:48 Range/Units Serum Glucose 163 #H 74-106 mg/dL Problem List/Assessment/Plan Problem List/Assessment/Plan Acute on chronic HFrEF Acute on chronic respiratory failure due to above NSTEMI type 2 likely due to CHF Leukocytosis due to acute gastroenteritis Acute diarrhea Coronary artery disease with a history of PTCA to time OLIVIA Ischemic/drug-induced cardiomyopathy Severe Pulmonary hypertension3 Type 2 diabetes mellitus HGB A1c 7.4 Hypertension Methamphetamine abuse Medically noncompliant Plan/recommendation Ordered stool studies including WBC count and culture. Left shift of neutrophils, Initiate ceftriaxone. Pending urine analysis and blood culture. -known HFrEF with ejection fraction of 10%, severe RVSP 67. Continued with Lasix IV 40 mg b.i.d., lisinopril 5 mg p.o. daily, spironolactone 12.5 mg p.o. daily, carvedilol 3.125 mg p.o. b.i.d.. -single antiplatelet therapy with aspirin, atorvastatin 40 mg p.o. daily. -cardiology consultation: No acute invasive cardiac investigation needed at this point. -echocardiogram: 05/05/2024: Ejection fraction 10%, severe RVSP 67 mmHg. -underwent repeat coronary angiogram on 02/03/2023: Advised on aggressive medical therapy and patient was not qualified for ICD implantation given he is not compliant. -counseled on drug cessation, UDS positive for methamphetamine. -insulin sliding scale for diabetes mellitus -resume home medication for hypertension: Currently on lisinopril, spironolactone, carvedilol. -PUD prophylaxis with Protonix -DVT prophylaxis with Lovenox Goals of care discussed with patient greater than 24 minutes. Full code status. Plan discussed with Dr. Reaves Plan discussed with: Patient, Other (RN) My Orders My Orders Orders - MARIA FERNANDA DUFF Procedure Category Date Status Time Pantoprazole Tablet PHA 09/14/24 In Process (Protonix Tablet) 06:00 Furosemide Injection PHA 09/14/24 In Process (Lasix Injection) 18:00 Blood Culture CARLOS 09/14/24 Logged 13:42 Stool Bacterial CARLOS 09/14/24 Logged Culture 13:43 Stool Wbc LAB 09/14/24 Logged 13:43 Stool Occult Blood LAB 09/14/24 Logged 13:43 Urinalysis LAB 09/14/24 Logged 13:43 Date of Service: Sep 14, 2024 Billing Provider: ANDREW REAVES MD Common Visit Codes: [id number] INP/OBS CARE(HIGH) MARIA FERNANDA DUFF RESIDENT Sep 14, 2024 13:54 ANDREW REAVES MD Sep 14, 2024 14:03
--- NOTE | 2024-09-14 13:58 | DVHPN2 ---
Consult Progress Note Date Seen: Sep 14, 2024 Subjective Patient reports: Feels better Review of Systems: CVS:Normal, RESPIRATORY:Abnormal, NEURO:Normal Other Systems: C/o mild SOB Objective vital signs Vital Sign Date Time Temp Pulse Resp B/P (MAP) Pulse Ox O2 Delivery O2 Flow Rate FiO2 09/14/24 13:01 98.8 68 19 109/82 (91) 95 98.8 09/14/24 01:12 Nasal Cannula* 2 28 Total Intake and Output 09/13/24 09/13/24 09/14/24 15:00 23:00 07:00 Intake Total 400 ml Output Total 1750 ml 800 ml Balance -1750 ml -400 ml medications Current Medications Medications Dose Ordered Sig/Kimberly Route Start Time Stop Time Status Last Admin Dose Admin Sodium Chloride 10 ml Q8HR IV 09/12/24 22:00 09/14/24 05:51 10 ML Sodium Chloride 10 ml Q8HR IV 09/13/24 06:00 09/14/24 05:52 10 ML Acetaminophen 650 mg Q6HP PRN PO 09/12/24 23:00 Acetaminophen/ Hydrocodone Bitart 1 tab Q4HP PRN PO 09/12/24 23:00 09/14/24 06:22 1 TAB Hydromorphone HCl 0.5 mg Q4HP PRN IV 09/12/24 23:00 Ondansetron HCl 4 mg Q4HP PRN IV 09/12/24 23:00 09/13/24 00:59 4 MG Nitroglycerin 0.4 mg Q5MINP PRN SL 09/12/24 23:00 Morphine Sulfate 2 mg Q30M PRN IV 09/12/24 23:00 09/13/24 00:58 2 MG Aspirin 81 mg DAILY PO 09/13/24 10:00 09/14/24 10:02 81 MG Carvedilol 3.125 mg Q12HR PO 09/13/24 10:00 09/14/24 10:02 3.125 MG Lisinopril 5 mg DAILY PO 09/13/24 10:00 09/14/24 10:04 5 MG Spironolactone 12.5 mg DAILY PO 09/13/24 10:00 09/14/24 10:02 12.5 MG Atorvastatin Calcium 40 mg DAILY PO 09/13/24 10:00 09/14/24 10:02 40 MG Diagnostic Test (Pha) 1 strip ACHS 09/13/24 07:00 09/14/24 12:17 1 STRIP Insulin Human Regular ACHS SC 09/13/24 07:00 09/14/24 12:27 6 UNITS Dextrose 50 ml UD PRN IV 09/12/24 23:00 Magnesium Oxide 400 mg BID PO 09/13/24 10:00 09/14/24 10:02 400 MG Empaglifozin 10 mg DAILY PO 09/14/24 10:00 09/14/24 10:03 10 MG Enoxaparin Sodium 70 mg Q12HR SC 09/14/24 10:00 09/14/24 10:03 70 MG Carvedilol 3.125 mg Q12HR PO 09/13/24 22:00 Cancel Pantoprazole Sodium 40 mg DAILY@0600 PO 09/14/24 06:00 09/14/24 05:51 40 MG Furosemide 20 mg BIDD IV 09/14/24 18:00 Ceftriaxone Sodium 50 ml @ 100 mls/hr DAILY@09 IV 09/15/24 09:00 UNV laboratory and microbiology Laboratory Tests 09/14/24 07:48 Test 09/14/24 07:48 Range/Units Serum Glucose 163 #H 74-106 mg/dL Problem List/Assessment/Plan Problem List/Assessment/Plan Acute on chronic decompensated HFrEF, NYHA class III NSTEMI likely type II secondary to above Coronary artery disease status post multiple PTCAs x2 OLIVIA (on ASA) 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 Gallo) Preliminary transthoracic echocardiogram revealed LVEF 10-15%. Continue GDMT for CHF and up-titrate as tolerated. Continue single-antiplatelet therapy and lipid lowering agent. Preload and afterload reduction with strict I&Os, daily weights, fluid restrictions. Conservative management given poor medical compliance and substance abuse. No invasive cardiac workup indicated at this time. Follow-up with primary oil developer within 1-2 weeks post discharge. Strongly advised for polysubstance abuse cessation and medical compliance. There is no further cardiac workup indicated at this time. Kindly call if you need to re-consult. Thank you for allowing us to participate in this patient's care. Please call if you have any questions or concerns. This medical document was created using an electronic medical record system with voice recognition software and computerized dictation system. Although this document has been carefully reviewed, there might still be some phonetic and typographical errors. Occasional wrong-word or ``sound-alike substitutions may have occurred due to the inherent limitations of voice recognition software. These areas are purely typographical due to imperfections of the software programs and do not reflect any compromise in the patient's medical care. Please read the chart carefully and recognize, using context, where these substitutions have occurred. Plan discussed with: Patient, Other Date of Service: Sep 14, 2024 Billing Provider: INDIRA LOREDO Cardiology Common Codes: [id number] INP/OBS CARE(Mod) INDIRA LOREDO Sep 14, 2024 13:58
[2024-09-14] MEDS: cefTRIAXone 1GM/50ML D5W 50 ML IV ONE (15:08)
[2024-09-14] MEDS: FUROSEMIDE 40 MG/4 ML VIAL IV SCH (17:55)
[2024-09-14 18:15] LABS: Urine Bacteria None Seen /hpf (None Seen)
[2024-09-14 18:24] LABS: Urine Blood Negative /uL (Negative); Urine Clarity Clear (Clear); Urine Color Light-Yellow (Yellow); Urine Protein, UAD 1+ (Negative); Urine Squamous Epithelial Cell None Seen /hpf (<5); Urine Urobilinogen Normal (Negative); Urine WBC < 1 /HPF (0-3)
[2024-09-15 01:00] VITALS: BP 116/74; PULSE 97; RESP 17; TEMP 98.1; O2SAT 97
[2024-09-15 05:00] VITALS: BP 124/85; PULSE 64; RESP 17; TEMP 97.5; O2SAT 99
[2024-09-15 08:00] VITALS: PULSE 64
[2024-09-15 08:12] LABS: Basophils # (auto) 0 10 ^3/uL (0-0.2); Eosinophils # (auto) 0.2 10 ^3/uL (0-0.8); Lymphocytes # (auto) 1.6 10 ^3/uL (0.4-5.4); Lymphocytes % (auto) 16.8 % (10.0-50.0); Monocytes # (auto) 1.3 10 ^3/uL (0-1.3); Red Blood Cells 5.96 10^6/uL (4.5-5.90); White Blood Cell 9.2 10^3/uL (4.4-10.8)
[2024-09-15 08:15] LABS: Basophils % (auto) 0.3 % (0.0-2.0); Hematocrit 55.3 % (41.0-53.0); Hemoglobin 18.7 g/dL (13.5-17.5); Mean Corpuscular Hemoglobin 31.4 pg (28.0-32.0); Mean Corpuscular Hgb Conc. 33.8 g/dL (32.0-36.0); Mean Corpuscular Volume 92.8 fL (80.0-100.0); Monocytes % (auto) 13.9 % (0.0-12.0); Neutrophils # (auto) 6.2 10 ^3/uL (1.6-8.6); Nucleated Red Blood Cells % 0.1 %; Platelet Count (auto) 189 10^3/uL (140-450); Red Cell Distribution Width 13.8 % (11.8-14.3)
[2024-09-15 08:16] VITALS: RESP 18; O2SAT 94
[2024-09-15 09:00] VITALS: BP 123/84; PULSE 67; RESP 16; TEMP 97.4; O2SAT 91
[2024-09-15] MEDS: cefTRIAXone 1GM/50ML D5W 50 ML IV SCH (09:13)
[2024-09-15 10:02] LABS: Potassium 4.2 mmol/L (3.5-5.1)
[2024-09-15 10:03] LABS: Anion Gap 9 (5-15); Carbon Dioxide 30 mmol/L (20-31)
[2024-09-15 10:04] LABS: Calcium 9.2 mg/dL (8.7-10.4); Chloride 97 mmol/L (98-107); Sodium 136 mmol/L (136-145)
[2024-09-15 10:09] LABS: Blood Urea Nitrogen 31 mg/dL (9-23); Glucose 151 mg/dL (74-106)
[2024-09-15] MEDS ORDERED: EMPA1TAB PO (10:51)
[2024-09-15] MEDS ORDERED: LISI-275 PO (10:51)
[2024-09-15] MEDS ORDERED: SPIR25TA PO (10:51)
[2024-09-15] MEDS ORDERED: CARV-214 PO (10:51)
[2024-09-15] MEDS ORDERED: ASPI-498 PO (10:51)
[2024-09-15] MEDS ORDERED: METF-370 PO (10:51)
[2024-09-15] MEDS ORDERED: ATOR40TA52 PO (10:51)
[2024-09-15 11:54] VITALS: BP 123/84; PULSE 67; TEMP 36.3
--- NOTE | 2024-09-17 18:31 | DVHSR ---
APPROVED REPORT EXAM: Two-dimensional and M-mode echocardiogram with Doppler and color Doppler. Blood Pressure: 133/30 mmHg INDICATION NSTEMI, CHF RISK FACTORS Height: 5'6, Weight: 150 DIMENSIONS LVDd6.2 (3.8-5.7cm)LA (2D)4.4 (1.9-4.0cm)Aortic Root3.1 (2.0-3.7cm) LVDs5.5 (2.5-4.0cm)LA (MM) (1.9-4.0cm)Aortic Cusp Exc1.5 (1.5-2.0cm) EF (%) 15.0 (55-70%)Rt. Atrium4.9 (1.9-4.0cm)Asc. Aorta3.3 cm IVSd0.7 (0.7-1.1cm)RV (D)6.1 (1.8-2.4cm) PWd1.1 (0.7-1.1cm) Mitral Valve MitralMitral Stenosis E wave1.20m/sMV Mean GR.mmHg A wave0.29m/sMV Peak GR.86mmHg E/A ratio4.12D MVAcm2 DECEL [id number] 1/2 Timems Aortic Valve Aortic ValveAortic Stenosis V10.97m/Yue Mean GR.5mmHg V21.41m/Yue Peak GR.8mmHg LVOT Diameter2.2 (1.8-2.4cm)Doppler AVA2.61cm2 AI P 1/2 Xxia633.33ms Pulmonic Valve V20.83m/s Tricuspid Valve TR Velocity3.05m/s [id number] Conclusion REMARKABLY DILATED ALL CARDIAC CHAMBERS SEVERE GLOBAL HYPOKINESIS OF ALL CARDIAC CHAMBERS LV EF IS ONLY 15% MODERATE DEGREE MR SEVERE AORTIC VALVE REGURGITATION MODERATE DEGREE TR NO EFFUSION MODERATELY SEVERE PULMONARY HYPERTENSION RVSP IS 50 MM OF HG AND IS VERY HIGH IN VIEW OF VERY LOW LV AND RV EJECTION FRACTION
== END 2024-09-15 12:30 | disposition home or self-care (01) | DRG 133 ==
LOC: ER 16:21 → OVERFLOW 22:55 → TELE-WESTW 09-13 23:50
PROVIDERS: ADMIT Internal Medicine; ATTEND Internal Medicine
DX: J96.01 Acute respiratory failure with hypoxia (principal); N17.0 Acute kidney failure with tubular necrosis; R65.11 Systemic inflammatory response syndrome (SIRS) of non-infectious origin with acute organ dysfunction; I21.A1 Myocardial infarction type 2; I50.23 Acute on chronic systolic (congestive) heart failure; I27.20 Pulmonary hypertension, unspecified; I11.0 Hypertensive heart disease with heart failure; F02.80 Dementia in other diseases classified elsewhere, unspecified severity, without behavioral disturbance, psychotic disturbance, mood disturbance, and anxiety; E78.5 Hyperlipidemia, unspecified; E11.65 Type 2 diabetes mellitus with hyperglycemia; I25.10 Atherosclerotic heart disease of native coronary artery without angina pectoris; G30.9 Alzheimer's disease, unspecified; F17.210 Nicotine dependence, cigarettes, uncomplicated; I42.7 Cardiomyopathy due to drug and external agent; F15.10 Other stimulant abuse, uncomplicated; J44.9 Chronic obstructive pulmonary disease, unspecified; Z95.5 Presence of coronary angioplasty implant and graft; Z86.711 Personal history of pulmonary embolism; Z83.3 Family history of diabetes mellitus; Z82.49 Family history of ischemic heart disease and other diseases of the circulatory system; Z82.0 Family history of epilepsy and other diseases of the nervous system; Z79.82 Long term (current) use of aspirin; Z91.199 Patient's noncompliance with other medical treatment and regimen due to unspecified reason; Z79.84 Long term (current) use of oral hypoglycemic drugs; Z79.899 Other long term (current) drug therapy
CPT/HCPCS: 36415; 71045; 73020; 73060; 73100; 80048; 80053; 80307; 81001; 82270; 82962; 83605; 83735; 83880; 84484; 85025; 85048; 85610; 85730; 87040; 87045; 93306; 94640; 96365; 96375; 99291; G0378; J1815; J2405

== ENCOUNTER 2024-09-27 05:52 | Inpatient (IN) | payer OTHER ==
[~2024-09-27] VITALS: Ht 167.6 cm; Wt 80.3 kg
[~2024-09-27 05:52] MED LIST changes: -ACET500T58 PO; -AUG875T PO; -CLOP75TA70
--- NOTE | 2024-09-27 06:24 | ED.PDOC ---
SOB-HPI HPI Comments 53-year-old male presents to the emergency department with a chief complaint of shortness of breath onset 3 days. Patient states he has been experiencing shortness of breath as well as a productive cough, nausea. Patient was discharged from this ED on 09/15/24, with CHF exacerbation. PMHx HTN, CHF, DM, HDL, [place]. Denies chest pain, vomiting, diarrhea, headache, dizziness, blurry vision. No other symptoms or modifying factors present at this time. Chief Complaint: Shortness of Breath Time Seen by MD: 06:15 Primary Care Provider: unknown Reviewed notes: Medications, Allergies Information Source: Patient Mode of Arrival: Ambulatory Severity: Moderate Timing: Days Duration: Since onset Context: At Rest PE Risk Factors: None History of: CHF Prehospital treatment: None Modifying Factors: Nothing Associated Signs and Symptoms: Cough Radiation: No Radiation If cough with SOB: Productive Past Medical History PAST MEDICAL HISTORY: CHF, DM, High Lipids, HTN, [place] Surgical History: PTCA Family History Family History: Reviewed,noncontributory to illness, Family hx of DM Social History Smoker: Cigarettes Alcohol: Occasionally Drugs: Marijuana, Methamphetamine Lives In: Home Constitutional: denies: chills, diaphoresis, fatigue, fever, malaise, sweats, weakness, others EENTM: denies: blurred vision, double vision, ear bleeding, ear discharge, ear drainage, ear pain, ear ringing, eye pain, eye redness, hearing loss, mouth pain, mouth swelling, nasal discharge, nose bleeding, nose congestion, nose pain, photophobia, tearing, throat pain, throat swelling, voice changes, others Respiratory: reports: cough, shortness of breath; denies: hemoptysis, orthopnea, SOB at rest, SOB with excertion, stridor, wheezing, others Cardiovascular: denies: chest pain, dizzy spells, diaphoresis, Dyspnea on exertion, edema, irregular heart beat, left arm pain, lightheadedness, palpitations, PND, syncope, others Gastrointestinal: reports: nausea; denies: abdomen distended, abdominal pain, blood streaked bowels, constipated, diarrhea, dysphagia, difficulty swallowing, hematemesis, melena, poor appetite, poor fluid intake, rectal bleeding, rectal pain, vomiting, others Genitourinary: denies: burning, dysuria, flank pain, frequency, hematuria, incontinence, penile discharge, penile sore, pain, testicle pain, testicle swelling, urgency, others Neurological: denies: dizziness, fainting, headache, left sided numbness, left sided weakness, numbness, paresthesia, pre-existing deficit, right sided numbness, right sided weakness, seizure, speech problems, tingling, tremors, weakness, others Musculoskeletal: denies: back pain, gout, joint pain, joint swelling, muscle pain, muscle stiffness, neck pain, others Integumetry: denies: bruises, change in color, change in hair/nails, dryness, laceration, lesions, lumps, rash, wounds, others Allergic/Immunocompromised: denies: Difficulty Healing, Frequent Infections, Hives, Itching, others Hematologic/Lymphatic: denies: anemia, blood clots, easy bleeding, easy bruising, swollen glands, others Endocrine: denies: excessive hunger, excessive sweating, excessive thirst, excessive urination, flushing, intolerance to cold, intolerance to heat, unexplained weight gain, unexplained weight loss, others Psychiatric: denies: anxiety, bipolar disorder, depression, hopeless, panic disorder, schizophrenia, sleepless, suicidal, others All Other Systems: Reviewed and Negative Physical Exam General Appearance: Moderate Distress HEENT: Normal ENT Inspection, Pharynx Normal, TMs Normal Neck: Full Range of Motion, Non-Tender, Normal, Normal Inspection Respiratory: Chest Non-Tender, Lungs Clear, No Accessory Muscle Use, No Respiratory Distress, Normal Breath Sounds Cardiovascular: No Edema, No JVD, No Murmur, No Gallop, Normal Peripheral Pulses, Regular Rate/Rhythm Breast Exam: Deferred Gastrointestinal: No Organomegaly, Non Tender, No Pulsatile Mass, Normal Bowel Sounds, Soft Genitalia: Deferred Pelvic: Deferred Rectal: Deferred Extremities: No calf tenderness, Normal capillary refill, Normal inspection, Normal range of motion, Non-tender, No pedal edema Musculoskeletal : Apperance: Normal Neurologic: Alert, plastic outfitter II-XII nml as Tested, No Motor Deficits, Normal Affect, Normal Mood, No Sensory Deficits Cerebellar Function: Normal Reflexes: Normal Skin: Dry, Normal Color, Warm Lymphatic: No Adenopathy EKG EKG : Pulse Rate (adult): 91 [place]: RAD Cardiac Rhythm: NSR Hypertrophy: LAE Was a procedure done? Was a procedure done?: No Differential Dx Differential Diagnosis: Anxiety, Asthma, Bronchitis, CHF, Pneumonia X-Ray, Labs, Meds, VS Vital Signs Date Time Temp Pulse Resp B/P (MAP) Pulse Ox O2 Delivery O2 Flow Rate FiO2 09/27/24 07:56 98.2 90 18 150/102 (118) 96 98.2 09/27/24 07:56 90 18 96 Room Air 09/27/24 06:24 91 09/27/24 06:02 91 09/27/24 05:55 99.0 89 18 119/72 (88) 99 99.0 Lab Test 09/27/24 07:15 09/27/24 06:27 Range/Units Troponin I High Sensitivity 735 *H 629 *H </=54 ng/L White Blood Count 6.7 4.4-10.8 10^3/uL Red Blood Count 5.37 4.5-5.90 10^6/uL Hemoglobin 16.6 13.5-17.5 g/dL Hematocrit 49.4 41.0-53.0 % Mean Corpuscular Volume 91.9 80.0-100.0 fL Mean Corpuscular Hemoglobin 31.0 28.0-32.0 pg Mean Corpuscular Hemoglobin Concent 33.7 32.0-36.0 g/dL Red Cell Distribution Width 13.8 11.8-14.3 % Platelet Count 216 140-450 10^3/uL Mean Platelet Volume 8.8 6.9-10.8 fL Neutrophils (%) (Auto) 70.9 37.0-80.0 % Lymphocytes (%) (Auto) 19.9 10.0-50.0 % Monocytes (%) (Auto) 7.0 0.0-12.0 % Eosinophils (%) (Auto) 1.7 0.0-7.0 % Basophils (%) (Auto) 0.5 0.0-2.0 % Neutrophils # (Auto) 4.8 1.6-8.6 10 ^3/uL Lymphocytes # (Auto) 1.3 0.4-5.4 10 ^3/uL Monocytes # (Auto) 0.5 0-1.3 10 ^3/uL Eosinophils # (Auto) 0.1 0-0.8 10 ^3/uL Basophils # (Auto) 0 0-0.2 10 ^3/uL Nucleated Red Blood Cells 0.1 % Sodium Level 141 136-145 mmol/L Potassium Level 4.9 3.5-5.1 mmol/L Chloride Level 107 98-107 mmol/L Carbon Dioxide Level 27 20-31 mmol/L Anion Gap 7 5-15 Blood Urea Nitrogen 16 9-23 mg/dL Creatinine 1.00 0.700-1.30 mg/dL Glomerular Filtration Rate Calc 91 >90 mL/min BUN/Creatinine Ratio 16.0 10.0-20.0 Serum Glucose 157 H 74-106 mg/dL Calcium Level 9.7 8.7-10.4 mg/dL B-Type Natriuretic Peptide 2270.50 0-100 pg/mL The patient's CBC is within normal limits The chemistry panel is within normal limits. The chest x-ray is negative. The BNP is 2270.50 The patient was given Lasix 40 mg IV push We did repeat troponin levels and they went from 629-735 We did review the patient's past troponin levels which are also significantly elevated At this time, the patient was just complaining of some mild chest tightness The patient was also given aspirin here in the emergency department's The patient was being admitted Images Reviewed?: Images reviewed and evaluated by me Time of 1ST Reevaluation: 06:45 Reevaluation 1ST: Unchanged Patient Education/Counseling: Diagnosis, Treatment, Prognosis Family Education/Counseling: No Family Present Additional Information The following tests were ordered, and results were reviewed by me: EKG, TROP-x3, CBC, BNP, UA, XY CHEST 2 VIEWS, BMP I reviewed and agreed with the following test results read by other providers: XY CHEST 2 VIEWS I discussed treatment and results with medical personnel and: Patient Comprehensive systems review obtained and negative except for what is stated in the HPI. Departure 1 Departure Time of Disposition: 08:00 Impression: Primary Impression: Non-STEMI (non-ST elevated myocardial infarction) Additional Impressions: Elevated brain natriuretic peptide (BNP) level Elevated troponin Accelerated hypertension Disposition: ADMITTED INPATIENT Admit to: [facility] Condition: Fair Critical Care Note Critical Care Time?: Yes (55 min-critical care time only) Stability Stability form required: Yes Unstable for transfer: Telemetry monitoring (Telemetry monitoring required), ED Physician Assesment (Clinical assesment) Heart Score Heart Score: Heart Score Response (Comments) Value History Moderate Suspicious 1 EKG Repolarization Disturb 1 Age 45-64 1 Risk Factors >3 or Hx ASHD 2 Troponin >3 x's Normal limit 2 Total 7 I personally scribed for ANNA CAST MD ([email or web address]) on 09/27/24 at 06:24. Electronically submitted by Crystal Odonnell ([email or web address]). I personally scribed for ANNA CAST MD ([email or web address]) on 09/27/24 at 06:36. Electronically submitted by Crystal Odonnell ([email or web address]). ANNA CAST MD Sep 27, 2024 06:24
[2024-09-27 06:52] LABS: Potassium 4.9 mmol/L (3.5-5.1); Sodium 141 mmol/L (136-145)
[2024-09-27 06:53] LABS: Anion Gap 7 (5-15); Calcium 9.7 mg/dL (8.7-10.4); Carbon Dioxide 27 mmol/L (20-31)
[2024-09-27 06:55] LABS: Chloride 107 mmol/L (98-107)
[2024-09-27 06:58] LABS: Blood Urea Nitrogen 16 mg/dL (9-23); Glucose 157 mg/dL (74-106)
--- NOTE | 2024-09-27 07:00 | ECG ---
[facility] Test Date: 2024-09-27 Test Time: 06:02:59 Pat Name: SOPHIE STORY Department: ER Room: [address] [place] [address] Gender: M Service Delivery Consultant: KARTHIKEYAN : 1970 Requested By: ANNA CAST Order Number: [id number] Reading MD: Max Gallo Measurements Intervals [place] Rate: 91 P: 71 NE: 165 QRS: 124 QRSD: 103 T: 7 QT: 387 QTc: 477 Interpretive Statements Sinus rhythm Probable left atrial enlargement Right axis deviation Borderline prolonged QT interval Electronically Signed On 09-28-2024 17:09:29 PDT by Max Gallo Please click the below link to view image of tracing.
[2024-09-27 07:03] LABS: Basophils # (auto) 0 10 ^3/uL (0-0.2); Basophils % (auto) 0.5 % (0.0-2.0); Eosinophils # (auto) 0.1 10 ^3/uL (0-0.8); Eosinophils % (auto) 1.7 % (0.0-7.0); Hematocrit 49.4 % (41.0-53.0); Hemoglobin 16.6 g/dL (13.5-17.5); Lymphocytes # (auto) 1.3 10 ^3/uL (0.4-5.4); Lymphocytes % (auto) 19.9 % (10.0-50.0); Mean Corpuscular Hgb Conc. 33.7 g/dL (32.0-36.0); Mean Corpuscular Volume 91.9 fL (80.0-100.0); Monocytes # (auto) 0.5 10 ^3/uL (0-1.3); Neutrophils # (auto) 4.8 10 ^3/uL (1.6-8.6); Neutrophils % (auto) 70.9 % (37.0-80.0); Nucleated Red Blood Cells % 0.1 %; Platelet Count (auto) 216 10^3/uL (140-450); Red Blood Cells 5.37 10^6/uL (4.5-5.90); Red Cell Distribution Width 13.8 % (11.8-14.3); White Blood Cell 6.7 10^3/uL (4.4-10.8)
--- NOTE | 2024-09-27 07:45 | DVH ---
CLINICAL INFORMATION: Shortness of breath. TECHNIQUE: Frontal and lateral chest radiographs were obtained. COMPARISON: XY CHEST TWO VIEWS ROUTINE on DOS: 03/02/24 FINDINGS: Lungs: Clear. Cardiac: Heart size is within normal limits. Pulmonary vasculature: Unremarkable Mediastinum/james: Within normal limits. Bones: No evidence of acute osseous abnormality. Other: No other significant finding. IMPRESSION: No evidence of acute disease in the chest.
[2024-09-27 08:15] LABS: Urine Bacteria FEW /hpf (None Seen); Urine Blood 1+ /uL (Negative); Urine Clarity Clear (Clear); Urine Color Yellow (Yellow); Urine Hyaline Cast FEW /lpf (0 - 2); Urine Mucus FEW (None Seen); Urine Protein, UAD 2+ (Negative); Urine Specific Gravity 1.025 (1.001-1.035); Urine Squamous Epithelial Cell FEW /hpf (<5); Urine Urobilinogen Normal (Negative); Urine WBC 2 /HPF (0-3); Urine pH 5.5 (5.0-9.0)
[2024-09-27 08:30] VITALS: PULSE 88; RESP 19; O2SAT 99
[2024-09-27] MEDS: ASPirin 81 mg TAB PO ONE (09:10)
[2024-09-27] MEDS ORDERED: ACETAMINOPHEN 325 MG TAB PO PRN (09:15)
[2024-09-27] MEDS ORDERED: MORPHINE SULFATE INJ 2 MG/ml SYRG IV PRN (09:15)
[2024-09-27] MEDS ORDERED: DOCUSATE SOD 100 MG CAP PO PRN (09:15)
[2024-09-27] MEDS ORDERED: NITROGLYCERIN 0.4 MG SL TAB SL PRN (09:15)
--- NOTE | 2024-09-27 09:38 | DVHHP2 ---
History of Present Illness Reason for Visit: CHF exacerbation History of Present Illness Patient is a 53-year-old male admitted to the ER with chief complaint of shortness of breath x3 days. Patient also endorses productive cough, nausea and lower extremity edema +2 pitting. Patient states he did not take his medications for 2 days and then resumed taking them for 1 day and symptoms did not improve so he came to the ER. Patient has no other symptoms at this time, patient states he has not been to cardiology follow-up yet, we will consult Cardiology for continuity of care. Patient is known to be noncompliant. Admitting to telemetry Past Medical History PTCAs x2 OLIVIA including one OLIVIA to the RCA in 2021 (on ASA), ischemic/drug- induced cardiomyopathy, congestive heart failure with HFrEF, hypertension, history of pulmonary embolism, type 2 diabetes mellitus, and polysubstance abuse with methamphetamines. Past Surgical History TCAs x2 OLIVIA including one OLIVIA to the RCA in 2021 Family History: None Smoke: <1 pack per day ALCOHOL: occassional Drugs: Other (Meth amphetamines occasionally) Lives: Alone Review of Systems Constitutional: No: Fever, Chills, Sweats, Weakness, Malaise, Other Eyes: No: Pain, Vision change, Conjunctivae inflammation, Eyelid inflammation, Other, Redness ENT: No: Ear pain, Ear discharge, Nose pain, Nose discharge, Nose congestion, Mouth pain, Mouth swelling, Throat pain, Throat swelling, Other Respiratory: Cough, Shortness of breath; No: Dry, SOB with excertion, Wheezing, Hemoptysis, Pleuritic Pain, Sputum, Wheezing, Other Cardiovascular: Edema (lower extremities +2 edema); No: Chest Pain, Palpitations, Orthopnea, Paroxysmal Noc. Dyspnea, Lt Headedness, Other Gastrointestinal: No: Nausea, Vomiting, Abdominal Pain, Diarrhea, Constipation, Melena, Hematochezia, Other Genitourinary: No Dysuria, No Frequency, No Incontinence, No Hematuria, No Retention, No Other Musculoskeletal: No: other, neck pain, shoulder pain, arm pain, back pain, hand pain, leg pain, foot pain Skin: No: Rash, Lesions, Jaundice, Bruising, Other Neurological: No: Weakness, Numbness, Incoordination, Change in speech, Confusion, Seizures, Other Allergies: Coded Allergies: No Known Drug Allergy (Verified Allergy, Unknown, 04/01/23) Medications Current Medications Medications Dose Ordered Sig/Kimberly Route Start Time Stop Time Status Last Admin Dose Admin Acetaminophen 325 mg Q4HP PRN PO 09/27/24 09:15 Acetaminophen/ Hydrocodone Bitart 1 tab Q4HP PRN PO 09/27/24 09:15 Ondansetron HCl 4 mg Q4HP PRN IV 09/27/24 09:15 Docusate Sodium 100 mg BIDPRN PRN PO 09/27/24 09:15 Nitroglycerin 0.4 mg Q5MINP PRN SL 09/27/24 09:15 Morphine Sulfate 2 mg Q30M PRN IV 09/27/24 09:15 Aspirin 81 mg DAILY PO 09/27/24 10:00 UNV Carvedilol 3.125 mg Q12HR PO 09/27/24 10:00 Empaglifozin 10 mg DAILY PO 09/27/24 10:00 Lisinopril 5 mg DAILY PO 09/27/24 10:00 Atorvastatin Calcium 40 mg HS PO 09/27/24 22:00 Exam Vital Signs Vital Signs Date Time Temp Pulse Resp B/P (MAP) Pulse Ox O2 Delivery O2 Flow Rate FiO2 09/27/24 07:56 98.2 90 18 150/102 (118) 96 98.2 09/27/24 07:56 Room Air General Appearance: Alert, Oriented X3, Cooperative, mild distress HEENT: Atraumatic, PERRLA, EOMI, Mucous membr. moist/pink Respiratory: Clear to auscultation, Normal air movement Cardiovascular: Regular rate, Normal S1, Normal S2, No murmurs Abdominal: Normal bowel sounds, Soft, No tenderness, No hepatospenomegaly, No masses Extremities: No clubbing, No cyanosis, No edema, Normal pulses, Other (Edema bilaterally +2 lower extremities) Skin: No rashes, No breakdown, No significant lesion Neuro: Normal gait, Normal speech, Strength at 5/5 X4 ext, Normal tone, Sensati on intact, Cranial nerves 3-12 NL Psych/Mental Status: Mental status NL, Mood NL Labs/Xrays Labs and imaging reviewed Labs Test 09/27/24 09:17 09/27/24 08:01 09/27/24 06:27 Range/Units Urine Color Yellow Yellow Urine Clarity Clear Clear Urine pH 5.5 5.0-9.0 Urine Specific [place] 1.025 1.001-1.035 Urine Protein 2+ H Negative Urine Ketones Negative Negative Urine Blood 1+ H Negative /uL Urine Nitrite Negative Negative Urine Bilirubin Negative Negative Urine Urobilinogen Normal Negative mg/dL Urine Leukocyte Esterase Negative Negative /uL Urine RBC 1 0 - 3 /hpf Urine Microscopic WBC 2 0-3 /HPF Urine Squamous Epithelial Cells Few <5 /hpf Urine Bacteria Few H None Seen /hpf Urine Hyaline Casts Few 0 - 2 /lpf Urine Mucus Few None Seen Urine Glucose Normal Normal mg/dL White Blood Count 6.7 4.4-10.8 10^3/uL Red Blood Count 5.37 4.5-5.90 10^6/uL Hemoglobin 16.6 13.5-17.5 g/dL Hematocrit 49.4 41.0-53.0 % Mean Corpuscular Volume 91.9 80.0-100.0 fL Mean Corpuscular Hemoglobin 31.0 28.0-32.0 pg Mean Corpuscular Hemoglobin Concent 33.7 32.0-36.0 g/dL Red Cell Distribution Width 13.8 11.8-14.3 % Platelet Count 216 140-450 10^3/uL Mean Platelet Volume 8.8 6.9-10.8 fL Neutrophils (%) (Auto) 70.9 37.0-80.0 % Lymphocytes (%) (Auto) 19.9 10.0-50.0 % Monocytes (%) (Auto) 7.0 0.0-12.0 % Eosinophils (%) (Auto) 1.7 0.0-7.0 % Basophils (%) (Auto) 0.5 0.0-2.0 % Neutrophils # (Auto) 4.8 1.6-8.6 10 ^3/uL Lymphocytes # (Auto) 1.3 0.4-5.4 10 ^3/uL Monocytes # (Auto) 0.5 0-1.3 10 ^3/uL Eosinophils # (Auto) 0.1 0-0.8 10 ^3/uL Basophils # (Auto) 0 0-0.2 10 ^3/uL Nucleated Red Blood Cells 0.1 % Sodium Level 141 136-145 mmol/L Potassium Level 4.9 3.5-5.1 mmol/L Chloride Level 107 98-107 mmol/L Carbon Dioxide Level 27 20-31 mmol/L Anion Gap 7 5-15 Blood Urea Nitrogen 16 9-23 mg/dL Creatinine 1.00 0.700-1.30 mg/dL Glomerular Filtration Rate Calc 91 >90 mL/min BUN/Creatinine Ratio 16.0 10.0-20.0 Serum Glucose 157 H 74-106 mg/dL Calcium Level 9.7 8.7-10.4 mg/dL B-Type Natriuretic Peptide 2270.50 0-100 pg/mL Assessment/Plan Assessment/Plan CHF exacerbation Patient had echo 08/2024-EF 10-15%, severe pulmonary hypertension Troponins 629, 735-patient's troponins have been elevated on every hospital visit- lower than last hospitalization 2 weeks ago Noncompliant with medications at home Lasix IV to be given Resume home medications Supplemental oxygen PRN Chest x-ray showed no acute findings Cardiology consult History of diabetes mellitus type 2 Accu-Cheks a.c. HS Consistent carb diet Hyperlipidemia history Resume home medications GI prophylaxis not indicated Plan discussed with: Patient My Orders Orders - BETSY SIMMONS Procedure Category Date Status Time Admit ADMIT 09/27/24 Transmitted 09:05 Allergies JESSICA 09/27/24 In Process 09:05 Code Status CODE 09/27/24 Transmitted 09:05 Oxygen Per Hour RT 09/27/24 Transmitted 09:05 Acetaminophen Tablet PHA 09/27/24 In Process (Tylenol Tablet) 09:15 Hydrocodone-Acet PHA 09/27/24 In Process 5/325mg Tab ([place] 09:15 Ondansetron Hcl PHA 09/27/24 In Process (Zofran) 09:15 Docusate Sodium PHA 09/27/24 In Process Capsule (Colace 09:15 Complete Blood Count LAB 09/28/24 Verified 04:00 Comprehensive LAB 09/28/24 Verified Metabolic Panel 04:00 Cardiac DIET 09/27/24 Transmitted Diet-2gna,Lofat,Lochol Breakfast Condition: Serious JESSICA 09/27/24 In Process 09:05 Bedrest With Bathroom JESSICA 09/27/24 In Process Privileg 09:05 Nitroglycerin PHA 09/27/24 In Process Sublingual (Ntrostat 09:15 Morphine Sulfate PHA 09/27/24 In Process Injection 09:15 Stat Ekg For Chest JESSICA 09/27/24 In Process Pain 09:05 Notify Of Changes JESSICA 09/27/24 In Process From Base 09:05 Hand Worker For [facility] 09/27/24 In Process 24 Hours 09:05 Emergency Dysrhythmia [facility] 09/27/24 In Process Protocol 09:05 Rhythm Strips Once [facility] 09/27/24 In Process Every Shift 09:05 Oxygen By Nasal RT 09/27/24 Transmitted Cannula 09:05 Carvedilol Tablet PHA 09/27/24 In Process (Coreg Tablet) 10:00 Empagliflozin PHA 09/27/24 In Process (Jardiance) 10:00 Lisinopril Tablet PHA 09/27/24 In Process (Zestril Tablet) 10:00 Atorvastatin (Lipitor) PHA 09/27/24 In Process 22:00 Aspirin Enteric PHA 09/28/24 In Process Coated Tablet 10:00 Date of Service: Sep 27, 2024 Billing Provider: BETSY SIMMONS Common Visit Codes: [id number] INP/OBS CARE (HIGH) BETSY SIMMONS Sep 27, 2024 09:38
[2024-09-27] MEDS ORDERED: DEXTROSE (50%) 50ML SYRG IV PRN (09:45)
[2024-09-27] MEDS ORDERED: hydrALAZINE HCL 20 MG/ML VL IV ONE (10:00)
[2024-09-27] MEDS: EMPAGLIFLOZIN 10 MG TAB PO SCH (10:45)
[2024-09-27] MEDS: LISINOPRIL 5 MG TAB PO SCH (10:46)
[2024-09-27] MEDS: CARVEDILOL 3.125 MG TAB PO SCH (10:46)
[2024-09-27] MEDS: FUROSEMIDE 40 MG/4 ML VIAL IV SCH (10:46)
[2024-09-27] MEDS: ACCU-CHEK COMFORT CURVE STRIP VI SCH (11:34)
[2024-09-27] MEDS: InsuLIN REG 1unit/0.01ml Soln (100units/ml) SC SCH ×2 (11:41→21:39)
--- NOTE | 2024-09-27 14:34 | DVHINCON2 ---
INDIRA LOREDO [facility] 09/27/24 1434: Date Seen: Sep 27, 2024 Referring Physician KENNY Smiley Reason for Consultation CHF exacerbation History of Present Illness This is a well known 53-year-old man who presented to the emergency room with a chief complaint of shortness of breath for three days. The patient complains of progressive shortness of breath associated with PND, MILLER, orthopnea, and lower extremity edema. Denies any chest pain, palpitations, or diaphoresis. States he has not been taking his home medications neither following up with a primary biofuels plant manager in the outpatient setting. He underwent a 12 lead electrocardiogram revealing a sinus rhythm with non-specific T-wave inversion to inferior leads as well as lead V6. These changes are similar from those seen on 12 lead electrocardiograms from previous admissions. Troponin levels peaked at 735 ng/L. Troponin levels from previous admission on 09/12/2024 were flat in the 1000 ng/L. Significant past medical history includes coronary artery disease status post multiple PTCAs x2 OLIVIA including one OLIVIA to the RCA in 2021 (on ASA), ischemic/drug-induced/dilated cardiomyopathy, congestive heart failure with HFrEF, hypertension, pulmonary hypertension, severe aortic valve regurgitation, history of pulmonary embolism, type 2 diabetes mellitus, and polysubstance abuse with methamphetamines with latest use two days ago. Past Medical History Past medical history reviewed. No other significant than mentioned above. Past Surgical History Multiple PTCAs including two OLIVIA Family History: Alzheimer's disease G8 FATHER Diabetes mellitus G8 FATHER, Onset:Unknown Hypertension G8 FATHER Family History Family history reviewed. Social History Denies the use of alcohol or tobacco use. Admits to methamphetamine use with latest intake two days ago. Allergies: Coded Allergies: No Known Drug Allergy (Verified Allergy, Unknown, 04/01/23) Home Meds Active Scripts Metformin Hydrochloride (Metformin Hcl) 500 Mg Tab, 1 TAB PO BID for 30 Days, #60 TAB Prov:MARIA FERNANDA DUFF RESIDENT 09/15/24 Empagliflozin (Jardiance) 10 Mg Tab, 10 MG PO DAILY for 30 Days, #30 TAB Prov:MARIA FERNANDA DUFF RESIDENT 09/15/24 Lisinopril (Lisinopril) 5 Mg Tab, 5 MG PO DAILY for 30 Days, #30 TAB 3 Refills Prov:MARIA FERNANDA DUFF RESIDENT 09/15/24 Carvedilol (COREG) 3.125 Mg Tab, 3.125 MG PO Q12HR for 30 Days, #60 TAB Prov:MARIA FERNANDA DUFF RESIDENT 09/15/24 Aspirin (ASPIRIN 81) 81 Mg Tab, 81 MG PO DAILY for 30 Days, #30 TAB Prov:MARIA FERNANDA DUFF RESIDENT 09/15/24 Spironolactone (Aldactone) 25 Mg Tab, 12.5 MG PO DAILY, #30 TAB 5 Refills Prov:MARIA FERNANDA DUFF RESIDENT 09/15/24 Atorvastatin Calcium (ATORVASTATIN CALCIUM) 40 Mg Tab, 1 TAB PO DAILY for 30 Days, #30 TAB 5 Refills Prov:MARIA FERNANDA DUFF RESIDENT 09/15/24 Acetaminophen (Acetaminophen) 325 Mg Tab, 650 MG PO Q6HP PRN for 10 Days, #80 TAB Prov:ALEXANDRAJESSICAJUDD RESIDENT 05/06/24 Furosemide (Lasix) 40 Mg Tab, 40 MG PO DAILY, #90 TAB Prov:AYAKA SCHMIDT MD 03/04/24 Home Meds Home medications reviewed. Current Medications Current Medications Medications (Trade) Dose Ordered Sig/Kimberly Route PRN Reason Start Time Stop Time Status Last Admin Acetaminophen (Tylenol Tablet) 325 mg Q4HP PRN PO MILD PAIN (1-3 PAIN SCALE) 09/27/24 09:15 Acetaminophen/ Hydrocodone Bitart ([place] 5/325MG Tab) 1 tab Q4HP PRN PO MODERATE PAIN (4-6 PAIN SCALE) 09/27/24 09:15 Ondansetron HCl (Zofran) 4 mg Q4HP PRN IV NAUSEA / VOMITING 09/27/24 09:15 Docusate Sodium (Colace Capsule) 100 mg BIDPRN PRN PO FOR CONSTIPATION 09/27/24 09:15 Nitroglycerin (Ntrostat Sublingual) 0.4 mg Q5MINP PRN SL FOR CHEST PAIN 09/27/24 09:15 Morphine Sulfate 2 mg Q30M PRN IV FOR CHEST PAIN 09/27/24 09:15 Aspirin (Ecotrin Enteric Coated Tablet) 81 mg DAILY PO 09/28/24 10:00 Carvedilol (Coreg Tablet) 3.125 mg Q12HR PO 09/27/24 10:00 09/27/24 10:46 Empaglifozin (Jardiance) 10 mg DAILY PO 09/27/24 10:00 09/27/24 10:45 Lisinopril (Zestril Tablet) 5 mg DAILY PO 09/27/24 10:00 09/27/24 10:46 Atorvastatin Calcium (Lipitor) 40 mg HS PO 09/27/24 22:00 Furosemide (Lasix Injection) 40 mg BIDD IV 09/27/24 09:36 09/27/24 10:46 Diagnostic Test (Pha) (Accu-Chek Comfort Curve T) 1 strip ACHS 09/27/24 11:30 09/27/24 11:34 Insulin Human Regular (InsuLIN R) HS SC 09/27/24 22:00 Insulin Human Regular (InsuLIN R) AC SC 09/27/24 11:30 09/27/24 11:41 Dextrose 50 ml UD PRN IV Blood Sugar LESS THAN 60 09/27/24 09:45 Review of Systems Constitutional: No symptom reported Ears, Nose, & Throat: No symptom reported Eyes: No symptom reported Neurological: No symptoms reported Pulmonary/Respiratory: SOB, PND, MILLER Cardiovascular: No symptom reported Gastrointestinal: No symptom reported Genitourinary: No symptom reported Musculoskeletal: No symptom reported Skin: No symptom reported Psychiatric: No symptom reported Endocrine: No symptom reported Hemotologic/Lymphatic: No symptom reported Vital Signs Vital Signs Date Time Temp Pulse Resp B/P (MAP) Pulse Ox O2 Delivery O2 Flow Rate FiO2 09/27/24 12:00 81 26 126/93 (104) 94 09/27/24 08:30 97.7 97.7 09/27/24 08:30 Nasal Cannula* 2 28 Physical Exam General Appearance: Cooperative. Unkept. In no acute distress Head Exam: Normal inspection Neck Exam: Normal inspection. Non-tender. Normal alignment Pulmonary/Respiratory: Chest non-tender. Clear bilateral breath sounds Cardiovascular/Chest: Regular rate and rhythm. S1, S2. SR with non-specific T- wave changes to inferior leads as well as lead V6. No murmurs. + JVD. Peripheral Pulses: 2+ Radial (R). 2+ Radial (L). 2+ Pedal (R). 2+ Pedal (L) Abdominal Exam: Normal bowel sounds. Soft. Nontender. No hepatospenomegaly. No masses Ankle Exam: Positive pitting ankle edema, 1+ Lower extremities: Positive pitting lower extremity edema, 1+ Neuro/Mental Status: A&O x4. Coherent Thoughts/Psych: Normal thought pattern. Appropriate mood and affect. Good judgement and insight Appearance: In no acute distress Skin Exam: Normal inspection. Normal color. Warm. Dry Labs/Diagnostic Data Labs Test 09/27/24 11:33 09/27/24 09:17 09/27/24 08:01 09/27/24 06:27 Range/Units POC Glucose 146 H 70-106 mg/dl Troponin I High Sensitivity 699 *H </=54 ng/L Urine Color Yellow Yellow Urine Clarity Clear Clear Urine pH 5.5 5.0-9.0 Urine Specific [place] 1.025 1.001-1.035 Urine Protein 2+ H Negative Urine Ketones Negative Negative Urine Blood 1+ H Negative /uL Urine Nitrite Negative Negative Urine Bilirubin Negative Negative Urine Urobilinogen Normal Negative mg/dL Urine Leukocyte Esterase Negative Negative /uL Urine RBC 1 0 - 3 /hpf Urine Microscopic WBC 2 0-3 /HPF Urine Squamous Epithelial Cells Few <5 /hpf Urine Bacteria Few H None Seen /hpf Urine Hyaline Casts Few 0 - 2 /lpf Urine Mucus Few None Seen Urine Glucose Normal Normal mg/dL White Blood Count 6.7 4.4-10.8 10^3/uL Red Blood Count 5.37 4.5-5.90 10^6/uL Hemoglobin 16.6 13.5-17.5 g/dL Hematocrit 49.4 41.0-53.0 % Mean Corpuscular Volume 91.9 80.0-100.0 fL Mean Corpuscular Hemoglobin 31.0 28.0-32.0 pg Mean Corpuscular Hemoglobin Concent 33.7 32.0-36.0 g/dL Red Cell Distribution Width 13.8 11.8-14.3 % Platelet Count 216 140-450 10^3/uL Mean Platelet Volume 8.8 6.9-10.8 fL Neutrophils (%) (Auto) 70.9 37.0-80.0 % Lymphocytes (%) (Auto) 19.9 10.0-50.0 % Monocytes (%) (Auto) 7.0 0.0-12.0 % Eosinophils (%) (Auto) 1.7 0.0-7.0 % Basophils (%) (Auto) 0.5 0.0-2.0 % Neutrophils # (Auto) 4.8 1.6-8.6 10 ^3/uL Lymphocytes # (Auto) 1.3 0.4-5.4 10 ^3/uL Monocytes # (Auto) 0.5 0-1.3 10 ^3/uL Eosinophils # (Auto) 0.1 0-0.8 10 ^3/uL Basophils # (Auto) 0 0-0.2 10 ^3/uL Nucleated Red Blood Cells 0.1 % Sodium Level 141 136-145 mmol/L Potassium Level 4.9 3.5-5.1 mmol/L Chloride Level 107 98-107 mmol/L Carbon Dioxide Level 27 20-31 mmol/L Anion Gap 7 5-15 Blood Urea Nitrogen 16 9-23 mg/dL Creatinine 1.00 0.700-1.30 mg/dL Glomerular Filtration Rate Calc 91 >90 mL/min BUN/Creatinine Ratio 16.0 10.0-20.0 Serum Glucose 157 H 74-106 mg/dL Calcium Level 9.7 8.7-10.4 mg/dL B-Type Natriuretic Peptide 2270.50 0-100 pg/mL Assessment Acute on chronic decompensated HFrEF, NYHA class III NSTEMI likely type II secondary to above Coronary artery disease status post multiple PTCAs x2 OLIVIA (on ASA) Ischemic/drug-induced/dilated cardiomyopathy with LVEF of 10-15%% Aortic valve regurgitation, severe Pulmonary hypertension, severe History of pulmonary embolism Hypertension Type 2 diabetes mellitus, uncontrolled (Hgb A1c 7.4%) Polysubstance abuse with methamphetamines Medical non-compliance Plan/Recommendation (Dr. Villegas) Transthoracic echocardiogram from 09/13/2024 revealed LVEF 15% with remarkable dilated cardiomyopathy, severe global hypokinesis, and severe aortic valve regurgitation. Continue GDMT for CHF and up-titrate as tolerated. Continue single-antiplatelet therapy and lipid lowering agent. Preload and afterload reduction with strict I&Os, daily weights, fluid restrictions. Initiate DVT/VTE prophylaxis. Conservative management given poor medical compliance and substance abuse. No invasive cardiac workup indicated at this time. Follow-up with primary biofuels plant manager within 1-2 weeks post discharge. Strongly advised for polysubstance abuse cessation and medical compliance. There is no further cardiac workup indicated at this time. Kindly call if you need to re-consult. Thank you for allowing us to participate in this patient's care. This medical document was created using an electronic medical record system with voice recognition software and computerized dictation system. Although this document has been carefully reviewed, there might still be some phonetic and typographical errors. Occasional wrong-word or ``sound-alike substitutions may have occurred due to the inherent limitations of voice recognition software. These areas are purely typographical due to imperfections of the software programs and do not reflect any compromise in the patient's medical care. Please read the chart carefully and recognize, using context, where these substitutions have occurred. Plan discussed with: Patient, Other NYHA Physical activity limitations: Class3(Marked) ordinary (activity causes symtoms) Date of Service: Sep 27, 2024 Billing Provider: INDIRA LOREDO Cardiology Common Codes: [id number] INP/OBS CARE (High) ORLIN VILLEGAS MD 09/28/24 0941: Date Seen: Sep 27, 2024 Family History: Alzheimer's disease G8 FATHER Diabetes mellitus G8 FATHER, Onset:Unknown Hypertension G8 FATHER Allergies: Coded Allergies: No Known Drug Allergy (Verified Allergy, Unknown, 04/01/23) Home Meds Active Scripts Metformin Hydrochloride (Metformin Hcl) 500 Mg Tab, 1 TAB PO BID for 30 Days, #60 TAB Prov:MRAIA FERNANDA DUFF 09/15/24 Empagliflozin (Jardiance) 10 Mg Tab, 10 MG PO DAILY for 30 Days, #30 TAB Prov:MARIA FERNANDA DUFF 09/15/24 Lisinopril (Lisinopril) 5 Mg Tab, 5 MG PO DAILY for 30 Days, #30 TAB 3 Refills Prov:MARIA FERNANDA DUFF 09/15/24 Carvedilol (COREG) 3.125 Mg Tab, 3.125 MG PO Q12HR for 30 Days, #60 TAB Prov:MARIA FERNANDA DUFF 09/15/24 Aspirin (ASPIRIN 81) 81 Mg Tab, 81 MG PO DAILY for 30 Days, #30 TAB Prov:MARIA FERNANDA DUFF 09/15/24 Spironolactone (Aldactone) 25 Mg Tab, 12.5 MG PO DAILY, #30 TAB 5 Refills Prov:MARIA EFRNANDA DUFF 09/15/24 Atorvastatin Calcium (ATORVASTATIN CALCIUM) 40 Mg Tab, 1 TAB PO DAILY for 30 Days, #30 TAB 5 Refills Prov:MARIA FERNANDA DUFF 09/15/24 Acetaminophen (Acetaminophen) 325 Mg Tab, 650 MG PO Q6HP PRN for 10 Days, #80 TAB Prov:JUDD ESTES 05/06/24 Furosemide (Lasix) 40 Mg Tab, 40 MG PO DAILY, #90 TAB Prov:AYAKA SCHMIDT MD 03/04/24 Plan/Recommendation 53yo M with end stage cardiomyopathy and drug use. med noncompliance. Stressed to patient importance of drug rehab, he willing to go to inpatient rehab. please consult case management. ideally if he is drug free and compliant with meds could be a candidate for transplant evaluation. Dr. massey to follow management while inpatient for optimization of acute decompensation. Plan discussed with: Patient LOREDO,INDIRA FNP Sep 27, 2024 14:34 ORLIN VILLEGAS MD Sep 28, 2024 09:41
[2024-09-27] MEDS: HYDROcodone-ACET 5/325MG TAB PO PRN (15:00)
[2024-09-27 15:09] LABS: Amphetamine Screen, Urine Pos (NEGATIVE); Barbiturate Scree,Urine Neg (NEGATIVE); Benzodiazephine Screen, Urine Neg (NEGATIVE); Cannabinoid Screen, Urine Neg (NEGATIVE); Cocaine Screen, Urine Neg (NEGATIVE); Opiate Scree,Urine Neg (NEGATIVE); Phencyclidine Screen, Urine Neg (NEGATIVE)
[2024-09-27] MEDS: ENOXAPARIN SOD 30 MG/0.3 ML SYRINGE SC ONE (16:24)
[2024-09-27] MEDS: BUMETANIDE 2.5mg/10ml (0.25 mg/ml) INJ IV SCH (18:27)
[2024-09-27] MEDS: ATORVASTATIN 20 MG TAB PO SCH (21:33)
[2024-09-28 06:48] LABS: Hemoglobin 18.2 g/dL (13.5-17.5); Lymphocytes # (auto) 1.4 10 ^3/uL (0.4-5.4); Monocytes # (auto) 0.8 10 ^3/uL (0-1.3)
[2024-09-28 06:50] LABS: Basophils # (auto) 0.1 10 ^3/uL (0-0.2); Basophils % (auto) 0.9 % (0.0-2.0); Eosinophils # (auto) 0.2 10 ^3/uL (0-0.8); Hematocrit 53.5 % (41.0-53.0); Lymphocytes % (auto) 18.7 % (10.0-50.0); Mean Corpuscular Hemoglobin 30.7 pg (28.0-32.0); Mean Corpuscular Volume 90.4 fL (80.0-100.0); Neutrophils # (auto) 5.3 10 ^3/uL (1.6-8.6); Neutrophils % (auto) 68.4 % (37.0-80.0); Nucleated Red Blood Cells % 0.4 %; Platelet Count (auto) 256 10^3/uL (140-450); Red Blood Cells 5.92 10^6/uL (4.5-5.90); Red Cell Distribution Width 13.6 % (11.8-14.3); White Blood Cell 7.7 10^3/uL (4.4-10.8)
[2024-09-28 07:44] LABS: Alanine Aminotransferase 26 U/L (7-40); Albumin 4.2 g/dL (3.2-4.8); Alkaline Phosphatase 80 U/L (46-116); Anion Gap 10 (5-15); Aspartate Aminotransferase 30 U/L (13-40); BUN/Creatinine Ratio 22.6 (10.0-20.0); Calcium 9.7 mg/dL (8.7-10.4); Carbon Dioxide 27 mmol/L (20-31); Chloride 101 mmol/L (98-107); Potassium 4.3 mmol/L (3.5-5.1); Sodium 138 mmol/L (136-145); Total Protein 7.5 g/dL (5.7-8.2)
[2024-09-28 07:45] LABS: Bilirubin, Total 0.9 mg/dL (0.2-1.0)
[2024-09-28 07:48] LABS: Blood Urea Nitrogen 26 mg/dL (9-23); Glucose 132 mg/dL (74-106)
[2024-09-28] MEDS: SPIRONOLACTONE 25 MG TAB PO SCH (09:31)
[2024-09-28] MEDS: ASPirin-EC 81 mg tab PO SCH (09:32)
[2024-09-28] MEDS: ENOXAPARIN SOD 30 MG/0.3 ML SYRINGE SC SCH (09:33)
--- NOTE | 2024-09-28 13:46 | DVHPN2 ---
Reviewed: Care Plan, H&P, Labs, Medications, Previous Orders, Radiology Changes from previous H/P or p: No Changes Eyes: No Pain, No Vision change, No Conjunctivae inflammation, No Eyelid inflammation, No Other, No Redness ENT: No Ear pain, No Ear discharge, No Nose pain, No Nose discharge, No Nose congestion, No Mouth pain, No Mouth swelling, No Throat pain, No Throat swelling, No Other Cardiovascular: No Chest Pain, No Palpitations, No Orthopnea, No Paroxysmal Noc. Dyspnea; Edema (lower extremities +2 edema); No Lt Headedness, No Other Respiratory: Cough; No Dry; Shortness of breath; No SOB with excertion, No Wheezing, No Hemoptysis, No Pleuritic Pain, No Sputum, No Other Gastrointestinal: No Nausea, No Vomiting, No Abdominal Pain, No Diarrhea, No Constipation, No Melena, No Hematochezia, No Other Genitourinary: No Dysuria, No Frequency, No Incontinence, No Hematuria, No Retention, No Other Musculoskeletal: No other, No neck pain, No shoulder pain, No arm pain, No back pain, No hand pain, No leg pain, No foot pain Skin: No Rash, No Lesions, No Jaundice, No Bruising, No Other Objective Vitals Vital Signs Date Time Temp Pulse Resp B/P (MAP) Pulse Ox O2 Delivery O2 Flow Rate FiO2 09/28/24 13:00 71 22 109/84 (92) 95 09/28/24 12:00 97.4 97.4 09/28/24 11:25 Nasal Cannula* 4 36 Intake/Output Intake and Output 09/28/24 07:00 Output Total 5600 ml Balance -5600 ml Output Urine Total 5600 ml Medications Current Medications Medications Dose Ordered Sig/Kimberly Route Start Time Stop Time Status Last Admin Dose Admin Acetaminophen 325 mg Q4HP PRN PO 09/27/24 09:15 Acetaminophen/ Hydrocodone Bitart 1 tab Q4HP PRN PO 09/27/24 09:15 09/27/24 20:58 1 TAB Ondansetron HCl 4 mg Q4HP PRN IV 09/27/24 09:15 Docusate Sodium 100 mg BIDPRN PRN PO 09/27/24 09:15 Nitroglycerin 0.4 mg Q5MINP PRN SL 09/27/24 09:15 Morphine Sulfate 2 mg Q30M PRN IV 09/27/24 09:15 Aspirin 81 mg DAILY PO 09/28/24 10:00 09/28/24 09:32 81 MG Carvedilol 3.125 mg Q12HR PO 09/27/24 10:00 09/28/24 09:32 3.125 MG Empaglifozin 10 mg DAILY PO 09/27/24 10:00 09/28/24 09:31 10 MG Lisinopril 5 mg DAILY PO 09/27/24 10:00 09/28/24 09:31 5 MG Atorvastatin Calcium 40 mg HS PO 09/27/24 22:00 09/27/24 21:33 40 MG Diagnostic Test (Pha) 1 strip ACHS 09/27/24 11:30 09/28/24 11:32 1 STRIP Insulin Human Regular HS SC 09/27/24 22:00 09/27/24 21:39 3 UNITS Insulin Human Regular AC SC 09/27/24 11:30 09/28/24 11:36 6 UNITS Dextrose 50 ml UD PRN IV 09/27/24 09:45 Spironolactone 12.5 mg DAILY PO 09/28/24 10:00 09/28/24 09:31 12.5 MG Bumetanide 2.5 mg BIDD IV 09/27/24 18:00 09/28/24 06:38 2.5 MG Enoxaparin Sodium 30 mg DAILY SC 09/28/24 10:00 09/28/24 09:33 30 MG Laboratory Results Laboratory Tests 09/28/24 06:04 09/28/24 06:05 Chemistry Test 09/28/24 06:04 Albumin 4.2 g/dL (3.2-4.8) Calcium Level 9.7 mg/dL (8.7-10.4) Total Protein 7.5 g/dL (5.7-8.2) Cardiac Markers Test 09/28/24 05:06 B-Type Natriuretic Peptide 1723.11 pg/mL (0-100) LFT Test 09/28/24 06:04 Alanine Aminotransferase (ALT) 26 U/L (7-40) Alkaline Phosphatase 80 U/L (46-116) Aspartate Amino Transferase (AST) 30 U/L (13-40) Total Bilirubin 0.9 mg/dL (0.2-1.0) Urinalysis Test 09/27/24 08:01 Urine Color Yellow (Yellow) Urine Clarity Clear (Clear) Urine pH 5.5 (5.0-9.0) Urine Specific [place] 1.025 (1.001-1.035) Urine Protein 2+ (Negative) H Urine Ketones Negative (Negative) Urine Blood 1+ /uL (Negative) H Urine Nitrite Negative (Negative) Urine Bilirubin Negative (Negative) Urine Urobilinogen Normal mg/dL (Negative) Urine Leukocyte Esterase Negative /uL (Negative) Urine RBC 1 /hpf (0 - 3) Urine Microscopic WBC 2 /HPF (0-3) Urine Squamous Epithelial Cells Few /hpf (<5) Urine Bacteria Few /hpf (None Seen) H Urine Hyaline Casts Few /lpf (0 - 2) Urine Mucus Few (None Seen) Urine Glucose Normal mg/dL (Normal) Labs and/or images reviewed: Labs reviewed by me, Image(s) reviewed by me Assessment/Plan Assessment/Plan Acute on chronic decompensated HFrEF, NYHA class III, cardiology consult appreciated NSTEMI likely type II secondary to above Coronary artery disease status post multiple PTCAs x2 OLIVIA (on ASA) Ischemic/drug-induced/dilated cardiomyopathy with LVEF of 10-15%% Aortic valve regurgitation, severe Pulmonary hypertension, severe History of pulmonary embolism Hypertension Type 2 diabetes mellitus, uncontrolled (Hgb A1c 7.4%) Polysubstance abuse with methamphetamines Medical non-compliance Time spent 70 minutes Advanced care planning time 20 minutes Patient is full code Plan discussed with: Patient Date of Service: Sep 28, 2024 Billing Provider: CHRISTIANO BENJAMIN MD Common Visit Codes: [id number] CARE 30-74 MIN CHRISTIANO BENJAMIN MD Sep 28, 2024 13:46
[2024-09-28 14:15] VITALS: BP 124/86; PULSE 76; RESP 16; O2SAT 98
[2024-09-28 18:36] VITALS: PULSE 66; RESP 18; O2SAT 99
[2024-09-28 18:52] VITALS: BP 123/90; PULSE 98; RESP 18; TEMP 97.7; O2SAT 98
[2024-09-28 20:00] VITALS: PULSE 62; PULSE 97; RESP 18; O2SAT 99
[2024-09-28] MEDS: ONDANSETRON HCL 4 MG/2 ML VIAL IV PRN (21:23)
[2024-09-29] VITALS (8 sets, daily range): BP systolic 101–124; BP diastolic 73–87; PULSE 55–68; RESP 18–19; TEMP 97.9–98.7; O2SAT 92–99
--- NOTE | 2024-09-29 11:35 | DVHPN2 ---
Reviewed: Care Plan, H&P, Labs, Medications, Previous Orders, Radiology Changes from previous H/P or p: No Changes Eyes: No Pain, No Vision change, No Conjunctivae inflammation, No Eyelid inflammation, No Other, No Redness ENT: No Ear pain, No Ear discharge, No Nose pain, No Nose discharge, No Nose congestion, No Mouth pain, No Mouth swelling, No Throat pain, No Throat swelling, No Other Cardiovascular: No Chest Pain, No Palpitations, No Orthopnea, No Paroxysmal Noc. Dyspnea; Edema (lower extremities +2 edema); No Lt Headedness, No Other Respiratory: Cough; No Dry; Shortness of breath; No SOB with excertion, No Wheezing, No Hemoptysis, No Pleuritic Pain, No Sputum, No Other Gastrointestinal: No Nausea, No Vomiting, No Abdominal Pain, No Diarrhea, No Constipation, No Melena, No Hematochezia, No Other Genitourinary: No Dysuria, No Frequency, No Incontinence, No Hematuria, No Retention, No Other Musculoskeletal: No other, No neck pain, No shoulder pain, No arm pain, No back pain, No hand pain, No leg pain, No foot pain Skin: No Rash, No Lesions, No Jaundice, No Bruising, No Other Objective Vitals Vital Signs Date Time Temp Pulse Resp B/P (MAP) Pulse Ox O2 Delivery O2 Flow Rate FiO2 09/29/24 10:45 110/73 09/29/24 10:43 68 09/29/24 08:42 97.9 18 93 97.9 09/28/24 20:00 Nasal Cannula* 2 28 Intake/Output Intake and Output 09/29/24 07:00 Intake Total 1653 ml Output Total 800 ml Balance 853 ml Intake Oral 1653 ml Output Urine Total 800 ml # Voids 4 Medications Current Medications Medications Dose Ordered Sig/Kimberly Route Start Time Stop Time Status Last Admin Dose Admin Acetaminophen 325 mg Q4HP PRN PO 09/27/24 09:15 Acetaminophen/ Hydrocodone Bitart 1 tab Q4HP PRN PO 09/27/24 09:15 09/29/24 10:43 1 TAB Ondansetron HCl 4 mg Q4HP PRN IV 09/27/24 09:15 09/28/24 21:23 4 MG Docusate Sodium 100 mg BIDPRN PRN PO 09/27/24 09:15 Nitroglycerin 0.4 mg Q5MINP PRN SL 09/27/24 09:15 Morphine Sulfate 2 mg Q30M PRN IV 09/27/24 09:15 Aspirin 81 mg DAILY PO 09/28/24 10:00 09/29/24 10:38 81 MG Carvedilol 3.125 mg Q12HR PO 09/27/24 10:00 09/29/24 10:43 3.125 MG Empaglifozin 10 mg DAILY PO 09/27/24 10:00 09/29/24 10:39 10 MG Lisinopril 5 mg DAILY PO 09/27/24 10:00 09/29/24 10:45 5 MG Atorvastatin Calcium 40 mg HS PO 09/27/24 22:00 09/28/24 21:04 40 MG Diagnostic Test (Pha) 1 strip ACHS 09/27/24 11:30 09/29/24 10:45 1 STRIP Insulin Human Regular HS SC 09/27/24 22:00 09/28/24 21:23 6 UNITS Insulin Human Regular AC SC 09/27/24 11:30 09/29/24 10:56 6 UNITS Dextrose 50 ml UD PRN IV 09/27/24 09:45 Spironolactone 12.5 mg DAILY PO 09/28/24 10:00 09/29/24 10:39 12.5 MG Bumetanide 2.5 mg BIDD IV 09/27/24 18:00 09/29/24 06:45 2.5 MG Enoxaparin Sodium 30 mg DAILY SC 09/28/24 10:00 09/29/24 10:44 30 MG Laboratory Results Laboratory Tests 09/28/24 06:04 09/28/24 06:05 Urinalysis Test 09/27/24 08:01 Urine Color Yellow (Yellow) Urine Clarity Clear (Clear) Urine pH 5.5 (5.0-9.0) Urine Specific [place] 1.025 (1.001-1.035) Urine Protein 2+ (Negative) H Urine Ketones Negative (Negative) Urine Blood 1+ /uL (Negative) H Urine Nitrite Negative (Negative) Urine Bilirubin Negative (Negative) Urine Urobilinogen Normal mg/dL (Negative) Urine Leukocyte Esterase Negative /uL (Negative) Urine RBC 1 /hpf (0 - 3) Urine Microscopic WBC 2 /HPF (0-3) Urine Squamous Epithelial Cells Few /hpf (<5) Urine Bacteria Few /hpf (None Seen) H Urine Hyaline Casts Few /lpf (0 - 2) Urine Mucus Few (None Seen) Urine Glucose Normal mg/dL (Normal) Labs and/or images reviewed: Labs reviewed by me, Image(s) reviewed by me Assessment/Plan Assessment/Plan Acute on chronic decompensated HFrEF, NYHA class III, cardiology consult appreciated NSTEMI likely type II secondary to above Coronary artery disease status post multiple PTCAs x2 OLIVIA (on ASA) Ischemic/drug-induced/dilated cardiomyopathy with LVEF of 10-15%% Aortic valve regurgitation, severe Pulmonary hypertension, severe History of pulmonary embolism Hypertension Type 2 diabetes mellitus, uncontrolled (Hgb A1c 7.4%) Polysubstance abuse with methamphetamines Medical non-compliance Time spent 50 minutes Discussed with the patient about referral to the inpatient drug rehab center, the patient tells me he will go home and think about it Plan discussed with: Patient Date of Service: September 29, 2024 Billing Provider: CHRISTIANO BENJAMIN MD Common Visit Codes: [id number] INP/OBS CARE(HIGH) CHRISTIANO BENJAMIN MD September 29, 2024 11:34
[2024-09-30 01:00] VITALS: BP 97/70; PULSE 60; RESP 18; TEMP 98.1; O2SAT 96
[2024-09-30 05:00] VITALS: BP 114/75; PULSE 66; RESP 18; TEMP 97.8; O2SAT 98
[2024-09-30 08:00] VITALS: PULSE 70; PULSE 96; RESP 18; O2SAT 96
[2024-09-30 08:56] VITALS: BP 124/88; PULSE 72; RESP 20; TEMP 97.9; O2SAT 96
--- NOTE | 2024-09-30 10:50 | DVHPN2 ---
Reviewed: Care Plan, H&P, Labs, Medications, Previous Orders, Radiology Changes from previous H/P or p: No Changes Eyes: No Pain, No Vision change, No Conjunctivae inflammation, No Eyelid inflammation, No Other, No Redness ENT: No Ear pain, No Ear discharge, No Nose pain, No Nose discharge, No Nose congestion, No Mouth pain, No Mouth swelling, No Throat pain, No Throat swelling, No Other Cardiovascular: No Chest Pain, No Palpitations, No Orthopnea, No Paroxysmal Noc. Dyspnea; Edema (lower extremities +2 edema); No Lt Headedness, No Other Respiratory: Cough; No Dry; Shortness of breath; No SOB with excertion, No Wheezing, No Hemoptysis, No Pleuritic Pain, No Sputum, No Other Gastrointestinal: No Nausea, No Vomiting, No Abdominal Pain, No Diarrhea, No Constipation, No Melena, No Hematochezia, No Other Genitourinary: No Dysuria, No Frequency, No Incontinence, No Hematuria, No Retention, No Other Musculoskeletal: No other, No neck pain, No shoulder pain, No arm pain, No back pain, No hand pain, No leg pain, No foot pain Skin: No Rash, No Lesions, No Jaundice, No Bruising, No Other Objective Vitals Vital Signs Date Time Temp Pulse Resp B/P (MAP) Pulse Ox O2 Delivery O2 Flow Rate FiO2 09/30/24 09:26 124/88 09/30/24 09:26 96 09/30/24 08:56 97.9 20 96 97.9 09/30/24 08:00 Nasal Cannula* 2 28 Intake/Output Intake and Output 09/30/24 07:00 Intake Total 1160 ml Output Total 1840 ml Balance -680 ml Intake Oral 1160 ml Output Urine Total 1840 ml # Bowel Movements 3 Medications Current Medications Medications Dose Ordered Sig/Kimberly Route Start Time Stop Time Status Last Admin Dose Admin Acetaminophen 325 mg Q4HP PRN PO 09/27/24 09:15 Acetaminophen/ Hydrocodone Bitart 1 tab Q4HP PRN PO 09/27/24 09:15 09/29/24 20:07 1 TAB Ondansetron HCl 4 mg Q4HP PRN IV 09/27/24 09:15 09/30/24 06:06 4 MG Docusate Sodium 100 mg BIDPRN PRN PO 09/27/24 09:15 Nitroglycerin 0.4 mg Q5MINP PRN SL 09/27/24 09:15 Morphine Sulfate 2 mg Q30M PRN IV 09/27/24 09:15 Aspirin 81 mg DAILY PO 09/28/24 10:00 09/30/24 09:24 81 MG Carvedilol 3.125 mg Q12HR PO 09/27/24 10:00 09/30/24 09:26 3.125 MG Empaglifozin 10 mg DAILY PO 09/27/24 10:00 09/30/24 09:27 10 MG Lisinopril 5 mg DAILY PO 09/27/24 10:00 09/30/24 09:26 5 MG Atorvastatin Calcium 40 mg HS PO 09/27/24 22:00 09/29/24 21:07 40 MG Diagnostic Test (Pha) 1 strip ACHS 09/27/24 11:30 09/30/24 06:11 1 STRIP Insulin Human Regular HS SC 09/27/24 22:00 09/29/24 21:12 4 UNITS Insulin Human Regular AC SC 09/27/24 11:30 09/30/24 06:12 3 UNITS Dextrose 50 ml UD PRN IV 09/27/24 09:45 Spironolactone 12.5 mg DAILY PO 09/28/24 10:00 09/30/24 09:24 12.5 MG Bumetanide 2.5 mg BIDD IV 09/27/24 18:00 09/30/24 06:06 2.5 MG Enoxaparin Sodium 30 mg DAILY SC 09/28/24 10:00 09/30/24 09:23 30 MG Laboratory Results Laboratory Tests 09/28/24 06:04 09/28/24 06:05 Urinalysis Test 09/27/24 08:01 Urine Color Yellow (Yellow) Urine Clarity Clear (Clear) Urine pH 5.5 (5.0-9.0) Urine Specific [place] 1.025 (1.001-1.035) Urine Protein 2+ (Negative) H Urine Ketones Negative (Negative) Urine Blood 1+ /uL (Negative) H Urine Nitrite Negative (Negative) Urine Bilirubin Negative (Negative) Urine Urobilinogen Normal mg/dL (Negative) Urine Leukocyte Esterase Negative /uL (Negative) Urine RBC 1 /hpf (0 - 3) Urine Microscopic WBC 2 /HPF (0-3) Urine Squamous Epithelial Cells Few /hpf (<5) Urine Bacteria Few /hpf (None Seen) H Urine Hyaline Casts Few /lpf (0 - 2) Urine Mucus Few (None Seen) Urine Glucose Normal mg/dL (Normal) Assessment/Plan Assessment/Plan Acute on chronic decompensated HFrEF, NYHA class III, cardiology consult appreciated NSTEMI likely type II secondary to above Coronary artery disease status post multiple PTCAs x2 OLIVIA (on ASA) Ischemic/drug-induced/dilated cardiomyopathy with 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-15%% Aortic valve regurgitation, severe Pulmonary hypertension, severe History of pulmonary embolism Hypertension Type 2 diabetes mellitus, uncontrolled (Hgb A1c 7.4%) Polysubstance abuse with methamphetamines Medical non-compliance Time spent 50 minutes Discussed with the patient about referral to the inpatient drug rehab center, the patient tells me he will go home and think about it Patient requesting to be discharged home today Plan discussed with: Patient Date of Service: September 30, 2024 Billing Provider: CHRISTIANO BENJAMIN MD Common Visit Codes: [id number] INP/OBS CARE(HIGH) CHRISTIANO BENJAMIN MD September 30, 2024 10:50
--- NOTE | 2024-09-30 10:55 | DVHDS2 ---
Discharge Summary Date of Admission Sep 27, 2024 at 09:05 Date of Discharge: September 30, 2024 Admitting Diagnosis Shortness of breath Wounds: None Labs/Diagnostic Data: Laboratory Results Test 09/30/24 06:09 09/28/24 06:05 09/28/24 06:04 09/28/24 05:06 POC Glucose 175 mg/dl (70-106) White Blood Count 7.7 10^3/uL (4.4-10.8) Red Blood Count 5.92 10^6/uL (4.5-5.90) Hemoglobin 18.2 g/dL (13.5-17.5) Hematocrit 53.5 % (41.0-53.0) Mean Corpuscular Volume 90.4 fL (80.0-100.0) Mean Corpuscular Hemoglobin 30.7 pg (28.0-32.0) Mean Corpuscular Hemoglobin Concent 34.0 g/dL (32.0-36.0) Red Cell Distribution Width 13.6 % (11.8-14.3) Platelet Count 256 10^3/uL (140-450) Mean Platelet Volume 8.7 fL (6.9-10.8) Neutrophils (%) (Auto) 68.4 % (37.0-80.0) Lymphocytes (%) (Auto) 18.7 % (10.0-50.0) Monocytes (%) (Auto) 10.0 % (0.0-12.0) Eosinophils (%) (Auto) 2.0 % (0.0-7.0) Basophils (%) (Auto) 0.9 % (0.0-2.0) Neutrophils # (Auto) 5.3 10 ^3/uL (1.6-8.6) Lymphocytes # (Auto) 1.4 10 ^3/uL (0.4-5.4) Monocytes # (Auto) 0.8 10 ^3/uL (0-1.3) Eosinophils # (Auto) 0.2 10 ^3/uL (0-0.8) Basophils # (Auto) 0.1 10 ^3/uL (0-0.2) Nucleated Red Blood Cells 0.4 % Sodium Level 138 mmol/L (136-145) Potassium Level 4.3 mmol/L (3.5-5.1) Chloride Level 101 mmol/L (98-107) Carbon Dioxide Level 27 mmol/L (20-31) Anion Gap 10 (5-15) Blood Urea Nitrogen 26 mg/dL (9-23) Creatinine 1.15 mg/dL (0.700-1.30) Glomerular Filtration Rate Calc 77 mL/min (>90) BUN/Creatinine Ratio 22.6 (10.0-20.0) Serum Glucose 132 mg/dL (74-106) Calcium Level 9.7 mg/dL (8.7-10.4) Total Bilirubin 0.9 mg/dL (0.2-1.0) Aspartate Amino Transferase (AST) 30 U/L (13-40) Alanine Aminotransferase (ALT) 26 U/L (7-40) Alkaline Phosphatase 80 U/L (46-116) Total Protein 7.5 g/dL (5.7-8.2) Albumin 4.2 g/dL (3.2-4.8) B-Type Natriuretic Peptide 1723.11 pg/mL (0-100) Test 09/27/24 09:17 09/27/24 08:01 Troponin I High Sensitivity 699 ng/L (</=54) Urine Color Yellow (Yellow) Urine Clarity Clear (Clear) Urine pH 5.5 (5.0-9.0) Urine Specific [place] 1.025 (1.001-1.035) Urine Protein 2+ (Negative) Urine Ketones Negative (Negative) Urine Blood 1+ /uL (Negative) Urine Nitrite Negative (Negative) Urine Bilirubin Negative (Negative) Urine Urobilinogen Normal mg/dL (Negative) Urine Leukocyte Esterase Negative /uL (Negative) Urine RBC 1 /hpf (0 - 3) Urine Microscopic WBC 2 /HPF (0-3) Urine Squamous Epithelial Cells Few /hpf (<5) Urine Bacteria Few /hpf (None Seen) Urine Hyaline Casts Few /lpf (0 - 2) Urine Mucus Few (None Seen) Urine Glucose Normal mg/dL (Normal) Urine Opiates Screen Neg (NEGATIVE) Urine Fentanyl Screen Neg (NEGATIVE) Urine Barbiturates Screen Neg (NEGATIVE) Urine Phencyclidine Screen Neg (NEGATIVE) Urine Amphetamines Screen Pos (NEGATIVE) Urine Benzodiazepines Screen Neg (NEGATIVE) Urine Cocaine Screen Neg (NEGATIVE) Urine Cannabinoids Screen Neg (NEGATIVE) Other Laboratory Tests 09/28/24 06:05 09/28/24 06:04 Brief Hx & Hospital Course: 61-year-old male with a history of coronary artery disease status post multiple stents ischemic drug-induced dilated cardiomyopathy ejection fraction 10-15 percent severe aortic valve regurgitation pulmonary hypertension history of pulmonary embolism hypotension diabetes polysubstance abuse including methamphetamine medication noncompliance came in complaining of chest pain. Troponin found to be 700 felt to be non ST-elevation [place] type 2 secondary to severe congestive heart failure patient was placed on his home medications Entresto Jardiance spironolactone he was advised to quit using methamphetamine patient requesting to be discharged home today. On room air stable vital signs discharged home. Reviewed all home medications. No new medications. General Condition stable but poor at the time of discharge Consults/Reason for consult Cardiology Dr. 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-15%% Aortic valve regurgitation, severe Pulmonary hypertension, severe History of pulmonary embolism Hypertension Type 2 diabetes mellitus, uncontrolled (Hgb A1c 7.4%) Polysubstance abuse with methamphetamines Medical non-complianc Discharge Disposition: Home Discharge Instruct/Medications Diet: Cardiac 2g Na,low cholest Activity: Light activity Follow Up/Referral: Stop doing illicit drugs Resume all previous home medications Follow up with the primary doc Medications: none 35 (Time taken for discharge summary 35 minutes) Discharge Statement: "Patient was advised to return to the ER or call 911 if any headaches, dizziness, shortness of breath, chest pain, abdominal pain, bleeding, fevers, or worsening of medical condition. Patient was counseled about treatment plan, medications, possible side effects, patientverbalized understanding. All questions were answered to the best of my ability. 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
[2024-09-30 11:59] VITALS: BP 124/88; PULSE 96
== END 2024-09-30 12:41 | disposition home or self-care (01) | DRG 133 ==
LOC: ER 05:52 → OVERFLOW 09:05 → TELE-WESTW 09:10
PROVIDERS: ADMIT Family Medicine; ATTEND Family Medicine
DX: J96.01 Acute respiratory failure with hypoxia (principal); I21.A1 Myocardial infarction type 2; I50.23 Acute on chronic systolic (congestive) heart failure; I27.20 Pulmonary hypertension, unspecified; I11.0 Hypertensive heart disease with heart failure; I42.0 Dilated cardiomyopathy; I42.7 Cardiomyopathy due to drug and external agent; E11.65 Type 2 diabetes mellitus with hyperglycemia; F15.10 Other stimulant abuse, uncomplicated; I35.1 Nonrheumatic aortic (valve) insufficiency; I25.10 Atherosclerotic heart disease of native coronary artery without angina pectoris; F17.210 Nicotine dependence, cigarettes, uncomplicated; E78.5 Hyperlipidemia, unspecified; T50.995A Adverse effect of other drugs, medicaments and biological substances, initial encounter; I25.5 Ischemic cardiomyopathy; Z95.5 Presence of coronary angioplasty implant and graft; Z91.148 Patient's other noncompliance with medication regimen for other reason; Z86.711 Personal history of pulmonary embolism; Z83.3 Family history of diabetes mellitus; Z82.49 Family history of ischemic heart disease and other diseases of the circulatory system; Z82.0 Family history of epilepsy and other diseases of the nervous system; Y92.89 Other specified places as the place of occurrence of the external cause; Z79.84 Long term (current) use of oral hypoglycemic drugs; Z79.82 Long term (current) use of aspirin
CPT/HCPCS: 36415; 71046; 80048; 80053; 80307; 81001; 82962; 83880; 84484; 85025; 93005; 99291; G0378; J1815; J2405

== ENCOUNTER 2024-10-11 18:51 | Inpatient (IN) | payer OTHER ==
[~2024-10-11] VITALS: Ht 167.6 cm; Wt 80.5 kg
--- NOTE | 2024-10-11 19:44 | DVH ---
EXAM: XY CHEST PORTABLE CLINICAL HISTORY: SOB TECHNIQUE: Single AP view of the chest WID: COMPARISON: XY CHEST PORTABLE on DOS: 09/12/24 FINDINGS: Lines and tubes: None Chest: The heart size and pulmonary vasculature is within normal limits. No pleural effusion, pneumothorax, or consolidation. The osseous structures are grossly intact. IMPRESSION: No acute cardiopulmonary abnormality.
[2024-10-11 19:45] LABS: Basophils # (auto) 0 10 ^3/uL (0-0.2); Basophils % (auto) 0.6 % (0.0-2.0); Eosinophils # (auto) 0.2 10 ^3/uL (0-0.8); Eosinophils % (auto) 4.1 % (0.0-7.0); Hematocrit 47.5 % (41.0-53.0); Lymphocytes # (auto) 1.4 10 ^3/uL (0.4-5.4); Lymphocytes % (auto) 24.7 % (10.0-50.0); Mean Corpuscular Hemoglobin 30.6 pg (28.0-32.0); Mean Corpuscular Hgb Conc. 33.7 g/dL (32.0-36.0); Mean Corpuscular Volume 90.8 fL (80.0-100.0); Monocytes # (auto) 0.6 10 ^3/uL (0-1.3); Monocytes % (auto) 11.2 % (0.0-12.0); Neutrophils # (auto) 3.3 10 ^3/uL (1.6-8.6); Neutrophils % (auto) 59.4 % (37.0-80.0); Platelet Count (auto) 170 10^3/uL (140-450); Red Blood Cells 5.23 10^6/uL (4.5-5.90); White Blood Cell 5.5 10^3/uL (4.4-10.8)
--- NOTE | 2024-10-11 19:47 | ED.PDOC ---
History of Present Illness HPI Comments 53-year-old male complains of some shortness of breath with some fatigue and malaise for the last 2 days with nausea and diarrhea as well. Unprovoked Chief Complaint: Shortness of Breath Time Seen by MD: 19:12 Primary Care Provider: none Allergies: Coded Allergies: No Known Drug Allergy (Verified Allergy, Unknown, 04/01/23) Home Meds Active Scripts Metformin Hydrochloride (Metformin Hcl) 500 Mg Tab, 1 TAB PO BID for 30 Days, #60 TAB Prov:MARIA FERNANDA DUFF 09/15/24 Empagliflozin (Jardiance) 10 Mg Tab, 10 MG PO DAILY for 30 Days, #30 TAB Prov:MARIA FERNANDA DUFF 09/15/24 Lisinopril (Lisinopril) 5 Mg Tab, 5 MG PO DAILY for 30 Days, #30 TAB 3 Refills Prov:MARIA FERNANDA DUFF 09/15/24 Carvedilol (COREG) 3.125 Mg Tab, 3.125 MG PO Q12HR for 30 Days, #60 TAB Prov:MARIA FERNANDA DUFF 09/15/24 Aspirin (ASPIRIN 81) 81 Mg Tab, 81 MG PO DAILY for 30 Days, #30 TAB Prov:MARIA FERNANDA DUFF 09/15/24 Spironolactone (Aldactone) 25 Mg Tab, 12.5 MG PO DAILY, #30 TAB 5 Refills Prov:MARIA FERNANDA DUFF 09/15/24 Atorvastatin Calcium (ATORVASTATIN CALCIUM) 40 Mg Tab, 1 TAB PO DAILY for 30 Days, #30 TAB 5 Refills Prov:MARIA FERNANDA DUFF 09/15/24 Acetaminophen (Acetaminophen) 325 Mg Tab, 650 MG PO Q6HP PRN for 10 Days, #80 TAB Prov:JUDD ESTES 05/06/24 Furosemide (Lasix) 40 Mg Tab, 40 MG PO DAILY, #90 TAB Prov:AYAKA SCHMIDT MD 03/04/24 Information Source: Patient Mode of Arrival: Ambulatory Severity: Moderate Timing: Days Duration: Since onset Past Medical History PAST MEDICAL HISTORY: CHF, DM, High Lipids, HTN, IA Surgical History: PTCA Family History Family History: Reviewed,noncontributory to illness, Family hx of DM Social History Smoker: Cigarettes Alcohol: Occasionally Drugs: Marijuana, Methamphetamine Lives In: Home Constitutional: reports: fatigue, malaise Respiratory: reports: SOB at rest, shortness of breath Gastrointestinal: reports: diarrhea, nausea All Other Systems: Reviewed and Negative Physical Exam General Appearance: Mild Distress HEENT: Normal ENT Inspection, Pharynx Normal, TMs Normal Neck: Full Range of Motion, Non-Tender, Normal, Normal Inspection Respiratory: Chest Non-Tender, Lungs Clear, No Accessory Muscle Use, No Respiratory Distress, Normal Breath Sounds Cardiovascular: No Edema, No JVD, No Murmur, No Gallop, Normal Peripheral Pulses, Regular Rate/Rhythm Breast Exam: Deferred Gastrointestinal: No Organomegaly, Non Tender, No Pulsatile Mass, Normal Bowel Sounds, Soft Genitalia: Deferred Pelvic: Deferred Rectal: Deferred Extremities: No calf tenderness, Normal capillary refill, Normal inspection, Normal range of motion, Non-tender, No pedal edema Musculoskeletal : Apperance: Normal Neurologic: Alert, paper novelty maker II-XII nml as Tested, No Motor Deficits, Normal Affect, Normal Mood, No Sensory Deficits Cerebellar Function: Normal Reflexes: Normal Skin: Dry, Normal Color, Warm Lymphatic: No Adenopathy Was a procedure done? Was a procedure done?: No EKG EKG : Cardiac Rhythm: NSR Differential Dx Considerations may include: Differential diagnosis includes but is not limited to: asthma, pneumonia, congestive heart failure, pleural effusion, empyema, pulmonary embolus, and others X-Ray, Labs, Meds, VS Vital Signs Date Time Temp Pulse Resp B/P (MAP) Pulse Ox O2 Delivery O2 Flow Rate FiO2 10/11/24 19:02 97.5 89 20 138/96 (110) 95 97.5 10/11/24 18:54 20 95 Room Air* 0 21 Lab Test 10/11/24 19:30 10/11/24 18:58 Range/Units White Blood Count 5.5 4.4-10.8 10^3/uL Red Blood Count 5.23 4.5-5.90 10^6/uL Hemoglobin 16.0 13.5-17.5 g/dL Hematocrit 47.5 41.0-53.0 % Mean Corpuscular Volume 90.8 80.0-100.0 fL Mean Corpuscular Hemoglobin 30.6 28.0-32.0 pg Mean Corpuscular Hemoglobin Concent 33.7 32.0-36.0 g/dL Red Cell Distribution Width 14.0 11.8-14.3 % Platelet Count 170 140-450 10^3/uL Mean Platelet Volume 8.2 6.9-10.8 fL Neutrophils (%) (Auto) 59.4 37.0-80.0 % Lymphocytes (%) (Auto) 24.7 10.0-50.0 % Monocytes (%) (Auto) 11.2 0.0-12.0 % Eosinophils (%) (Auto) 4.1 0.0-7.0 % Basophils (%) (Auto) 0.6 0.0-2.0 % Neutrophils # (Auto) 3.3 1.6-8.6 10 ^3/uL Lymphocytes # (Auto) 1.4 0.4-5.4 10 ^3/uL Monocytes # (Auto) 0.6 0-1.3 10 ^3/uL Eosinophils # (Auto) 0.2 0-0.8 10 ^3/uL Basophils # (Auto) 0 0-0.2 10 ^3/uL Nucleated Red Blood Cells 0.0 % Sodium Level 140 136-145 mmol/L Potassium Level 3.8 3.5-5.1 mmol/L Chloride Level 107 98-107 mmol/L Carbon Dioxide Level 26 20-31 mmol/L Anion Gap 7 5-15 Blood Urea Nitrogen 19 9-23 mg/dL Creatinine 1.36 H 0.700-1.30 mg/dL Glomerular Filtration Rate Calc 63 >90 mL/min BUN/Creatinine Ratio 14.0 10.0-20.0 Serum Glucose 200 H 74-106 mg/dL Calcium Level 9.5 8.7-10.4 mg/dL Total Bilirubin 0.4 0.2-1.0 mg/dL Aspartate Amino Transferase (AST) 20 13-40 U/L Alanine Aminotransferase (ALT) 20 7-40 U/L Alkaline Phosphatase 98 46-116 U/L Troponin I High Sensitivity 931 *H </=54 ng/L B-Type Natriuretic Peptide Pending Total Protein 6.5 5.7-8.2 g/dL Albumin 3.7 3.2-4.8 g/dL POC Glucose 175 H 70-106 mg/dl Time of 1ST Reevaluation: 19:46 Reevaluation 1ST: Unchanged Patient Education/Counseling: Diagnosis, Treatment Family Education/Counseling: No Family Present Departure 1 Departure Time of Disposition: 20:28 Impression: Primary Impression: Acute coronary syndrome Additional Impressions: Dyspnea Diarrhea Disposition: 09 ADMITTED INPATIENT Admit to: Tele Condition: Guarded Comments Shortness of Breath with Elevated Troponin Chief Complaint: Shortness of breath with exertion History of Present Illness: 53-year-old male with a history of coronary artery disease and congestive heart failure presents with progressively worsening shortness of breath with exertion for the past two days. The patient also reports associated symptoms of nausea and diarrhea during this time period. His symptoms are concerning for possible acute coronary syndrome given his significant cardiac history and current presentation. Review of Systems: Cardiovascular: Positive for shortness of breath with exertion Gastrointestinal: Positive for nausea and diarrhea All other systems reviewed and negative Medications: Medications administered in ED: - Aspirin - Ondansetron (Zofran) - Anti-diarrheal medication Allergies: No known allergies documented Past Medical History: 1. Coronary Artery Disease 2. Congestive Heart Failure Lab Results: Troponin: 931 (Significantly elevated) Glucose: - Initial: 200 - Repeat: 175 Imaging and Other Relevant Results: Chest X-ray: No evidence of CHF or acute pathology Medical Decision Making: Summary Statement: 53-year-old male with history of CAD and CHF presenting with exertional dyspnea, significantly elevated troponin, and GI symptoms requiring admission for acute coronary syndrome. Problem List: 1. Acute Coronary Syndrome 2. Elevated Troponin 3. Dyspnea on exertion 4. Nausea and Diarrhea Differential Diagnosis: 1. Non-ST Elevation Myocardial Infarction 2. Unstable Angina 3. Acute Decompensated Heart Failure 4. Acute Gastroenteritis ED Course: Patient received aspirin, anti-emetics (Zofran), and anti-diarrheal medication. Initial workup revealed significantly elevated troponin and normal chest x-ray. Decision made to admit for acute coronary syndrome management. Assessment and Plan: 1. Acute Coronary Syndrome - Significantly elevated troponin (931) - Admit to hospital for further management and cardiology consultation - Initiated appropriate medications including aspirin 2. Nausea and Diarrhea - Treated with Zofran and anti-diarrheal medication - May be related to current cardiac condition or separate GI process - Will continue supportive care during admission Billing Information: ICD-10: I21.9 - Acute myocardial infarction, unspecified ICD-10: R06.02 - Shortness of breath ICD-10: R11.2 - Nausea with vomiting, unspecified ICD-10: R19.7 - Diarrhea, unspecified Critical Care Note Critical Care Time?: Yes (35 min-critical care time only) Critical care comment: Total critical care time: Approximately 36 minutes Due to a high probability of clinically significant, life threatening deterioration, the patient required my highest level of preparedness to intervene emergently and I personally spent this critical care time directly and personally managing the patient. This critical care time included obtaining a history; examining the patient; pulse oximetry; ordering and review of studies; arranging urgent treatment with development of a management plan; evaluation of patient's response to treatment; frequent reassessment; and, discussions with other providers. This critical care time was performed to assess and manage the high probability of imminent, life-threatening deterioration that could result in multi-organ failure. It was exclusive of separately billable procedures and treating other patients. Stability Stability form required: No Heart Score Heart Score: Heart Score Response (Comments) Value History Slightly Suspicious 0 EKG Normal 0 Age 45-64 1 Risk Factors 1 or 2 risk factors 1 Troponin >3 x's Normal limit 2 Total 4 HECTOR MASTERSON MD October 11, 2024 19:47
[2024-10-11 19:59] LABS: Alanine Aminotransferase 20 U/L (7-40); Albumin 3.7 g/dL (3.2-4.8); Alkaline Phosphatase 98 U/L (46-116); Anion Gap 7 (5-15); Aspartate Aminotransferase 20 U/L (13-40); Blood Urea Nitrogen 19 mg/dL (9-23); Calcium 9.5 mg/dL (8.7-10.4); Carbon Dioxide 26 mmol/L (20-31); Chloride 107 mmol/L (98-107); Potassium 3.8 mmol/L (3.5-5.1); Sodium 140 mmol/L (136-145); Total Protein 6.5 g/dL (5.7-8.2)
[2024-10-11 20:00] LABS: Bilirubin, Total 0.4 mg/dL (0.2-1.0)
[2024-10-11 20:02] LABS: Glucose 200 mg/dL (74-106)
[2024-10-11] MEDS: ASPirin-EC 325mg tab PO ONE (20:37)
[2024-10-11] MEDS: ONDANSETRON ODT 4 MG TAB PO ONE (20:37)
[2024-10-11] MEDS: LOPERAMIDE HCL 2 MG CAP/TAB PO ONE (20:37)
[2024-10-11] MEDS ORDERED: NITROGLYCERIN 0.4 MG SL TAB SL PRN (21:30)
[2024-10-11] MEDS ORDERED: MORPHINE SULFATE INJ 2 MG/ml SYRG IV PRN (21:30)
--- NOTE | 2024-10-11 21:52 | DVHHP2 ---
History of Present Illness History of Present Illness Patient is 53 years old male past medical history of PTCAs x2 OLIVIA including one OLIVIA to the RCA in 2021 (on ASA), ischemic/drug-induced cardiomyopathy, congestive heart failure with HFrEF, hypertension, history of pulmonary embolism, type 2 diabetes mellitus, and polysubstance abuse with methamph etamines, noncompliance, not a good candidate for ICD need to substance abuse and noncompliance with the treatment with a complaint of intractable diarrhea. He has been having intractable diarrhea started yesterday, so many time with the night, watery, no blood, patient also reported feeling nausea but no vomiting. Feeling tired and fatigue. Patient also reported endorsing worsening short of breath for last 2 days, orthopnea, PND. On further inquiry patient reported that he had a chest pain yesterday for short duration, central, 7/10, poking like, no aggravating or relieving factor. So reported having bilateral leg swelling for last 2 days. Patient denied any fever, acute dysuria, acute joint redness or sick contact, patient is a chronic substance abuser methamphetamine. Patient reported he used amphetamine last 1 week before. Initial lab workup revealed troponin 931, BNP 2683, serum creatinine 1.31. Hb A1c 7.9. UDS positive for amphetamine. CT abdomen and pelvis-Nonspecific nondilated fluid- filled small bowel loops. Findings may be seen with ileus or enteritis in the appropriate clinical setting. No small bowel obstruction. Cirrhotic liver morphology. Small left pleural effusion. Cardiomegaly. Small fat containing umbilical hernia. Patient was recently discharged from [facility] on 10/01/2024 due to acute on chronic HFrEF. Past Medical History PTCAs x2 OLIVIA including one OLIVIA to the RCA in 2021 (on ASA), ischemic/drug- induced cardiomyopathy, congestive heart failure with HFrEF, hypertension, history of pulmonary embolism, type 2 diabetes mellitus, and polysubstance abuse with methamphetamines Past Surgical History PTCA Past Social History Smokes cigarettes 1 pack per week, denies alcoholism, substance abuse methamphetamine Review of Systems Review of Systems Allergy- NKDA Personal History/ Social History- Patient was seen today at the bedside. Cardiovascular- deny acute cough or palpitation Respiratory denies cough or wheezing Gastrointestinal- denies any rectal bleeding, nausea or vomiting Musculoskeletal-denies acute joinT tenderness or redness Neurological- denies acute dysarthria, dysphagia, change in vision Psychiatry- denies depression or SI or HI Skin- denies acute rash or purpura Allergies: Coded Allergies: No Known Drug Allergy (Verified Allergy, Unknown, 04/01/23) Medications Current Medications Medications Dose Ordered Sig/Kimberly Route Start Time Stop Time Status Last Admin Dose Admin Sodium Chloride 10 ml Q8HR IV 10/11/24 22:00 Ondansetron HCl 4 mg Q4HP PRN IV 10/11/24 21:30 Enoxaparin Sodium 40 mg DAILY SC 10/12/24 10:00 Morphine Sulfate 2 mg Q4HPRN PRN IV 10/11/24 21:30 Nitroglycerin 0.4 mg Q5MINP PRN SL 10/11/24 21:30 Morphine Sulfate 2 mg Q30M PRN IV 10/11/24 21:30 Exam Vital Signs Vital Signs Date Time Temp Pulse Resp B/P (MAP) Pulse Ox O2 Delivery O2 Flow Rate FiO2 10/11/24 21:00 98.2 83 16 126/82 (97) 96 98.2 10/11/24 18:54 Room Air* 0 21 Exam General examination- awake, alert, conversant HEENT- PEERLA, no acute nasal discharge Cardiovascular- S1-S2 audible, rate and rhythm regular, no murmur Respiratory- lung crackles+ Gastrointestinal-nontender, bowel sound+. Nondistended Musculoskeletal-no acute joint swelling or tenderness or redness Lower extremity- bilateral leg edema+++ Neurological- cranial nerves intact, no acute dysarthria or dysphagia Psychiatry- denies depression or SI or HI Skin- no acute rash or purpura Labs/Xrays Labs Test 10/11/24 21:23 10/11/24 19:30 10/11/24 18:58 Range/Units White Blood Count 5.5 4.4-10.8 10^3/uL Red Blood Count 5.23 4.5-5.90 10^6/uL Hemoglobin 16.0 13.5-17.5 g/dL Hematocrit 47.5 41.0-53.0 % Mean Corpuscular Volume 90.8 80.0-100.0 fL Mean Corpuscular Hemoglobin 30.6 28.0-32.0 pg Mean Corpuscular Hemoglobin Concent 33.7 32.0-36.0 g/dL Red Cell Distribution Width 14.0 11.8-14.3 % Platelet Count 170 140-450 10^3/uL Mean Platelet Volume 8.2 6.9-10.8 fL Neutrophils (%) (Auto) 59.4 37.0-80.0 % Lymphocytes (%) (Auto) 24.7 10.0-50.0 % Monocytes (%) (Auto) 11.2 0.0-12.0 % Eosinophils (%) (Auto) 4.1 0.0-7.0 % Basophils (%) (Auto) 0.6 0.0-2.0 % Neutrophils # (Auto) 3.3 1.6-8.6 10 ^3/uL Lymphocytes # (Auto) 1.4 0.4-5.4 10 ^3/uL Monocytes # (Auto) 0.6 0-1.3 10 ^3/uL Eosinophils # (Auto) 0.2 0-0.8 10 ^3/uL Basophils # (Auto) 0 0-0.2 10 ^3/uL Nucleated Red Blood Cells 0.0 % Sodium Level 140 136-145 mmol/L Potassium Level 3.8 3.5-5.1 mmol/L Chloride Level 107 98-107 mmol/L Carbon Dioxide Level 26 20-31 mmol/L Anion Gap 7 5-15 Blood Urea Nitrogen 19 9-23 mg/dL Creatinine 1.36 H 0.700-1.30 mg/dL Glomerular Filtration Rate Calc 63 >90 mL/min BUN/Creatinine Ratio 14.0 10.0-20.0 Serum Glucose 200 H 74-106 mg/dL Calcium Level 9.5 8.7-10.4 mg/dL Total Bilirubin 0.4 0.2-1.0 mg/dL Aspartate Amino Transferase (AST) 20 13-40 U/L Alanine Aminotransferase (ALT) 20 7-40 U/L Alkaline Phosphatase 98 46-116 U/L B-Type Natriuretic Peptide 2683.08 0-100 pg/mL Total Protein 6.5 5.7-8.2 g/dL Albumin 3.7 3.2-4.8 g/dL POC Glucose 175 H 70-106 mg/dl Assessment/Plan Assessment/Plan Assessment and plan Acute on chronic HFrEF Acute on chronic respiratory failure due to above NSTEMI type 2 likely due to substance abuse acute gastroenteritis likely infectious cause Acute diarrhea CHRISTIN likely due to VMN Coronary artery disease with a history of PTCA to OLIVIA- PTCAs x2 OLIVIA including one OLIVIA to the RCA in 2021 (on ASA) Ischemic/drug-induced cardiomyopathy History of pulmonary embolism Severe Pulmonary hypertension 3 Type 2 diabetes mellitus -HGB A1c 7.9 Hypertension Methamphetamine abuse-UDS positive for amphetamine Medically noncompliant Suspected cirrhosis of liver Cardiomegaly Small left-sided pleural effusion Umbilical hernia troponin 931, BNP 2683, serum creatinine 1.31. UDS positive for amphetamine CT abdomen and pelvis-Nonspecific nondilated fluid-filled small bowel loops. Findings may be seen with ileus or enteritis in the appropriate clinical setting. No small bowel obstruction. Cirrhotic liver morphology. Small left pleural effusion. Cardiomegaly. Small fat containing umbilical hernia Plan Ordered ceftriaxone and metronidazole Pantoprazole Clear liquid diet Ordered Lasix Aspirin 81 mg p.o. daily Lisinopril 5 mg p.o. daily Atorvastatin 40 mg p.o. q.h.s. Carvedilol 3.125 mg p.o. b.i.d. Spironolactone 12.5 mg p.o. daily PCP-[facility] -patient reported not seeing any cardiology Goals of care, Code status ; discussed with >15 minutes PUD prophylaxis: Pantoprazole DVT prophylaxis: Lovenox Plan discussed with Dr. Shah , nursing staff, Total time spent on patient evaluation, chart review, assessment and plan, discussion discussion >35 minutes Plan discussed with: Patient, Other (RN) My Orders Orders - RITA HERNANDEZ RESIDENT Procedure Category Date Status Time Code Status CODE 10/11/24 Transmitted 21:29 Sodium Chloride Lock PHA 10/11/24 In Process (Saline Lock Ns) 22:00 Oxygen Per Hour RT 10/11/24 Transmitted 21:29 Ondansetron Hcl PHA 10/11/24 In Process (Zofran) 21:30 Enoxaparin Sodium PHA 10/12/24 In Process (Lovenox) 10:00 Complete Blood Count LAB 10/12/24 Verified 04:00 Comprehensive LAB 10/12/24 Verified Metabolic Panel 04:00 Clear Liq Diet DIET 10/12/24 Transmitted Breakfast Morphine Sulfate PHA 10/11/24 In Process Injection 21:30 Nitroglycerin PHA 10/11/24 In Process Sublingual (Ntrostat 21:30 Morphine Sulfate PHA 10/11/24 In Process Injection 21:30 Oxygen By Nasal RT 10/11/24 Transmitted Cannula 21:29 Stat Ekg For Chest [facility] 10/11/24 In Process Pain 21:29 Notify Md Of Changes [facility] 10/11/24 In Process From Base 21:29 Radiologist Physician For [facility] 10/11/24 In Process 24 Hours 21:29 Emergency Dysrhythmia [facility] 10/11/24 In Process Protocol 21:29 Rhythm Strips Once [facility] 10/11/24 In Process Every Shift 21:29 Admit ADMIT 10/11/24 Transmitted 21:32 Date of Service: October 11, 2024 Billing Provider: ANDREW SHAH MD Common Visit Codes: 52126-[id number] INP/OBS CARE (HIGH) Secondary Visit Codes: 23441-[id number] CARE PLAN 30 MINUTES RITA HERNANDEZ RESIDENT October 11, 2024 21:52
[2024-10-11] MEDS ORDERED: metroNIDAZOLE 500MG/100ML 100 ML IV ONE (22:00)
[2024-10-11] MEDS ORDERED: DEXTROSE (50%) 50ML SYRG IV PRN (22:00)
[2024-10-11] MEDS ORDERED: cefTRIAXone 2GM/50ML D5W 50 ML IV ONE (22:00)
[2024-10-11] MEDS ORDERED: hydrALAZINE HCL 10 MG TAB PO PRN (22:15)
[2024-10-12 04:32] VITALS: PULSE 81; O2SAT 95
[2024-10-12] MEDS: SODIUM CHLOR 0.9% PF (SALINE LOCK) 10ML VIAL/SYR IV SCH (04:40)
[2024-10-12] MEDS: cefTRIAXone 1GM/50ML D5W 50 ML IV ONE ×2 (04:48→08:45)
[2024-10-12] MEDS: metroNIDAZOLE 500MG/100ML 100 ML IV SCH (05:04)
[2024-10-12] MEDS: InsuLIN REG 1unit/0.01ml Soln (100units/ml) SC SCH (05:17)
[2024-10-12] MEDS: ACCU-CHEK COMFORT CURVE STRIP VI SCH (05:17)
[2024-10-12] MEDS: PANTOPRAZOLE 40 MG/10 ML VIAL INJ IV ONE (05:25)
[2024-10-12] MEDS: CARVEDILOL 3.125 MG TAB PO SCH (05:26)
[2024-10-12] MEDS: FUROSEMIDE 40 MG/4 ML VIAL IV ONE (05:27)
[2024-10-12 06:06] LABS: Basophils # (auto) 0 10 ^3/uL (0-0.2); Basophils % (auto) 0.5 % (0.0-2.0); Eosinophils # (auto) 0.2 10 ^3/uL (0-0.8); Eosinophils % (auto) 3.7 % (0.0-7.0); Hematocrit 47.2 % (41.0-53.0); Hemoglobin 15.8 g/dL (13.5-17.5); Lymphocytes # (auto) 1.3 10 ^3/uL (0.4-5.4); Lymphocytes % (auto) 21.9 % (10.0-50.0); Mean Corpuscular Hemoglobin 30.9 pg (28.0-32.0); Mean Corpuscular Hgb Conc. 33.5 g/dL (32.0-36.0); Monocytes # (auto) 0.6 10 ^3/uL (0-1.3); Monocytes % (auto) 10.9 % (0.0-12.0); Neutrophils # (auto) 3.7 10 ^3/uL (1.6-8.6); Nucleated Red Blood Cells % 0.2 %; Platelet Count (auto) 159 10^3/uL (140-450); Red Blood Cells 5.12 10^6/uL (4.5-5.90); Red Cell Distribution Width 14.2 % (11.8-14.3); White Blood Cell 5.8 10^3/uL (4.4-10.8)
[2024-10-12 06:12] LABS: Alanine Aminotransferase 15 U/L (7-40); Albumin 3.7 g/dL (3.2-4.8); Alkaline Phosphatase 96 U/L (46-116); Anion Gap 11 (5-15); Aspartate Aminotransferase 18 U/L (13-40); BUN/Creatinine Ratio 18.7 (10.0-20.0); Blood Urea Nitrogen 23 mg/dL (9-23); Carbon Dioxide 22 mmol/L (20-31); Potassium 4.1 mmol/L (3.5-5.1); Sodium 140 mmol/L (136-145); Total Protein 6.4 g/dL (5.7-8.2)
[2024-10-12 06:20] LABS: Bilirubin, Total 0.3 mg/dL (0.2-1.0); Calcium 8.4 mg/dL (8.7-10.4); Chloride 107 mmol/L (98-107); Glucose 175 mg/dL (74-106)
[2024-10-12 08:00] VITALS: PULSE 76; RESP 16; O2SAT 97
[2024-10-12] MEDS ORDERED: hydrALAZINE HCL 10 MG TAB PO PRN (08:30)
[2024-10-12 08:36] LABS: Protein, Urine 159.8 mg/dL (1-14)
[2024-10-12 08:39] LABS: Creatinine, Urine 123.2 mg/dL (30.0-125.0); Urine Protein/Creatinine Ratio 1.3
[2024-10-12 08:40] LABS: Creatinine, Urine 122.8 mg/dL (30.0-125.0)
[2024-10-12 08:43] LABS: Amphetamine Screen, Urine Pos (NEGATIVE); Barbiturate Scree,Urine Neg (NEGATIVE); Benzodiazephine Screen, Urine Neg (NEGATIVE); Cannabinoid Screen, Urine Neg (NEGATIVE); Cocaine Screen, Urine Neg (NEGATIVE); Opiate Scree,Urine Neg (NEGATIVE); Phencyclidine Screen, Urine Neg (NEGATIVE)
[2024-10-12] MEDS: ONDANSETRON HCL 4 MG/2 ML VIAL IV PRN (08:45)
[2024-10-12] MEDS: MORPHINE SULFATE INJ 2 MG/ml SYRG IV PRN (08:46)
--- NOTE | 2024-10-12 08:51 | DVH ---
CLINICAL INFORMATION: Diarrhea. Nausea and vomiting. TECHNIQUE: Axial CT images of the abdomen and pelvis were obtained without IV contrast. Coronal and s agittal reformatted images were obtained, reviewed, and stored. Evaluation of the parenchymal organs is limited without IV contrast. Evaluation of the bowel and mesentery is limited without oral contras t. All CT scans at this medical facility are performed using dose modulation techniques as appropriat e to a performed exam including the following: Automated exposure control was utilized; adjustment of the MA and/or KV according to patient size; and use of iterative reconstruction technique. CTDIvol = 18.85 mGy DLP = 1156.86 mGy-cm COMPARISON: [facility] on DOS: 05/27/22 FINDINGS: Lung bases: Small left pleural effusion. Mild atelectasis in the lung bases. Respiratory motion artif act limits evaluation for subtle findings. [id number] cardiomegaly. Liver: Nodular contour of the liver with relative enlargement of the left hepatic lobe, may be seen w ith cirrhosis in the appropriate clinical setting. Biliary: No calcified gallstones or biliary ductal dilatation. Spleen: Unremarkable. Pancreas: Mildly atrophic. Adrenal glands: Unremarkable. No mass. Kidneys: No hydronephrosis. No renal or ureteral calculi. Aorta/Vascular: Scattered atherosclerotic calcification. No abdominal aortic aneurysm. Retroperitoneum: No mass or lymphadenopathy. Bowel/mesentery: Nonspecific nondilated fluid-filled small bowel loops. No small bowel obstruction. A ppendix is visualized and appears unremarkable. Pelvic organs: Grossly unremarkable. Bladder: Underdistended and suboptimally evaluated. No gross abnormality identified. Abdominal wall: Small fat containing umbilical hernia. Bones: No acute fracture or suspicious intraosseous lesion. IMPRESSION: 1. Nonspecific nondilated fluid-filled small bowel loops. Findings may be seen with ileus or enteriti s in the appropriate clinical setting. No small bowel obstruction. 2. Cirrhotic liver morphology. 3. Small left pleural effusion. 4. Cardiomegaly. 5. Small fat containing umbilical hernia. 6. Additional findings as described above.
[2024-10-12] MEDS: cefTRIAXone 1GM/50ML D5W 50 ML IV SCH (09:00)
[2024-10-12] MEDS: ENOXAPARIN SOD 40 MG/0.4 ML SYRINGE SC SCH (10:56)
[2024-10-12] MEDS: LISINOPRIL 5 MG TAB PO SCH (10:57)
[2024-10-12] MEDS: SPIRONOLACTONE 25 MG TAB PO SCH (10:57)
[2024-10-12] MEDS: ASPirin-EC 81 mg tab PO SCH (10:58)
[2024-10-12] MEDS: PANTOPRAZOLE 40 MG/10 ML VIAL INJ IV SCH (10:58)
[2024-10-12] MEDS: FUROSEMIDE 40 MG/4 ML VIAL IV SCH (10:58)
--- NOTE | 2024-10-12 11:00 | DVHPNRES ---
Progress Note Date Seen: October 12, 2024 Resident Creating Document: REBEKAH BARNES RESIDENT Has the PT tested + for MRSA If YES, has PT been informed?: No Medical Necessity Reason Pt with a Central, PICC or Fol: No Subjective Review of Systems Austyn Wright is a 53-year-old male with a PMH of PTCA x2 OLIVIA, ischemic/ drug-induced cardiomyopathy, HFrEF, HTN, PE, type 2 DM, polysubstance abuse, medication noncompliance presented to the ED with the chief complaints of worsening of shortness of breath since yesterday. Patient reported he history of shortness of breaths and using home oxygen as needed but patient reported 2 days back she started having diarrhea with the nausea, no bloody stool and then yesterday he started having worsening of shortness of breath associated with orthopnea and PND which prompted him to visit ED. Patient denied any fever, acute dysuria, acute joint redness or sick contact, patient is a chronic substance abuser methamphetamine. Patient reported he used amphetamine last 1 week before And smokes cigarettes. Patient seen and examined at the bedside. Patient is currently on oxygen NC 2-3 L, reported improvement in his shortness of breath, diarrhea nausea, reported no new complaints. Patient reports: No new complaints, Feels better Objective vital signs Vital Sign Date Time Temp Pulse Resp B/P (MAP) Pulse Ox O2 Delivery O2 Flow Rate FiO2 10/12/24 08:46 76 20 132/94 10/12/24 08:00 98.1 97 98.1 10/12/24 08:00 Nasal Cannula* 2 28 medications Current Medications Medications Dose Ordered Sig/Kimberly Route Start Time Stop Time Status Last Admin Dose Admin Sodium Chloride 10 ml Q8HR IV 10/11/24 22:00 10/12/24 06:00 10 ML Ondansetron HCl 4 mg Q4HP PRN IV 10/11/24 21:30 10/12/24 08:45 4 MG Enoxaparin Sodium 40 mg DAILY SC 10/12/24 10:00 Morphine Sulfate 2 mg Q4HPRN PRN IV 10/11/24 21:30 10/12/24 08:46 2 MG Nitroglycerin 0.4 mg Q5MINP PRN SL 10/11/24 21:30 Morphine Sulfate 2 mg Q30M PRN IV 10/11/24 21:30 Aspirin 81 mg DAILY PO 5/14/25 10:00 Carvedilol 3.125 mg Q12HR PO 10/11/24 22:00 Lisinopril 5 mg DAILY PO 10/12/24 10:00 Spironolactone 12.5 mg DAILY PO 10/12/24 10:00 Atorvastatin Calcium 40 mg DAILY PO 10/12/24 10:00 Furosemide 40 mg DAILY IV 10/12/24 10:00 Pantoprazole Sodium 40 mg DAILY IV 10/12/24 10:00 Metronidazole 100 ml @ 100 mls/hr Q8HR IV 10/11/24 22:00 10/12/24 07:05 100 MLS/HR Diagnostic Test (Pha) 1 strip ACHS 10/11/24 22:00 10/12/24 07:03 1 STRIP Insulin Human Regular ACHS SC 10/11/24 22:00 10/12/24 07:26 2 UNITS Dextrose 50 ml UD PRN IV 10/11/24 22:00 Hydralazine HCl 10 mg Q6HP PRN PO 10/12/24 08:30 Ceftriaxone Sodium 50 ml @ 100 mls/hr DAILY@09 IV 10/12/24 09:00 Examination Pt is lying on bed General Appearance: Alert, Oriented X3, Cooperative, Not in acute distress HEENT: Atraumatic, Mucous membranes moist/pink Respiratory: Bilateral crackles Cardiovascular: Regular rate, Normal S1, Normal S2, No murmurs Abdominal: Active bowel sounds, Soft, no distention, no tenderness Extremities: 1+ BLE edema, Normal pulses, No tenderness/swelling Skin: No Significant rash, except past surgical scars Neuro: Normal speech, sensorimotor deficits none Psych/Mental Status: Mental status NL, Mood NL Nurse was there as sharperone during examination laboratory and microbiology Laboratory Tests 10/12/24 05:06 Test 10/12/24 05:06 Range/Units Serum Glucose 175 H 74-106 mg/dL Labs and/or images reviewed: Labs reviewed by me, Image(s) reviewed by me Problem List/Assessment/Plan Problem List/Assessment/Plan # Acute gastroenteritis # rule out C diff # diarrhea and nausea likely from above - CT ABD/pelvis showed findings suggestive of ileus or enteritis without obstruction - stool studies along with C diff - Flagyl and Rocephin - Protonix # acute on chronic HFrEF due to medication noncompliance # Acute on chronic hypoxic respiratory failure due to above # NSTEMI type 2 likely due to above # CAD S/p PTCA x2 OLIVIA # Ischemic/drug-induced cardiomyopathy # Severe Pulmonary hypertension 3 # Methamphetamine abuse-UDS positive for amphetamine # Medically noncompliant # Cardiomegaly - elevated troponins - elevated BNP - continue aspirin, atorvastatin - GDM T with Coreg 3.125, Aldactone 12.5 - Lasix 40 mg IV daily - strict ins and outs -counseled regarding cessation of meth, tobacco abuse and adherence to medications for 17 minutes # CHRISTIN likely VMN - monitor lab # Type 2 DM uncontrolled with HbA1c 7.9 - Continuously monitor glucose - Accu-Cheks and sliding scale Protonix Lovenox Cardiac diet Goals of care discussed with the patient for more than 29 minutes: Full code status Case management discussed with Dr. Moses, patient and nurse Plan discussed with: Patient My Orders My Orders Orders - REBEKAH BARNES Procedure Category Date Status Time Urinalysis LAB 10/12/24 Logged 08:23 Hydralazine Hcl PHA 10/12/24 In Process Tablet (Apresoline 08:30 Ceftriaxone 1gm/50ml PHA 10/12/24 In Process D5w (Rocephin) 09:00 Clostridium Difficile CARLOS 10/12/24 Logged Toxin 10:34 Strict I & O JESSICA 10/12/24 In Process 10:56 Date of Service: October 12, 2024 Billing Provider: JOSE MORAES MD Common Visit Codes: [id number] INP/OBS CARE(HIGH) REBEKAH BARNES RESIDENT October 12, 2024 11:00 JOSE MORAES MD October 16, 2024 03:07
[2024-10-12] MEDS: ATORVASTATIN 20 MG TAB PO SCH (11:05)
[2024-10-12 18:27] VITALS: BP 101/75; PULSE 75; RESP 18; TEMP 97.4; O2SAT 99
[2024-10-12 18:30] VITALS: RESP 18
[2024-10-12 20:00] VITALS: PULSE 70; RESP 18; O2SAT 96
[2024-10-12 20:30] VITALS: BP 118/85; PULSE 72; RESP 18; TEMP 98; O2SAT 99
[2024-10-13 01:00] VITALS: BP 98/70; PULSE 67; RESP 20; TEMP 97.6; O2SAT 100
[2024-10-13 05:00] VITALS: BP 94/63; PULSE 63; RESP 18; TEMP 97.7; O2SAT 95
[2024-10-13 07:08] LABS: Basophils # (auto) 0 10 ^3/uL (0-0.2); Basophils % (auto) 0.8 % (0.0-2.0); Eosinophils # (auto) 0.3 10 ^3/uL (0-0.8); Eosinophils % (auto) 4.3 % (0.0-7.0); Hematocrit 46.4 % (41.0-53.0); Hemoglobin 15.4 g/dL (13.5-17.5); Lymphocytes # (auto) 1.2 10 ^3/uL (0.4-5.4); Lymphocytes % (auto) 18.8 % (10.0-50.0); Mean Corpuscular Hemoglobin 30.6 pg (28.0-32.0); Mean Corpuscular Hgb Conc. 33.2 g/dL (32.0-36.0); Mean Corpuscular Volume 92.2 fL (80.0-100.0); Monocytes # (auto) 0.7 10 ^3/uL (0-1.3); Monocytes % (auto) 10.9 % (0.0-12.0); Neutrophils # (auto) 4.1 10 ^3/uL (1.6-8.6); Neutrophils % (auto) 65.2 % (37.0-80.0); Nucleated Red Blood Cells % 0.1 %; Platelet Count (auto) 176 10^3/uL (140-450); Red Blood Cells 5.04 10^6/uL (4.5-5.90); Red Cell Distribution Width 14.1 % (11.8-14.3); White Blood Cell 6.3 10^3/uL (4.4-10.8)
[2024-10-13 07:22] LABS: Anion Gap 8 (5-15); Carbon Dioxide 26 mmol/L (20-31); Chloride 105 mmol/L (98-107); Potassium 4.5 mmol/L (3.5-5.1); Sodium 139 mmol/L (136-145)
[2024-10-13 07:25] LABS: Calcium 8.3 mg/dL (8.7-10.4)
[2024-10-13 07:28] LABS: Glucose 106 mg/dL (74-106)
[2024-10-13 07:29] LABS: BUN/Creatinine Ratio 13.1 (10.0-20.0); Blood Urea Nitrogen 14 mg/dL (9-23)
[2024-10-13 08:00] VITALS: PULSE 74; RESP 18; O2SAT 96
[2024-10-13 09:00] VITALS: BP 95/69; PULSE 78; RESP 18; TEMP 97.6; O2SAT 100
--- NOTE | 2024-10-13 09:06 | CONS ---
Pharmacy Clinical Information: CQM HF (missing SGLT2). Per medication reconciliation, patient takes empagli flozin at home. Patient did present with CHRISTIN upon admission but seems to have resolved. Additionally, it should be noted that the patient is non-compliant with his medications. Once renal function is stable, please consider restarting empagliflozin at the discretion of the provider. MANOJ LUQUE PHARMACIST October 13, 2024 09:06
[2024-10-13] MEDS: SUCRALFATE 1 GM/10 ML ORAL SUSP GT SCH (11:23)
[2024-10-13] MEDS ORDERED: AUG875T PO (11:43)
--- NOTE | 2024-10-13 11:47 | DVHDSRES ---
Discharge Summary Date of Admission Resident Creating Document: REBEKAH BARNES RESIDENT October 11, 2024 at 21:32 Date of Discharge: October 13, 2024 Admitting Diagnosis Abdominal pain Labs/Diagnostic Data: Laboratory Results Test 10/13/24 11:15 10/13/24 06:38 10/12/24 08:00 10/12/24 05:06 POC Glucose 198 mg/dl (70-106) White Blood Count 6.3 10^3/uL (4.4-10.8) Red Blood Count 5.04 10^6/uL (4.5-5.90) Hemoglobin 15.4 g/dL (13.5-17.5) Hematocrit 46.4 % (41.0-53.0) Mean Corpuscular Volume 92.2 fL (80.0-100.0) Mean Corpuscular Hemoglobin 30.6 pg (28.0-32.0) Mean Corpuscular Hemoglobin Concent 33.2 g/dL (32.0-36.0) Red Cell Distribution Width 14.1 % (11.8-14.3) Platelet Count 176 10^3/uL (140-450) Mean Platelet Volume 8.3 fL (6.9-10.8) Neutrophils (%) (Auto) 65.2 % (37.0-80.0) Lymphocytes (%) (Auto) 18.8 % (10.0-50.0) Monocytes (%) (Auto) 10.9 % (0.0-12.0) Eosinophils (%) (Auto) 4.3 % (0.0-7.0) Basophils (%) (Auto) 0.8 % (0.0-2.0) Neutrophils # (Auto) 4.1 10 ^3/uL (1.6-8.6) Lymphocytes # (Auto) 1.2 10 ^3/uL (0.4-5.4) Monocytes # (Auto) 0.7 10 ^3/uL (0-1.3) Eosinophils # (Auto) 0.3 10 ^3/uL (0-0.8) Basophils # (Auto) 0 10 ^3/uL (0-0.2) Nucleated Red Blood Cells 0.1 % Sodium Level 139 mmol/L (136-145) Potassium Level 4.5 mmol/L (3.5-5.1) Chloride Level 105 mmol/L (98-107) Carbon Dioxide Level 26 mmol/L (20-31) Anion Gap 8 (5-15) Blood Urea Nitrogen 14 mg/dL (9-23) Creatinine 1.07 mg/dL (0.700-1.30) Glomerular Filtration Rate Calc 84 mL/min (>90) BUN/Creatinine Ratio 13.1 (10.0-20.0) Serum Glucose 106 mg/dL (74-106) Calcium Level 8.3 mg/dL (8.7-10.4) Urine Creatinine 123.20 mg/dL (30.0-125.0) Urine Protein/Creatinine Ratio 1.30 Urine Sodium 134 mmol/L (40-220) Urine Total Protein 159.8 mg/dL (1-14) Urine Opiates Screen Neg (NEGATIVE) Urine Fentanyl Screen Neg (NEGATIVE) Urine Barbiturates Screen Neg (NEGATIVE) Urine Phencyclidine Screen Neg (NEGATIVE) Urine Amphetamines Screen Pos (NEGATIVE) Urine Benzodiazepines Screen Neg (NEGATIVE) Urine Cocaine Screen Neg (NEGATIVE) Urine Cannabinoids Screen Neg (NEGATIVE) Total Bilirubin 0.3 mg/dL (0.2-1.0) Aspartate Amino Transferase (AST) 18 U/L (13-40) Alanine Aminotransferase (ALT) 15 U/L (7-40) Alkaline Phosphatase 96 U/L (46-116) Total Protein 6.4 g/dL (5.7-8.2) Albumin 3.7 g/dL (3.2-4.8) Test 10/11/24 21:23 10/11/24 19:30 Lactate Dehydrogenase 239 U/L (120-246) Troponin I High Sensitivity 847 ng/L (</=54) Thyroid Stimulating Hormone (TSH) 2.37 uIU/mL (0.55-4.78) Plasma/Serum Blood Alcohol < 3.0 mg/dL (<10) Hemoglobin A1c 7.9 % A1C (<5.7) B-Type Natriuretic Peptide 2683.08 pg/mL (0-100) Other Laboratory Tests 10/13/24 06:38 Brief Hx & Hospital Course: Austyn Wright, a 53-year-old male with a complex medical history including ischemic and drug-induced cardiomyopathy, HFrEF, CAD status post PTCA with two OLIVIA, severe pulmonary hypertension, type 2 diabetes mellitus, and polysubstance abuse, was admitted with worsening shortness of breath and gastrointestinal symptoms. He was found to have acute gastroenteritis with associated diarrhea and nausea, likely contributing to his acute on chronic hypoxic respiratory failure and acute on chronic HFrEF, both attributed to medication noncompliance. Imaging revealed findings suggestive of ileus or enteritis without obstruction. Stool studies, including C. difficile testing, were sent, and the patient was started on Flagyl and Rocephin, along with Protonix for gastrointestinal support. During hospitalization, the patient was also diagnosed with a type 2 NSTEMI, likely secondary to demand ischemia from heart failure exacerbation. He had elevated troponins and BNP, and was managed with aspirin, atorvastatin, Coreg, Aldactone, and IV Lasix with strict fluid monitoring. His oxygen requirements were gradually weaned, and he was discharged on home oxygen as needed. Additional diagnoses included CHRISTIN likely secondary to volume depletion and uncontrolled type 2 diabetes (HbA1c 7.9), managed with glucose monitoring and sliding scale insulin. The patient was counseled extensively (17 minutes) on the importance of medication adherence, cessation of methamphetamine and tobacco use, and was advised to follow up with his primary care provider, cardiology. He was discharged in stable condition with appropriate medications and follow-up instructions. Pt is lying on bed General Appearance: Alert, Oriented X3, Cooperative, Not in acute distress HEENT: Atraumatic, Mucous membranes moist/pink Respiratory: Bilateral crackles Cardiovascular: Regular rate, Normal S1, Normal S2, No murmurs Abdominal: Active bowel sounds, Soft, no distention, no tenderness Extremities: 1+ BLE edema, Normal pulses, No tenderness/swelling Skin: No Significant rash, except past surgical scars Neuro: Normal speech, sensorimotor deficits none Psych/Mental Status: Mental status NL, Mood NL Nurse was there as sharperone during examination Operations or Procedures CT abdominal pelvis without contr IMPRESSION: 1. Nonspecific nondilated fluid-filled small bowel loops. Findings may be seen with ileus or enteritis in the appropriate clinical setting. No small bowel obstruction. 2. Cirrhotic liver morphology. 3. Small left pleural effusion. 4. Cardiomegaly. 5. Small fat containing umbilical hernia. 6. Additional findings as described above. Condition at Discharge: Stable ( ) Final Diagnosis/Problems List # Acute gastroenteritis # ruled out C diff # diarrhea and nausea likely from above # acute on chronic HFrEF due to medication noncompliance # Acute on chronic hypoxic respiratory failure due to above # NSTEMI type 2 likely due to above # CAD S/p PTCA x2 OLIVIA # Ischemic/drug-induced cardiomyopathy # Severe Pulmonary hypertension 3 # Methamphetamine abuse-UDS positive for amphetamine # Medically noncompliant # Cardiomegaly # CHRISTIN likely VMN # Type 2 DM uncontrolled with HbA1c 7.9 Discharge Disposition: Home Discharge Instruct/Medications Diet: Consistent carbohydrate, Cardiac 2g Na,low cholest Activity: No Restrictions, As Tolerated Follow Up/Referral: PCP [facility] Medications: Augmentin 875 mg 2 times daily for 3 days Resume home medications Discharge Statement: "Patient was advised to return to the ER or call 911 if any headaches, dizziness, shortness of breath, chest pain, abdominal pain, bleeding, fevers, or worsening of medical condition. Patient was counseled about treatment plan, medications, possible side effects, patientverbalized understanding. All questions were answered to the best of my ability. This discharge took greater then 30 minutes in planning, reviewing documentation, counseling the patient, and discussing with other team members." ASSESSMENT ASSESSMENT Assessment # Acute gastroenteritis # ruled out C diff # diarrhea and nausea likely from above # acute on chronic HFrEF due to medication noncompliance # Acute on chronic hypoxic respiratory failure due to above # NSTEMI type 2 likely due to above # CAD S/p PTCA x2 OLIVIA # Ischemic/drug-induced cardiomyopathy # Severe Pulmonary hypertension 3 # Methamphetamine abuse-UDS positive for amphetamine # Medically noncompliant # Cardiomegaly # CHRISTIN likely VMN # Type 2 DM uncontrolled with HbA1c 7.9 Date of Service: October 13, 2024 Billing Provider: JOSE MORAES MD Common Visit Codes: 64337-RGE/OBS DISCH DAY >30min REBEKAH BARNES RESIDENT October 13, 2024 11:47 JOSE MORAES MD October 17, 2024 00:31
[2024-10-13 12:30] VITALS: BP 109/76; PULSE 68; RESP 18; TEMP 98; O2SAT 96
[2024-10-13 13:37] VITALS: BP 118/79; PULSE 87; RESP 18; TEMP 36.7; O2SAT 98
== END 2024-10-13 14:15 | disposition home or self-care (01) | DRG 133 ==
LOC: ER 18:51 → OVERFLOW 21:32 → TELE-WESTW 10-12 18:35
PROVIDERS: ADMIT Student in an Organized Health Care Education/Training Program; ATTEND Emergency Medicine
DX: J96.21 Acute and chronic respiratory failure with hypoxia (principal); N17.0 Acute kidney failure with tubular necrosis; I21.A1 Myocardial infarction type 2; I50.23 Acute on chronic systolic (congestive) heart failure; I27.20 Pulmonary hypertension, unspecified; K56.7 Ileus, unspecified; I42.7 Cardiomyopathy due to drug and external agent; I11.0 Hypertensive heart disease with heart failure; A09 Infectious gastroenteritis and colitis, unspecified; K74.60 Unspecified cirrhosis of liver; E86.9 Volume depletion, unspecified; F15.10 Other stimulant abuse, uncomplicated; E11.9 Type 2 diabetes mellitus without complications; K42.9 Umbilical hernia without obstruction or gangrene; I25.10 Atherosclerotic heart disease of native coronary artery without angina pectoris; F17.210 Nicotine dependence, cigarettes, uncomplicated; I25.5 Ischemic cardiomyopathy; I25.2 Old myocardial infarction; Z91.148 Patient's other noncompliance with medication regimen for other reason; Z98.61 Coronary angioplasty status; Z91.199 Patient's noncompliance with other medical treatment and regimen due to unspecified reason; Z99.81 Dependence on supplemental oxygen; Z86.711 Personal history of pulmonary embolism; Z79.899 Other long term (current) drug therapy; Z79.82 Long term (current) use of aspirin
CPT/HCPCS: 36415; 71045; 74176; 80048; 80053; 80307; 80320; 82570; 82962; 83036; 83615; 83880; 84156; 84300; 84443; 84484; 85025; 99291; G0378; J1815; J2405; J2470; J3490; Q0162

== ENCOUNTER 2024-10-26 04:42 | Inpatient (IN) | payer OTHER ==
[~2024-10-26] VITALS: Ht 167.6 cm; Wt 68.2 kg
[~2024-10-26 04:42] MED LIST changes: -ACET-1882 PO; +AUG875T PO
--- NOTE | 2024-10-26 05:30 | ED.PDOC ---
History of Present Illness HPI Comments 53 y/o M presents for 3x day history of shortness of breath. Patient has a history that includes: CHRISTIN, CAD, CHF, DM II, HLD, NSTEMI II, CARDIOMEGALY, ischemic and drug-induced cardiomyopathy, pulmonary HTN, cardiomegaly, gastroenteritis, and polysubstance abuse. Patient reports no known recent sick contact or travel. He denies having any chest pain, palpitations, cough, congestion, fever, chills, or further associated symptoms. Chief Complaint: Shortness of Breath Time Seen by MD: 04:50 Primary Care Provider: none Reviewed Notes: Nurses Notes, Medications, Allergies Allergies: Coded Allergies: No Known Drug Allergy (Verified Allergy, Unknown, 04/01/23) Home Meds Active Scripts Amoxicillin & Pot Clavulanate (AUGMENTIN TABLET) 875 Mg Tb, 875 MG PO BID for 3 Days, #6 TAB Prov:REBEKAH BARNES 10/13/24 Metformin Hydrochloride (Metformin Hcl) 500 Mg Tab, 1 TAB PO BID for 30 Days, #60 TAB Prov:MARIA FERNANDA DUFF [facility] 09/15/24 Empagliflozin (Jardiance) 10 Mg Tab, 10 MG PO DAILY for 30 Days, #30 TAB Prov:MARIA FERNANDA DUFF [facility] 09/15/24 Lisinopril (Lisinopril) 5 Mg Tab, 5 MG PO DAILY for 30 Days, #30 TAB 3 Refills Prov:MARIA FERNANDA DUFF [facility] 09/15/24 Carvedilol (COREG) 3.125 Mg Tab, 3.125 MG PO Q12HR for 30 Days, #60 TAB Prov:MARIA FERNANDA DUFF 09/15/24 Aspirin (ASPIRIN 81) 81 Mg Tab, 81 MG PO DAILY for 30 Days, #30 TAB Prov:MARIA FERNANDA DUFF [facility] 09/15/24 Spironolactone (Aldactone) 25 Mg Tab, 12.5 MG PO DAILY, #30 TAB 5 Refills Prov:MARIA FERNANDA DUFF 09/15/24 Atorvastatin Calcium (ATORVASTATIN CALCIUM) 40 Mg Tab, 1 TAB PO DAILY for 30 Days, #30 TAB 5 Refills Prov:MARIA FERNANDA DUFF [facility] 09/15/24 Furosemide (Lasix) 40 Mg Tab, 40 MG PO DAILY, #90 TAB Prov:AYAKA SCHMIDT MD 03/04/24 Information Source: Patient Mode of Arrival: Ambulatory Severity: Moderate Timing: Days Duration: Since onset Prehospital treatment: None Past Medical History PAST MEDICAL HISTORY: CAD, CHF, DM (type II ), High Lipids, HTN, WI (NSTEMI type II ) Past Medical History (Other): ischemic and drug-induced cardiomyopathy pulmonary HTN gastroenteritis cardiomegaly CHRISTIN Surgical History: PTCA (w/2x OLIVIA) Family History Family History: Reviewed,noncontributory to illness, Family hx of DM Social History Smoker: Cigarettes Alcohol: Occasionally Drugs: Marijuana, Methamphetamine Lives In: Home All Other Systems: Reviewed and Negative (Comprehensive systems review obtained and negative except for what is stated in the HPI.) Physical Exam General Appearance: No Apparent Distress, Normal HEENT: Normal ENT Inspection, Pharynx Normal, TMs Normal Neck: Full Range of Motion, Non-Tender, Normal, Normal Inspection Respiratory: Chest Non-Tender, Decreased Breath Sounds, No Accessory Muscle Use, No Respiratory Distress, Wheezing (bilaterally ) Cardiovascular: No Edema, No JVD, No Murmur, No Gallop, Normal Peripheral Puls es, Regular Rate/Rhythm Breast Exam: Deferred Gastrointestinal: No Organomegaly, Non Tender, No Pulsatile Mass, Normal Bowel Sounds, Soft Genitalia: Deferred Pelvic: Deferred Rectal: Deferred Extremities: Leg edema (pitting, bilateral ), No calf tenderness, Normal capillary refill, Normal inspection, Normal range of motion Musculoskeletal : Apperance: Normal Neurologic: Alert, protective clothing issuer II-XII nml as Tested, No Motor Deficits, Normal Affect, Normal Mood, No Sensory Deficits Cerebellar Function: Normal Reflexes: Normal Skin: Dry, Normal Color, Warm Lymphatic: No Adenopathy Was a procedure done? Was a procedure done?: No Differential Dx Considerations may include: URI, PNA, WI, PE, ACS, viral syndrome, among others X-Ray, Labs, Meds, VS Vital Signs Date Time Temp Pulse Resp B/P (MAP) Pulse Ox O2 Delivery O2 Flow Rate FiO2 10/26/24 04:45 98 Room Air* 0 21 10/26/24 04:45 97.3 85 18 133/96 (108) 98 97.3 Lab Test 10/26/24 05:11 Range/Units White Blood Count Pending Red Blood Count Pending Hemoglobin Pending Hematocrit Pending Mean Corpuscular Volume Pending Mean Corpuscular Hemoglobin Pending Mean Corpuscular Hemoglobin Concent Pending Red Cell Distribution Width Pending Platelet Count Pending Mean Platelet Volume Pending Neutrophils (%) (Auto) Pending Lymphocytes (%) (Auto) Pending Monocytes (%) (Auto) Pending Basophils (%) (Auto) Pending Neutrophils # (Auto) Pending Lymphocytes # (Auto) Pending Monocytes # (Auto) Pending Sodium Level Pending Potassium Level Pending Chloride Level Pending Carbon Dioxide Level Pending Anion Gap Pending Blood Urea Nitrogen Pending Creatinine Pending Glomerular Filtration Rate Calc Pending BUN/Creatinine Ratio Pending Serum Glucose Pending Calcium Level Pending Troponin I High Sensitivity Pending B-Type Natriuretic Peptide Pending Time of 1ST Reevaluation: 05:20 Reevaluation 1ST: Unchanged Patient Education/Counseling: Diagnosis, Treatment Family Education/Counseling: No Family Present Additional Information Previous visits reviewed: October 11, 2024 encounter for acute exertional heart failure The following tests were ordered, and results were reviewed by me: EKG, CXR, BMP, CBC, BNP, troponin Additional Information was gathered from interviewing the following independent historians: N/A I reviewed and agreed with the following test results read by other providers: EMS I discussed treatment and results with medical personnel and: patient Departure 1 Departure Time of Disposition: 05:47 (Patient presented with shortness of breath that was concerning for possible STEMI, ACS, PE, Pneumonia, Muscle Strain, COPD, Dis section, Acute on Chronic systolic and Diastolic dysfunction. Data: 1. I ordered and reviewed the result of at least 3 labs including a CBC, BMP, and Troponin. 2. I independently interpreted the following tests: EKG which shows sinus arrhthmia and Chest X-ray which shows cardiomegaly.Risk:This patient has a high risk of morbidity due to further diagnostic testing or treatment and may suffer from an acute cardiac or respiratory disorder but is most consitent with an acute chf exacerbation. Patient should be admitted for further workup and possible expert consultation. ) Impression: Primary Impression: Acute on chronic systolic (congestive) heart failure Additional Impressions: Shortness of breath Chest pain Qualified Codes: R07.9 - Chest pain, unspecified Disposition: ADMITTED INPATIENT Admit to: Med Surg Condition: Serious Critical Care Note Critical Care Time?: Yes Critical care comment: Shortness of breath Authorized and Performed by: Tena Sheldon MD Total critical care time: Approximately 38 minutes Due to a high probability of clinically significant, life threatening deterioration, the patient required my highest level of preparedness to intervene emergently and I personally spent this critical care time directly and personally managing the patient. This critical care time included obtaining a history; examining the patient; pulse oximetry; ordering and review of studies; arranging urgent treatment with development of a management plan; evaluation of patient's response to treatment; frequent reassessment; and, discussions with other providers. This critical care time was performed to assess and manage the high probability of imminent, life-threatening deterioration that could result in multi-organ failure. It was exclusive of separately billable procedures and treating other patients and teaching time. Please see my other sections and the rest of the note for further information on patient assessment and treatment. Stability Stability form required: No Heart Score Heart Score: Heart Score Response (Comments) Value History N/A 0 EKG N/A 0 Age N/A 0 Risk Factors N/A 0 Troponin N/A 0 Total 0 I personally scribed for TENA SHELDON MD ([email or web address]) on 10/26/24 at 05:30. Electronically submitted by Herson Marsh [email or web address]). TENA SHELDON MD October 26, 2024 05:30
[2024-10-26 05:35] LABS: Sodium 138 mmol/L (136-145)
[2024-10-26 05:36] LABS: Anion Gap 7 (5-15); Carbon Dioxide 23 mmol/L (20-31)
--- NOTE | 2024-10-26 05:39 | DVH ---
CHEST RADIOGRAPH Indication: chest pain Technique: Single frontal view of the chest was obtained COMPARISON: XY CHEST PORTABLE on DOS: 10/11/24, XY CHEST PORTABLE on DOS: 09/12/24, XY CHEST PORTABLE o n DOS: 08/02/24, XY CHEST PORTABLE on DOS: 07/30/24, XY CHEST PORTABLE on DOS: 06/10/24 FINDINGS: Lines and Tubes: None Lungs: Clear Pleura: No effusion. No pneumothorax. Cardiomediastinal contours: Cardiomegaly Bones: Unremarkable IMPRESSION: Cardiomegaly
[2024-10-26 05:41] LABS: BUN/Creatinine Ratio 12.9 (10.0-20.0); Blood Urea Nitrogen 18 mg/dL (9-23)
[2024-10-26 05:56] LABS: Calcium 8.6 mg/dL (8.7-10.4); Chloride 108 mmol/L (98-107); Glucose 126 mg/dL (74-106); Potassium 5.6 mmol/L (3.5-5.1)
[2024-10-26 06:02] LABS: Basophils # (auto) 0 10 ^3/uL (0-0.2); Basophils % (auto) 0.5 % (0.0-2.0); Eosinophils # (auto) 0.2 10 ^3/uL (0-0.8); Eosinophils % (auto) 3.6 % (0.0-7.0); Hematocrit 50.7 % (41.0-53.0); Hemoglobin 16.8 g/dL (13.5-17.5); Lymphocytes # (auto) 1.3 10 ^3/uL (0.4-5.4); Lymphocytes % (auto) 22.8 % (10.0-50.0); Mean Corpuscular Hgb Conc. 33.1 g/dL (32.0-36.0); Mean Corpuscular Volume 93.4 fL (80.0-100.0); Monocytes # (auto) 0.6 10 ^3/uL (0-1.3); Monocytes % (auto) 9.4 % (0.0-12.0); Neutrophils # (auto) 3.7 10 ^3/uL (1.6-8.6); Neutrophils % (auto) 63.7 % (37.0-80.0); Nucleated Red Blood Cells % 0.2 %; Platelet Count (auto) 201 10^3/uL (140-450); Red Blood Cells 5.43 10^6/uL (4.5-5.90); Red Cell Distribution Width 14.9 % (11.8-14.3); White Blood Cell 5.9 10^3/uL (4.4-10.8)
[2024-10-26 06:21] VITALS: PULSE 81; O2SAT 98
[2024-10-26] MEDS ORDERED: hydrALAZINE HCL 20 MG/ML VL IV PRN (07:15)
[2024-10-26] MEDS ORDERED: NITROGLYCERIN 0.4 MG SL TAB SL PRN (07:15)
[2024-10-26] MEDS ORDERED: MORPHINE SULFATE INJ 2 MG/ml SYRG IV PRN (07:15)
[2024-10-26] MEDS ORDERED: DOCUSATE SOD 100 MG CAP PO PRN (07:15)
[2024-10-26] MEDS ORDERED: DEXTROSE (50%) 50ML SYRG IV PRN (07:15)
[2024-10-26] MEDS ORDERED: ONDANSETRON HCL 4 MG/2 ML VIAL IV PRN (07:15)
[2024-10-26] MEDS ORDERED: ACETAMINOPHEN 325 MG TAB PO PRN (07:15)
--- NOTE | 2024-10-26 07:18 | DVHHP2 ---
History of Present Illness Reason for Visit: Acute on chronic systolic heart failure History of Present Illness The patient is a 53-year-old male with multiple past medical history including polysubstance abuse, pulmonary hypertension, CHF, Coronary artery disease, DM, and MN who presented to [facility] ED with complaint of shortness of breaths. Patient reports he has been experiencing chest pressure, increased work of breathing, getting worse that prompted this visit. Patient was seen and evaluated in the ED, laboratory data shows WBC 5.9, platelets 201, sodium 138, potassium 5.6, BUN 18, creatinine 1.30, glucose 126, troponin 609, BNP 1568.83, blood pressure 140/92, pulse 82, temperature 97.8 F, O2 saturation 98% on oxygen. Chest x-ray revealing cardiomegaly. Patient was started on IV Lasix, please see medication orders section in the computer. On my assessment, patient denied chest pain, no headache, no dizziness, no diaphoresis, currently on oxygen, no nausea, no vomiting, no fever, no chills. Patient was admitted for further evaluation and medical management. Past Medical History CAD, CHF, DM (type II ), High Lipids, HTN, MN (NSTEMI type II ) Ischemic and drug-induced cardiomyopathy Pulmonary HTN Gastroenteritis Cardiomegaly CHRISTIN Past Surgical History PTCA (w/2x OLIVIA) Family History Reviewed, noncontributory to the management of this case. Past Social History The patient lives at home, smokes cigarettes, drinks alcohol occasionally, uses marijuana and methamphetamine. Review of Systems Constitutional: Yes: Weakness; No: Fever, Chills, Sweats, Malaise, Other Eyes: No: Pain, Vision change, Conjunctivae inflammation, Eyelid inflammation, Other, Redness ENT: No: Ear pain, Ear discharge, Nose pain, Nose discharge, Nose congestion, Mouth pain, Mouth swelling, Throat pain, Throat swelling, Other Respiratory: Shortness of breath, Other (SOB at rest); No: Cough, Dry, SOB with excertion, Wheezing, Hemoptysis, Pleuritic Pain, Sputum, Wheezing Cardiovascular: Chest Pain; No: Palpitations, Orthopnea, Paroxysmal Noc. Dyspnea, Edema, Lt Headedness, Other Gastrointestinal: No: Nausea, Vomiting, Abdominal Pain, Diarrhea, Constipation, Melena, Hematochezia, Other Genitourinary: No Dysuria, No Frequency, No Incontinence, No Hematuria, No Retention, No Other Musculoskeletal: No: other, neck pain, shoulder pain, arm pain, back pain, hand pain, leg pain, foot pain Skin: No: Rash, Lesions, Jaundice, Bruising, Other Neurological: No: Weakness, Numbness, Incoordination, Change in speech, Conf usion, Seizures, Other Allergies: Coded Allergies: No Known Drug Allergy (Verified Allergy, Unknown, 04/01/23) Exam Vital Signs Vital Signs Date Time Temp Pulse Resp B/P (MAP) Pulse Ox O2 Delivery O2 Flow Rate FiO2 10/26/24 06:21 81 98 Room Air* 0 21 10/26/24 06:19 97.8 18 140/92 (108) 97.8 General Appearance: Alert, Oriented X3, Cooperative, No acute distress HEENT: Atraumatic, PERRLA, EOMI, Mucous membr. moist/pink Respiratory: Normal air movement, Other (Diminished breath sounds) Cardiovascular: Regular rate, Normal S1, Normal S2, No murmurs Abdominal: Normal bowel sounds, Soft, No tenderness, No hepatospenomegaly, No masses Extremities: No clubbing, No cyanosis, No edema, Normal pulses, No tenderness/swelling Skin: No rashes, No breakdown, No significant lesion Neuro: Normal speech, Normal tone, Sensation intact, Cranial nerves 3-12 NL, Reflexes 2+, Other (Generalized weakness) Psych/Mental Status: Mental status NL, Mood NL Labs/Xrays Labs Test 10/26/24 06:22 10/26/24 05:11 Range/Units Troponin I High Sensitivity 608 *H </=54 ng/L White Blood Count 5.9 4.4-10.8 10^3/uL Red Blood Count 5.43 4.5-5.90 10^6/uL Hemoglobin 16.8 13.5-17.5 g/dL Hematocrit 50.7 41.0-53.0 % Mean Corpuscular Volume 93.4 80.0-100.0 fL Mean Corpuscular Hemoglobin 31.0 28.0-32.0 pg Mean Corpuscular Hemoglobin Concent 33.1 32.0-36.0 g/dL Red Cell Distribution Width 14.9 H 11.8-14.3 % Platelet Count 201 140-450 10^3/uL Mean Platelet Volume 8.3 6.9-10.8 fL Neutrophils (%) (Auto) 63.7 37.0-80.0 % Lymphocytes (%) (Auto) 22.8 10.0-50.0 % Monocytes (%) (Auto) 9.4 0.0-12.0 % Eosinophils (%) (Auto) 3.6 0.0-7.0 % Basophils (%) (Auto) 0.5 0.0-2.0 % Neutrophils # (Auto) 3.7 1.6-8.6 10 ^3/uL Lymphocytes # (Auto) 1.3 0.4-5.4 10 ^3/uL Monocytes # (Auto) 0.6 0-1.3 10 ^3/uL Eosinophils # (Auto) 0.2 0-0.8 10 ^3/uL Basophils # (Auto) 0 0-0.2 10 ^3/uL Nucleated Red Blood Cells 0.2 % Sodium Level 138 136-145 mmol/L Potassium Level 5.6 *H 3.5-5.1 mmol/L Chloride Level 108 H 98-107 mmol/L Carbon Dioxide Level 23 20-31 mmol/L Anion Gap 7 5-15 Blood Urea Nitrogen 18 9-23 mg/dL Creatinine 1.39 H 0.700-1.30 mg/dL Glomerular Filtration Rate Calc 61 >90 mL/min BUN/Creatinine Ratio 12.9 10.0-20.0 Serum Glucose 126 H 74-106 mg/dL Calcium Level 8.6 L 8.7-10.4 mg/dL B-Type Natriuretic Peptide 1568.83 0-100 pg/mL PATIENT: SOPHIE STORY ACCT: [id number] UNIT: [id number] : 1970 LOC: ER ROOM / BED: / AGE / SEX: 53 / M ADM STATUS: REG ER SERVICE [id number] ORDERING PHYSICIAN: TENA SHELDON MD PROCEDURE(s): CXRP - CHEST PORTABLE REASON: chest pain ORDER NUMBER(s): [id number], ACCESSION NUMBER(s): [id number] CHEST RADIOGRAPH Indication: chest pain Technique: Single frontal view of the chest was obtained COMPARISON: XY CHEST PORTABLE on DOS: 10/11/24, XY CHEST PORTABLE on DOS: 09/12/24, XY CHEST PORTABLE on DOS: 08/02/24, XY CHEST PORTABLE on DOS: 07/30/24, XY CHEST PORTABLE on DOS: 06/10/24 FINDINGS: Lines and Tubes: None Lungs: Clear Pleura: No effusion. No pneumothorax. Cardiomediastinal contours: Cardiomegaly Bones: Unremarkable IMPRESSION: Cardiomegaly Assessment/Plan Assessment/Plan Acute on chronic systolic (congestive) heart failure Acute respiratory distress Elevated troponin Chest pain Hyperkalemia Chest pain, unspecified Generalized weakness Plan 1. Admit to telemetry unit 2. Breathing treatment 3. Pain control management 4. Management of fluids and electrolytes 5. Consultation for cardiology/hospitalist 6. Diagnostic tests chest x-ray 7. DVT prophylaxis-on aspirin 8. Repeat labs CBC, CMP in a.m. 9. Continue with current medical management 10. Treatment plan discussed with patient and RN. Patient verbalized understanding. Plan discussed with: Patient, Other (RN) My Orders Orders - BAUDILIO COOLEY DNP Procedure Category Date Status Time Aspirin Tablet PHA 10/26/24 Verified 10:00 Aspirin Tablet PHA 10/26/24 Verified 07:15 Clopidogrel Bisulfate PHA 10/26/24 Verified (Plavix) 10:00 Furosemide Injection PHA 10/26/24 Verified (Lasix Injection) 07:15 Furosemide Injection PHA 10/26/24 Verified (Lasix Injection) 10:00 Carvedilol Tablet PHA 10/26/24 Verified (Coreg Tablet) 10:00 Hydralazine Injection PHA 10/26/24 Verified (Apresoline Inject 07:15 Consistent DIET 10/26/24 Verified Carb(Ccho)Diabetes Breakfast * Cardiology Consult CONS 10/26/24 Verified 07:10 Sodium Zirconium PHA 10/26/24 Verified Cyclosilicate 07:15 Problem List: (1) Acute on chronic systolic (congestive) heart failure (2) Chest pain, unspecified (3) Hyperkalemia (4) Elevated troponin (5) Acute respiratory distress (6) Chest pain (7) Generalized weakness Date of Service: October 26, 2024 Billing Provider: BAUDILIO COOLEY DNP Common Visit Codes: 78610-[id number] INP/OBS CARE (HIGH) BAUDILIO COOLEY DNP October 26, 2024 07:18
[2024-10-26] MEDS: InsuLIN REG 1unit/0.01ml Soln (100units/ml) SC SCH (08:00)
[2024-10-26] MEDS: ALBUTEROL SULF 2.5 MG/0.5ML(0.5%) NEB SOLN NEB ONE (08:12)
[2024-10-26] MEDS: FUROSEMIDE 40 MG/4 ML VIAL IV ONE (08:16)
[2024-10-26] MEDS: CLOPIDOGREL BISULFATE 75 MG TAB PO SCH (08:17)
[2024-10-26] MEDS: InsuLIN REG 1unit/0.01ml Soln (100units/ml) IV ONE (08:18)
[2024-10-26] MEDS: SODIUM ZIRCONIUM CYCL 10 GM PAK PO ONE (08:19)
[2024-10-26] MEDS: CALCIUM GLUC 1,000mg/50ml-NS 50 ML IV ONE (08:19)
[2024-10-26] MEDS: SODIUM BICARB 8.4% 50Meq/50ml SYR INJ IV ONE (08:19)
[2024-10-26] MEDS: DEXTROSE (50%) 50ML SYRG IV ONE (08:19)
[2024-10-26] MEDS: ACCU-CHEK COMFORT CURVE STRIP VI SCH (08:20)
[2024-10-26] MEDS: CARVEDILOL 12.5 MG TAB PO SCH (08:20)
[2024-10-26] MEDS: FUROSEMIDE 20 MG/2 ML VIAL IV ONE (08:21)
[2024-10-26] MEDS: SODIUM CHLOR 0.9% PF (SALINE LOCK) 10ML VIAL/SYR IV SCH (08:21)
[2024-10-26] MEDS: ASPirin 81 mg TAB PO ONE (08:22)
[2024-10-26 09:23] LABS: Urine Bacteria None Seen /hpf (None Seen)
[2024-10-26 09:43] LABS: Urine Blood Negative /uL (Negative); Urine Clarity Clear (Clear); Urine Color Colorless (Yellow); Urine Protein, UAD Negative (Negative); Urine Specific Gravity 1.005 (1.001-1.035); Urine Squamous Epithelial Cell None Seen /hpf (<5); Urine Urobilinogen Normal (Negative)
[2024-10-26 09:57] LABS: Urine WBC < 1 /HPF (0-3)
[2024-10-26 10:03] LABS: Amphetamine Screen, Urine Neg (NEGATIVE); Barbiturate Scree,Urine Neg (NEGATIVE); Benzodiazephine Screen, Urine Neg (NEGATIVE); Cannabinoid Screen, Urine Neg (NEGATIVE); Cocaine Screen, Urine Neg (NEGATIVE); Opiate Scree,Urine Neg (NEGATIVE); Phencyclidine Screen, Urine Neg (NEGATIVE)
[2024-10-26 11:09] VITALS: PULSE 75; RESP 20; O2SAT 93
--- NOTE | 2024-10-26 11:21 | DVHINCON2 ---
Date Seen: October 26, 2024 Reason for Consultation SOB History of Present Illness This is a 53-year-old man with past medical history of dilated cardiomyopathy (ischemic/drug-induced), CHF (HFrEF, EF 15%, on home oxygen 2 liters/minute as needed), coronary artery disease (status post PCI 2 stents, in 2021), hypertensi on, history of pulmonary embolus, diabetes type 2, and methamphetamine use disorder came to the hospital due to shortness of breaths. Per patient, he has shortness of breaths at baseline (functional class 3), with a has been worsened since 2 days. He also reports cough, chest discomfort, orthopnea, PND, and generalized weakness. Of note, he has ran out of diuretics since 1 week. Previous hospitalization: Patient was seen on 10/13/2024, with same symptoms, cardiology recommended outpatient follow up, but the patient has not seen and Cardiology at office. PMHx: dilated cardiomyopathy (ischemic/drug-induced), CHF (HFrEF, EF 15%, on home oxygen 2 liters/minute as needed), coronary artery disease (status post PCI 2 stents, in 2021), hypertension, history of pulmonary embolus, diabetes type 2, and polysubstance drug abuse PSHx: Not significant Family history: Noncontributory Social history: Current methamphetamine user (last smoke was 1 week back), current smoker with 15 pack year history, denies any other drug use Home medication: Metformin, carvedilol 3.125 b.i.d., lisinopril 5 mg daily, spironolactone 25 mg daily, atorvastatin 40 mg daily, Jardiance 10 mg daily Allergic history: No known allergy Patient seen and examined at the bedside. Patient is still complaining of shortness of bed. Past Medical History Per H&P Past Surgical History Per H&P Family History: Alzheimer's disease G8 FATHER Diabetes mellitus G8 FATHER, Onset:Unknown Hypertension G8 FATHER Family History Per H&P Social History Per H&P Allergies: Coded Allergies: No Known Drug Allergy (Verified Allergy, Unknown, 04/01/23) Allergies Per H&P Home Meds Active Scripts Amoxicillin & Pot Clavulanate (AUGMENTIN TABLET) 875 Mg Tb, 875 MG PO BID for 3 Days, #6 TAB Prov:REBEKAH BARNES RESIDENT 10/13/24 Metformin Hydrochloride (Metformin Hcl) 500 Mg Tab, 1 TAB PO BID for 30 Days, #60 TAB Prov:CIELO DUFFEN [facility] 09/15/24 Empagliflozin (Jardiance) 10 Mg Tab, 10 MG PO DAILY for 30 Days, #30 TAB Prov:CIELO DUFFEN [facility] 09/15/24 Lisinopril (Lisinopril) 5 Mg Tab, 5 MG PO DAILY for 30 Days, #30 TAB 3 Refills Prov:OMEGAMARIA FERNANDA [facility] 09/15/24 Carvedilol (COREG) 3.125 Mg Tab, 3.125 MG PO Q12HR for 30 Days, #60 TAB Prov:BENNYSAMIFARAZMARIA FERNANDA [facility] 09/15/24 Aspirin (ASPIRIN 81) 81 Mg Tab, 81 MG PO DAILY for 30 Days, #30 TAB Prov:BENNYSAMIFARAZMARIA FERNANDA [facility] 09/15/24 Spironolactone (Aldactone) 25 Mg Tab, 12.5 MG PO DAILY, #30 TAB 5 Refills Prov:BENNYMARIA FERNANDA SHANKAR [facility] 09/15/24 Atorvastatin Calcium (ATORVASTATIN CALCIUM) 40 Mg Tab, 1 TAB PO DAILY for 30 Days, #30 TAB 5 Refills Prov:CIELO DUFFEN [facility] 09/15/24 Furosemide (Lasix) 40 Mg Tab, 40 MG PO DAILY, #90 TAB Prov:AYAKA SCHMIDT MD 03/04/24 Current Medications Current Medications Medications (Trade) Dose Ordered Sig/Kimberly Route PRN Reason Start Time Stop Time Status Last Admin Aspirin 81 mg DAILY PO 10/27/24 10:00 Clopidogrel Bisulfate (Plavix) 75 mg DAILY PO 10/26/24 10:00 10/26/24 08:17 Furosemide (Lasix Injection) 40 mg DAILY IV 10/27/24 10:00 Carvedilol (Coreg Tablet) 12.5 mg Q12HR PO 10/26/24 10:00 10/26/24 08:20 Hydralazine HCl (Apresoline Injection) 10 mg Q6HP PRN IV SBP>150 10/26/24 07:15 Atorvastatin Calcium (Lipitor) 40 mg HS PO 10/26/24 22:00 Diagnostic Test (Pha) (Accu-Chek Comfort Curve T) 1 strip IQ4HR 10/26/24 08:00 10/26/24 10:49 Insulin Human Regular (InsuLIN R) IQ4HR SC 10/26/24 08:00 10/26/24 10:36 Dextrose 50 ml UD PRN IV Blood Sugar LESS THAN 60 10/26/24 07:15 Sodium Chloride (Saline Lock Ns) 10 ml Q8HR IV 10/26/24 14:00 10/26/24 08:21 Acetaminophen/ Hydrocodone Bitart ([place] 5/325MG Tab) 1 tab Q4HP PRN PO MODERATE PAIN (4-6 PAIN SCALE) 10/26/24 07:15 Ondansetron HCl (Zofran) 4 mg Q4HP PRN IV NAUSEA / VOMITING 10/26/24 07:15 Docusate Sodium (Colace Capsule) 100 mg BIDPRN PRN PO FOR CONSTIPATION 10/26/24 07:15 Acetaminophen (Tylenol Tablet) 650 mg Q6HP PRN PO PAIN SCALE 1-3 OR TEMP>100.4 10/26/24 07:15 Nitroglycerin (Ntrostat Sublingual) 0.4 mg Q5MINP PRN SL FOR CHEST PAIN 10/26/24 07:15 Morphine Sulfate 2 mg Q30M PRN IV FOR CHEST PAIN 10/26/24 07:15 Review of Systems Per H&P Vital Signs Vital Signs Date Time Temp Pulse Resp B/P (MAP) Pulse Ox O2 Delivery O2 Flow Rate FiO2 10/26/24 11:09 75 20 93 Nasal Cannula* 2 28 10/26/24 10:30 97.9 132/79 (96) 97.9 Physical Exam General Appearance: Alert, Oriented X3, Cooperative, No acute distress HEENT: Atraumatic, PERRLA, EOMI, Mucous membrane moist/pink Respiratory: Bilateral lower zone crackles Cardiovascular: Regular rate, Normal S1, Normal S2, No murmurs, no chest wall tenderness Abdominal: Normal bowel sounds, Soft, No tenderness, No hepatospenomegaly, No masses Extremities: Bilateral lower limb grade 2 pitting pedal edema Skin: No rashes, No breakdown, No significant lesion Neuro: Normal gait, Normal speech, Strength at 5/5 X4 ext, Normal tone, Sensation intact, Cranial nerves 3-12 NL, Reflexes 2+ Psych/Mental Status: Mental status NL, Mood NL Labs/Diagnostic Data Labs Test 10/26/24 10:30 10/26/24 09:00 10/26/24 08:07 10/26/24 05:11 Range/Units POC Glucose 198 H 70-106 mg/dl Urine Color Colorless Yellow Urine Clarity Clear Clear Urine pH 7.0 5.0-9.0 Urine Specific [place] 1.005 1.001-1.035 Urine Protein Negative Negative Urine Ketones Negative Negative Urine Blood Negative Negative /uL Urine Nitrite Negative Negative Urine Bilirubin Negative Negative Urine Urobilinogen Normal Negative mg/dL Urine Leukocyte Esterase Negative Negative /uL Urine RBC 1 0 - 3 /hpf Urine Microscopic WBC < 1 0-3 /HPF Urine Squamous Epithelial Cells None seen <5 /hpf Urine Bacteria None seen None Seen /hpf Urine Glucose 3+ H Normal mg/dL Urine Opiates Screen Neg NEGATIVE Urine Fentanyl Screen Neg NEGATIVE Urine Barbiturates Screen Neg NEGATIVE Urine Phencyclidine Screen Neg NEGATIVE Urine Amphetamines Screen Neg NEGATIVE Urine Benzodiazepines Screen Neg NEGATIVE Urine Cocaine Screen Neg NEGATIVE Urine Cannabinoids Screen Neg NEGATIVE Troponin I High Sensitivity 523 *H </=54 ng/L White Blood Count 5.9 4.4-10.8 10^3/uL Red Blood Count 5.43 4.5-5.90 10^6/uL Hemoglobin 16.8 13.5-17.5 g/dL Hematocrit 50.7 41.0-53.0 % Mean Corpuscular Volume 93.4 80.0-100.0 fL Mean Corpuscular Hemoglobin 31.0 28.0-32.0 pg Mean Corpuscular Hemoglobin Concent 33.1 32.0-36.0 g/dL Red Cell Distribution Width 14.9 H 11.8-14.3 % Platelet Count 201 140-450 10^3/uL Mean Platelet Volume 8.3 6.9-10.8 fL Neutrophils (%) (Auto) 63.7 37.0-80.0 % Lymphocytes (%) (Auto) 22.8 10.0-50.0 % Monocytes (%) (Auto) 9.4 0.0-12.0 % Eosinophils (%) (Auto) 3.6 0.0-7.0 % Basophils (%) (Auto) 0.5 0.0-2.0 % Neutrophils # (Auto) 3.7 1.6-8.6 10 ^3/uL Lymphocytes # (Auto) 1.3 0.4-5.4 10 ^3/uL Monocytes # (Auto) 0.6 0-1.3 10 ^3/uL Eosinophils # (Auto) 0.2 0-0.8 10 ^3/uL Basophils # (Auto) 0 0-0.2 10 ^3/uL Nucleated Red Blood Cells 0.2 % Sodium Level 138 136-145 mmol/L Potassium Level 5.6 *H 3.5-5.1 mmol/L Chloride Level 108 H 98-107 mmol/L Carbon Dioxide Level 23 20-31 mmol/L Anion Gap 7 5-15 Blood Urea Nitrogen 18 9-23 mg/dL Creatinine 1.39 H 0.700-1.30 mg/dL Glomerular Filtration Rate Calc 61 >90 mL/min BUN/Creatinine Ratio 12.9 10.0-20.0 Serum Glucose 126 H 74-106 mg/dL Calcium Level 8.6 L 8.7-10.4 mg/dL B-Type Natriuretic Peptide 1568.83 0-100 pg/mL Assessment Acute on chronic hypoxic respiratory failure, likely due to CHF exacerbation Acute on chronic CHF exacerbation (HFrEF, EF 15%) NSTEMI, likely type 2, due to above Dilated cardiomyopathy, methamphetamine induced Ischemic cardiomyopathy, history of CAD (status post PCI, 2 stent) Aortic valve regurgitation, severe Pulmonary hypertension, severe History of pulmonary embolism Hypertension Methamphetamine use disorder Medication and adherence Type 2 diabetes mellitus, uncontrolled (Hgb A1c 7.4%) * EKG shows sinus rhythm, normal axis, with nonspecific T-wave changes on lateral leads * Trop I is raised at 600s (almost stable), BNP is raised at 1500s * Echo from 09/17/2024 shows, severe global hypokinesia with dilated chambers, LVEF 15%, moderate MR, severe TR with moderate TR * Lina ACS score: 95 point Plan/Recommendation (Case discussed with Dr. Rodgers) * IV diuretic Lasix 40 mg daily * Carvedilol 2.5 mg b.i.d., Jardiance 10 mg daily, spironolactone 25 mg daily, atorvastatin 40 mg daily and aspirin 81 mg daily * Considering patient's current clinical status, medication nonadherence, and low lina ACS score, no further cardiology workup required at the moment * Discharge plan: Continue Lasix 40 mg daily, Carvedilol 2.5 mg b.i.d., Jardiance 10 mg daily, spironolactone 25 mg daily, atorvastatin 40 mg daily and aspirin 81 mg daily and follow up with Cardiology on outpatient basis * Keep K above 4, and Mag above 2 * Rest of plan, per primary team Thank you for allowing us to participate in this patient's care. Please call if you have any questions or concerns. Plan discussed with: Patient, Other (RN) NYHA Physical activity limitations: Class4(Severe)discomfort Date of Service: October 26, 2024 Billing Provider: GIDEON RODGERS Sr., MD Cardiology Common Codes: [id number] INP/OBS CARE (High) NANETTE GABRIEL RESDIENT October 26, 2024 11:21
[2024-10-26] MEDS ORDERED: SPIRONOLACTONE 25 MG TAB PO ONE (11:30)
[2024-10-26] MEDS: FUROSEMIDE 40 MG/4 ML VIAL IV SCH (12:09)
[2024-10-26 12:24] LABS: Potassium 3.7 mmol/L (3.5-5.1)
[2024-10-26] MEDS: SPIRONOLACTONE 25 MG TAB PO SCH (12:26)
[2024-10-26 12:31] LABS: Magnesium 1.9 mg/dL (1.6-2.6)
--- NOTE | 2024-10-26 14:38 | DVHPN2 ---
Reviewed: Care Plan, H&P, Labs, Medications, Previous Orders, Radiology Changes from previous H/P or p: No Changes Eyes: No Pain, No Vision change, No Conjunctivae inflammation, No Eyelid inflammation, No Other, No Redness ENT: No Ear pain, No Ear discharge, No Nose pain, No Nose discharge, No Nose congestion, No Mouth pain, No Mouth swelling, No Throat pain, No Throat swelling, No Other Cardiovascular: Chest Pain; No Palpitations, No Orthopnea, No Paroxysmal Noc. Dyspnea, No Edema, No Lt Headedness, No Other Respiratory: No Cough, No Dry; Shortness of breath; No SOB with excertion, No Wheezing, No Hemoptysis, No Pleuritic Pain, No Sputum; Other (SOB at rest) Gastrointestinal: No Nausea, No Vomiting, No Abdominal Pain, No Diarrhea, No Constipation, No Melena, No Hematochezia, No Other Genitourinary: No Dysuria, No Frequency, No Incontinence, No Hematuria, No Retention, No Other Musculoskeletal: No other, No neck pain, No shoulder pain, No arm pain, No back pain, No hand pain, No leg pain, No foot pain Skin: No Rash, No Lesions, No Jaundice, No Bruising, No Other Objective Vitals Vital Signs Date Time Temp Pulse Resp B/P (MAP) Pulse Ox O2 Delivery O2 Flow Rate FiO2 10/26/24 12:09 125/75 10/26/24 12:00 98.2 54 20 92 98.2 10/26/24 11:09 Nasal Cannula* 2 28 Medications Current Medications Medications Dose Ordered Sig/Kimberly Route Start Time Stop Time Status Last Admin Dose Admin Aspirin 81 mg DAILY PO 10/27/24 10:00 Carvedilol 12.5 mg Q12HR PO 10/26/24 10:00 10/26/24 08:20 12.5 MG Hydralazine HCl 10 mg Q6HP PRN IV 10/26/24 07:15 Atorvastatin Calcium 40 mg HS PO 10/26/24 22:00 Diagnostic Test (Pha) 1 strip IQ4HR 10/26/24 08:00 10/26/24 10:49 1 STRIP Insulin Human Regular IQ4HR SC 10/26/24 08:00 10/26/24 10:36 3 UNITS Dextrose 50 ml UD PRN IV 10/26/24 07:15 Sodium Chloride 10 ml Q8HR IV 10/26/24 14:00 10/26/24 08:21 10 ML Acetaminophen/ Hydrocodone Bitart 1 tab Q4HP PRN PO 10/26/24 07:15 Ondansetron HCl 4 mg Q4HP PRN IV 10/26/24 07:15 Docusate Sodium 100 mg BIDPRN PRN PO 10/26/24 07:15 Acetaminophen 650 mg Q6HP PRN PO 10/26/24 07:15 Nitroglycerin 0.4 mg Q5MINP PRN SL 10/26/24 07:15 Morphine Sulfate 2 mg Q30M PRN IV 10/26/24 07:15 Furosemide 40 mg BID IV 10/26/24 11:30 10/26/24 12:09 40 MG Spironolactone 25 mg DAILY PO 10/26/24 12:26 Hold Empaglifozin 10 mg DAILY PO 10/27/24 10:00 Laboratory Results Laboratory Tests 10/26/24 05:11 10/26/24 11:45 Chemistry Test 10/26/24 05:11 10/26/24 11:45 Calcium Level 8.6 mg/dL (8.7-10.4) L Magnesium Level 1.9 mg/dL (1.6-2.6) Cardiac Markers Test 10/26/24 05:11 B-Type Natriuretic Peptide 1568.83 pg/mL (0-100) Urinalysis Test 10/26/24 09:00 Urine Color Colorless (Yellow) Urine Clarity Clear (Clear) Urine pH 7.0 (5.0-9.0) Urine Specific [place] 1.005 (1.001-1.035) Urine Protein Negative (Negative) Urine Ketones Negative (Negative) Urine Blood Negative /uL (Negative) Urine Nitrite Negative (Negative) Urine Bilirubin Negative (Negative) Urine Urobilinogen Normal mg/dL (Negative) Urine Leukocyte Esterase Negative /uL (Negative) Urine RBC 1 /hpf (0 - 3) Urine Microscopic WBC < 1 /HPF (0-3) Urine Squamous Epithelial Cells None seen /hpf (<5) Urine Bacteria None seen /hpf (None Seen) Urine Glucose 3+ mg/dL (Normal) H Labs and/or images reviewed: Labs reviewed by me, Image(s) reviewed by me Assessment/Plan Assessment/Plan Acute on chronic hypoxic respiratory failure, likely due to CHF exacerbation , cardiology consult appreciated no further cardiac workup Acute on chronic CHF exacerbation (HFrEF, EF 15%) NSTEMI, likely type 2, due to above Dilated cardiomyopathy, methamphetamine induced ejection fraction 15% Ischemic cardiomyopathy, history of CAD (status post PCI, 2 stent) Aortic valve regurgitation, severe Pulmonary hypertension, severe History of pulmonary embolism Hypertension Methamphetamine use disorder Medication and adherence Type 2 diabetes mellitus, uncontrolled (Hgb A1c 7.4%) Time spent 50 minutes Plan discussed with: Patient Date of Service: October 26, 2024 Billing Provider: CHRISTIANO BENJAMIN MD Common Visit Codes: [id number] INP/OBS CARE(HIGH) CHRISTIANO BENJAMIN MD October 26, 2024 14:38
[2024-10-26 18:30] VITALS: BP 135/91; PULSE 70; RESP 17; TEMP 97.6; O2SAT 99
[2024-10-26 20:00] VITALS: PULSE 69; PULSE 70; RESP 18; O2SAT 99
[2024-10-26] MEDS: HYDROcodone-ACET 5/325MG TAB PO PRN (20:04)
[2024-10-26 21:00] VITALS: BP 137/87; PULSE 75; RESP 18; TEMP 97.6; O2SAT 97
[2024-10-26] MEDS: ATORVASTATIN 20 MG TAB PO SCH (22:26)
[2024-10-27 01:00] VITALS: BP 113/78; PULSE 54; RESP 18; TEMP 97.6; O2SAT 96
[2024-10-27 05:00] VITALS: BP 106/76; PULSE 62; RESP 18; TEMP 97.6; O2SAT 94
[2024-10-27 06:53] LABS: Basophils # (auto) 0 10 ^3/uL (0-0.2); Basophils % (auto) 0.5 % (0.0-2.0); Eosinophils # (auto) 0.3 10 ^3/uL (0-0.8); Eosinophils % (auto) 4.1 % (0.0-7.0); Hematocrit 52.1 % (41.0-53.0); Hemoglobin 17.9 g/dL (13.5-17.5); Lymphocytes % (auto) 15.2 % (10.0-50.0); Mean Corpuscular Hemoglobin 31.5 pg (28.0-32.0); Mean Corpuscular Hgb Conc. 34.5 g/dL (32.0-36.0); Mean Corpuscular Volume 91.4 fL (80.0-100.0); Monocytes # (auto) 0.7 10 ^3/uL (0-1.3); Monocytes % (auto) 10.6 % (0.0-12.0); Neutrophils # (auto) 4.4 10 ^3/uL (1.6-8.6); Neutrophils % (auto) 69.6 % (37.0-80.0); Nucleated Red Blood Cells % 0.2 %; Platelet Count (auto) 195 10^3/uL (140-450); Red Cell Distribution Width 14.5 % (11.8-14.3); White Blood Cell 6.3 10^3/uL (4.4-10.8)
[2024-10-27 07:06] LABS: Alanine Aminotransferase 24 U/L (7-40); Alkaline Phosphatase 70 U/L (46-116); Anion Gap 12 (5-15); BUN/Creatinine Ratio 17.9 (10.0-20.0); Blood Urea Nitrogen 21 mg/dL (9-23); Calcium 9.7 mg/dL (8.7-10.4); Carbon Dioxide 26 mmol/L (20-31); Chloride 100 mmol/L (98-107); Potassium 3.6 mmol/L (3.5-5.1); Sodium 138 mmol/L (136-145)
[2024-10-27 07:07] LABS: Total Protein 6.9 g/dL (5.7-8.2)
[2024-10-27 07:08] LABS: Aspartate Aminotransferase 23 U/L (13-40); Bilirubin, Total 1.2 mg/dL (0.2-1.0)
[2024-10-27 07:10] LABS: Glucose 162 mg/dL (74-106)
[2024-10-27 08:00] VITALS: PULSE 62; RESP 18; O2SAT 98
[2024-10-27 09:00] VITALS: BP 105/74; PULSE 62; RESP 18; TEMP 97.6; O2SAT 98
[2024-10-27] MEDS ORDERED: FURO1TAB31 PO (09:50)
[2024-10-27] MEDS ORDERED: SPIR25TA PO (09:51)
[2024-10-27] MEDS ORDERED: CARV-214 PO (09:51)
[2024-10-27] MEDS ORDERED: EMPA1TAB PO (09:51)
--- NOTE | 2024-10-27 09:54 | DVHPNRES ---
Progress Note Date Seen: October 27, 2024 Resident Creating Document: NANETTE GABRIEL ALL Has the PT tested + for MRSA If YES, has PT been informed?: No Medical Necessity Reason Pt with a Central, PICC or Fol: No Subjective Review of Systems Patient seen and examined at the bedside. Patient is feeling better since admission. Patient reports: No new complaints, Feels better Changes from previous H/P or p: Changes Objective vital signs Vital Sign Date Time Temp Pulse Resp B/P (MAP) Pulse Ox O2 Delivery O2 Flow Rate FiO2 10/27/24 05:00 97.6 62 18 106/76 (86) 94 97.6 10/26/24 20:00 Nasal Cannula* 2 28 Total Intake and Output 10/26/24 10/26/24 10/27/24 15:00 23:00 07:00 Intake Total 890 ml 240 ml 200 ml Output Total 6000 ml 900 ml 500 ml Balance -5110 ml -660 ml -300 ml medications Current Medications Medications Dose Ordered Sig/Kimberly Route Start Time Stop Time Status Last Admin Dose Admin Aspirin 81 mg DAILY PO 10/27/24 10:00 Carvedilol 12.5 mg Q12HR PO 10/26/24 10:00 10/26/24 22:26 12.5 MG Hydralazine HCl 10 mg Q6HP PRN IV 10/26/24 07:15 Atorvastatin Calcium 40 mg HS PO 10/26/24 22:00 10/26/24 22:26 40 MG Diagnostic Test (Pha) 1 strip IQ4HR 10/26/24 08:00 10/27/24 07:58 1 STRIP Insulin Human Regular IQ4HR SC 10/26/24 08:00 10/27/24 07:59 2 UNITS Dextrose 50 ml UD PRN IV 10/26/24 07:15 Sodium Chloride 10 ml Q8HR IV 10/26/24 14:00 10/27/24 06:00 10 ML Acetaminophen/ Hydrocodone Bitart 1 tab Q4HP PRN PO 10/26/24 07:15 10/26/24 20:04 1 TAB Ondansetron HCl 4 mg Q4HP PRN IV 10/26/24 07:15 Docusate Sodium 100 mg BIDPRN PRN PO 10/26/24 07:15 Acetaminophen 650 mg Q6HP PRN PO 10/26/24 07:15 Nitroglycerin 0.4 mg Q5MINP PRN SL 10/26/24 07:15 Morphine Sulfate 2 mg Q30M PRN IV 10/26/24 07:15 Furosemide 40 mg BID IV 10/26/24 11:30 10/26/24 22:27 40 MG Spironolactone 25 mg DAILY PO 10/26/24 12:26 Hold Empaglifozin 10 mg DAILY PO 10/27/24 10:00 Examination General Appearance: Alert, Oriented X3, Cooperative, No acute distress HEENT: Atraumatic, PERRLA, EOMI, Mucous membrane moist/pink Respiratory: Clear to auscultation, Normal air movement Cardiovascular: Regular rate, Normal S1, Normal S2, No murmurs, no chest wall tenderness Abdominal: Normal bowel sounds, Soft, No tenderness, No hepatospenomegaly, No masses Extremities: No clubbing, No cyanosis, No edema, Normal pulses, No tenderness/swelling Skin: No rashes, No breakdown, No significant lesion Neuro: Normal gait, Normal speech, Strength at 5/5 X4 ext, Normal tone, Sensation intact, Cranial nerves 3-12 NL, Reflexes 2+ Psych/Mental Status: Mental status NL, Mood NL laboratory and microbiology Laboratory Tests 10/27/24 05:25 Test 10/27/24 05:25 Range/Units Serum Glucose 162 H 74-106 mg/dL Labs and/or images reviewed: Labs reviewed by me, Image(s) reviewed by me Problem List/Assessment/Plan Problem List/Assessment/Plan Acute on chronic hypoxic respiratory failure, likely due to CHF exacerbation Acute on chronic CHF exacerbation (HFrEF, EF 15%) NSTEMI, likely type 2, due to above Dilated cardiomyopathy, methamphetamine induced Ischemic cardiomyopathy, history of CAD (status post PCI, 2 stent) Aortic valve regurgitation, severe Pulmonary hypertension, severe History of pulmonary embolism Hypertension Methamphetamine use disorder Medication and adherence Type 2 diabetes mellitus, uncontrolled (Hgb A1c 7.4%) * EKG shows sinus rhythm, normal axis, with nonspecific T-wave changes on lateral leads * Trop I is raised at 600s (downtrending), BNP is raised at 1500s * Echo from 09/17/2024 shows, severe global hypokinesia with dilated chambers, LVEF 15%, moderate MR, severe TR with moderate TR * Lina ACS score: 95 point Plan/Recommendation (Case discussed with Dr. Gallo) * IV diuretic Lasix 40 mg daily * Carvedilol 2.5 mg b.i.d., Jardiance 10 mg daily, spironolactone 25 mg daily, atorvastatin 40 mg daily and aspirin 81 mg daily * Considering patient's current clinical status, medication nonadherence, and low lina ACS score, no further cardiology workup required at the moment * We sign off the patient, Discharge plan: Continue Lasix 40 mg daily, Carvedilol 2.5 mg b.i.d., Jardiance 10 mg daily, spironolactone 25 mg daily, atorvastatin 40 mg daily and aspirin 81 mg daily and follow up with Cardiology on outpatient basis * Keep K above 4, and Mag above 2 * Rest of plan, per primary team Thank you for allowing us to participate in this patient's care. Please call if you have any questions or concerns. Plan discussed with: Patient, Other (RN) My Orders My Orders Orders - NANETTE GABRIEL Procedure Category Date Status Time Furosemide Injection PHA 10/26/24 In Process (Lasix Injection) 11:30 Empagliflozin PHA 10/27/24 In Process (Jardiance) 10:00 Spironolactone PHA 10/26/24 In Process (Aldactone) 12:26 Visit Coding Cardiology RES Date of Service: October 27, 2024 Billing Provider: GIDEON GALLO Sr., MD Cardiology Common Codes: [id number]/[id number] SAME DATE (High) NANETTE GABRIEL RESDIENT October 27, 2024 09:54
--- NOTE | 2024-10-27 09:56 | ECG ---
[facility] Test Date: 2024-10-26 Test Time: 04:21:14 Pat Name: SOPHIE STORY Department: ER Room: [address] [place] [address] 8 Gender: M Redrawer: BREANNA : 1970 Requested By: TENA SHELDON Order Number: [id number] Reading MD: Max Gallo Measurements Intervals Mar Lin Rate: 87 P: 52 AK: 163 QRS: 108 QRSD: 105 T: 67 QT: 415 QTc: 500 Interpretive Statements Sinus rhythm Probable left atrial enlargement Right axis deviation Abnormal R-wave progression, late transition Borderline prolonged QT interval Electronically Signed On 10-30-2024 21:59:56 PDT by Max Gallo Please click the below link to view image of tracing.
--- NOTE | 2024-10-27 09:57 | DVHDS2 ---
Discharge Summary Date of Admission October 26, 2024 at 07:10 Date of Discharge: October 27, 2024 Admitting Diagnosis Shortness of breath Wounds: None Labs/Diagnostic Data: Laboratory Results Test 10/27/24 05:25 10/27/24 04:14 10/26/24 11:45 10/26/24 09:00 White Blood Count 6.3 10^3/uL (4.4-10.8) Red Blood Count 5.70 10^6/uL (4.5-5.90) Hemoglobin 17.9 g/dL (13.5-17.5) Hematocrit 52.1 % (41.0-53.0) Mean Corpuscular Volume 91.4 fL (80.0-100.0) Mean Corpuscular Hemoglobin 31.5 pg (28.0-32.0) Mean Corpuscular Hemoglobin Concent 34.5 g/dL (32.0-36.0) Red Cell Distribution Width 14.5 % (11.8-14.3) Platelet Count 195 10^3/uL (140-450) Mean Platelet Volume 8.6 fL (6.9-10.8) Neutrophils (%) (Auto) 69.6 % (37.0-80.0) Lymphocytes (%) (Auto) 15.2 % (10.0-50.0) Monocytes (%) (Auto) 10.6 % (0.0-12.0) Eosinophils (%) (Auto) 4.1 % (0.0-7.0) Basophils (%) (Auto) 0.5 % (0.0-2.0) Neutrophils # (Auto) 4.4 10 ^3/uL (1.6-8.6) Lymphocytes # (Auto) 1.0 10 ^3/uL (0.4-5.4) Monocytes # (Auto) 0.7 10 ^3/uL (0-1.3) Eosinophils # (Auto) 0.3 10 ^3/uL (0-0.8) Basophils # (Auto) 0 10 ^3/uL (0-0.2) Nucleated Red Blood Cells 0.2 % Sodium Level 138 mmol/L (136-145) Potassium Level 3.6 mmol/L (3.5-5.1) Chloride Level 100 mmol/L (98-107) Carbon Dioxide Level 26 mmol/L (20-31) Anion Gap 12 (5-15) Blood Urea Nitrogen 21 mg/dL (9-23) Creatinine 1.17 mg/dL (0.700-1.30) Glomerular Filtration Rate Calc 75 mL/min (>90) BUN/Creatinine Ratio 17.9 (10.0-20.0) Serum Glucose 162 mg/dL (74-106) Calcium Level 9.7 mg/dL (8.7-10.4) Total Bilirubin 1.2 mg/dL (0.2-1.0) Aspartate Amino Transferase (AST) 23 U/L (13-40) Alanine Aminotransferase (ALT) 24 U/L (7-40) Alkaline Phosphatase 70 U/L (46-116) Troponin I High Sensitivity 446 ng/L (</=54) Total Protein 6.9 g/dL (5.7-8.2) Albumin 4.0 g/dL (3.2-4.8) POC Glucose 138 mg/dl (70-106) Magnesium Level 1.9 mg/dL (1.6-2.6) Urine Color Colorless (Yellow) Urine Clarity Clear (Clear) Urine pH 7.0 (5.0-9.0) Urine Specific Marshall 1.005 (1.001-1.035) Urine Protein Negative (Negative) Urine Ketones Negative (Negative) Urine Blood Negative /uL (Negative) Urine Nitrite Negative (Negative) Urine Bilirubin Negative (Negative) Urine Urobilinogen Normal mg/dL (Negative) Urine Leukocyte Esterase Negative /uL (Negative) Urine RBC 1 /hpf (0 - 3) Urine Microscopic WBC < 1 /HPF (0-3) Urine Squamous Epithelial Cells None seen /hpf (<5) Urine Bacteria None seen /hpf (None Seen) Urine Glucose 3+ mg/dL (Normal) Urine Opiates Screen Neg (NEGATIVE) Urine Fentanyl Screen Neg (NEGATIVE) Urine Barbiturates Screen Neg (NEGATIVE) Urine Phencyclidine Screen Neg (NEGATIVE) Urine Amphetamines Screen Neg (NEGATIVE) Urine Benzodiazepines Screen Neg (NEGATIVE) Urine Cocaine Screen Neg (NEGATIVE) Urine Cannabinoids Screen Neg (NEGATIVE) Test 10/26/24 05:11 B-Type Natriuretic Peptide 1568.83 pg/mL (0-100) Other Laboratory Tests 10/27/24 05:25 Brief Hx & Hospital Course: 53-year-old male with multiple medical problems including dilated cardiomyopathy status post ESRD stents aortic valve regurgitation pulmonary hypertension history of pulmonary embolism hypotension CHF came in shortness of breath. Patient is noncompliant. Ejection fraction 15% seen by Cardiology placed on home medications Jardiance Lasix Coreg and Aldactone. Patient has a history of methamphetamine abuse counseled No further cardiac workup patient is marginally improved and being discharged home per her request prescription transmitted to the pharmacy. Patient was educated about compliance with the medications. 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% Ischemic cardiomyopathy, history of CAD (status post PCI, 2 stent) Aortic valve regurgitation, severe Pulmonary hypertension, severe History of pulmonary embolism Hypertension Methamphetamine use disorder Medication and adherence Type 2 diabetes mellitus, uncontrolled (Hgb A1c 7.4%) Discharge Disposition: Home Discharge Instruct/Medications Diet: Cardiac 2g Na,low cholest Activity: Light activity Follow Up/Referral: Follow up with the primary Dr Resume all your previous home medications Medications: Lasix Jardiance Aldactone Coreg Transmitted to pharmacy 35 (Time taken for discharge summary 35 minutes) Discharge Statement: "Patient was advised to return to the ER or call 911 if any headaches, dizziness, shortness of breath, chest pain, abdominal pain, bleeding, fevers, or worsening of medical condition. Patient was counseled about treatment plan, medications, possible side effects, patientverbalized understanding. All questions were answered to the best of my ability. 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
[2024-10-27] MEDS ORDERED: FUROSEMIDE 40 MG/4 ML VIAL IV SCH (10:00)
[2024-10-27 10:46] VITALS: BP 118/70; PULSE 58
[2024-10-27] MEDS: EMPAGLIFLOZIN 10 MG TAB PO SCH (11:46)
[2024-10-27] MEDS: ASPirin 81 mg TAB PO SCH (11:46)
[2024-10-27 13:00] VITALS: BP 108/73; PULSE 63; RESP 18; TEMP 97.8; O2SAT 96
== END 2024-10-27 14:10 | disposition home or self-care (01) | DRG 194 ==
LOC: ER 04:42 → OVERFLOW 07:10 → EAST 18:33
PROVIDERS: ADMIT Family Medicine; ATTEND Family Medicine
DX: I11.0 Hypertensive heart disease with heart failure (principal); J96.21 Acute and chronic respiratory failure with hypoxia; I21.A1 Myocardial infarction type 2; I27.20 Pulmonary hypertension, unspecified; I50.23 Acute on chronic systolic (congestive) heart failure; F15.10 Other stimulant abuse, uncomplicated; I35.1 Nonrheumatic aortic (valve) insufficiency; I07.1 Rheumatic tricuspid insufficiency; E87.5 Hyperkalemia; I25.10 Atherosclerotic heart disease of native coronary artery without angina pectoris; I25.5 Ischemic cardiomyopathy; F17.210 Nicotine dependence, cigarettes, uncomplicated; F12.90 Cannabis use, unspecified, uncomplicated; E78.5 Hyperlipidemia, unspecified; Z99.81 Dependence on supplemental oxygen; Z98.61 Coronary angioplasty status; Z91.199 Patient's noncompliance with other medical treatment and regimen due to unspecified reason; Z86.711 Personal history of pulmonary embolism; Z79.899 Other long term (current) drug therapy; Z79.84 Long term (current) use of oral hypoglycemic drugs; Z79.82 Long term (current) use of aspirin; Z82.49 Family history of ischemic heart disease and other diseases of the circulatory system; Z82.0 Family history of epilepsy and other diseases of the nervous system; Z83.3 Family history of diabetes mellitus; E11.65 Type 2 diabetes mellitus with hyperglycemia
CPT/HCPCS: 36415; 71045; 80048; 80053; 80307; 81001; 82962; 83735; 83880; 84132; 84484; 85025; 87081; 93005; 94640; 99291; G0378; J1815

== ENCOUNTER 2024-11-04 21:05 | Inpatient (IN) | payer OTHER ==
[~2024-11-04] VITALS: Ht 167.6 cm; Wt 68.0 kg
--- NOTE | 2024-11-04 21:26 | ED.PDOC ---
SOB-HPI HPI Comments 53 year old male who came to ER for shortness of breath. Patient recently discharged here a week ago, diagnosed with CHF exacerbation, NSTEMI, dilated cardiomyopathy, aortic valve regurgitation, pulmonary hypertension, diabetes, dyslipidemia. Patient states he has been taking his medications as prescribed, however for the past few days he has been experiencing shortness a breath again, progressively worsening with orthopnea. Denies any acute chest pains. Chief Complaint: Shortness of breath Time Seen by MD: 21:26 Primary Care Provider: none Reviewed notes: Nurses Notes Information Source: Patient Mode of Arrival: Ambulatory Severity: Moderate Timing: Days Duration: Since onset Context: At Rest, With Light Exertion History of: CHF Past Medical History PAST MEDICAL HISTORY: CAD, CHF, DM, High Lipids, HTN, [place] Past Medical History (Other): Pulmonary hypertension, pulmonary emboli, dilated cardiomyopathy, aortic valve regurgitation Surgical History: PTCA Family History Family History: Reviewed,noncontributory to illness, Family hx of DM Social History Smoker: Cigarettes Alcohol: Occasionally Drugs: Marijuana, Methamphetamine Lives In: Home Constitutional: denies: chills, diaphoresis, fatigue, fever, malaise, sweats, weakness, others EENTM: denies: blurred vision, double vision, ear bleeding, ear discharge, ear drainage, ear pain, ear ringing, eye pain, eye redness, hearing loss, mouth pain, mouth swelling, nasal discharge, nose bleeding, nose congestion, nose pain, photophobia, tearing, throat pain, throat swelling, voice changes, others Respiratory: reports: orthopnea, SOB at rest, shortness of breath, SOB with excertion; denies: cough, hemoptysis, stridor, wheezing, others Cardiovascular: denies: chest pain, dizzy spells, diaphoresis, Dyspnea on exertion, edema, irregular heart beat, left arm pain, lightheadedness, palpitations, PND, syncope, others Gastrointestinal: denies: abdomen distended, abdominal pain, blood streaked bowels, constipated, diarrhea, dysphagia, difficulty swallowing, hematemesis, melena, nausea, poor appetite, poor fluid intake, rectal bleeding, rectal pain, vomiting, others Genitourinary: denies: burning, dysuria, flank pain, frequency, hematuria, incontinence, penile discharge, penile sore, pain, testicle pain, testicle swelling, urgency, others Neurological: denies: dizziness, fainting, headache, left sided numbness, left sided weakness, numbness, paresthesia, pre-existing deficit, right sided numbness, right sided weakness, seizure, speech problems, tingling, tremors, weakness, others Musculoskeletal: denies: back pain, gout, joint pain, joint swelling, muscle pain, muscle stiffness, neck pain, others Integumetry: denies: bruises, change in color, change in hair/nails, dryness, laceration, lesions, lumps, rash, wounds, others Allergic/Immunocompromised: denies: Difficulty Healing, Frequent Infections, Hives, Itching, others Hematologic/Lymphatic: denies: anemia, blood clots, easy bleeding, easy bruising, swollen glands, others Endocrine: denies: excessive hunger, excessive sweating, excessive thirst, excessive urination, flushing, intolerance to cold, intolerance to heat, unexplained weight gain, unexplained weight loss, others Psychiatric: denies: anxiety, bipolar disorder, depression, hopeless, panic disorder, schizophrenia, sleepless, suicidal, others Physical Exam General Appearance: No Apparent Distress, Normal HEENT: Normal ENT Inspection, Pharynx Normal, TMs Normal Neck: Full Range of Motion, Non-Tender, Normal, Normal Inspection Respiratory: Chest Non-Tender, Lungs Clear, No Accessory Muscle Use, No Respiratory Distress, Normal Breath Sounds Cardiovascular: No Edema, No JVD, No Murmur, No Gallop, Normal Peripheral Pulses, Regular Rate/Rhythm Breast Exam: Deferred Gastrointestinal: No Organomegaly, Non Tender, No Pulsatile Mass, Normal Bowel Sounds, Soft Genitalia: Deferred Pelvic: Deferred Rectal: Deferred Extremities: No calf tenderness, Normal capillary refill, Normal inspection, Normal range of motion, Non-tender, No pedal edema Musculoskeletal : Apperance: Normal Neurologic: Alert, 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 Was a procedure done?: No Differential Dx Differential Diagnosis: CHF, Myocardial infarction, Pneumonia, Respiratory Distress X-Ray, Labs, Meds, VS Vital Signs Date Time Temp Pulse Resp B/P (MAP) Pulse Ox O2 Delivery O2 Flow Rate FiO2 11/04/24 21:06 97.8 80 16 136/86 (103) 97 97.8 Lab Test 11/04/24 21:25 11/04/24 21:22 Range/Units B-Type Natriuretic Peptide 0-100 pg/mL White Blood Count 6.1 4.4-10.8 10^3/uL Red Blood Count 5.22 4.5-5.90 10^6/uL Hemoglobin 16.2 13.5-17.5 g/dL Hematocrit 48.3 41.0-53.0 % Mean Corpuscular Volume 92.6 80.0-100.0 fL Mean Corpuscular Hemoglobin 31.0 28.0-32.0 pg Mean Corpuscular Hemoglobin Concent 33.5 32.0-36.0 g/dL Red Cell Distribution Width 14.6 H 11.8-14.3 % Platelet Count 166 140-450 10^3/uL Mean Platelet Volume 8.8 6.9-10.8 fL Neutrophils (%) (Auto) 60.8 37.0-80.0 % Lymphocytes (%) (Auto) 24.0 10.0-50.0 % Monocytes (%) (Auto) 10.2 0.0-12.0 % Eosinophils (%) (Auto) 4.0 0.0-7.0 % Basophils (%) (Auto) 1.0 0.0-2.0 % Neutrophils # (Auto) 3.7 1.6-8.6 10 ^3/uL Lymphocytes # (Auto) 1.5 0.4-5.4 10 ^3/uL Monocytes # (Auto) 0.6 0-1.3 10 ^3/uL Eosinophils # (Auto) 0.2 0-0.8 10 ^3/uL Basophils # (Auto) 0.1 0-0.2 10 ^3/uL Nucleated Red Blood Cells 0.1 % Prothrombin Time 10.8 9.3-11.8 sec Prothrombin Time INR 1.02 0.9-1.15 Activated Partial Thromboplast Time 25.5 24.5-34.5 SEC Sodium Level 144 136-145 mmol/L Potassium Level 4.6 3.5-5.1 mmol/L Chloride Level 113 H 98-107 mmol/L Carbon Dioxide Level 24 20-31 mmol/L Anion Gap 7 5-15 Blood Urea Nitrogen 14 9-23 mg/dL Creatinine 1.01 0.700-1.30 mg/dL Glomerular Filtration Rate Calc 89 >90 mL/min BUN/Creatinine Ratio 13.9 10.0-20.0 Serum Glucose 117 H 74-106 mg/dL Calcium Level 9.4 8.7-10.4 mg/dL Magnesium Level 1.8 1.6-2.6 mg/dL Total Bilirubin 0.5 0.2-1.0 mg/dL Aspartate Amino Transferase (AST) 24 13-40 U/L Alanine Aminotransferase (ALT) 18 7-40 U/L Alkaline Phosphatase 94 46-116 U/L Troponin I High Sensitivity 826 *H </=54 ng/L Total Protein 6.9 5.7-8.2 g/dL Albumin 4.0 3.2-4.8 g/dL Time of 1ST Reevaluation: 21:23 Reevaluation 1ST: Unchanged Patient Education/Counseling: Diagnosis, Treatment Family Education/Counseling: No Family Present Departure 1 Departure Time of Disposition: 23:55 Impression: Primary Impression: Acute on chronic systolic (congestive) heart failure Additional Impressions: [id number] respiratory failure Diastolic heart failure Acute coronary syndrome Disposition: 01 HOME / SELF CARE / HOMELESS Admit to: Tele Condition: Guarded Discharged With: Self Comments Shortness of Breath with Elevated Troponin Chief Complaint: Shortness of breath History of Present Illness: 53-year-old male with a history of coronary artery disease, congestive heart failure, dilated cardiomyopathy, and type 2 diabetes presents with worsening shortness of breath for the past four days. Patient reports orthopnea, noting that symptoms worsen when attempting to lie flat at night. Initial workup reveals significantly elevated troponin and BNP levels, suggesting acute cardiac pathology. 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 Coronary artery disease 2. Congestive heart failure 3. Dilated cardiomyopathy 4. Type 2 diabetes mellitus Lab Results: Troponin: 826 (Elevated) BNP: 2,007 (Elevated) CBC: Unremarkable Chemistry panel: Unremarkable Imaging and Other Relevant Results: Chest X-ray: No acute pathology Medical Decision Making: Summary Statement: 53-year-old male with multiple cardiac risk factors presenting with orthopnea and significantly elevated cardiac biomarkers, concerning for acute coronary syndrome and acute decompensated heart failure. Problem List: 1. Acute coronary syndrome 2. Acute diastolic heart failure exacerbation 3. Cardiomyopathy 4. Type 2 diabetes Differential Diagnosis: 1. Non-ST elevation myocardial infarction 2. Unstable angina 3. Acute decompensated heart failure 4. Pulmonary edema 5. Acute respiratory failure ED Course: Patient received initial treatment with Lasix and aspirin. Given elevated troponin and clinical presentation, decision made to admit for further management of acute coronary syndrome and heart failure. Assessment and Plan: 1. Acute Coronary Syndrome: - Admit to Cardiology service - Continue aspirin - Require further cardiac workup and risk stratification 2. Acute Diastolic Heart Failure Exacerbation: - Continue IV Lasix - Monitor fluid status and respiratory status - Optimize medical management 3. Cardiomyopathy: - Will require optimization of medical therapy during admission 4. Type 2 Diabetes: - Continue home medications - Monitor blood glucose during admission Billing Information: ICD-10: I21.9 - Acute myocardial infarction, unspecified ICD-10: I50.30 - Unspecified diastolic (congestive) heart failure ICD-10: I42.9 - Cardiomyopathy, unspecified ICD-10: E11.9 - Type 2 diabetes mellitus without complications Critical Care Note Critical Care Time?: Yes (35 min-critical care time only) Critical care comment: Shortness of breath Total critical care time: Approximately 36 minutes Due to a high probability of clinically significant, life threatening deterioration, the patient required my highest level of preparedness to intervene emergently and I personally spent this critical care time directly and personally managing the patient. This critical care time included obtaining a history; examining the patient; pulse oximetry; ordering and review of studies; arranging urgent treatment with development of a management plan; evaluation of patient's response to treatment; frequent reassessment; and, discussions with other providers. This critical care time was performed to assess and manage the high probability of imminent, life-threatening deterioration that could result in multi-organ failure. It was exclusive of separately billable procedures and treating other patients. Stability Stability form required: No Heart Score Heart Score: Heart Score Response (Comments) Value History Moderate Suspicious 1 EKG Repolarization Disturb 1 Age 45-64 1 Risk Factors >3 or Hx ASHD 2 Troponin Normal limit 0 Total 5 I personally scribed for HECTOR MASTERSON MD ([email or web address]) on 11/04/24 at 21:26. Electronically submitted by John Fulton ([email or web address]). HECTOR MASTERSON MD Nov 04, 2024 21:26
[2024-11-04] MEDS: FUROSEMIDE 40 MG/4 ML VIAL IV ONE (21:30)
[2024-11-04 21:37] LABS: Basophils # (auto) 0.1 10 ^3/uL (0-0.2); Eosinophils # (auto) 0.2 10 ^3/uL (0-0.8); Hematocrit 48.3 % (41.0-53.0); Hemoglobin 16.2 g/dL (13.5-17.5); Lymphocytes # (auto) 1.5 10 ^3/uL (0.4-5.4); Mean Corpuscular Hgb Conc. 33.5 g/dL (32.0-36.0); Mean Corpuscular Volume 92.6 fL (80.0-100.0); Monocytes # (auto) 0.6 10 ^3/uL (0-1.3); Monocytes % (auto) 10.2 % (0.0-12.0); Neutrophils # (auto) 3.7 10 ^3/uL (1.6-8.6); Neutrophils % (auto) 60.8 % (37.0-80.0); Nucleated Red Blood Cells % 0.1 %; Platelet Count (auto) 166 10^3/uL (140-450); Red Blood Cells 5.22 10^6/uL (4.5-5.90); Red Cell Distribution Width 14.6 % (11.8-14.3); White Blood Cell 6.1 10^3/uL (4.4-10.8)
[2024-11-04 21:57] LABS: Alanine Aminotransferase 18 U/L (7-40); Alkaline Phosphatase 94 U/L (46-116); Anion Gap 7 (5-15); Aspartate Aminotransferase 24 U/L (13-40); BUN/Creatinine Ratio 13.9 (10.0-20.0); Bilirubin, Total 0.5 mg/dL (0.2-1.0); Blood Urea Nitrogen 14 mg/dL (9-23); Calcium 9.4 mg/dL (8.7-10.4); Carbon Dioxide 24 mmol/L (20-31); Magnesium 1.8 mg/dL (1.6-2.6); Potassium 4.6 mmol/L (3.5-5.1); Sodium 144 mmol/L (136-145); Total Protein 6.9 g/dL (5.7-8.2)
--- NOTE | 2024-11-04 21:57 | DVH ---
CHEST RADIOGRAPH Indication: SOB Technique: Single frontal view of the chest was obtained Comparison: XY CHEST PORTABLE on DOS: 10/26/24, XY CHEST PORTABLE on DOS: 10/11/24, XY CHEST PORTABLE o n DOS: 09/12/24 FINDINGS: Lines and Tubes: None Lungs: Clear Pleura: No effusion. No pneumothorax. Cardiomediastinal contours: Mild cardiomegaly Bones: Unremarkable IMPRESSION: Clear lungs.
[2024-11-04 22:06] LABS: Chloride 113 mmol/L (98-107); Glucose 117 mg/dL (74-106)
[2024-11-04 22:15] LABS: INR 1.02 (0.9-1.15); Partial Thromboplastin Time 25.5 SEC (24.5-34.5); Prothrombin Time 10.8 sec (9.3-11.8)
[2024-11-04] MEDS: ASPirin 81 mg TAB PO ONE (22:15)
[2024-11-05] VITALS (17 sets, daily range): BP systolic 113–142; BP diastolic 75–101; PULSE 16–81; RESP 15–20; TEMP 97.2–98.4; O2SAT 92–100
[2024-11-05] MEDS ORDERED: DOCUSATE SOD 100 MG CAP PO PRN (02:00)
[2024-11-05] MEDS ORDERED: DEXTROSE (50%) 50ML SYRG IV PRN (02:00)
[2024-11-05] MEDS: NITROGLYCERIN 0.4 MG SL TAB SL ONE (03:18)
[2024-11-05] MEDS: MORPHINE SULFATE 4 MG/ML SYR/VIAL IV PRN (03:18)
[2024-11-05] MEDS: HYDROcodone-ACET 5/325MG TAB PO PRN (03:19)
[2024-11-05] MEDS: ACETAMINOPHEN 325 MG TAB PO PRN (03:19)
[2024-11-05] MEDS: ONDANSETRON HCL 4 MG/2 ML VIAL IV PRN (03:19)
[2024-11-05 03:23] LABS: Basophils # (auto) 0.1 10 ^3/uL (0-0.2); Basophils % (auto) 0.8 % (0.0-2.0); Eosinophils # (auto) 0.2 10 ^3/uL (0-0.8); Eosinophils % (auto) 3.2 % (0.0-7.0); Hematocrit 48.5 % (41.0-53.0); Hemoglobin 16.4 g/dL (13.5-17.5); Lymphocytes # (auto) 1.4 10 ^3/uL (0.4-5.4); Lymphocytes % (auto) 20.1 % (10.0-50.0); Mean Corpuscular Hemoglobin 31.2 pg (28.0-32.0); Mean Corpuscular Hgb Conc. 33.9 g/dL (32.0-36.0); Monocytes # (auto) 0.5 10 ^3/uL (0-1.3); Monocytes % (auto) 7.7 % (0.0-12.0); Neutrophils # (auto) 4.9 10 ^3/uL (1.6-8.6); Neutrophils % (auto) 68.2 % (37.0-80.0); Nucleated Red Blood Cells % 0.1 %; Platelet Count (auto) 163 10^3/uL (140-450); Red Blood Cells 5.27 10^6/uL (4.5-5.90); Red Cell Distribution Width 14.7 % (11.8-14.3); White Blood Cell 7.1 10^3/uL (4.4-10.8)
[2024-11-05 03:40] LABS: Alanine Aminotransferase 21 U/L (7-40); Alkaline Phosphatase 93 U/L (46-116); Anion Gap 7 (5-15); Aspartate Aminotransferase 26 U/L (13-40); BUN/Creatinine Ratio 14.6 (10.0-20.0); Blood Urea Nitrogen 14 mg/dL (9-23); Calcium 9.5 mg/dL (8.7-10.4); Carbon Dioxide 23 mmol/L (20-31); Potassium 4.5 mmol/L (3.5-5.1); Sodium 141 mmol/L (136-145); Total Protein 6.9 g/dL (5.7-8.2)
[2024-11-05 03:41] LABS: Bilirubin, Total 0.5 mg/dL (0.2-1.0); Chloride 111 mmol/L (98-107); Glucose 140 mg/dL (74-106)
[2024-11-05] MEDS: ALBUTEROL SULF 2.5 MG/0.5ML(0.5%) NEB SOLN NEB PRN (03:41)
--- NOTE | 2024-11-05 03:49 | DVHHP2 ---
History of Present Illness Reason for Visit: Acute on chronic systolic (congestive) heart failure History of Present Illness The patient is a 53-year-old male with multiple past medical history including [place], DM, CHF, and Coronary artery disease who presented to [facility] ED with complaint of shortness of breaths. Patient reports he has been taking his medications as prescribed, however for the past few days he has been experiencing shortness of breath again, progressively worsening with orthopnea. Patient was seen and evaluated in the ED, laboratory data shows WBC 6.1, platelets 166, sodium 144, potassium 4.6, BUN 14, creatinine 1.01, glucose 117, troponin 902, BNP 2007.25, blood pressure 135/90, heart rate 80, temperature 97.8 F, O2 saturation 97% on oxygen. Patient was started on IV Lasix, please see medication orders section in the computer. On my assessment, patient denied chest pain, headache, no dizziness, currently on oxygen, no diaphoresis, no diarrhea, no nausea, no vomiting, no fever, no chills. Patient was admitted for further evaluation and medical management. Past Medical History CAD, CHF, DM, High Lipids, HTN, NJ, Pulmonary hypertension, Pulmonary emboli, Dilated cardiomyopathy, Aortic valve regurgitation Past Surgical History PTCA Family History Reviewed, noncontributory to the management of this case. Past Social History Patient lives at home, smokes cigarettes, drinks alcohol occasionally, uses marijuana and methamphetamine. Review of Systems Constitutional: Yes: Weakness; No: Fever, Chills, Sweats, Malaise, Other Eyes: No: Pain, Vision change, Conjunctivae inflammation, Eyelid inflammation, Other, Redness ENT: No: Ear pain, Ear discharge, Nose pain, Nose discharge, Nose congestion, Mouth pain, Mouth swelling, Throat pain, Throat swelling, Other Respiratory: Shortness of breath, SOB with excertion, Other (Orthopnea, SOB at rest.); No: Cough, Dry, Wheezing, Hemoptysis, Pleuritic Pain, Sputum, Wheezing Cardiovascular: No: Chest Pain, Palpitations, Orthopnea, Paroxysmal Noc. Dyspnea, Edema, Lt Headedness, Other Gastrointestinal: No: Nausea, Vomiting, Abdominal Pain, Diarrhea, Constipation, Melena, Hematochezia, Other Genitourinary: No Dysuria, No Frequency, No Incontinence, No Hematuria, No Retention, No Other Musculoskeletal: No: other, neck pain, shoulder pain, arm pain, back pain, hand pain, leg pain, foot pain Skin: No: Rash, Lesions, Jaundice, Bruising, Other Neurological: No: Weakness, Numbness, Incoordination, Change in speech, Confusion, Seizures, Other Allergies: Coded Allergies: No Known Drug Allergy (Verified Allergy, Unknown, 04/01/23) Medications Current Medications Medications Dose Ordered Sig/Kimberly Route Start Time Stop Time Status Last Admin Dose Admin Carvedilol 3.125 mg Q12HR PO 11/05/24 10:00 Aspirin 81 mg DAILY PO 11/05/24 10:00 Atorvastatin Calcium 40 mg HS PO 11/05/24 22:00 Furosemide 40 mg DAILY IV 11/05/24 10:00 Diagnostic Test (Pha) 1 strip ACHS 11/05/24 07:00 Insulin Human Regular ACHS SC 11/05/24 07:00 Dextrose 50 ml UD PRN IV 11/05/24 02:00 Sodium Chloride 10 ml Q8HR IV 11/05/24 06:00 Acetaminophen/ Hydrocodone Bitart 1 tab Q4HP PRN PO 11/05/24 02:00 11/05/24 03:19 1 TAB Ondansetron HCl 4 mg Q4HP PRN IV 11/05/24 02:00 11/05/24 03:19 4 MG Docusate Sodium 100 mg BIDPRN PRN PO 11/05/24 02:00 Acetaminophen 650 mg Q6HP PRN PO 11/05/24 02:00 11/05/24 03:19 650 MG Morphine Sulfate 2 mg Q30MIN PRN IV 11/05/24 03:00 11/05/24 03:18 2 MG Albuterol 2.5 mg Q6HPRN PRN NEB 11/05/24 03:00 11/05/24 03:41 2.5 MG Exam Vital Signs Vital Signs Date Time Temp Pulse Resp B/P (MAP) Pulse Ox O2 Delivery O2 Flow Rate FiO2 11/05/24 03:18 155/102 11/05/24 03:18 85 16 11/05/24 03:03 95 11/04/24 21:06 97.8 97.8 General Appearance: Alert, Oriented X3, Cooperative, No acute distress HEENT: Atraumatic, PERRLA, EOMI, Mucous membr. moist/pink Respiratory: Normal air movement Cardiovascular: Regular rate, Normal S1, Normal S2, No murmurs Abdominal: Normal bowel sounds, Soft, No tenderness, No hepatospenomegaly, No masses Extremities: No clubbing, No cyanosis, No edema, Normal pulses, No tenderness/swelling Skin: No rashes, No breakdown, No significant lesion Neuro: Normal speech, Normal tone, Sensation intact, Cranial nerves 3-12 NL, Reflexes 2+, Other (Generalized weakness) Psych/Mental Status: Mental status NL, Mood NL Labs/Xrays Labs Test 11/05/24 02:50 11/04/24 21:25 11/04/24 21:22 Range/Units White Blood Count 7.1 4.4-10.8 10^3/uL Red Blood Count 5.27 4.5-5.90 10^6/uL Hemoglobin 16.4 13.5-17.5 g/dL Hematocrit 48.5 41.0-53.0 % Mean Corpuscular Volume 92.0 80.0-100.0 fL Mean Corpuscular Hemoglobin 31.2 28.0-32.0 pg Mean Corpuscular Hemoglobin Concent 33.9 32.0-36.0 g/dL Red Cell Distribution Width 14.7 H 11.8-14.3 % Platelet Count 163 140-450 10^3/uL Mean Platelet Volume 9.2 6.9-10.8 fL Neutrophils (%) (Auto) 68.2 37.0-80.0 % Lymphocytes (%) (Auto) 20.1 10.0-50.0 % Monocytes (%) (Auto) 7.7 0.0-12.0 % Eosinophils (%) (Auto) 3.2 0.0-7.0 % Basophils (%) (Auto) 0.8 0.0-2.0 % Neutrophils # (Auto) 4.9 1.6-8.6 10 ^3/uL Lymphocytes # (Auto) 1.4 0.4-5.4 10 ^3/uL Monocytes # (Auto) 0.5 0-1.3 10 ^3/uL Eosinophils # (Auto) 0.2 0-0.8 10 ^3/uL Basophils # (Auto) 0.1 0-0.2 10 ^3/uL Nucleated Red Blood Cells 0.1 % Sodium Level 141 136-145 mmol/L Potassium Level 4.5 3.5-5.1 mmol/L Chloride Level 111 H 98-107 mmol/L Carbon Dioxide Level 23 20-31 mmol/L Anion Gap 7 5-15 Blood Urea Nitrogen 14 9-23 mg/dL Creatinine 0.96 0.700-1.30 mg/dL Glomerular Filtration Rate Calc 95 >90 mL/min BUN/Creatinine Ratio 14.6 10.0-20.0 Serum Glucose 140 H 74-106 mg/dL Calcium Level 9.5 8.7-10.4 mg/dL Total Bilirubin 0.5 0.2-1.0 mg/dL Aspartate Amino Transferase (AST) 26 13-40 U/L Alanine Aminotransferase (ALT) 21 7-40 U/L Alkaline Phosphatase 93 46-116 U/L Troponin I High Sensitivity 769 *H </=54 ng/L Total Protein 6.9 5.7-8.2 g/dL Albumin 4.0 3.2-4.8 g/dL B-Type Natriuretic Peptide 2007.25 0-100 pg/mL Prothrombin Time 10.8 9.3-11.8 sec Prothrombin Time INR 1.02 0.9-1.15 Activated Partial Thromboplast Time 25.5 24.5-34.5 SEC Magnesium Level 1.8 1.6-2.6 mg/dL PATIENT: SOPHIE STORY ACCT: [id number] UNIT: [id number] : 1970 LOC: ER ROOM / BED: / AGE / SEX: 53 / M ADM STATUS: REG ER SERVICE 16 ORDERING PHYSICIAN: HECTOR MASTERSON MD PROCEDURE(s): CXRP - CHEST PORTABLE REASON: SOB ORDER NUMBER(s): [id number], ACCESSION NUMBER(s): [id number] CHEST RADIOGRAPH Indication: SOB Technique: Single frontal view of the chest was obtained Comparison: XY CHEST PORTABLE on DOS: 10/26/24, XY CHEST PORTABLE on DOS: 10/11/24, XY CHEST PORTABLE on DOS: 09/12/24 FINDINGS: Lines and Tubes: None Lungs: Clear Pleura: No effusion. No pneumothorax. Cardiomediastinal contours: Mild cardiomegaly Bones: Unremarkable IMPRESSION: Clear lungs. Assessment/Plan Assessment/Plan Acute on chronic systolic (congestive) heart failure Mxmug-mi-ttxxqve respiratory failure Acute coronary syndrome Generalized weakness Plan 1. Admit to telemetry unit 2. Breathing treatment 3. Pain control management 4. Management of fluids and electrolytes 5. Consultation for Cardiology/hospitalist 6. Diagnostic tests chest x-ray 7. DVT prophylaxis-on aspirin 8. Repeat labs CBC, CMP in a.m. 9. Continue with current medical management 10. Treatment plan discussed with patient and RN. Patient verbalized understanding. Plan discussed with: Patient, Other (RN) My Orders Orders - BAUDILIO COOLEY DNP Procedure Category Date Status Time Carvedilol Tablet PHA 11/05/24 In Process (Coreg Tablet) 10:00 Aspirin Tablet PHA 11/05/24 In Process 10:00 Atorvastatin (Lipitor) PHA 11/05/24 In Process 22:00 Furosemide Injection PHA 11/05/24 In Process (Lasix Injection) 10:00 Consistent DIET 11/05/24 Transmitted Carb(Ccho)Diabetes Breakfast Glucose Blood PHA 11/05/24 In Process (Accu-Chek Comfort 07:00 Insulin R (Human) PHA 11/05/24 In Process (Insulin R) 07:00 Dextrose 50% Syringe PHA 11/05/24 In Process 02:00 Allergies JESSICA 11/05/24 In Process 01:47 Code Status CODE 11/05/24 Transmitted 01:47 Sodium Chloride Lock PHA 11/05/24 In Process (Saline Lock Ns) 06:00 Oxygen Per Hour RT 11/05/24 Transmitted 01:47 Hydrocodone-Acet PHA 11/05/24 In Process 5/325mg Tab ([place] 02:00 Ondansetron Hcl PHA 11/05/24 In Process (Zofran) 02:00 Docusate Sodium PHA 11/05/24 In Process Capsule (Colace 02:00 Complete Blood Count LAB 11/06/24 Verified 04:00 Comprehensive LAB 11/06/24 Verified Metabolic Panel 04:00 Condition: Serious JESSICA 11/05/24 In Process 01:47 Acetaminophen Tablet PHA 11/05/24 In Process (Tylenol Tablet) 02:00 Bedrest With Bathroom JESSICA 11/05/24 In Process Privileg 01:47 Sequential JESSICA 11/05/24 In Process Compression Device Morphine Sulfate PHA 11/05/24 In Process Injection 03:00 Albuterol Medneb PHA 11/05/24 In Process (Ventolin Medneb) 03:00 Problem List: (1) Acute on chronic systolic (congestive) heart failure (2) Sotkp-rv-yeezmak respiratory failure (3) Acute coronary syndrome (4) Generalized weakness Date of Service: Nov 05, 2024 Billing Provider: BAUDILIO COOLEY DNP Common Visit Codes: 05592-[id number] INP/OBS CARE (HIGH) BAUDILIO COOLEY DNP Nov 05, 2024 03:49
[2024-11-05] MEDS ORDERED: MORPHINE SULFATE INJ 2 MG/ml SYRG IV PRN (04:00)
[2024-11-05] MEDS ORDERED: NITROGLYCERIN 0.4 MG SL TAB SL PRN (04:00)
[2024-11-05] MEDS: SODIUM CHLOR 0.9% PF (SALINE LOCK) 10ML VIAL/SYR IV SCH (06:30)
[2024-11-05] MEDS: ACCU-CHEK COMFORT CURVE STRIP VI SCH (06:32)
[2024-11-05] MEDS: InsuLIN REG 1unit/0.01ml Soln (100units/ml) SC SCH (06:32)
[2024-11-05] MEDS: ASPirin 81 mg TAB PO SCH (10:21)
[2024-11-05] MEDS: CARVEDILOL 3.125 MG TAB PO SCH (10:21)
[2024-11-05] MEDS: FUROSEMIDE 40 MG/4 ML VIAL IV SCH (10:22)
[2024-11-05] MEDS: ATORVASTATIN 20 MG TAB PO SCH (21:02)
[2024-11-06] VITALS (9 sets, daily range): BP systolic 116–137; BP diastolic 78–97; PULSE 56–74; RESP 18–20; TEMP 36.4; O2SAT 92–100
[2024-11-06 05:43] LABS: Basophils # (auto) 0.1 10 ^3/uL (0-0.2); Basophils % (auto) 0.8 % (0.0-2.0); Eosinophils # (auto) 0.2 10 ^3/uL (0-0.8); Eosinophils % (auto) 3.3 % (0.0-7.0); Hematocrit 49.6 % (41.0-53.0); Hemoglobin 17.1 g/dL (13.5-17.5); Lymphocytes # (auto) 1.3 10 ^3/uL (0.4-5.4); Lymphocytes % (auto) 17.7 % (10.0-50.0); Mean Corpuscular Hemoglobin 31.4 pg (28.0-32.0); Mean Corpuscular Hgb Conc. 34.4 g/dL (32.0-36.0); Mean Corpuscular Volume 91.2 fL (80.0-100.0); Monocytes # (auto) 0.6 10 ^3/uL (0-1.3); Neutrophils # (auto) 5.2 10 ^3/uL (1.6-8.6); Neutrophils % (auto) 70.2 % (37.0-80.0); Nucleated Red Blood Cells % 0.1 %; Platelet Count (auto) 181 10^3/uL (140-450); Red Blood Cells 5.43 10^6/uL (4.5-5.90); Red Cell Distribution Width 14.3 % (11.8-14.3); White Blood Cell 7.5 10^3/uL (4.4-10.8)
[2024-11-06 06:04] LABS: Alanine Aminotransferase 20 U/L (7-40); Alkaline Phosphatase 71 U/L (46-116); Anion Gap 8 (5-15); Aspartate Aminotransferase 23 U/L (13-40); BUN/Creatinine Ratio 21.2 (10.0-20.0); Blood Urea Nitrogen 22 mg/dL (9-23); Calcium 9.7 mg/dL (8.7-10.4); Carbon Dioxide 27 mmol/L (20-31); Chloride 104 mmol/L (98-107); Sodium 139 mmol/L (136-145); Total Protein 6.8 g/dL (5.7-8.2)
[2024-11-06 06:05] LABS: Bilirubin, Total 0.9 mg/dL (0.2-1.0)
[2024-11-06 06:20] LABS: Glucose 122 mg/dL (74-106); Potassium 5.2 mmol/L (3.5-5.1)
--- NOTE | 2024-11-06 08:41 | ECG ---
[facility] Test Date: 2024-11-04 Test Time: 21:56:51 Pat Name: SOPHIE STORY Department: ER Room: [address] [place] [address] 8 Gender: M Director Talent: PRABHU : 1970 Requested By: HECTOR MASTERSON Order Number: [id number] Reading MD: Max Gallo Measurements Intervals [place] Rate: 80 P: 29 NV: 166 QRS: -13 QRSD: 109 T: 110 QT: 436 QTc: 503 Interpretive Statements Sinus rhythm Probable left atrial enlargement Abnormal R-wave progression, late transition Left ventricular hypertrophy Nonspecific T abnormalities, lateral leads Prolonged QT interval Electronically Signed On 11-09-2024 20:44:41 PDT by Max Gallo Please click the below link to view image of tracing.
--- NOTE | 2024-11-06 15:44 | DVHDS2 ---
Discharge Summary Date of Admission Nov 05, 2024 at 03:48 Date of Discharge: Nov 06, 2024 Labs/Diagnostic Data: Laboratory Results Test 11/06/24 05:15 11/05/24 21:05 11/05/24 05:50 11/04/24 21:25 White Blood Count 7.5 10^3/uL (4.4-10.8) Red Blood Count 5.43 10^6/uL (4.5-5.90) Hemoglobin 17.1 g/dL (13.5-17.5) Hematocrit 49.6 % (41.0-53.0) Mean Corpuscular Volume 91.2 fL (80.0-100.0) Mean Corpuscular Hemoglobin 31.4 pg (28.0-32.0) Mean Corpuscular Hemoglobin Concent 34.4 g/dL (32.0-36.0) Red Cell Distribution Width 14.3 % (11.8-14.3) Platelet Count 181 10^3/uL (140-450) Mean Platelet Volume 8.6 fL (6.9-10.8) Neutrophils (%) (Auto) 70.2 % (37.0-80.0) Lymphocytes (%) (Auto) 17.7 % (10.0-50.0) Monocytes (%) (Auto) 8.0 % (0.0-12.0) Eosinophils (%) (Auto) 3.3 % (0.0-7.0) Basophils (%) (Auto) 0.8 % (0.0-2.0) Neutrophils # (Auto) 5.2 10 ^3/uL (1.6-8.6) Lymphocytes # (Auto) 1.3 10 ^3/uL (0.4-5.4) Monocytes # (Auto) 0.6 10 ^3/uL (0-1.3) Eosinophils # (Auto) 0.2 10 ^3/uL (0-0.8) Basophils # (Auto) 0.1 10 ^3/uL (0-0.2) Nucleated Red Blood Cells 0.1 % Sodium Level 139 mmol/L (136-145) Potassium Level 5.2 mmol/L (3.5-5.1) Chloride Level 104 mmol/L (98-107) Carbon Dioxide Level 27 mmol/L (20-31) Anion Gap 8 (5-15) Blood Urea Nitrogen 22 mg/dL (9-23) Creatinine 1.04 mg/dL (0.700-1.30) Glomerular Filtration Rate Calc 86 mL/min (>90) BUN/Creatinine Ratio 21.2 (10.0-20.0) Serum Glucose 122 mg/dL (74-106) Calcium Level 9.7 mg/dL (8.7-10.4) Total Bilirubin 0.9 mg/dL (0.2-1.0) Aspartate Amino Transferase (AST) 23 U/L (13-40) Alanine Aminotransferase (ALT) 20 U/L (7-40) Alkaline Phosphatase 71 U/L (46-116) Total Protein 6.8 g/dL (5.7-8.2) Albumin 4.0 g/dL (3.2-4.8) POC Glucose 142 mg/dl (70-106) Troponin I High Sensitivity 804 ng/L (</=54) B-Type Natriuretic Peptide 2007.25 pg/mL (0-100) Test 11/04/24 21:22 Prothrombin Time 10.8 sec (9.3-11.8) Prothrombin Time INR 1.02 (0.9-1.15) Activated Partial Thromboplast Time 25.5 SEC (24.5-34.5) Magnesium Level 1.8 mg/dL (1.6-2.6) Other Laboratory Tests 11/06/24 05:15 Brief Hx & Hospital Course: 53-year-old male with a known history of chronic hypoxic respiratory failure, congestive heart failure exacerbation with systolic dysfunction, COPD, cardiomyopathy with EF of 15%, chronic illicit drug use, hypertensive heart disease, noncompliance initially presented to the hospital with the increasing shortness a breath found to have acute on chronic hypoxic respiratory failure secondary to acute CHF exacerbation. Patient was given IV diuretics. Patient's compliance teaching has been given. Patient is being discharged under stable condition. Patient already has all the medication at home as well as oxygen. Condition at Discharge: Stable Final Diagnosis/Problems List 1. Acute on chronic hypoxic respiratory schedule acute CHF exacerbation 2. Acute CHF exacerbation with systolic dysfunction , currently compensated 3. Cardiomyopathy with the EF of 15 percent 4. Chronic illicit drug use Flagyl hypotension 6. Noncompliance 7. COPD Discharge Disposition: Home SNF Discharge Will this Physician continue t: No Discharge Instruct/Medications Diet: Cardiac 2g Na,low cholest Activity: No Restrictions, As Tolerated Follow Up/Referral: Follow up with PCP and Cardiology in 1-2 weeks Medications: Resume home medications Discharge Statement: "Patient was advised to return to the ER or call 911 if any headaches, dizziness, shortness of breath, chest pain, abdominal pain, bleeding, fevers, or worsening of medical condition. Patient was counseled about treatment plan, medications, possible side effects, patientverbalized understanding. All questions were answered to the best of my ability. This discharge took greater then 30 minutes in planning, reviewing documentation, counseling the patient, and discussing with other team members." ASSESSMENT ASSESSMENT Assessment 1. Acute on chronic hypoxic respiratory schedule acute CHF exacerbation 2. Acute CHF exacerbation with systolic dysfunction , currently compensated 3. Cardiomyopathy with the EF of 15 percent 4. Chronic illicit drug use Flagyl hypotension 6. Noncompliance 7. COPD Date of Service: Nov 06, 2024 Billing Provider: ASHLEY HAYES MD Common Visit Codes: 56421-HYN/OBS DISCH DAY >30min ASHLEY HAYES MD Nov 06, 2024 15:44
== END 2024-11-06 18:00 | disposition home or self-care (01) | DRG 133 ==
LOC: ER 21:05 → OVERFLOW 11-05 03:48 → TELE-EAST 11-05 05:50
PROVIDERS: ADMIT Nurse Practitioner Family; ATTEND Nurse Practitioner Family
DX: J96.21 Acute and chronic respiratory failure with hypoxia (principal); I50.23 Acute on chronic systolic (congestive) heart failure; I24.9 Acute ischemic heart disease, unspecified; I42.9 Cardiomyopathy, unspecified; I95.9 Hypotension, unspecified; I11.0 Hypertensive heart disease with heart failure; J44.9 Chronic obstructive pulmonary disease, unspecified; I25.10 Atherosclerotic heart disease of native coronary artery without angina pectoris; F17.210 Nicotine dependence, cigarettes, uncomplicated; I25.2 Old myocardial infarction; Z91.199 Patient's noncompliance with other medical treatment and regimen due to unspecified reason; Z86.711 Personal history of pulmonary embolism; Z79.899 Other long term (current) drug therapy
CPT/HCPCS: 36415; 71045; 80053; 82962; 83735; 83880; 84484; 85025; 85610; 85730; 87081; 93005; 94640; 96374; 96375; 99291; G0378; J1815; J2405

== ENCOUNTER 2024-11-15 18:16 | Inpatient (IN) | payer OTHER ==
[~2024-11-15] VITALS: Ht 167.6 cm; Wt 76.1 kg
[~2024-11-15 18:16] MED LIST changes: -AUG875T PO
--- NOTE | 2024-11-15 18:57 | ED.PDOC ---
SOB-HPI HPI Comments HPI: 53y M who presents to the ED for chief complaint of shortness of breath. - pt states he has been having shortness of breath since last night PM - pt states he has been having associated chest pain whenever he takes deep breaths - pt states he is on 2 L home 02 and states he noticed despite being on home 02, he started to be short of breath - pt states he is also on Lasix but states he was not prescribed outpatient Lasix and has not been taking Lasix for the past 2 months - pt was at a few days prior with similar complaints and was discharged on 11/06 with the following discharge summary: -53-year-old male with a known history of chronic hypoxic respiratory failure, congestive heart failure exacerbation with systolic dysfunction, COPD, cardiomyopathy with EF of 15%, chronic illicit drug use, hypertensive heart disease, noncompliance initially presented to the hospital with the increasing shortness a breath found to have acute on chronic hypoxic respiratory failure secondary to acute CHF exacerbation. Patient was given IV diuretics. Patient's compliance teaching has been given. Patient is being discharged under stable condition. Patient already has all the medication at home as well as oxygen. Past Medical history: CAD, CHF, DM, High Lipids, HTN, PR, Pulmonary hypertension, Pulmonary emboli, Dilated cardiomyopathy, Aortic valve regurgitation Past Surgical history: PTCA Medications: unknown Allergies: nkda Social History: endorses ETOH, endorses tobacco use, endorses drug use(marijuana and methamphetamine) SOPHIE STORY, HPI: Poor Historian. REVIEW OF SYSTEMS: CONSTITUTIONAL: Denies acute: fever, diaphoresis, chills, HEAD: Denies acute: headache, photophobia Eyes: Denies acute: Double vision, vision loss, eye pain, eye discharge. EARS: Denies acute: tinnitus, hearing loss, ear discharge, ear pain, THROAT: Denies acute: sore throat, swelling, difficulty swallowing , pain with swallowing, change in voice. NECK: Denies acute: neck pain, neck swelling, stiff neck. HEART: Denies acute : palpitations, LUNGS: Denies acute: , wheezing, cough, hemoptysis ABDOMEN: Denies acute: abdominal pain, Nausea, Vomiting, diarrhea, melena , hematemesis, hematochezia SKIN: Denies acute: rash, redness, lesions, itchiness. EXTREMITIES: Denies acute: calf pain, numbness, tingling, weakness, denies pain in extremity. Denies acute: Low back pain. Neuro: Denies acute: focal neurological deficit, motor or sensory focal neurological deficit, tremors, seizure like activity, confusion, dizziness, change in mental status, loss of bowel or bladder function, cauda equina like symptoms. : Denies acute: dysuria, hematuria, flank pain, increase in urinary frequency. PSYCH: Denies acute: hallucination, suicidal ideation, homicidal ideation. PHYSICAL EXAM: General: ---[id number]-----acute distress, awake and alert. Head: normocephalic, atraumatic. Neck: supple, trachea is midline, no swelling. Throat: Normal phonation. Eyes:, no erythema, no purulent discharge, no proptosis, no icterus. Heart: regular rate, regular rhythm, no significant murmur appreciated. Lungs: no apparent respiratory distress, Able to speak in full sentences. No wheezing, no rhonchi, no crackles. No stridors Clear to auscultation bilaterally. Abdomen: non tender to palpation, non distended, soft, no guarding, no rebound, + bowel sounds. Neuro: Awake, Alert, oriented to name, self, situation, follows commands GCS=15. Speech is normal. Skin: no petechia, no purpura, no cyanosis, non-pale, not jaundice. Lower extremities: --2/4 bilateral- Pitting edema no deformity, no focal swelling, no calf TTP. Makes eye contact. moves all four extremities. Face: no apparent facial droop. Ambulating in the ED independently. ED COURSE: DISCLAIMER: This medical document was created using an electronic medical record system with voice recognition software and computerized dictation system. Although this document has been carefully reviewed, there might still be some phonetic and typographical errors. Occasional wrong-word or "sound-alike" substitutions may have occurred due to the inherent limitations of voice recognition software. These areas are purely typographical due to imperfections of the software programs and do not reflect any compromise in the patient's medical care. Please read the chart carefully and recognize, using context, where these substitutions have occurred. Chief Complaint: Shortness of Breath Time Seen by MD: 18:56 Primary Care Provider: none Reviewed notes: Medications, Allergies Information Source: Patient Mode of Arrival: Ambulatory Past Medical History PAST MEDICAL HISTORY: CAD, CHF, DM, High Lipids, HTN, PR Past Medical History (Other): angina, pulm HTN Surgical History: PTCA Family History Family History: Reviewed,noncontributory to illness, Family hx of DM Social History Smoker: Cigarettes Alcohol: Occasionally Drugs: Marijuana, Methamphetamine Lives In: Home Was a procedure done? Was a procedure done?: No X-Ray, Labs, Meds, VS Vital Signs Date Time Temp Pulse Resp B/P (MAP) Pulse Ox O2 Delivery O2 Flow Rate FiO2 11/15/24 18:46 84 11/15/24 18:45 97.7 83 20 132/91 (105) 98 97.7 Lab Test 11/15/24 18:57 Range/Units White Blood Count 5.6 4.4-10.8 10^3/uL Red Blood Count 5.09 4.5-5.90 10^6/uL Hemoglobin 15.9 13.5-17.5 g/dL Hematocrit 46.7 41.0-53.0 % Mean Corpuscular Volume 91.8 80.0-100.0 fL Mean Corpuscular Hemoglobin 31.3 28.0-32.0 pg Mean Corpuscular Hemoglobin Concent 34.1 32.0-36.0 g/dL Red Cell Distribution Width 14.5 H 11.8-14.3 % Platelet Count 171 140-450 10^3/uL Mean Platelet Volume 8.3 6.9-10.8 fL Neutrophils (%) (Auto) 62.8 37.0-80.0 % Lymphocytes (%) (Auto) 23.8 10.0-50.0 % Monocytes (%) (Auto) 9.3 0.0-12.0 % Eosinophils (%) (Auto) 3.5 0.0-7.0 % Basophils (%) (Auto) 0.6 0.0-2.0 % Neutrophils # (Auto) 3.5 1.6-8.6 10 ^3/uL Lymphocytes # (Auto) 1.3 0.4-5.4 10 ^3/uL Monocytes # (Auto) 0.5 0-1.3 10 ^3/uL Eosinophils # (Auto) 0.2 0-0.8 10 ^3/uL Basophils # (Auto) 0 0-0.2 10 ^3/uL Nucleated Red Blood Cells 0.2 % Sodium Level 143 136-145 mmol/L Potassium Level 4.1 3.5-5.1 mmol/L Chloride Level 110 H 98-107 mmol/L Carbon Dioxide Level 25 20-31 mmol/L Anion Gap 8 5-15 Blood Urea Nitrogen 15 9-23 mg/dL Creatinine 1.04 0.700-1.30 mg/dL Glomerular Filtration Rate Calc 86 >90 mL/min BUN/Creatinine Ratio 14.4 10.0-20.0 Serum Glucose 141 H 74-106 mg/dL Lactic Acid Level 1.4 0.4-2.0 mmol/L Calcium Level 9.0 8.7-10.4 mg/dL Magnesium Level 1.9 1.6-2.6 mg/dL Total Bilirubin 0.5 0.2-1.0 mg/dL Aspartate Amino Transferase (AST) 20 <34 U/L Alanine Aminotransferase (ALT) 20 7-40 U/L Alkaline Phosphatase 89 46-116 U/L Troponin I High Sensitivity 507 *H </=54 ng/L B-Type Natriuretic Peptide 1813.56 0-100 pg/mL Total Protein 6.6 5.7-8.2 g/dL Albumin 3.9 3.2-4.8 g/dL Current Medications Medications (Trade) Dose Ordered Sig/Kimberly Route Start Time Stop Time Status Last Admin Furosemide (Lasix Injection) 60 mg ONCE ONCE IV 11/15/24 19:00 11/15/24 19:01 DC 11/15/24 21:03 [place] [id number] Ph: [phone] DIAGNOSTIC IMAGING Diagnostic Imaging Report : [id number] Signed PATIENT: SOPHIE STORY ACCT: [id number] UNIT: [id number] : 1970 LOC: ER ROOM / BED: / AGE / SEX: 53 / M ADM STATUS: REG ER SERVICE [id number] ORDERING PHYSICIAN: HRAPAL ARMENTA DO PROCEDURE(s): CXRP - CHEST PORTABLE REASON: sob ORDER NUMBER(s): [id number], ACCESSION NUMBER(s): [id number] CHEST RADIOGRAPH Indication: sob Technique: Single frontal view of the chest was obtained Comparison: XY CHEST PORTABLE on DOS: 11/04/24, XY CHEST PORTABLE on DOS: 10/26/24, XY CHEST PORTABLE on DOS: 10/11/24 FINDINGS: Lines and Tubes: None Lungs: No focal consolidation. Pleura: No effusion. No pneumothorax. Cardiomediastinal contours: Unremarkable Bones: No acute osseous abnormality. IMPRESSION: 1. No acute cardiopulmonary disease. HS:Y ATED BY: JAZIEL RALPH Jr., DO DICTATED DATE/TIME: 11/15/241927 SIGNED BY: JAZIEL RALPH Jr., DO SIGNED DATE/TIME: 11/15/241927 CC: Patient Education/Counseling: Diagnosis, Treatment Family Education/Counseling: No Family Present Departure 1 Departure Time of Disposition: 19:00 Impression: Primary Impression: Dyspnea Additional Impressions: CHF exacerbation Elevated troponin Disposition: ADMITTED INPATIENT Admit to: Tele Condition: Guarded Discharged With: Self Heart Score Heart Score: Heart Score Response (Comments) Value History Moderate Suspicious 1 Age 45-64 1 Risk Factors >3 or Hx ASHD 2 Total 4 I personally scribed for HARPAL ARMENTA DO ([email or web address]) on 11/15/24 at 18:57. Electronically submitted by Regan Mcbride ([email or web address]). I personally scribed for HARPAL ARMENTA DO ([email or web address]) on 11/15/24 at 21:36. Electronically submitted by William Becker ([email or web address]). HARPAL ARMENTA DO Nov 15, 2024 18:57
[2024-11-15 19:14] LABS: Basophils # (auto) 0 10 ^3/uL (0-0.2); Basophils % (auto) 0.6 % (0.0-2.0); Eosinophils # (auto) 0.2 10 ^3/uL (0-0.8); Eosinophils % (auto) 3.5 % (0.0-7.0); Hematocrit 46.7 % (41.0-53.0); Hemoglobin 15.9 g/dL (13.5-17.5); Lymphocytes # (auto) 1.3 10 ^3/uL (0.4-5.4); Lymphocytes % (auto) 23.8 % (10.0-50.0); Mean Corpuscular Hemoglobin 31.3 pg (28.0-32.0); Mean Corpuscular Hgb Conc. 34.1 g/dL (32.0-36.0); Mean Corpuscular Volume 91.8 fL (80.0-100.0); Monocytes # (auto) 0.5 10 ^3/uL (0-1.3); Monocytes % (auto) 9.3 % (0.0-12.0); Neutrophils # (auto) 3.5 10 ^3/uL (1.6-8.6); Neutrophils % (auto) 62.8 % (37.0-80.0); Nucleated Red Blood Cells % 0.2 %; Platelet Count (auto) 171 10^3/uL (140-450); Red Blood Cells 5.09 10^6/uL (4.5-5.90); Red Cell Distribution Width 14.5 % (11.8-14.3); White Blood Cell 5.6 10^3/uL (4.4-10.8)
--- NOTE | 2024-11-15 19:31 | DVH ---
CHEST RADIOGRAPH Indication: sob Technique: Single frontal view of the chest was obtained Comparison: XY CHEST PORTABLE on DOS: 11/04/24, XY CHEST PORTABLE on DOS: 10/26/24, XY CHEST PORTABLE on DOS: 10/11/24 FINDINGS: Lines and Tubes: None Lungs: No focal consolidation. Pleura: No effusion. No pneumothorax. Cardiomediastinal contours: Unremarkable Bones: No acute osseous abnormality. IMPRESSION: 1. No acute cardiopulmonary disease. HS:Y
[2024-11-15 19:35] LABS: Alanine Aminotransferase 20 U/L (7-40); Albumin 3.9 g/dL (3.2-4.8); Alkaline Phosphatase 89 U/L (46-116); Anion Gap 8 (5-15); Aspartate Aminotransferase 20 U/L (<34); BUN/Creatinine Ratio 14.4 (10.0-20.0); Blood Urea Nitrogen 15 mg/dL (9-23); Carbon Dioxide 25 mmol/L (20-31); Potassium 4.1 mmol/L (3.5-5.1); Sodium 143 mmol/L (136-145); Total Protein 6.6 g/dL (5.7-8.2)
[2024-11-15 19:36] LABS: Bilirubin, Total 0.5 mg/dL (0.2-1.0); Chloride 110 mmol/L (98-107); Glucose 141 mg/dL (74-106)
[2024-11-15] MEDS ORDERED: ONDANSETRON HCL 4 MG/2 ML VIAL IV PRN (20:00)
[2024-11-15] MEDS ORDERED: DEXTROSE (50%) 50ML SYRG IV PRN (20:00)
[2024-11-15 20:02] LABS: Magnesium 1.9 mg/dL (1.6-2.6)
[2024-11-15] MEDS: NITROGLYCERIN 0.4 MG SL TAB SL ONE (21:02)
[2024-11-15] MEDS: ASPirin-EC 325mg tab PO ONE (21:03)
[2024-11-15] MEDS: FUROSEMIDE 100 MG/10ML VIAL IV ONE (21:03)
[2024-11-15] MEDS: InsuLIN REG 1unit/0.01ml Soln (100units/ml) SC SCH (22:00)
[2024-11-15] MEDS: ACCU-CHEK COMFORT CURVE STRIP VI SCH (22:09)
[2024-11-15] MEDS: ATORVASTATIN 20 MG TAB PO SCH (22:18)
[2024-11-15] MEDS: CARVEDILOL 3.125 MG TAB PO SCH (22:19)
--- NOTE | 2024-11-15 22:27 | DVHHP2 ---
History of Present Illness Reason for Visit: Shortness of breath History of Present Illness 53-year-old male presents for evaluation of shortness for breath. Patient reports running out of his Lasix and not taking a dose over the past five days. He reports worsening chest pressure with shortness for breath and bilateral lower extremity swelling. No cough or fever. No other acute complaints Past Medical History Diabetes mellitus, hypertension, mi, CHF, CAD Past Surgical History PTCA Family History Noncontributory Smoke: No ALCOHOL: occassional Drugs: None Review of Systems Review of Systems Review of systems are currently negative otherwise addressed in HPI. Allergies: Coded Allergies: No Known Drug Allergy (Verified Allergy, Unknown, 04/01/23) Medications Current Medications Medications Dose Ordered Sig/Kimberly Route Start Time Stop Time Status Last Admin Dose Admin Aspirin 162 mg DAILY PO 11/16/24 10:00 Atorvastatin Calcium 40 mg HS PO 11/15/24 22:00 11/15/24 22:18 40 MG Empaglifozin 10 mg DAILY PO 11/16/24 10:00 Lisinopril 5 mg DAILY PO 11/16/24 10:00 Spironolactone 12.5 mg DAILY PO 11/16/24 10:00 Furosemide 20 mg BIDD IV 11/16/24 06:00 Carvedilol 3.125 mg Q12HR PO 11/15/24 22:00 11/15/24 22:19 3.125 MG Diagnostic Test (Pha) 1 strip ACHS 11/15/24 22:00 11/15/24 22:09 1 STRIP Insulin Human Regular ACHS SC 11/15/24 22:00 Dextrose 50 ml UD PRN IV 11/15/24 20:00 Ondansetron HCl 4 mg Q4HP PRN IV 11/15/24 20:00 Acetaminophen 650 mg Q6HP PRN PO 11/15/24 20:00 Exam Vital Signs Vital Signs Date Time Temp Pulse Resp B/P (MAP) Pulse Ox O2 Delivery O2 Flow Rate FiO2 11/15/24 22:19 82 131/95 11/15/24 21:04 18 99 11/15/24 21:04 Nasal Cannula 2.0 11/15/24 18:45 97.7 97.7 Exam Gen: 53-year-old male in mild distress Skin: Warm, dry, normal color and texture, no rash. HEENT: Normocephalic atraumatic, mucous membranes moist and pink. Neck: Cervical and supraclavicular nodes normal without enlargement, trachea is midline, thyroid gland is normal without masses. Pulmonary: Clear to auscultation and percussion bilaterally. Cardiac: Regular rate and rhythm. No murmur Abdomen: Soft, nontender, nondistended, bowel sounds present all 4 quadrants, no guarding, no rigidity, no organomegaly. Extremities: No cyanosis, clubbing, plus two bilateral pedal edema Neuro: Cranial nerves II through XII grossly intact, normal affect and speech, no focal motor deficits. Labs/Xrays ORDERING PHYSICIAN: LUC AGUIRRE MD PROCEDURE(s): ECIDC - ECHO 2D MODE CARDIAC DOP REASON: NSTEMI, CHF ORDER NUMBER(s): [id number], ACCESSION NUMBER(s): [id number] APPROVED REPORT EXAM: Two-dimensional and M-mode echocardiogram with Doppler and color Doppler. Blood Pressure: 133/30 mmHg INDICATION NSTEMI, CHF RISK FACTORS Height: 5'6, Weight: 150 DIMENSIONS LVDd 6.2 (3.8-5.7cm) LA (2D) 4.4 (1.9-4.0cm) Aortic Root 3.1 (2.0- 3.7cm) LVDs 5.5 (2.5-4.0cm) LA (MM) (1.9-4.0cm) Aortic Cusp Exc 1.5 (1.5- 2.0cm) EF (%) 15.0 (55-70%) Rt. Atrium 4.9 (1.9-4.0cm) Asc. Aorta 3.3 cm IVSd 0.7 (0.7-1.1cm) RV (D) 6.1 (1.8-2.4cm) PWd 1.1 (0.7-1.1cm) Mitral Valve Mitral Mitral Stenosis E wave 1.20m/s MV Mean GR. mmHg A wave 0.29m/s MV Peak GR. 86mmHg E/A ratio 4.1 2D MVA cm2 DECEL Time 151ms PRESS 1/2 Time ms Aortic Valve Aortic Valve Aortic Stenosis V1 0.97m/s AO Mean GR. 5mmHg V2 1.41m/s AO Peak GR. 8mmHg LVOT Diameter 2.2 (1.8-2.4cm) Doppler ANDI 2.61cm2 AI P 1/2 Time 751.33ms Pulmonic Valve V2 0.83m/s Tricuspid Valve TR Velocity 3.05m/s RVSP 50mmHg Conclusion REMARKABLY DILATED ALL CARDIAC CHAMBERS SEVERE GLOBAL HYPOKINESIS OF ALL CARDIAC CHAMBERS LV EF IS ONLY 15% MODERATE DEGREE MR SEVERE AORTIC VALVE REGURGITATION MODERATE DEGREE TR NO EFFUSION MODERATELY SEVERE PULMONARY HYPERTENSION RVSP IS 50 MM OF HG AND IS VERY HIGH IN VIEW OF VERY LOW LV AND RV EJECTION FRACTION SIGNED BY: TORI ROB MD SIGNED DATE/TIME: 09/17/24 183 ORDERING PHYSICIAN: HARPAL ARMENTA DO PROCEDURE(s): CXRP - CHEST PORTABLE REASON: sob ORDER NUMBER(s): [id number], ACCESSION NUMBER(s): [id number] CHEST RADIOGRAPH Indication: sob Technique: Single frontal view of the chest was obtained Comparison: XY CHEST PORTABLE on DOS: 11/04/24, XY CHEST PORTABLE on DOS: 10/26/24, XY CHEST PORTABLE on DOS: 10/11/24 FINDINGS: Lines and Tubes: None Lungs: No focal consolidation. Pleura: No effusion. No pneumothorax. Cardiomediastinal contours: Unremarkable Bones: No acute osseous abnormality. IMPRESSION: 1. No acute cardiopulmonary disease. HS:Y Labs Test 11/15/24 22:09 11/15/24 21:50 11/15/24 18:57 Range/Units POC Glucose 131 H 70-106 mg/dl Troponin I High Sensitivity 489 *H </=54 ng/L White Blood Count 5.6 4.4-10.8 10^3/uL Red Blood Count 5.09 4.5-5.90 10^6/uL Hemoglobin 15.9 13.5-17.5 g/dL Hematocrit 46.7 41.0-53.0 % Mean Corpuscular Volume 91.8 80.0-100.0 fL Mean Corpuscular Hemoglobin 31.3 28.0-32.0 pg Mean Corpuscular Hemoglobin Concent 34.1 32.0-36.0 g/dL Red Cell Distribution Width 14.5 H 11.8-14.3 % Platelet Count 171 140-450 10^3/uL Mean Platelet Volume 8.3 6.9-10.8 fL Neutrophils (%) (Auto) 62.8 37.0-80.0 % Lymphocytes (%) (Auto) 23.8 10.0-50.0 % Monocytes (%) (Auto) 9.3 0.0-12.0 % Eosinophils (%) (Auto) 3.5 0.0-7.0 % Basophils (%) (Auto) 0.6 0.0-2.0 % Neutrophils # (Auto) 3.5 1.6-8.6 10 ^3/uL Lymphocytes # (Auto) 1.3 0.4-5.4 10 ^3/uL Monocytes # (Auto) 0.5 0-1.3 10 ^3/uL Eosinophils # (Auto) 0.2 0-0.8 10 ^3/uL Basophils # (Auto) 0 0-0.2 10 ^3/uL Nucleated Red Blood Cells 0.2 % Sodium Level 143 136-145 mmol/L Potassium Level 4.1 3.5-5.1 mmol/L Chloride Level 110 H 98-107 mmol/L Carbon Dioxide Level 25 20-31 mmol/L Anion Gap 8 5-15 Blood Urea Nitrogen 15 9-23 mg/dL Creatinine 1.04 0.700-1.30 mg/dL Glomerular Filtration Rate Calc 86 >90 mL/min BUN/Creatinine Ratio 14.4 10.0-20.0 Serum Glucose 141 H 74-106 mg/dL Lactic Acid Level 1.4 0.4-2.0 mmol/L Calcium Level 9.0 8.7-10.4 mg/dL Magnesium Level 1.9 1.6-2.6 mg/dL Total Bilirubin 0.5 0.2-1.0 mg/dL Aspartate Amino Transferase (AST) 20 <34 U/L Alanine Aminotransferase (ALT) 20 7-40 U/L Alkaline Phosphatase 89 46-116 U/L B-Type Natriuretic Peptide 1813.56 0-100 pg/mL Total Protein 6.6 5.7-8.2 g/dL Albumin 3.9 3.2-4.8 g/dL Assessment/Plan Assessment/Plan Assessment Acute on chronic congestive heart failure Diabetes mellitus Hypertension History of CA Elevated troponin, possible demand ischemia Plan Admit the patient to telemetry to the hospitalist Cardiology consultation IV Lasix Resume home medications Continue treatment per orders. Plan discussed with: Patient My Orders Orders - BLUE MEADOWS Procedure Category Date Status Time Admit ADMIT 11/15/24 Transmitted 19:41 * Cardiology Consult CONS 11/15/24 Transmitted 19:46 Aspirin Tablet PHA 11/16/24 In Process 10:00 Atorvastatin (Lipitor) PHA 11/15/24 In Process 22:00 Empagliflozin PHA 11/16/24 In Process (Jardiance) 10:00 Lisinopril Tablet PHA 11/16/24 In Process (Zestril Tablet) 10:00 Spironolactone PHA 11/16/24 In Process (Aldactone) 10:00 Furosemide Injection PHA 11/16/24 In Process (Lasix Injection) 06:00 Carvedilol Tablet PHA 11/15/24 In Process (Coreg Tablet) 22:00 Basic Metabolic Panel LAB 11/16/24 Verified 04:00 Glucose Blood PHA 11/15/24 In Process (Accu-Chek Comfort 22:00 Insulin R (Human) PHA 11/15/24 In Process (Insulin R) 22:00 Dextrose 50% Syringe PHA 11/15/24 In Process 20:00 Ondansetron Hcl PHA 11/15/24 In Process (Zofran) 20:00 Cardiac DIET 11/16/24 Transmitted Diet-2gna,Lofat,Lochol Breakfast Condition: Fair JESSICA 11/15/24 In Process 19:46 Acetaminophen Tablet PHA 11/15/24 In Process (Tylenol Tablet) 20:00 Bedrest With Bathroom JESSICA 11/15/24 In Process Privileg 19:46 Date of Service: Nov 15, 2024 Billing Provider: BLUE MEADOWS Common Visit Codes: [id number] INP/OBS CARE (HIGH) BLUE MEADOWS Nov 15, 2024 22:27
[2024-11-15 22:43] VITALS: BP 126/95; PULSE 81; RESP 18; TEMP 97.8; O2SAT 98
[2024-11-16] VITALS (9 sets, daily range): BP systolic 112–138; BP diastolic 74–95; PULSE 59–81; RESP 16–19; TEMP 97.5–98.1; O2SAT 93–100
[2024-11-16] MEDS: ACETAMINOPHEN 325 MG TAB PO PRN (01:12)
[2024-11-16] MEDS: TEMAZEPAM 15 MG CAP PO PRN (02:02)
[2024-11-16] MEDS: FUROSEMIDE 20 MG/2 ML VIAL IV SCH (05:29)
[2024-11-16 06:53] LABS: Chloride 104 mmol/L (98-107); Potassium 4.1 mmol/L (3.5-5.1); Sodium 139 mmol/L (136-145)
[2024-11-16 06:54] LABS: Anion Gap 9 (5-15); Carbon Dioxide 26 mmol/L (20-31)
[2024-11-16 06:59] LABS: BUN/Creatinine Ratio 14.2 (10.0-20.0); Blood Urea Nitrogen 16 mg/dL (9-23)
[2024-11-16 07:09] LABS: Calcium 8.6 mg/dL (8.7-10.4); Glucose 182 mg/dL (74-106)
[2024-11-16 09:36] LABS: Triglycerides 100 mg/dL (< 150)
[2024-11-16 09:37] LABS: LDL Cholesterol 96 mg/dL (< 100)
[2024-11-16 09:38] LABS: Cholesterol 146 mg/dL (< 200); HDL Cholesterol 46 mg/dL (40-59)
--- NOTE | 2024-11-16 10:07 | DVHINCON2 ---
Date Seen: Nov 16, 2024 Referring Physician KENNY Perry Reason for Consultation Elevated troponin History of Present Illness This is a 53-year-old male patient who presents to the emergency room with chief complaint of worsening shortness of breath for three days. The patient comes to the emergency room for further evaluation. Cardiology has been consulted at this time for elevated troponin. No twelve lead electrocardiogram found in patient's hard chart or on cardio seismic observer. Patient is on telemetry monitoring at time of assessment, which reveals a normal sinus rhythm. Initial troponin level of 507ng/L with down trend thereafter. Significant past medical history includes coronary artery disease status post multiple PTCAs x2 OLIVIA including one OLIVIA to the RCA in 2021 (on ASA), ischemic/drug-induced/dilated cardiomyopathy, congestive heart failure with HFrEF, hypertension, pulmonary hypertension, severe aortic valve regurgitation, history of pulmonary embolism, type 2 diabetes mellitus, and polysubstance abuse with methamphetamines with latest use within the last week. The patient has had multiple visits to this facility and was most recently discharged earlier this month on 11/06/2024. The patient continues to fail to follow up with Cardiology in the outpatient setting. He also reports that he has been unable to obtain his prescribed medications from the pharmacy, thus he has not taken any of his medications. He also admits to dietary indiscretions and states that he knows he has been eating "the wrong stuff". Past Medical History Past medical history reviewed. No other significant than mentioned above. Past Surgical History Multiple PTCAs including two OLIVIA Family History: Alzheimer's disease G8 FATHER Diabetes mellitus G8 FATHER, Onset:Unknown G8 MOTHER Hypertension G8 FATHER Family History Family history reviewed. Social History Patient admits to methamphetamine use approximately one week ago Denies any alcohol or tobacco use Allergies: Coded Allergies: No Known Drug Allergy (Verified Allergy, Unknown, 04/01/23) Home Meds Active Scripts Carvedilol (COREG) 3.125 Mg Tab, 3.125 MG PO BID, #180 TAB Prov:CHRISTIANO BENJAMIN MD 10/27/24 Spironolactone (Aldactone) 25 Mg Tab, 1 TAB PO DAILY, #90 TAB 1 Refill Prov:CHRISTIANO BENJAMIN MD 10/27/24 Empagliflozin (Jardiance) 10 Mg Tab, 10 MG PO DAILY, #90 TAB Prov:CHRISTIANO BENJAMIN MD 10/27/24 Furosemide (Lasix) 40 Mg Tab, 40 MG PO DAILY, #90 TAB Prov:CHRISTIANO BENJAMIN MD 10/27/24 Metformin Hydrochloride (Metformin Hcl) 500 Mg Tab, 1 TAB PO BID for 30 Days, #60 TAB Prov:MARIA FERNANDA DUFF RESIDENT 09/15/24 Empagliflozin (Jardiance) 10 Mg Tab, 10 MG PO DAILY for 30 Days, #30 TAB Prov:MARIA FERNANDA DUFF 09/15/24 Lisinopril (Lisinopril) 5 Mg Tab, 5 MG PO DAILY for 30 Days, #30 TAB 3 Refills Prov:MARIA FERNANDA DUFF 09/15/24 Carvedilol (COREG) 3.125 Mg Tab, 3.125 MG PO Q12HR for 30 Days, #60 TAB Prov:MARIA FERNANDA DUFF 09/15/24 Aspirin (ASPIRIN 81) 81 Mg Tab, 81 MG PO DAILY for 30 Days, #30 TAB Prov:MARIA FERNANDA DUFF 09/15/24 Spironolactone (Aldactone) 25 Mg Tab, 12.5 MG PO DAILY, #30 TAB 5 Refills Prov:MARIA FERNANDA DUFF 09/15/24 Atorvastatin Calcium (ATORVASTATIN CALCIUM) 40 Mg Tab, 1 TAB PO DAILY for 30 Days, #30 TAB 5 Refills Prov:MARIA FERNANDA DUFF 09/15/24 Furosemide (Lasix) 40 Mg Tab, 40 MG PO DAILY, #90 TAB Prov:AYAKA SCHMIDT MD 03/04/24 Home Meds Home medications reviewed. Current Medications Current Medications Medications (Trade) Dose Ordered Sig/Kimberly Route PRN Reason Start Time Stop Time Status Last Admin Aspirin 162 mg DAILY PO 11/16/24 10:00 Atorvastatin Calcium (Lipitor) 40 mg HS PO 11/15/24 22:00 11/15/24 22:18 Empaglifozin (Jardiance) 10 mg DAILY PO 11/16/24 10:00 Lisinopril (Zestril Tablet) 5 mg DAILY PO 11/16/24 10:00 Spironolactone (Aldactone) 12.5 mg DAILY PO 11/16/24 10:00 Furosemide (Lasix Injection) 20 mg BIDD IV 11/16/24 06:00 11/16/24 05:29 Carvedilol (Coreg Tablet) 3.125 mg Q12HR PO 11/15/24 22:00 11/15/24 22:19 Diagnostic Test (Pha) (Accu-Chek Comfort Curve T) 1 strip ACHS 11/15/24 22:00 11/16/24 05:29 Insulin Human Regular (InsuLIN R) ACHS SC 11/15/24 22:00 11/16/24 05:33 Dextrose 50 ml UD PRN IV Blood Sugar LESS THAN 60 11/15/24 20:00 Ondansetron HCl (Zofran) 4 mg Q4HP PRN IV NAUSEA / VOMITING 11/15/24 20:00 Acetaminophen (Tylenol Tablet) 650 mg Q6HP PRN PO PAIN SCALE 1-3 OR TEMP>100.4 11/15/24 20:00 11/16/24 01:12 Temazepam (Restoril) 15 mg HSPRN PRN PO FOR INSOMNIA 11/16/24 02:00 11/16/24 02:02 Famotidine (Pepcid Tablet) 20 mg Q12HR PO 11/16/24 10:00 Acetaminophen/ Hydrocodone Bitart ([place] 5/325MG Tab) 1 tab Q6HPRN PRN PO MODERATE PAIN (4-6 PAIN SCALE) 11/16/24 09:45 Review of Systems Constitutional: No symptom reported Ears, Nose, & Throat: No symptom reported Eyes: No symptom reported Neurological: No symptoms reported Pulmonary/Respiratory: Shortness of breath Cardiovascular: No symptom reported Gastrointestinal: No symptom reported Genitourinary: No symptom reported Musculoskeletal: No symptom reported Skin: No symptom reported Psychiatric: No symptom reported Endocrine: No symptom reported Hematologic/Lymphatic: No symptom reported Vital Signs Vital Signs Date Time Temp Pulse Resp B/P (MAP) Pulse Ox O2 Delivery O2 Flow Rate FiO2 11/16/24 09:00 98.1 64 18 132/95 (107) 99 98.1 11/15/24 22:43 Nasal Cannula* 2 28 Physical Exam General Appearance: Cooperative. Unkempt Pulmonary/Respiratory: Clear, bilateral breaths sounds. Cardiovascular/Chest: Regular rate and rhythm. Peripheral Pulses: 2+ Radial (R). 2+ Radial (L). 2+ Pedal (R). 2+ Pedal (L) Abdominal Exam: Normal bowel sounds. Ankle Exam: 1+ pitting edema Lower extremities: 1+ pitting edema Neuro/Mental Status: A/OX4, coherent. Thoughts/Psych: Normal thought pattern. Appropriate mood and affect. Good judgment and insight. Appearance: No acute distress. Skin Exam: Normal inspection. Normal color. Warm and dry. Labs/Diagnostic Data Labs Test 11/16/24 06:06 11/16/24 05:28 11/15/24 21:50 11/15/24 18:57 Range/Units Sodium Level 139 136-145 mmol/L Potassium Level 4.1 3.5-5.1 mmol/L Chloride Level 104 98-107 mmol/L Carbon Dioxide Level 26 20-31 mmol/L Anion Gap 9 5-15 Blood Urea Nitrogen 16 9-23 mg/dL Creatinine 1.13 0.700-1.30 mg/dL Glomerular Filtration Rate Calc 78 >90 mL/min BUN/Creatinine Ratio 14.2 10.0-20.0 Serum Glucose 182 H 74-106 mg/dL Hemoglobin A1c 7.6 H <5.7 % A1C Calcium Level 8.6 L 8.7-10.4 mg/dL Triglycerides Level 100 < 150 mg/dL Cholesterol Level 146 < 200 mg/dL LDL Cholesterol 96 < 100 mg/dL HDL Cholesterol 46 40-59 mg/dL Thyroid Stimulating Hormone (TSH) 1.71 0.55-4.78 uIU/mL POC Glucose 161 H 70-106 mg/dl Troponin I High Sensitivity 489 *H </=54 ng/L White Blood Count 5.6 4.4-10.8 10^3/uL Red Blood Count 5.09 4.5-5.90 10^6/uL Hemoglobin 15.9 13.5-17.5 g/dL Hematocrit 46.7 41.0-53.0 % Mean Corpuscular Volume 91.8 80.0-100.0 fL Mean Corpuscular Hemoglobin 31.3 28.0-32.0 pg Mean Corpuscular Hemoglobin Concent 34.1 32.0-36.0 g/dL Red Cell Distribution Width 14.5 H 11.8-14.3 % Platelet Count 171 140-450 10^3/uL Mean Platelet Volume 8.3 6.9-10.8 fL Neutrophils (%) (Auto) 62.8 37.0-80.0 % Lymphocytes (%) (Auto) 23.8 10.0-50.0 % Monocytes (%) (Auto) 9.3 0.0-12.0 % Eosinophils (%) (Auto) 3.5 0.0-7.0 % Basophils (%) (Auto) 0.6 0.0-2.0 % Neutrophils # (Auto) 3.5 1.6-8.6 10 ^3/uL Lymphocytes # (Auto) 1.3 0.4-5.4 10 ^3/uL Monocytes # (Auto) 0.5 0-1.3 10 ^3/uL Eosinophils # (Auto) 0.2 0-0.8 10 ^3/uL Basophils # (Auto) 0 0-0.2 10 ^3/uL Nucleated Red Blood Cells 0.2 % Lactic Acid Level 1.4 0.4-2.0 mmol/L Magnesium Level 1.9 1.6-2.6 mg/dL Total Bilirubin 0.5 0.2-1.0 mg/dL Aspartate Amino Transferase (AST) 20 <34 U/L Alanine Aminotransferase (ALT) 20 7-40 U/L Alkaline Phosphatase 89 46-116 U/L B-Type Natriuretic Peptide 1813.56 0-100 pg/mL Total Protein 6.6 5.7-8.2 g/dL Albumin 3.9 3.2-4.8 g/dL Assessment Acute on chronic decompensated HFrEF, NYHA class III NSTEMI likely type II secondary to above Coronary artery disease status post multiple PTCAs x2 OLIVIA (on ASA) Ischemic/drug-induced/dilated cardiomyopathy with LVEF of 10-15% Aortic valve regurgitation, severe Mitral and tricuspid regurgitation, moderate degree Pulmonary hypertension, severe History of pulmonary embolism Hypertension Type 2 diabetes mellitus, uncontrolled (Hgb A1c 7.6%) Polysubstance abuse with methamphetamines Medical non-compliance Plan/Recommendation We will continue with the following plan/recommendations (Dr. Gallo): * Transthoracic echocardiogram from 09/13/2024 reveals EF of 15%, RVSP 50 mmHg * Initiate guideline directed medical therapy for CHF as tolerated * Strict intake and output, daily weights, maintain fluid restriction * Preload and afterload reduction * Obtain baseline EKG * Continuous telemetry monitoring * Risk factor modifications, counseled * Dietary and lifestyle changes * Adherence to medication regimen * Following up with Cardiology in the outpatient setting Thank you for allowing us to care for this patient. Please call with any questions or concerns. Critical care time spent: 42 minutes This medical document was created using an electronic medical record system with voice recognition software and computerized dictation system. Although this document has been carefully reviewed, there might still be some phonetic and typographical errors. Occasional wrong-word or ``sound-alike substitutions may have occurred due to the inherent limitations of voice recognition software. These areas are purely typographical due to imperfections of the software programs and do not reflect any compromise in the patient's medical care. Please read the chart carefully and recognize, using context, where these substitutions have occurred. Plan discussed with: Patient NYHA Physical activity limitations: Class3(Marked) ordinary (activity causes symtoms) Date of Service: Nov 16, 2024 Billing Provider: VAISHALI OSUNA Cardiology Common Codes: [id number] INP/OBS CARE (High) Cardiology Consultation Codes: [id number] CONSULT <45MIN VAISHALI OSUNA Nov 16, 2024 10:07
--- NOTE | 2024-11-16 10:10 | DVHPNRES ---
Progress Note Date Seen: Nov 16, 2024 Resident Creating Document: CELIA ALBERTO RESIDENT Medical Necessity Reason Pt with a Central, PICC or Fol: No Subjective Review of Systems 53-year-old male with a PMH of PTCA x2 OLIVIA, ischemic/ drug-induced cardiomyopathy, HFrEF, HTN, PE, type 2 DM, polysubstance abuse, medication noncompliance presented to the ED with the chief complaints of worsening of shortness of breath since yesterday. Patient reported he history of shortness of breaths and using home oxygen as needed . yesterday he started having worsening of shortness of breath associated with orthopnea and PND which prompted him to visit ED. Patient denied any fever, acute dysuria, acute joint redness or sick contact, patient is a chronic substance abuser methamphetamine. Patient reported he used amphetamine last 1 month before And smokes cigarettes. Patient seen and examined at the bedside. Patient is currently on oxygen [place] 4L, reported improvement in his shortness of breath, Objective vital signs Vital Sign Date Time Temp Pulse Resp B/P (MAP) Pulse Ox O2 Delivery O2 Flow Rate FiO2 11/16/24 09:00 98.1 64 18 132/95 (107) 99 98.1 11/15/24 22:43 Nasal Cannula* 2 28 Total Intake and Output 11/15/24 11/15/24 11/16/24 15:00 23:00 07:00 Intake Total 640 ml Output Total 800 ml Balance -160 ml medications Current Medications Medications Dose Ordered Sig/Kimberly Route Start Time Stop Time Status Last Admin Dose Admin Aspirin 162 mg DAILY PO 11/16/24 10:00 Atorvastatin Calcium 40 mg HS PO 11/15/24 22:00 11/15/24 22:18 40 MG Empaglifozin 10 mg DAILY PO 11/16/24 10:00 Lisinopril 5 mg DAILY PO 11/16/24 10:00 Spironolactone 12.5 mg DAILY PO 11/16/24 10:00 Furosemide 20 mg BIDD IV 11/16/24 06:00 11/16/24 05:29 20 MG Carvedilol 3.125 mg Q12HR PO 11/15/24 22:00 11/15/24 22:19 3.125 MG Diagnostic Test (Pha) 1 strip ACHS 11/15/24 22:00 11/16/24 05:29 1 STRIP Insulin Human Regular ACHS SC 11/15/24 22:00 11/16/24 05:33 3 UNITS Dextrose 50 ml UD PRN IV 11/15/24 20:00 Ondansetron HCl 4 mg Q4HP PRN IV 11/15/24 20:00 Acetaminophen 650 mg Q6HP PRN PO 11/15/24 20:00 11/16/24 01:12 650 MG Temazepam 15 mg HSPRN PRN PO 11/16/24 02:00 11/16/24 02:02 15 MG Famotidine 20 mg Q12HR PO 11/16/24 10:00 Acetaminophen/ Hydrocodone Bitart 1 tab Q6HPRN PRN PO 11/16/24 09:45 Examination General Appearance: Alert, Oriented X3, Cooperative, No acute distress HEENT: Atraumatic, PERRLA, EOMI, Mucous membrane moist/pink Respiratory: Bilateral lower zone crackles, Mild Cardiovascular: Regular rate, Normal S1, Normal S2, No murmurs, no chest wall tenderness Abdominal: Normal bowel sounds, Soft, No tenderness, No hepatospenomegaly, No masses Extremities: Bilateral lower limb edema, 1+ Skin: No rashes, No breakdown, No significant lesion Neuro: Normal gait, Normal speech, Strength at 5/5 X4 ext, Normal tone, Sensation intact, Cranial nerves 3-12 NL, Reflexes 2+ Psych/Mental Status: Mental status NL, Mood NL laboratory and microbiology Laboratory Tests 11/16/24 06:06 11/15/24 18:57 Test 11/16/24 06:06 Range/Units Serum Glucose 182 H 74-106 mg/dL Problem List/Assessment/Plan Problem List/Assessment/Plan # Acute on chronic hypoxic respiratory failure, likely due to CHF exacerbation # Acute on chronic Sytolic CHF exacerbation (HFrEF, EF 15%) # NSTEMI, likely type 2, due to above # Dilated cardiomyopathy, methamphetamine induced # History of [place] , CAD S/p PTCA x2 OLIVIA # Ischemic/drug induced cardiomyopathy, # Aortic valve regurgitation, severe # Pulmonary hypertension, severe # History of pulmonary embolism # Hypertension # Methamphetamine use disorder # Medically noncompliant # Type 2 diabetes mellitus, Hgb A1c 7.4% - elevated troponins, possible demand ischemia. - elevated BNP, 1813 - continue aspirin, atorvastatin - Cont GDMT with Coreg 3.125, Aldactone 12.5, Jardiance 10 mg, Lisinopril 5 mg, - Lasix 20 mg IV BID - strict ins and outs -counseled regarding cessation of meth, tobacco abuse and adherence to medications for 17 minutes - BP monitor - Continuously monitor glucose - Accu-Cheks and sliding scale DVT prophylaxis: Lovenox GI prophylaxis: Pepcid Goal of care discussed with patient for 29 minutes: Full code Case discussed with Dr. Moses Plan discussed with: Patient My Orders My Orders Orders - CELIA ALBERTO RESIDENT Procedure Category Date Status Time Famotidine Tablet PHA 11/16/24 In Process (Pepcid Tablet) 10:00 Hydrocodone-Acet PHA 11/16/24 In Process 5/325mg Tab ([place] 09:45 CELIA ALBERTO RESIDENT Nov 16, 2024 10:10
[2024-11-16] MEDS: LISINOPRIL 5 MG TAB PO SCH (10:45)
[2024-11-16] MEDS: SPIRONOLACTONE 25 MG TAB PO SCH (10:46)
[2024-11-16] MEDS: ASPirin 81 mg TAB PO SCH (10:46)
[2024-11-16] MEDS: EMPAGLIFLOZIN 10 MG TAB PO SCH (10:53)
[2024-11-16] MEDS: HYDROcodone-ACET 5/325MG TAB PO PRN (10:53)
[2024-11-16] MEDS: ENOXAPARIN SOD 40 MG/0.4 ML SYRINGE SC SCH (10:54)
[2024-11-16] MEDS: FAMOTIDINE 20 MG TAB PO SCH (10:54)
[2024-11-17 01:00] VITALS: BP 125/84; PULSE 68; RESP 16; TEMP 97.5; O2SAT 98
[2024-11-17 05:00] VITALS: BP 129/89; PULSE 78; RESP 18; TEMP 97.9; O2SAT 96
[2024-11-17 07:34] LABS: Basophils # (auto) 0 10 ^3/uL (0-0.2); Basophils % (auto) 0.4 % (0.0-2.0); Eosinophils # (auto) 0.2 10 ^3/uL (0-0.8); Eosinophils % (auto) 2.3 % (0.0-7.0); Hematocrit 51.3 % (41.0-53.0); Hemoglobin 17.7 g/dL (13.5-17.5); Lymphocytes # (auto) 1.3 10 ^3/uL (0.4-5.4); Lymphocytes % (auto) 16.1 % (10.0-50.0); Mean Corpuscular Hemoglobin 31.3 pg (28.0-32.0); Mean Corpuscular Hgb Conc. 34.5 g/dL (32.0-36.0); Mean Corpuscular Volume 90.8 fL (80.0-100.0); Monocytes # (auto) 0.7 10 ^3/uL (0-1.3); Monocytes % (auto) 8.5 % (0.0-12.0); Neutrophils % (auto) 72.7 % (37.0-80.0); Nucleated Red Blood Cells % 0.1 %; Platelet Count (auto) 189 10^3/uL (140-450); Red Blood Cells 5.65 10^6/uL (4.5-5.90); Red Cell Distribution Width 14.5 % (11.8-14.3); White Blood Cell 8.2 10^3/uL (4.4-10.8)
[2024-11-17 07:46] LABS: Anion Gap 10 (5-15); Carbon Dioxide 29 mmol/L (20-31); Chloride 102 mmol/L (98-107); Sodium 141 mmol/L (136-145)
[2024-11-17 07:52] LABS: Blood Urea Nitrogen 19 mg/dL (9-23)
[2024-11-17 07:53] LABS: Glucose 124 mg/dL (74-106)
[2024-11-17 08:00] VITALS: PULSE 68; PULSE 75; RESP 18
[2024-11-17 08:43] VITALS: BP 138/93; PULSE 75; RESP 18; TEMP 97.6; O2SAT 98
[2024-11-17] MEDS: ASPirin 81 mg TAB PO SCH (09:42)
[2024-11-17] MEDS ORDERED: FURO1TAB31 PO (11:49)
[2024-11-17 12:53] VITALS: BP 113/85; PULSE 73; RESP 18; TEMP 98.1; O2SAT 96
[2024-11-17 13:12] VITALS: BP 113/85; PULSE 73; TEMP 36.7
--- NOTE | 2024-11-17 13:39 | ECG ---
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
--- NOTE | 2024-11-17 17:00 | DVHDSRES ---
Discharge Summary Date of Admission Resident Creating Document: CELIA ALBERTO RESIDENT Nov 15, 2024 at 19:41 Date of Discharge: Nov 17, 2024 Labs/Diagnostic Data: Laboratory Results Test 11/17/24 07:00 11/17/24 06:37 11/16/24 06:06 11/15/24 21:50 White Blood Count 8.2 10^3/uL (4.4-10.8) Red Blood Count 5.65 10^6/uL (4.5-5.90) Hemoglobin 17.7 g/dL (13.5-17.5) Hematocrit 51.3 % (41.0-53.0) Mean Corpuscular Volume 90.8 fL (80.0-100.0) Mean Corpuscular Hemoglobin 31.3 pg (28.0-32.0) Mean Corpuscular Hemoglobin Concent 34.5 g/dL (32.0-36.0) Red Cell Distribution Width 14.5 % (11.8-14.3) Platelet Count 189 10^3/uL (140-450) Mean Platelet Volume 8.7 fL (6.9-10.8) Neutrophils (%) (Auto) 72.7 % (37.0-80.0) Lymphocytes (%) (Auto) 16.1 % (10.0-50.0) Monocytes (%) (Auto) 8.5 % (0.0-12.0) Eosinophils (%) (Auto) 2.3 % (0.0-7.0) Basophils (%) (Auto) 0.4 % (0.0-2.0) Neutrophils # (Auto) 6.0 10 ^3/uL (1.6-8.6) Lymphocytes # (Auto) 1.3 10 ^3/uL (0.4-5.4) Monocytes # (Auto) 0.7 10 ^3/uL (0-1.3) Eosinophils # (Auto) 0.2 10 ^3/uL (0-0.8) Basophils # (Auto) 0 10 ^3/uL (0-0.2) Nucleated Red Blood Cells 0.1 % Sodium Level 141 mmol/L (136-145) Potassium Level 4.0 mmol/L (3.5-5.1) Chloride Level 102 mmol/L (98-107) Carbon Dioxide Level 29 mmol/L (20-31) Anion Gap 10 (5-15) Blood Urea Nitrogen 19 mg/dL (9-23) Creatinine 1.19 mg/dL (0.700-1.30) Glomerular Filtration Rate Calc 74 mL/min (>90) BUN/Creatinine Ratio 16.0 (10.0-20.0) Serum Glucose 124 mg/dL (74-106) Calcium Level 10.0 mg/dL (8.7-10.4) POC Glucose 148 mg/dl (70-106) Hemoglobin A1c 7.6 % A1C (<5.7) Triglycerides Level 100 mg/dL (< 150) Cholesterol Level 146 mg/dL (< 200) LDL Cholesterol 96 mg/dL (< 100) HDL Cholesterol 46 mg/dL (40-59) Thyroid Stimulating Hormone (TSH) 1.71 uIU/mL (0.55-4.78) Troponin I High Sensitivity 489 ng/L (</=54) Test 11/15/24 18:57 Lactic Acid Level 1.4 mmol/L (0.4-2.0) Magnesium Level 1.9 mg/dL (1.6-2.6) Total Bilirubin 0.5 mg/dL (0.2-1.0) Aspartate Amino Transferase (AST) 20 U/L (<34) Alanine Aminotransferase (ALT) 20 U/L (7-40) Alkaline Phosphatase 89 U/L (46-116) B-Type Natriuretic Peptide 1813.56 pg/mL (0-100) Total Protein 6.6 g/dL (5.7-8.2) Albumin 3.9 g/dL (3.2-4.8) Other Laboratory Tests 11/17/24 07:00 Brief Hx & Hospital Course: HPI: 53-year-old male with a PMH of PTCA x2 OLIVIA, ischemic/ drug-induced cardiomyopathy, HFrEF, HTN, PE, type 2 DM, polysubstance abuse, medication noncompliance presented to the ED with the chief complaints of worsening of shortness of breath since yesterday. Patient reported he history of shortness of breaths and using home oxygen as needed . yesterday he started having worsening of shortness of breath associated with orthopnea and PND which prompted him to visit ED. Patient denied any fever, acute dysuria, acute joint redness or sick contact, patient is a chronic substance abuser methamphetamine. Patient reported he used amphetamine last 1 month before And smokes cigarettes. Summary: Transthoracic echocardiogram from 09/13/2024 reveals EF of 15%, RVSP 50 mmHg, Initiated guideline directed medical therapy for CHF as tolerated. Patient was given IV diuretics. Patient's compliance teaching has been given. Patient is being discharged under stable condition. Advised patient to follow up with associate chemist scheduled, PCP in 1-2 weeks. Condition at Discharge: Stable Final Diagnosis/Problems List # Acute on chronic hypoxic respiratory failure, likely due to CHF exacerbation # Acute on chronic Sytolic CHF exacerbation (HFrEF, EF 15%) # NSTEMI, likely type 2, due to above # Dilated cardiomyopathy, methamphetamine induced # History of [place] , CAD S/p PTCA x2 OLIVIA # Ischemic/drug induced cardiomyopathy, # Aortic valve regurgitation, severe # Pulmonary hypertension, severe # History of pulmonary embolism # Hypertension # Methamphetamine use disorder # Medically noncompliant # Type 2 diabetes mellitus, Hgb A1c 7.4% Discharge Disposition: Home SNF Discharge Will this Physician continue t: No Discharge Instruct/Medications Diet: Cardiac 2g Na,low cholest Activity: No Restrictions, As Tolerated Follow Up/Referral: See Below Medications: See Below Care Plan: - Continue GDMT medications as indicated, Coreg, Lisinopril, Jardiance, Spironilactone - Lasix 40 mg PO daily, - Resume other home medications - Follow up with [facility] as scheduled - Follow up with PCP in 1-2 weeks Discharge Statement: "Patient was advised to return to the ER or call 911 if any headaches, dizziness, shortness of breath, chest pain, abdominal pain, bleeding, fevers, or worsening of medical condition. Patient was counseled about treatment plan, medications, possible side effects, patientverbalized understanding. All questions were answered to the best of my ability. This discharge took greater then 30 minutes in planning, reviewing documentation, counseling the patient, and discussing with other team members." ASSESSMENT ASSESSMENT Assessment # Acute on chronic hypoxic respiratory failure, likely due to CHF exacerbation # Acute on chronic Sytolic CHF exacerbation (HFrEF, EF 15%) # NSTEMI, likely type 2, due to above # Dilated cardiomyopathy, methamphetamine induced # History of [place] , CAD S/p PTCA x2 OLIVIA # Ischemic/drug induced cardiomyopathy, # Aortic valve regurgitation, severe # Pulmonary hypertension, severe # History of pulmonary embolism # Hypertension # Methamphetamine use disorder # Medically noncompliant # Type 2 diabetes mellitus, Hgb A1c 7.4% CELIA ALBERTO RESIDENT Nov 17, 2024 17:00
== END 2024-11-17 15:05 | disposition home or self-care (01) | DRG 194 ==
LOC: ER 18:25 → OVERFLOW 19:41 → WEST WING 22:31
PROVIDERS: ADMIT Student in an Organized Health Care Education/Training Program; ATTEND Student in an Organized Health Care Education/Training Program
DX: I11.0 Hypertensive heart disease with heart failure (principal); J96.21 Acute and chronic respiratory failure with hypoxia; I21.A1 Myocardial infarction type 2; I42.0 Dilated cardiomyopathy; I50.23 Acute on chronic systolic (congestive) heart failure; I27.20 Pulmonary hypertension, unspecified; E11.65 Type 2 diabetes mellitus with hyperglycemia; F17.210 Nicotine dependence, cigarettes, uncomplicated; I08.1 Rheumatic disorders of both mitral and tricuspid valves; I25.10 Atherosclerotic heart disease of native coronary artery without angina pectoris; F15.90 Other stimulant use, unspecified, uncomplicated; Z82.0 Family history of epilepsy and other diseases of the nervous system; Z82.49 Family history of ischemic heart disease and other diseases of the circulatory system; Z83.3 Family history of diabetes mellitus; Z86.711 Personal history of pulmonary embolism; Z91.199 Patient's noncompliance with other medical treatment and regimen due to unspecified reason; Z79.899 Other long term (current) drug therapy
CPT/HCPCS: 36415; 71045; 80048; 80053; 80061; 82962; 83036; 83605; 83735; 83880; 84443; 84484; 85025; 87081; 93005; 96374; G0378; J1815

== ENCOUNTER 2025-02-25 07:46 | Inpatient (IN) | payer OTHER ==
[~2025-02-25] VITALS: Ht 167.6 cm; Wt 80.0 kg
--- NOTE | 2025-02-25 08:30 | ED.PDOC ---
SOB-HPI HPI Comments HPI: Kyle 54 y.o male presents to the ED for a chief complaint of SOB x 1 day. Patient has no other associating symptoms. He reports compliance to medication, states taking a total of 7 medications, 3 of which he has ran out of but does not know the name of them. Patient last took his medication yesterday, that he recalls one of them was Lasix. Additionally,patient reports methamphetamine use 1 week ago with prior history of using. Initial Vitals BP: 138/96 HR: 83 RR: 18 O2: 97% RA Temp: 97.8 F Past Medical History: HLD, HTN, RI, CHF, CAD Past Surgical History: PTCA Social History: Methamphetamine use x 1 week ago Allergies: Denies HPI: Poor Historian. REVIEW OF SYSTEMS: CONSTITUTIONAL: Denies acute: fever, diaphoresis, chills, generalized weakness. HEAD: Denies acute: headache, photophobia Eyes: Denies acute: Double vision, vision loss, eye pain, eye discharge. EARS: Denies acute: tinnitus, hearing loss, ear discharge, ear pain, THROAT: Denies acute: sore throat, swelling, difficulty swallowing , pain with swallowing, change in voice. NECK: Denies acute: neck pain, neck swelling, stiff neck. HEART: Denies acute : chest pain, palpitations, LUNGS: Denies acute: wheezing, cough, hemoptysis ABDOMEN: Denies acute: abdominal pain, Nausea, Vomiting, diarrhea, melena , hematemesis, hematochezia SKIN: Denies acute: rash, redness, lesions, itchiness. EXTREMITIES: Denies acute: calf pain, numbness, tingling, weakness, denies pain in extremity. Denies acute: Low back pain. Neuro: Denies acute: focal neurological deficit, motor or sensory focal neurological deficit, tremors, seizure like activity, confusion, dizziness, change in mental status, loss of bowel or bladder function, cauda equina like symptoms. : Denies acute: dysuria, hematuria, flank pain, increase in urinary frequency. PSYCH: Denies acute: hallucination, suicidal ideation, homicidal ideation. PHYSICAL EXAM: General: -----no---acute distress, awake and alert. Head: normocephalic, atraumatic. Neck: supple, trachea is midline, no swelling. Throat: Normal phonation. Eyes:, no erythema, no purulent discharge, no proptosis, no icterus. Heart: regular rate, regular rhythm, no significant murmur appreciated. Lungs: no apparent respiratory distress, Able to speak in full sentences. No wheezing, no rhonchi, no crackles. No stridors Clear to auscultation bilaterally. Abdomen: non tender to palpation, non distended, soft, no guarding, no rebound, + bowel sounds. Neuro: Awake, Alert, oriented to name, self, situation, follows commands GCS=15. Speech is normal. Skin: no petechia, no purpura, no cyanosis, non-pale, not jaundice. Lower extremities: --no - Pitting edema no deformity, no focal swelling, no calf TTP. Makes eye contact. moves all four extremities. Face: no apparent facial droop. Ambulating in the ED independently. ED COURSE: DISCLAIMER: This medical document was created using an electronic medical record system with voice recognition software and computerized dictation system. Although this doc ument has been carefully reviewed, there might still be some phonetic and typographical errors. Occasional wrong-word or "sound-alike" substitutions may have occurred due to the inherent limitations of voice recognition software. These areas are purely typographical due to imperfections of the software programs and do not reflect any compromise in the patient's medical care. Please read the chart carefully and recognize, using context, where these substitutions have occurred. Chief Complaint: Shortness of Breath Time Seen by MD: 08:22 Primary Care Provider: PALOMO Reviewed notes: Medications, Allergies Information Source: Patient Mode of Arrival: Ambulatory Severity: Moderate Timing: Days (1) Past Medical History PAST MEDICAL HISTORY: CAD, CHF, DM, High Lipids, HTN, RI Surgical History: PTCA Family History Family History: Reviewed,noncontributory to illness, Family hx of DM Social History Smoker: Cigarettes Alcohol: Occasionally Drugs: Marijuana, Methamphetamine Lives In: Home EKG EKG : Pulse Rate (adult): 75 Cardiac Rhythm: NSR Comments T wave inversion in lead V1 AVL and V6 Was a procedure done? Was a procedure done?: No Differential Dx Differential Diagnosis: CHF, COPD, URI X-Ray, Labs, Meds, VS Vital Signs Date Time Temp Pulse Resp B/P (MAP) Pulse Ox O2 Delivery O2 Flow Rate FiO2 02/25/25 08:44 75 02/25/25 07:55 75 02/25/25 07:47 97.8 83 18 138/96 97 97.8 Lab Test 02/25/25 08:16 Range/Units White Blood Count 7.6 4.4-10.8 10^3/uL Red Blood Count 5.66 4.5-5.90 10^6/uL Hemoglobin 17.8 H 13.5-17.5 g/dL Hematocrit 52.3 41.0-53.0 % Mean Corpuscular Volume 92.3 80.0-100.0 fL Mean Corpuscular Hemoglobin 31.4 28.0-32.0 pg Mean Corpuscular Hemoglobin Concent 34.0 32.0-36.0 g/dL Red Cell Distribution Width 13.8 11.8-14.3 % Platelet Count 224 140-450 10^3/uL Mean Platelet Volume 8.0 6.9-10.8 fL Neutrophils (%) (Auto) 67.0 37.0-80.0 % Lymphocytes (%) (Auto) 19.6 10.0-50.0 % Monocytes (%) (Auto) 10.4 0.0-12.0 % Eosinophils (%) (Auto) 2.5 0.0-7.0 % Basophils (%) (Auto) 0.5 0.0-2.0 % Neutrophils # (Auto) 5.1 1.6-8.6 10 ^3/uL Lymphocytes # (Auto) 1.5 0.4-5.4 10 ^3/uL Monocytes # (Auto) 0.8 0-1.3 10 ^3/uL Eosinophils # (Auto) 0.2 0-0.8 10 ^3/uL Basophils # (Auto) 0 0-0.2 10 ^3/uL Nucleated Red Blood Cells 0.2 % Sodium Level 137 136-145 mmol/L Potassium Level 4.9 3.5-5.1 mmol/L Chloride Level 100 98-107 mmol/L Carbon Dioxide Level 27 20-31 mmol/L Anion Gap 10 5-15 Blood Urea Nitrogen 16 9-23 mg/dL Creatinine 0.99 0.700-1.30 mg/dL Glomerular Filtration Rate Calc 91 >90 mL/min BUN/Creatinine Ratio 16.2 10.0-20.0 Serum Glucose 166 H 74-106 mg/dL Calcium Level 9.3 8.7-10.4 mg/dL Total Bilirubin 0.6 0.2-1.0 mg/dL Aspartate Amino Transferase (AST) 31 13-40 U/L Alanine Aminotransferase (ALT) 33 7-40 U/L Alkaline Phosphatase 92 46-116 U/L Troponin I High Sensitivity 690 *H </=54 ng/L B-Type Natriuretic Peptide 1072.92 0-100 pg/mL Total Protein 7.2 5.7-8.2 g/dL Albumin 4.1 3.2-4.8 g/dL [address] [address] Ph: [phone] DIAGNOSTIC IMAGING Diagnostic Imaging Report : [id number] Signed PATIENT: SOPHIE STORY ACCT: [id number] UNIT: [id number] : 1970 LOC: ER ROOM / BED: / AGE / SEX: 54 / M ADM STATUS: REG ER SERVICE 8 ORDERING PHYSICIAN: HARPAL ARMENTA DO PROCEDURE(s): CXRP - CHEST PORTABLE REASON: sob ORDER NUMBER(s): [id number], ACCESSION NUMBER(s): [id number] AP portable chest CLINICAL INDICATION: sob Comparison: 11/15/2024 FINDINGS: Heart size is enlarged. No infiltrates or effusions. No bony thoracic abnormalities. IMPRESSION: 1. No acute cardiopulmonary pathology ATED BY: JAZIEL SANCHEZ MD DICTATED DATE/TIME: 02/25/25836 SIGNED BY: JAZIEL SANCHEZ MD SIGNED DATE/TIME: 02/25/25836 CC: Time of 1ST Reevaluation: 08:31 Reevaluation 1ST: Unchanged Patient Education/Counseling: Diagnosis, Treatment Family Education/Counseling: No Family Present Departure 1 Departure Time of Disposition: : Impression: Primary Impression: Dyspnea Additional Impression: Elevated troponin Disposition: ADMITTED INPATIENT Admit to: [facility] Condition: Guarded Additional Instructions: [address] [address] Ph: [phone] DIAGNOSTIC IMAGING Diagnostic Imaging Report : [id number] Signed PATIENT: SOPHIE STORY ACCT: [id number] UNIT: [id number] : 1970 LOC: ER ROOM / BED: / AGE / SEX: 54 / M ADM STATUS: REG ER SERVICE ORDERING PHYSICIAN: HARPAL ARMENTA DO PROCEDURE(s): CXRP - CHEST PORTABLE REASON: sob ORDER NUMBER(s): [id number], ACCESSION NUMBER(s): [id number] AP portable chest CLINICAL INDICATION: sob Comparison: 11/15/2024 FINDINGS: Heart size is enlarged. No infiltrates or effusions. No bony thoracic abnormalities. IMPRESSION: 1. No acute cardiopulmonary pathology ATED BY: JAZIEL SANCHEZ MD DICTATED DATE/TIME: 02/25/25836 SIGNED BY: JAZIEL SANCHEZ MD SIGNED DATE/TIME: 02/25/25836 CC: Discharged With: Self Critical Care Note Critical Care Time?: No I personally scribed for HARPAL ARMENTA DO ([email or web address]) on 02/25/25 at 08:30. Electronically submitted by Chetna Guzman ([facility]). I personally scribed for HARPAL ARMENTA DO ([email or web address]) on 02/25/25 at 08:31. Electronically submitted by Chetna Guzman ([facility]). I personally scribed for HARPAL ARMENTA DO ([email or web address]) on 02/25/25 at 08:41. Electronically submitted by Chetna Guzman ([facility]). I personally scribed for HARPAL ARMENTA DO ([email or web address]) on 02/25/25 at 08:44. Electronically submitted by Chetna Guzman ([facility]). HARPAL ARMENTA DO Feb 25, 2025 08:30
[2025-02-25 08:32] LABS: Hemoglobin 17.8 g/dL (13.5-17.5)
[2025-02-25 08:34] LABS: Hematocrit 52.3 % (41.0-53.0); Mean Corpuscular Hemoglobin 31.4 pg (28.0-32.0); Mean Corpuscular Volume 92.3 fL (80.0-100.0); Nucleated Red Blood Cells % 0.2 %
--- NOTE | 2025-02-25 08:39 | DVH ---
AP portable chest CLINICAL INDICATION: sob Comparison: 11/15/2024 FINDINGS: Heart size is enlarged. No infiltrates or effusions. No bony thoracic abnormalities. IMPRESSION: 1. No acute cardiopulmonary pathology
[2025-02-25 08:49] LABS: Alanine Aminotransferase 33 U/L (7-40); Albumin 4.1 g/dL (3.2-4.8); Alkaline Phosphatase 92 U/L (46-116); Anion Gap 10 (5-15); BUN/Creatinine Ratio 16.2 (10.0-20.0); Bilirubin, Total 0.6 mg/dL (0.2-1.0); Blood Urea Nitrogen 16 mg/dL (9-23); Calcium 9.3 mg/dL (8.7-10.4); Carbon Dioxide 27 mmol/L (20-31); Chloride 100 mmol/L (98-107); Potassium 4.9 mmol/L (3.5-5.1); Sodium 137 mmol/L (136-145); Total Protein 7.2 g/dL (5.7-8.2)
[2025-02-25 08:55] LABS: Glucose 166 mg/dL (74-106)
--- NOTE | 2025-02-25 09:03 | ECG ---
[facility] Test Date: 2025-02-25 Test Time: 07:55:46 Pat Name: SOPHIE STORY Department: Room: 0298T Gender: M Care Director: WENDY : 1970 Requested By: HARPAL ARMENTA Order Number: [id number] Reading MD: Max Gallo Measurements Intervals [place] Rate: 75 P: 38 TX: 171 QRS: 62 QRSD: 108 T: 107 QT: 456 QTc: 510 Interpretive Statements Sinus rhythm Left atrial enlargement Left ventricular hypertrophy Abnormal T, consider ischemia, lateral leads Prolonged QT interval Electronically Signed On 03-02-2025 21:57:10 PDT by Max Gallo Please click the below link to view image of tracing.
[2025-02-25] MEDS: ASPirin-EC 325mg tab PO ONE (09:40)
[2025-02-25] MEDS: FUROSEMIDE 100 MG/10ML VIAL IV ONE (09:41)
--- NOTE | 2025-02-25 10:24 | DVHHPRES ---
History of Present Illness Resident Creating Document: CELIA ALBERTO RESIDENT Reason for Visit: CHF exacerbation History of Present Illness Austyn Wright is a 54 years old male presents to the ED for a chief complaint of SOB x 1 day. The patient has a significant cardiac history including heart failure diagnosed 3 years ago following his first heart attack, at which time he had a stent placed. He reports having had a total of 3 heart attacks, with the most recent occurring approximately 1-1.5 years ago. He believes he has had 2 stents placed total. He also reports associated headaches, which he describes as "normal" for him. The patient denies COPD, asthma, and any swelling. He reports having diabetes for 2 years but states he was told to stop taking diabetes medication and is not currently on any diabetic medications. He also has hypertension and high cholesterol, for which he takes medications but cannot recall the names. He smokes 3-4 cigarettes daily for the past 15 years but denies alcohol or illicit drug use. Past Medical History - Heart failure - History of 3 myocardial infarctions, status post stent placement - Diabetes mellitus - Hypertension - Hypercholesterolemia Past Surgical History - Cardiac stent placement Past Social History - Substance Use: Current smoker, 3-4 cigarettes per day for 15 years; denies alcohol use; denies recreational drug use - Occupation: Currently not working due to heart condition, - Living Situation: Lives with parents Review of Systems Review of Systems GENERAL: Not in acute distress. HEENT: EOMI, Moist mucous membranes. No scleral icterus. No cervical lymphadenopathy. LUNGS: Mild crackles bilaterally. No accessory muscle use. CARDIOVASCULAR: Regular rate and rhythm. No murmur. No JVD. ABDOMEN: Soft, nontender and nondistended. No palpable masses. EXTREMITIES: No edema. Nontender. SKIN: No rashes or lesions. Warm. NEUROLOGIC: Alert and oriented X3 Allergies: Coded Allergies: No Known Drug Allergy (Verified Allergy, Unknown, 04/01/23) Medications Current Medications Medications Dose Ordered Sig/Kimberly Route Start Time Stop Time Status Last Admin Dose Admin Enoxaparin Sodium 40 mg DAILY SC 02/26/25 10:00 UNV Nitroglycerin 0.4 mg Q5MINP PRN SL 02/25/25 10:30 UNV Morphine Sulfate 2 mg Q30M PRN IV 02/25/25 10:30 UNV Furosemide 40 mg DAILY IV 02/26/25 10:00 UNV Exam Vital Signs Vital Signs Date Time Temp Pulse Resp B/P (MAP) Pulse Ox O2 Delivery O2 Flow Rate FiO2 02/25/25 09:50 97 Room Air* 0 21 02/25/25 09:50 17 02/25/25 09:41 98.3 68 146/89 (108) 98.3 Exam CONSTITUTIONAL: Denies weight loss, fever and chills. HEENT: Denies changes in vision and hearing. RESPIRATORY: Admits SOB , Denies cough. CV: Denies palpitations and chest pain. GI: Denies abdominal pain, nausea, vomiting and diarrhea. : Denies dysuria and urinary frequency. MSK: Denies myalgia and joint pain. SKIN: Denies rash and pruritus. NEUROLOGICAL: Denies headache Labs/Xrays Labs Test 02/25/25 09:14 02/25/25 08:16 Range/Units Troponin I High Sensitivity 790 *H </=54 ng/L White Blood Count 7.6 4.4-10.8 10^3/uL Red Blood Count 5.66 4.5-5.90 10^6/uL Hemoglobin 17.8 H 13.5-17.5 g/dL Hematocrit 52.3 41.0-53.0 % Mean Corpuscular Volume 92.3 80.0-100.0 fL Mean Corpuscular Hemoglobin 31.4 28.0-32.0 pg Mean Corpuscular Hemoglobin Concent 34.0 32.0-36.0 g/dL Red Cell Distribution Width 13.8 11.8-14.3 % Platelet Count 224 140-450 10^3/uL Mean Platelet Volume 8.0 6.9-10.8 fL Neutrophils (%) (Auto) 67.0 37.0-80.0 % Lymphocytes (%) (Auto) 19.6 10.0-50.0 % Monocytes (%) (Auto) 10.4 0.0-12.0 % Eosinophils (%) (Auto) 2.5 0.0-7.0 % Basophils (%) (Auto) 0.5 0.0-2.0 % Neutrophils # (Auto) 5.1 1.6-8.6 10 ^3/uL Lymphocytes # (Auto) 1.5 0.4-5.4 10 ^3/uL Monocytes # (Auto) 0.8 0-1.3 10 ^3/uL Eosinophils # (Auto) 0.2 0-0.8 10 ^3/uL Basophils # (Auto) 0 0-0.2 10 ^3/uL Nucleated Red Blood Cells 0.2 % Sodium Level 137 136-145 mmol/L Potassium Level 4.9 3.5-5.1 mmol/L Chloride Level 100 98-107 mmol/L Carbon Dioxide Level 27 20-31 mmol/L Anion Gap 10 5-15 Blood Urea Nitrogen 16 9-23 mg/dL Creatinine 0.99 0.700-1.30 mg/dL Glomerular Filtration Rate Calc 91 >90 mL/min BUN/Creatinine Ratio 16.2 10.0-20.0 Serum Glucose 166 H 74-106 mg/dL Calcium Level 9.3 8.7-10.4 mg/dL Total Bilirubin 0.6 0.2-1.0 mg/dL Aspartate Amino Transferase (AST) 31 13-40 U/L Alanine Aminotransferase (ALT) 33 7-40 U/L Alkaline Phosphatase 92 46-116 U/L B-Type Natriuretic Peptide 1072.92 0-100 pg/mL Total Protein 7.2 5.7-8.2 g/dL Albumin 4.1 3.2-4.8 g/dL SEPSIS Sepsis Screen Date sepsis recognized/suspect: Feb 25, 2025 Time Sepsis recognized/suspect: 746 Recent Procedure: No On Antibiotic Therapy: No Respiratory Rate >20: No Heart Rate >90: No Temp<36 C (96.8 F) or >38.3 C: No SBP <90 or MAP <65 mmHG: No New Acute Mental Status Change: No Is the patient on CPAP, BIPAP,: No Physician Orders Airplane Coverer (02/25/25 ) Chest Portable (02/25/25 08:09) Troponin-I Hs (02/25/25 11:09) Admit (02/25/25 10:18) Code Status (02/25/25 10:18) Oxygen Per Hour (02/25/25 10:18) Enoxaparin Sodium (Lovenox) (02/26/25 10:00) Complete Blood Count (02/26/25 04:00) Comprehensive Metabolic Panel (02/26/25 04:00) Cardiac Diet-2gna,Lofat,Lochol (02/25/25 Lunch) Nitroglycerin Sublingual (Ntrostat Subli (02/25/25 10:30) Morphine Sulfate Injection (02/25/25 10:30) Oxygen By Nasal Cannula (02/25/25 10:18) Stat Ekg For Chest Pain (02/25/25 10:18) Notify Of Changes From Base (02/25/25 10:18) Multi Operation Forming Machine Setter For 24 Hours (02/25/25 10:18) Emergency Dysrhythmia Protocol (02/25/25 10:18) Rhythm Strips Once Every Shift (02/25/25 10:18) Echo 2d Mode Cardiac Dop (02/25/25 10:18) Furosemide Injection (Lasix Injection) (02/26/25 10:00) Aspirin Enteric Coated Tablet (Ecotrin E (02/26/25 10:00) Carvedilol Tablet (Coreg Tablet) (02/25/25 22:00) Empagliflozin (Jardiance) (02/26/25 10:00) Lisinopril Tablet (Zestril Tablet) (02/26/25 10:00) Spironolactone (Aldactone) (02/26/25 10:00) (Nf) Atorvastatin Calcium (02/26/25 10:00) Vital Signs Date Time Temp Pulse Resp B/P (MAP) Pulse Ox O2 Delivery O2 Flow Rate FiO2 02/25/25 09:50 97 Room Air* 0 21 02/25/25 09:50 17 97 Room Air 0 02/25/25 09:41 98.3 68 16 146/89 (108) 95 98.3 02/25/25 09:41 146/89 02/25/25 08:44 75 02/25/25 07:55 75 02/25/25 07:47 97.8 83 18 138/96 97 97.8 Laboratory Tests Test 02/25/25 08:16 White Blood Count 7.6 10^3/uL (4.4-10.8) Medications Medications Dose Ordered Sig/Kimberly Route Start Time Stop Time Status Last Admin Dose Admin Aspirin 325 mg ONCE ONCE PO 02/25/25 09:30 02/25/25 09:34 DC 02/25/25 09:40 325 MG Furosemide 60 mg ONCE ONCE IV 02/25/25 09:30 02/25/25 09:34 DC 02/25/25 09:41 60 MG Assessment/Plan Assessment/Plan # Heart failure exacerbation # HFrEF, [place] class III # history of CAD, # S/P stent placement # Rule out ACS # elevated troponin level - BNP level 1072 - troponin level 690 < 790 - cardiology consult to rule out ACS - Lasix 40 mg IV daily - GDM T as tolerated, - continue aspirin 81 mg, carvedilol 3.125 mg, Jardiance 10 mg, lisinopril 5 mg Aldactone 12.5 mg # Diabetes mellitus - mild sliding scale insulin - hemoglobin A1c # Hypertension - continue antihypertensive medications - lisinopril 5 mg, furosemide 40 mg IV, # Dyslipidemia - continue atorvastatin 40 mg daily # Tobacco use disorder - Patient smokes 3-4 cigarettes daily for 15 years. - counseled patient to quit smoking for more than 15 minutes Goal of care discussed with patient for 37 minutes: Full code Plan discussed with Dr. Pettit. Plan discussed with: Patient My Orders Orders - CELIA ALBERTO RESIDENT Procedure Category Date Status Time Admit ADMIT 02/25/25 Transmitted 10:18 Code Status CODE 02/25/25 Transmitted 10:18 Oxygen Per Hour RT 02/25/25 Transmitted 10:18 Enoxaparin Sodium PHA 02/26/25 Logged (Lovenox) 10:00 Complete Blood Count LAB 02/26/25 Verified 04:00 Comprehensive LAB 02/26/25 Verified Metabolic Panel 04:00 Cardiac DIET 02/25/25 Transmitted Diet-2gna,Lofat,Lochol Lunch Nitroglycerin PHA 02/25/25 Logged Sublingual (Ntrostat 10:30 Morphine Sulfate PHA 02/25/25 Logged Injection 10:30 Oxygen By Nasal RT 02/25/25 Transmitted Cannula 10:18 Stat Ekg For Chest [facility] 02/25/25 In Process Pain 10:18 Notify Md Of Changes [facility] 02/25/25 In Process From Base 10:18 Multi Operation Forming Machine Setter For JESSICA 02/25/25 In Process 24 Hours 10:18 Emergency Dysrhythmia [facility] 02/25/25 In Process Protocol 10:18 Rhythm Strips Once [facility] 02/25/25 In Process Every Shift 10:18 Echo 2d Mode Cardiac US 02/25/25 Logged DOP 10:18 Furosemide Injection PHA 02/26/25 Logged (Lasix Injection) 10:00 Aspirin Enteric PHA 02/26/25 Verified Coated Tablet 10:00 Carvedilol Tablet [facility] 02/25/25 Verified (Coreg Tablet) 22:00 Empagliflozin PHA 02/26/25 Verified (Jardiance) 10:00 Lisinopril Tablet [facility] 02/26/25 Verified (Zestril Tablet) 10:00 Spironolactone PHA 02/26/25 Verified (Aldactone) 10:00 (Nf) Atorvastatin PHA 02/26/25 Verified Calcium 10:00 Date of Service: Feb 25, 2025 ([place] Patient) Billing Provider: SUNIL PETTIT MD Common Visit Codes: [id number] INP/OBS CARE (HIGH) Secondary Visit Codes: [id number] CARE PLAN 30 MINUTES CELIA ALBERTO RESIDENT Feb 25, 2025 10:24 SUNIL PETTIT MD Feb 26, 2025 13:06
[2025-02-25] MEDS ORDERED: NITROGLYCERIN 0.4 MG SL TAB SL PRN (10:30)
[2025-02-25] MEDS ORDERED: MORPHINE SULFATE 4 MG/ML SYR/VIAL IV PRN (10:45)
[2025-02-25] MEDS: DEXTROSE (50%) 50ML SYRG IV ONE (10:45)
[2025-02-25] MEDS: ACCU-CHEK COMFORT CURVE STRIP VI ONE (11:13)
[2025-02-25] MEDS: InsuLIN REG 1unit/0.01ml Soln (100units/ml) SC ONE (11:13)
[2025-02-25 11:36] VITALS: PULSE 73; RESP 22; O2SAT 97
[2025-02-25 11:37] VITALS: BP 126/90; PULSE 73; RESP 22; O2SAT 97
[2025-02-25 12:01] LABS: Triglycerides 148 mg/dL (< 150)
[2025-02-25 12:03] LABS: Cholesterol 194 mg/dL (< 200); HDL Cholesterol 52 mg/dL (40-59)
--- NOTE | 2025-02-25 12:03 | DVHINCON2 ---
[facility] 02/25/25 1203: Date Seen: Feb 25, [address] Alberto Reason for Consultation Rule out ACS, elevated troponin History of Present Illness This is a 54-year-old male who presented to the ED with shortness of breath for one day. The patient reports that his symptoms began after missing or running out of his heart failure medications two days ago. He is alert and oriented x3, denies chest pain, diaphoresis, or syncope. Past medical history significant for CAD with prior PTCA x2 (OLIVIA in RCA in 2021), left heart catheterization on 02/03/2023 without additional stenting, ischemic cardiomyopathy, heart failure with reduced EF 15% as of August 2024, and why, WALLER class three severe pulmonary hypertension, severe aortic regurgitation, prior pulmonary embolism, type 2 diabetes mellitus, substance use disorder (amphetamine use, quit two months ago), and tobacco use (2 cigarettes per day). He reports he does not follow-up with Cardiology in the outpatient setting. In the ED, troponins were elevated at 690, , 790 and 787, BNP was 1072, and a 12 lead ECG showed sinus rhythm with lateral T-wave inversions and prolonged QT interval. Past Medical History As stated in HPI Past Surgical History As stated in HPI Family History: Alzheimer's disease G8 FATHER Diabetes mellitus G8 FATHER, Onset:Unknown G8 MOTHER Hypertension G8 FATHER Family History Reviewed, non-contributory to the management of this case. Social History As stated in HPI Allergies: Coded Allergies: No Known Drug Allergy (Verified Allergy, Unknown, 04/01/23) Home Meds Active Scripts Furosemide (Lasix) 40 Mg Tab, 40 MG PO DAILY for 30 Days, #30 TAB 1 Refill Prov:CELIA ALBERTO RESIDENT 11/17/24 Empagliflozin (Jardiance) 10 Mg Tab, 10 MG PO DAILY, #90 TAB Prov:CHRISTIANO BENJAMIN MD 10/27/24 Furosemide (Lasix) 40 Mg Tab, 40 MG PO DAILY, #90 TAB Prov:CHRISTIANO BENJAMIN MD 10/27/24 Metformin Hydrochloride (Metformin Hcl) 500 Mg Tab, 1 TAB PO BID for 30 Days, #60 TAB Prov:MARIA FERNANDA DUFF RESIDENT 09/15/24 Lisinopril (Lisinopril) 5 Mg Tab, 5 MG PO DAILY for 30 Days, #30 TAB 3 Refills Prov:MARIA FERNANDA DUFF RESIDENT 09/15/24 Carvedilol (COREG) 3.125 Mg Tab, 3.125 MG PO Q12HR for 30 Days, #60 TAB Prov:MARIA FERNANDA DUFF RESIDENT 09/15/24 Aspirin (ASPIRIN 81) 81 Mg Tab, 81 MG PO DAILY for 30 Days, #30 TAB Prov:MARIA FERNANDA DUFF 09/15/24 Spironolactone (Aldactone) 25 Mg Tab, 12.5 MG PO DAILY, #30 TAB 5 Refills Prov:MARIA FERNANDA DUFF 09/15/24 Atorvastatin Calcium (ATORVASTATIN CALCIUM) 40 Mg Tab, 1 TAB PO DAILY for 30 Days, #30 TAB 5 Refills Prov:MARIA FERNANDA DUFF RESIDENT 09/15/24 Current Medications Current Medications Medications (Trade) Dose Ordered Sig/Kimberly Route PRN Reason Start Time Stop Time Status Last Admin Enoxaparin Sodium (Lovenox) 40 mg DAILY SC 02/26/25 10:00 Nitroglycerin (Ntrostat Sublingual) 0.4 mg Q5MINP PRN SL FOR CHEST PAIN 02/25/25 10:30 Morphine Sulfate 2 mg Q30M PRN IV FOR CHEST PAIN 02/25/25 10:45 Furosemide (Lasix Injection) 40 mg DAILY IV 02/26/25 10:00 Aspirin (Ecotrin Enteric Coated Tablet) 81 mg DAILY PO 02/26/25 10:00 Carvedilol (Coreg Tablet) 3.125 mg Q12HR PO 02/25/25 22:00 Empaglifozin (Jardiance) 10 mg DAILY PO 02/26/25 10:00 Lisinopril (Zestril Tablet) 5 mg DAILY PO 02/26/25 10:00 Spironolactone (Aldactone) 12.5 mg DAILY PO 02/26/25 10:00 Atorvastatin Calcium (Lipitor) 40 mg HS PO 02/25/25 22:00 Review of Systems Constitutional: No symptom reported Ears, Nose, & Throat: No symptom reported Eyes: No symptom reported Neurological: No symptoms reported Pulmonary/Respiratory: Shortness of breath Cardiovascular: No symptom reported Gastrointestinal: No symptom reported Genitourinary: No symptom reported Musculoskeletal: No symptom reported Skin: No symptom reported Psychiatric: No symptom reported Endocrine: No symptom reported Hemotologic/Lymphatic: No symptom reported Vital Signs Vital Signs Date Time Temp Pulse Resp B/P (MAP) Pulse Ox O2 Delivery O2 Flow Rate FiO2 02/25/25 11:37 73 22 126/90 (102) 97 02/25/25 09:50 Room Air* 0 21 02/25/25 09:41 98.3 98.3 Physical Exam INITIAL VITAL SIGNS: Reviewed by me GENERAL: Alert and interactive. No acute distress. HEAD: Head is normocephalic and atraumatic. EYES: EOMI, PERRL. No scleral icterus. No conjunctival injection. ENT: Moist mucous membranes. NECK: Supple, No masses, Full range of motion. RESPIRATORY: No tachypnea. Clear breath sounds bilaterally. No wheezing, rales, rhonchi. CV: Regular rate and rhythm. Mild JVD distention, mild dyspnea on exertion. No edema GI/: Active bowel sounds, soft, nondistended, nontender. No guarding. No rebound. No masses. No CVA tenderness. INTEGUMENTARY: Warm and dry. No obvious rashes. NEUROLOGIC: Alert and oriented. Face is symmetric. Speech is normal. Moves all extremities equally. Labs/Diagnostic Data Labs Test 02/25/25 11:09 02/25/25 11:06 02/25/25 09:14 02/25/25 08:16 Range/Units Troponin I High Sensitivity 787 *H </=54 ng/L POC Glucose 220 H 70-106 mg/dl White Blood Count 7.6 4.4-10.8 10^3/uL Red Blood Count 5.66 4.5-5.90 10^6/uL Hemoglobin 17.8 H 13.5-17.5 g/dL Hematocrit 52.3 41.0-53.0 % Mean Corpuscular Volume 92.3 80.0-100.0 fL Mean Corpuscular Hemoglobin 31.4 28.0-32.0 pg Mean Corpuscular Hemoglobin Concent 34.0 32.0-36.0 g/dL Red Cell Distribution Width 13.8 11.8-14.3 % Platelet Count 224 140-450 10^3/uL Mean Platelet Volume 8.0 6.9-10.8 fL Neutrophils (%) (Auto) 67.0 37.0-80.0 % Lymphocytes (%) (Auto) 19.6 10.0-50.0 % Monocytes (%) (Auto) 10.4 0.0-12.0 % Eosinophils (%) (Auto) 2.5 0.0-7.0 % Basophils (%) (Auto) 0.5 0.0-2.0 % Neutrophils # (Auto) 5.1 1.6-8.6 10 ^3/uL Lymphocytes # (Auto) 1.5 0.4-5.4 10 ^3/uL Monocytes # (Auto) 0.8 0-1.3 10 ^3/uL Eosinophils # (Auto) 0.2 0-0.8 10 ^3/uL Basophils # (Auto) 0 0-0.2 10 ^3/uL Nucleated Red Blood Cells 0.2 % Sodium Level 137 136-145 mmol/L Potassium Level 4.9 3.5-5.1 mmol/L Chloride Level 100 98-107 mmol/L Carbon Dioxide Level 27 20-31 mmol/L Anion Gap 10 5-15 Blood Urea Nitrogen 16 9-23 mg/dL Creatinine 0.99 0.700-1.30 mg/dL Glomerular Filtration Rate Calc 91 >90 mL/min BUN/Creatinine Ratio 16.2 10.0-20.0 Serum Glucose 166 H 74-106 mg/dL Calcium Level 9.3 8.7-10.4 mg/dL Total Bilirubin 0.6 0.2-1.0 mg/dL Aspartate Amino Transferase (AST) 31 13-40 U/L Alanine Aminotransferase (ALT) 33 7-40 U/L Alkaline Phosphatase 92 46-116 U/L B-Type Natriuretic Peptide 1072.92 0-100 pg/mL Total Protein 7.2 5.7-8.2 g/dL Albumin 4.1 3.2-4.8 g/dL Triglycerides Level 148 < 150 mg/dL LDL Cholesterol 140 H < 100 mg/dL PROCEDURE(s): CXRP - CHEST PORTABLE REASON: sob ORDER NUMBER(s): [id number], ACCESSION NUMBER(s): [id number] AP portable chest CLINICAL INDICATION: sob Comparison: 11/15/2024 FINDINGS: Heart size is enlarged. No infiltrates or effusions. No bony thoracic abnormalities. IMPRESSION: 1. No acute cardiopulmonary pathology Assessment Acute on chronic decompensated heart failure, likely precipitated by medication and adherence HFrEF (EF15 %) - NYHA class III NSTEMI possible type 2 due to above Rule out PE CAD s/p PTCA x OLIVIA (RCA) Ischemic/drug-induced/dilated cardiomyopathy Hypertension Pulmonary hypertension Severe aortic valve regurgitation Hx of PE Type 2 diabetes Polysubstance abuse with tobacco and amphetamine Medical noncompliance Plan/Recommendation (Dr. English ): * Continue GDMT for HF * IV diuresis for volume overload with monitoring of electrolytes, renal funct ion, and daily weights * Telemetry monitoring for arrhythmia risk given prolonged QT and underlying cardiomyopathy * Monitor troponin and BNP trends to assess response to therapy * Check D-dimer if elevated ordered CTA to rule out PE/DVT given prior PE * Assess ischemia if symptoms develop, but current presentations likely demand mediated troponin elevation due to heart failure * Patient educated regarding adherence to heart failure medication and follow-up with Cardiology * Counseled on tobacco use cessation * Optimize management of comorbidities including diabetes, hypertension, and pulmonary hypertension This medical document was created using an electronic medical record system with voice recognition software and computerized dictation system. Although this document has been carefully reviewed, there might still be some phonetic and typographical errors. Occasional wrong-word or ``sound-alike substitutions may have occurred due to the inherent limitations of voice recognition software. These areas are purely typographical due to imperfections of the software programs and do not reflect any compromise in the patient's medical care. Please read the chart carefully and recognize, using context, where these substitutions have occurred. Plan discussed with: Patient Plan discussed with: Patient NYHA Physical activity limitations: Class3(Marked) ordinary Date of Service: Feb 25, 2025 Billing Provider: JULI ENGLISH MD Cardiology Common Codes: NOT BILLABLE Cardiology Consultation Codes: [id number] CONSULT <45MIN JULI ENGLISH MD 02/25/25 1339: Family History: Alzheimer's disease G8 FATHER Diabetes mellitus G8 FATHER, Onset:Unknown G8 MOTHER Hypertension G8 FATHER Allergies: Coded Allergies: No Known Drug Allergy (Verified Allergy, Unknown, 04/01/23) Home Meds Active Scripts Furosemide (Lasix) 40 Mg Tab, 40 MG PO DAILY for 30 Days, #30 TAB 1 Refill Prov:CELIA ALBERTO 11/17/24 Empagliflozin (Jardiance) 10 Mg Tab, 10 MG PO DAILY, #90 TAB Prov:CHRISTIANO BENJAMIN MD 10/27/24 Furosemide (Lasix) 40 Mg Tab, 40 MG PO DAILY, #90 TAB Prov:CHRISTIANO BENJAMIN MD 10/27/24 Metformin Hydrochloride (Metformin Hcl) 500 Mg Tab, 1 TAB PO BID for 30 Days, #60 TAB Prov:MARIA FERNANDA DUFF 09/15/24 Lisinopril (Lisinopril) 5 Mg Tab, 5 MG PO DAILY for 30 Days, #30 TAB 3 Refills Prov:MARIA FERNANDA DUFF 09/15/24 Carvedilol (COREG) 3.125 Mg Tab, 3.125 MG PO Q12HR for 30 Days, #60 TAB Prov:MARIA FERNANDA DUFF 09/15/24 Aspirin (ASPIRIN 81) 81 Mg Tab, 81 MG PO DAILY for 30 Days, #30 TAB Prov:MARIA FERNANDA DUFF 09/15/24 Spironolactone (Aldactone) 25 Mg Tab, 12.5 MG PO DAILY, #30 TAB 5 Refills Prov:MARIA FERNANDA DUFF 09/15/24 Atorvastatin Calcium (ATORVASTATIN CALCIUM) 40 Mg Tab, 1 TAB PO DAILY for 30 Days, #30 TAB 5 Refills Prov:MARIA FERNANDA DUFF 09/15/24 Plan/Recommendation totally non compliant pt meth abuse ef 15 , not taking meds regularly reviewed images personally of last [facility] medical mgmt, trop is 2/2 to severe HF Plan discussed with: Patient [facility] Feb 25, 2025 12:03 JULI ENGLISH MD Feb 25, 2025 13:39
[2025-02-25 13:19] LABS: Urine Protein, UAD Negative (Negative)
[2025-02-25 13:34] LABS: Amphetamine Screen, Urine Pos (NEGATIVE); Barbiturate Scree,Urine Neg (NEGATIVE); Benzodiazephine Screen, Urine Neg (NEGATIVE); Cannabinoid Screen, Urine Neg (NEGATIVE); Cocaine Screen, Urine Neg (NEGATIVE); Opiate Scree,Urine Neg (NEGATIVE); Phencyclidine Screen, Urine Neg (NEGATIVE)
[2025-02-25 17:00] VITALS: BP 124/94; PULSE 70; RESP 18; TEMP 97.7; O2SAT 93
[2025-02-25 20:00] VITALS: PULSE 73
[2025-02-25 21:00] VITALS: BP 126/90; PULSE 71; RESP 18; TEMP 97.9; O2SAT 94
[2025-02-25] MEDS: ATORVASTATIN 20 MG TAB PO SCH (21:43)
[2025-02-25] MEDS: CARVEDILOL 3.125 MG TAB PO SCH (21:45)
[2025-02-26] VITALS (8 sets, daily range): BP systolic 99–131; BP diastolic 62–91; PULSE 56–91; RESP 18–19; TEMP 97.9–98.4; O2SAT 92–98
[2025-02-26 07:41] LABS: Hematocrit 51.4 % (41.0-53.0); Hemoglobin 17.9 g/dL (13.5-17.5); Mean Corpuscular Hemoglobin 31.5 pg (28.0-32.0); Mean Corpuscular Volume 90.6 fL (80.0-100.0); Nucleated Red Blood Cells % 0.1 %
[2025-02-26 07:54] LABS: Alanine Aminotransferase 36 U/L (7-40); Albumin 4.1 g/dL (3.2-4.8); Alkaline Phosphatase 66 U/L (46-116); Anion Gap 9 (5-15); BUN/Creatinine Ratio 15.2 (10.0-20.0); Bilirubin, Total 1.2 mg/dL (0.2-1.0); Blood Urea Nitrogen 17 mg/dL (9-23); Calcium 9.4 mg/dL (8.7-10.4); Carbon Dioxide 29 mmol/L (20-31); Potassium 4.3 mmol/L (3.5-5.1); Total Protein 7.4 g/dL (5.7-8.2)
[2025-02-26 07:55] LABS: Chloride 97 mmol/L (98-107); Glucose 169 mg/dL (74-106); Sodium 135 mmol/L (136-145)
[2025-02-26] MEDS: EMPAGLIFLOZIN 10 MG TAB PO SCH (09:38)
[2025-02-26] MEDS: ASPirin-EC 81 mg tab PO SCH (09:38)
[2025-02-26] MEDS: FUROSEMIDE 40 MG/4 ML VIAL IV SCH (09:39)
[2025-02-26] MEDS: ENOXAPARIN SOD 40 MG/0.4 ML SYRINGE SC SCH (09:39)
[2025-02-26] MEDS: LISINOPRIL 5 MG TAB PO SCH (09:39)
[2025-02-26] MEDS: SPIRONOLACTONE 25 MG TAB PO SCH (09:40)
--- NOTE | 2025-02-26 12:54 | DVHPN2 ---
Progress Note Date Seen: Feb 26, 2025 Medical Necessity Reason Pt with a Central, PICC or Fol: No Subjective Patient reports: Feels better Other Systems: pt sleeping no complaints Objective vital signs Vital Sign Date Time Temp Pulse Resp B/P (MAP) Pulse Ox O2 Delivery O2 Flow Rate FiO2 02/26/25 09:39 109/79 02/26/25 09:38 85 02/26/25 08:43 98.4 19 98 98.4 02/26/25 08:02 Room Air* 0 21 Total Intake and Output 02/25/25 02/25/25 02/26/25 15:00 23:00 07:00 Intake Total 220 ml 600 ml Balance 220 ml 600 ml medications Current Medications Medications Dose Ordered Sig/Kimberly Route Start Time Stop Time Status Last Admin Dose Admin Enoxaparin Sodium 40 mg DAILY SC 02/26/25 10:00 02/26/25 09:39 40 MG Nitroglycerin 0.4 mg Q5MINP PRN SL 02/25/25 10:30 Morphine Sulfate 2 mg Q30M PRN IV 02/25/25 10:45 Furosemide 40 mg DAILY IV 02/26/25 10:00 02/26/25 09:39 40 MG Aspirin 81 mg DAILY PO 02/26/25 10:00 02/26/25 09:38 81 MG Carvedilol 3.125 mg Q12HR PO 02/25/25 22:00 02/26/25 09:38 3.125 MG Empaglifozin 10 mg DAILY PO 02/26/25 10:00 02/26/25 09:38 10 MG Lisinopril 5 mg DAILY PO 02/26/25 10:00 02/26/25 09:39 5 MG Spironolactone 12.5 mg DAILY PO 02/26/25 10:00 02/26/25 09:40 12.5 MG Atorvastatin Calcium 40 mg HS PO 02/25/25 22:00 02/25/25 21:43 40 MG Examination: GENERAL:Abnormal, HEENT:Abnormal, LUNGS:Abnormal, CVS:Abnormal, ABDOMEN:Abnormal laboratory and microbiology Laboratory Tests 02/26/25 06:42 Test 02/26/25 06:42 Range/Units Serum Glucose 169 H 74-106 mg/dL Problem List/Assessment/Plan Problem List/Assessment/Plan Acute on chronic decompensated heart failure, likely precipitated by medication and adherence HFrEF (EF15 %) - NYHA class III NSTEMI possible type 2 due to above Rule out PE CAD s/p PTCA x OLIVIA (RCA) Ischemic/drug-induced/dilated cardiomyopathy Hypertension Pulmonary hypertension Severe aortic valve regurgitation Hx of PE Type 2 diabetes Polysubstance abuse with tobacco and amphetamine Medical noncompliance Plan/Recommendation (Dr. English ): * Continue GDMT for HF * IV diuresis for volume overload with monitoring of electrolytes, renal function, and daily weights * Telemetry monitoring for arrhythmia risk given prolonged QT and underlying cardiomyopathy * Monitor troponin and BNP trends to assess response to therapy * * Patient educated regarding adherence to heart failure medication and follow-up with Cardiology * Counseled on tobacco use cessation * Optimize management of comorbidities including diabetes, hypertension, and pulmonary hypertension Plan discussed with: Patient Date of Service: Feb 26, 2025 Billing Provider: JULI ENGLISH MD Common Visit Codes: NOT BILLABLE JULI ENGLISH MD Feb 26, 2025 12:54
--- NOTE | 2025-02-26 14:37 | DVHPN2 ---
Subjective The patient is seen and examined at bedside. Complain of shortness for breath. Reviewed: Care Plan, H&P, Labs, Medications, Previous Orders, Radiology Changes from previous H/P or p: No Changes Objective Vitals Vital Signs Date Time Temp Pulse Resp B/P (MAP) Pulse Ox O2 Delivery O2 Flow Rate FiO2 02/26/25 13:00 98.1 72 18 116/70 (85) 95 98.1 02/26/25 08:02 Room Air* 0 21 Intake/Output Intake and Output 02/26/25 07:00 Intake Total 820 ml Balance 820 ml Intake Oral 820 ml # Voids 1 General Appearance: Alert, Cooperative, mild distress HEENT: Atraumatic, PERRLA, EOMI, Mucous membr. moist/pink Neck: Supple Lungs: Clear to auscultation, Normal air movement Cardiovascular: Regular rate, Normal S1, Normal S2, No murmurs, Gallops, Rubs Abdomen: Normal bowel sounds, Soft, No tenderness Neuro: Cranial nerves 3-12 NL Psych/Mental Status: Mental status NL Medications Current Medications Medications Dose Ordered Sig/Kimberly Route Start Time Stop Time Status Last Admin Dose Admin Enoxaparin Sodium 40 mg DAILY SC 02/26/25 10:00 02/26/25 09:39 40 MG Nitroglycerin 0.4 mg Q5MINP PRN SL 02/25/25 10:30 Morphine Sulfate 2 mg Q30M PRN IV 02/25/25 10:45 Furosemide 40 mg DAILY IV 02/26/25 10:00 02/26/25 09:39 40 MG Aspirin 81 mg DAILY PO 02/26/25 10:00 02/26/25 09:38 81 MG Carvedilol 3.125 mg Q12HR PO 02/25/25 22:00 02/26/25 09:38 3.125 MG Empaglifozin 10 mg DAILY PO 02/26/25 10:00 02/26/25 09:38 10 MG Lisinopril 5 mg DAILY PO 02/26/25 10:00 02/26/25 09:39 5 MG Spironolactone 12.5 mg DAILY PO 02/26/25 10:00 02/26/25 09:40 12.5 MG Atorvastatin Calcium 40 mg HS PO 02/25/25 22:00 02/25/25 21:43 40 MG Laboratory Results Laboratory Tests 02/26/25 06:42 Chemistry Test 02/26/25 06:42 Albumin 4.1 g/dL (3.2-4.8) Calcium Level 9.4 mg/dL (8.7-10.4) Total Protein 7.4 g/dL (5.7-8.2) LFT Test 02/26/25 06:42 Alanine Aminotransferase (ALT) 36 U/L (7-40) Alkaline Phosphatase 66 U/L (46-116) Aspartate Amino Transferase (AST) 37 U/L (13-40) Total Bilirubin 1.2 mg/dL (0.2-1.0) H Urinalysis Test 02/25/25 13:01 Urine Color Colorless (Yellow) Urine Clarity Clear (Clear) Urine pH 5.0 (5.0-9.0) Urine Specific [place] 1.006 (1.001-1.035) Urine Protein Negative (Negative) Urine Ketones Negative (Negative) Urine Blood Negative /uL (Negative) Urine Nitrite Negative (Negative) Urine Bilirubin Negative (Negative) Urine Urobilinogen Normal mg/dL (Negative) Urine Leukocyte Esterase Negative /uL (Negative) Urine RBC <1 /hpf (0 - 3) Urine Microscopic WBC < 1 /HPF (0-3) Urine Squamous Epithelial Cells None seen /hpf (<5) Urine Bacteria None seen /hpf (None Seen) Urine Glucose Normal mg/dL (Normal) Labs and/or images reviewed: Labs reviewed by me Assessment/Plan Assessment/Plan # Congestive heart failure exacerbation # HFrEF, [place] class III # history of CAD, # S/P stent placement # Rule out ACS # elevated troponin level - BNP level 1072 - troponin level 690 < 790 - cardiology consult to rule out ACS - Lasix 40 mg IV daily - GDM T as tolerated, - continue aspirin 81 mg, carvedilol 3.125 mg, Jardiance 10 mg, lisinopril 5 mg Aldactone 12.5 mg # Diabetes mellitus - mild sliding scale insulin - hemoglobin A1c # Hypertension - continue antihypertensive medications - lisinopril 5 mg, furosemide 40 mg IV, # Dyslipidemia - continue atorvastatin 40 mg daily # Tobacco use disorder - Patient smokes 3-4 cigarettes daily for 15 years. - counseled patient to quit smoking for more than 15 minutes Continuing current management. This medical document was created using an electronic medical record system with [employer] direct computerized dictation system. Although this document has been carefully reviewed, there may still be some phonetic and typographical errors. These areas are purely typographical due to imperfections of the software programs, and do not reflect any compromise in the patient's medical care. Plan discussed with: Patient Date of Service: Feb 26, 2025 Billing Provider: TWAN ORO MD Common Visit Codes: [id number] INP/OBS CARE(HIGH) TWAN ORO MD Feb 26, 2025 14:37
[2025-02-26] MEDS ORDERED: HYDROcodone-ACET 5/325MG TAB PO PRN (15:45)
[2025-02-27 01:00] VITALS: BP 111/84; PULSE 67; RESP 18; TEMP 98.1; O2SAT 96
[2025-02-27 05:00] VITALS: BP 108/80; PULSE 66; RESP 18; TEMP 98.4; O2SAT 99
[2025-02-27 08:00] VITALS: PULSE 78; PULSE 87; RESP 18; O2SAT 96
[2025-02-27 09:00] VITALS: BP_SYST 111; BP_SYST 134; BP_DIAS 70; BP_DIAS 78; PULSE 72; PULSE 82; RESP 17; TEMP 98.1; TEMP 98.2; O2SAT 95; O2SAT 98
--- NOTE | 2025-02-27 11:41 | DVHPN2 ---
Subjective The patient is seen and examined at bedside. Complain of shortness for breath. Reviewed: Care Plan, H&P, Labs, Medications, Previous Orders, Radiology Objective Vitals Vital Signs Date Time Temp Pulse Resp B/P (MAP) Pulse Ox O2 Delivery O2 Flow Rate FiO2 02/27/25 10:33 134/78 02/27/25 10:32 72 02/27/25 09:00 98.1 17 95 98.1 02/27/25 08:00 Room Air* 0 21 Intake/Output Intake and Output 02/27/25 07:00 Intake Total 1680 ml Balance 1680 ml Intake Oral 1680 ml # Voids 5 # Bowel Movements 3 General Appearance: Alert, Cooperative, mild distress HEENT: Atraumatic, PERRLA, EOMI, Mucous membr. moist/pink Neck: Supple Lungs: Clear to auscultation, Normal air movement Cardiovascular: Regular rate, Normal S1, Normal S2, No murmurs, Gallops, Rubs Abdomen: Normal bowel sounds, Soft, No tenderness Neuro: Cranial nerves 3-12 NL Psych/Mental Status: Mental status NL Medications Current Medications Medications Dose Ordered Sig/Kimberly Route Start Time Stop Time Status Last Admin Dose Admin Enoxaparin Sodium 40 mg DAILY SC 02/26/25 10:00 02/27/25 10:33 40 MG Nitroglycerin 0.4 mg Q5MINP PRN SL 02/25/25 10:30 Morphine Sulfate 2 mg Q30M PRN IV 02/25/25 10:45 Furosemide 40 mg DAILY IV 02/26/25 10:00 02/27/25 10:30 40 MG Aspirin 81 mg DAILY PO 02/26/25 10:00 02/27/25 10:32 81 MG Carvedilol 3.125 mg Q12HR PO 02/25/25 22:00 02/27/25 10:32 3.125 MG Empaglifozin 10 mg DAILY PO 02/26/25 10:00 02/27/25 10:32 10 MG Lisinopril 5 mg DAILY PO 02/26/25 10:00 02/27/25 10:33 5 MG Spironolactone 12.5 mg DAILY PO 02/26/25 10:00 02/27/25 10:31 12.5 MG Atorvastatin Calcium 40 mg HS PO 02/25/25 22:00 02/26/25 21:42 40 MG Acetaminophen/ Hydrocodone Bitart 1 tab Q4HPRN PRN PO 02/26/25 15:45 Laboratory Results Laboratory Tests 02/26/25 06:42 Urinalysis Test 02/25/25 13:01 Urine Color Colorless (Yellow) Urine Clarity Clear (Clear) Urine pH 5.0 (5.0-9.0) Urine Specific [place] 1.006 (1.001-1.035) Urine Protein Negative (Negative) Urine Ketones Negative (Negative) Urine Blood Negative /uL (Negative) Urine Nitrite Negative (Negative) Urine Bilirubin Negative (Negative) Urine Urobilinogen Normal mg/dL (Negative) Urine Leukocyte Esterase Negative /uL (Negative) Urine RBC <1 /hpf (0 - 3) Urine Microscopic WBC < 1 /HPF (0-3) Urine Squamous Epithelial Cells None seen /hpf (<5) Urine Bacteria None seen /hpf (None Seen) Urine Glucose Normal mg/dL (Normal) Assessment/Plan Assessment/Plan # Congestive heart failure exacerbation # HFrEF, [place] class III # history of CAD, # S/P stent placement # Rule out ACS # elevated troponin level - BNP level 1072 - troponin level 690 < 790 - cardiology consult to rule out ACS - Lasix 40 mg IV daily - GDM T as tolerated, - continue aspirin 81 mg, carvedilol 3.125 mg, Jardiance 10 mg, lisinopril 5 mg Aldactone 12.5 mg # Diabetes mellitus - mild sliding scale insulin - hemoglobin A1c # Hypertension - continue antihypertensive medications - lisinopril 5 mg, furosemide 40 mg IV, # Dyslipidemia - continue atorvastatin 40 mg daily # Tobacco use disorder - Patient smokes 3-4 cigarettes daily for 15 years. - counseled patient to quit smoking for more than 15 minutes Continuing current management. This medical document was created using an electronic medical record system with [employer] direct computerized dictation system. Although this document has been carefully reviewed, there may still be some phonetic and typographical errors. These areas are purely typographical due to imperfections of the software programs, and do not reflect any compromise in the patient's medical care. My Orders Orders - TWAN ORO MD Procedure Category Date Status Time Hydrocodone-Acet PHA 02/26/25 In Process 5/325mg Tab ([place] 15:45 TWAN ORO MD Feb 27, 2025 11:41
[2025-02-27] MEDS ORDERED: ASPI-498 PO (12:38)
[2025-02-27] MEDS ORDERED: LISI-275 PO (12:38)
[2025-02-27] MEDS ORDERED: CARV-214 PO (12:38)
[2025-02-27] MEDS ORDERED: FURO1TAB31 PO (12:38)
[2025-02-27] MEDS ORDERED: METF-370 PO (12:38)
[2025-02-27] MEDS ORDERED: EMPA1TAB PO (12:38)
[2025-02-27] MEDS ORDERED: ATOR40TA52 PO (12:38)
[2025-02-27] MEDS ORDERED: SPIR25TA PO (12:38)
--- NOTE | 2025-02-27 12:39 | DVHDS2 ---
Discharge Summary Date of Admission Feb 25, 2025 at 10:18 Date of Discharge: Feb 27, 2025 Admitting Diagnosis # Congestive heart failure exacerbation # HFrEF, [place] class III # history of CAD, # S/P stent placement # Rule out ACS # elevated troponin level # Diabetes mellitus # Hypertension # Dyslipidemia # Tobacco use disorder Labs/Diagnostic Data: Laboratory Results Test 02/26/25 06:42 02/25/25 13:01 02/25/25 12:35 02/25/25 11:57 White Blood Count 8.9 10^3/uL (4.4-10.8) Red Blood Count 5.68 10^6/uL (4.5-5.90) Hemoglobin 17.9 g/dL (13.5-17.5) Hematocrit 51.4 % (41.0-53.0) Mean Corpuscular Volume 90.6 fL (80.0-100.0) Mean Corpuscular Hemoglobin 31.5 pg (28.0-32.0) Mean Corpuscular Hemoglobin Concent 34.8 g/dL (32.0-36.0) Red Cell Distribution Width 13.6 % (11.8-14.3) Platelet Count 237 10^3/uL (140-450) Mean Platelet Volume 8.8 fL (6.9-10.8) Neutrophils (%) (Auto) 68.9 % (37.0-80.0) Lymphocytes (%) (Auto) 17.9 % (10.0-50.0) Monocytes (%) (Auto) 9.7 % (0.0-12.0) Eosinophils (%) (Auto) 2.8 % (0.0-7.0) Basophils (%) (Auto) 0.7 % (0.0-2.0) Neutrophils # (Auto) 6.1 10 ^3/uL (1.6-8.6) Lymphocytes # (Auto) 1.6 10 ^3/uL (0.4-5.4) Monocytes # (Auto) 0.9 10 ^3/uL (0-1.3) Eosinophils # (Auto) 0.3 10 ^3/uL (0-0.8) Basophils # (Auto) 0.1 10 ^3/uL (0-0.2) Nucleated Red Blood Cells 0.1 % Sodium Level 135 mmol/L (136-145) Potassium Level 4.3 mmol/L (3.5-5.1) Chloride Level 97 mmol/L (98-107) Carbon Dioxide Level 29 mmol/L (20-31) Anion Gap 9 (5-15) Blood Urea Nitrogen 17 mg/dL (9-23) Creatinine 1.12 mg/dL (0.700-1.30) Glomerular Filtration Rate Calc 79 mL/min (>90) BUN/Creatinine Ratio 15.2 (10.0-20.0) Serum Glucose 169 mg/dL (74-106) Calcium Level 9.4 mg/dL (8.7-10.4) Total Bilirubin 1.2 mg/dL (0.2-1.0) Aspartate Amino Transferase (AST) 37 U/L (13-40) Alanine Aminotransferase (ALT) 36 U/L (7-40) Alkaline Phosphatase 66 U/L (46-116) Total Protein 7.4 g/dL (5.7-8.2) Albumin 4.1 g/dL (3.2-4.8) Urine Color Colorless (Yellow) Urine Clarity Clear (Clear) Urine pH 5.0 (5.0-9.0) Urine Specific [place] 1.006 (1.001-1.035) Urine Protein Negative (Negative) Urine Ketones Negative (Negative) Urine Blood Negative /uL (Negative) Urine Nitrite Negative (Negative) Urine Bilirubin Negative (Negative) Urine Urobilinogen Normal mg/dL (Negative) Urine Leukocyte Esterase Negative /uL (Negative) Urine RBC <1 /hpf (0 - 3) Urine Microscopic WBC < 1 /HPF (0-3) Urine Squamous Epithelial Cells None seen /hpf (<5) Urine Bacteria None seen /hpf (None Seen) Urine Glucose Normal mg/dL (Normal) Urine Opiates Screen Neg (NEGATIVE) Urine Fentanyl Screen Neg (NEGATIVE) Urine Barbiturates Screen Neg (NEGATIVE) Urine Phencyclidine Screen Neg (NEGATIVE) Urine Amphetamines Screen Pos (NEGATIVE) Urine Benzodiazepines Screen Neg (NEGATIVE) Urine Cocaine Screen Neg (NEGATIVE) Urine Cannabinoids Screen Neg (NEGATIVE) D-Dimer, Quantitative 0.34 mg/L FEU (0.0-0.49) Hemoglobin A1c 8.2 % A1C (<5.7) Test 02/25/25 11:09 02/25/25 11:06 02/25/25 09:14 02/25/25 08:16 Troponin I High Sensitivity 787 ng/L (</=54) POC Glucose 220 mg/dl (70-106) Thyroid Stimulating Hormone (TSH) 1.99 uIU/mL (0.55-4.78) B-Type Natriuretic Peptide 1072.92 pg/mL (0-100) Triglycerides Level 148 mg/dL (< 150) Cholesterol Level 194 mg/dL (< 200) LDL Cholesterol 140 mg/dL (< 100) HDL Cholesterol 52 mg/dL (40-59) Other Laboratory Tests 02/26/25 06:42 Brief Hx & Hospital Course: This is a 54 years old male come to emergency department because severe shortness for breath for one day. The patient had significant cardiac history including congestive heart failure three years prior to his 1st heart attack at this time he had a stent placed. Patient had total three PR with the most recent occurred about one to 1-1/2 years ago. The patient had two stent placed. Patient had headache which is normal for him. Patient was admitted. The patient was put on Lasix 40 mg IV b.i.d.. The patient workup was done. Troponin level elevated at 700. EKG showed no acute change. Cardiology see the patient. Recommend continuing diuretic medication. No other further workup. Follow up with transit proof machine operator as outpatient. Today the patient shortness improved. I am going to discharge him home. Advised the patient to follow up with primary care physician 1-2 weeks. Follow up with transit proof machine operator per schedule. Activity as tolerated. Diet low-salt low-cholesterol diet. Physical exam: HEENT: Normocephalic atraumatic pupils equal react to light and accommodation. Extraocular muscles intact, conjunctiva pink, oropharynx moist, no thrush, no exudate. Lymphatic: No lymphadenopathy Cardiovascular exam: S1, S2 was heard. No murmurs, rubs, gallops Lung: Clear on auscultation bilaterally, no wheeze, rale, rhonchi. GI: Abdominal soft, nondistended, nontenderness, positive bowel sounds. Extremity: No crepitus, cyanosis, edema. Pedal pulses present bilateral. Full range of motion. Skin: Normal turgor, no rash. Psych: Alert, oriented x3. Neurology: No focal deficits, cranial nerve II to XII grossly intact. This medical document was created using an electronic medical record system with [employer] computerized dictation system. Although this document has been carefully reviewed, there may still be some phonetic and typographical errors. These areas are purely typographical due to imperfections of the software programs, and do not reflect any compromise in the patient's medical care. Condition at Discharge: Stable Final Diagnosis/Problems List # acute on chronic Congestive heart failure exacerbation # HFrEF, [place] class III # history of CAD, # S/P stent placement # Rule out ACS # elevated troponin level # Diabetes mellitus # Hypertension # Dyslipidemia # Tobacco use disorder Discharge Disposition: Home Discharge Instruct/Medications Diet: Consistent carbohydrate, Cardiac 2g Na,low cholest Activity: No Restrictions, As Tolerated Follow Up/Referral: pcp 1-2 weeks Medications: see med list Scheduled Aspirin (Aspirin 81), 81 MG PO DAILY Atorvastatin Calcium (Atorvastatin Calcium), 1 TAB PO DAILY Carvedilol (Coreg), 3.125 MG PO Q12HR Empagliflozin (Jardiance), 10 MG PO DAILY Furosemide (Lasix), 40 MG PO DAILY Furosemide (Lasix), 40 MG PO DAILY Lisinopril (Lisinopril), 5 MG PO DAILY Metformin Hydrochloride (Metformin Hcl), 1 TAB PO BID Spironolactone (Aldactone), 12.5 MG PO DAILY Discharge Statement: "Patient was advised to return to the ER or call 911 if any headaches, dizziness, shortness of breath, chest pain, abdominal pain, bleeding, fevers, or worsening of medical condition. Patient was counseled about treatment plan, medications, possible side effects, patientverbalized understanding. All questions were answered to the best of my ability. This discharge took greater then 30 minutes in planning, reviewing documentation, counseling the patient, and discussing with other team members." ASSESSMENT ASSESSMENT Assessment acute on chronic CHF Date of Service: Feb 27, 2025 Billing Provider: TWAN ORO MD Common Visit Codes: [id number] DISCH DAY >30min TWAN ORO MD Feb 27, 2025 12:39
[2025-02-27 13:00] VITALS: BP 111/70; PULSE 82; RESP 17; TEMP 98.2; O2SAT 98
[2025-02-27 13:23] VITALS: BP 134/78; PULSE 72; TEMP 36.7
== END 2025-02-27 14:30 | disposition home or self-care (01) | DRG 194 ==
LOC: ER 07:46 → OVERFLOW 10:18 → TELE-WESTW 14:16
PROVIDERS: ADMIT Internal Medicine; ATTEND Internal Medicine
DX: I11.0 Hypertensive heart disease with heart failure (principal); I21.A1 Myocardial infarction type 2; I27.20 Pulmonary hypertension, unspecified; I50.23 Acute on chronic systolic (congestive) heart failure; E11.9 Type 2 diabetes mellitus without complications; I42.0 Dilated cardiomyopathy; I35.1 Nonrheumatic aortic (valve) insufficiency; I25.10 Atherosclerotic heart disease of native coronary artery without angina pectoris; F17.210 Nicotine dependence, cigarettes, uncomplicated; E78.00 Pure hypercholesterolemia, unspecified; F15.10 Other stimulant abuse, uncomplicated; Z83.3 Family history of diabetes mellitus; Z79.82 Long term (current) use of aspirin; Z71.6 Tobacco abuse counseling; Z98.61 Coronary angioplasty status; Z86.711 Personal history of pulmonary embolism; Z82.0 Family history of epilepsy and other diseases of the nervous system; Z82.49 Family history of ischemic heart disease and other diseases of the circulatory system; Z91.199 Patient's noncompliance with other medical treatment and regimen due to unspecified reason; Z79.899 Other long term (current) drug therapy; Z79.84 Long term (current) use of oral hypoglycemic drugs
CPT/HCPCS: 36415; 71045; 80053; 80061; 80307; 81001; 82962; 83036; 83880; 84443; 84484; 85025; 85379; 93005; G0378; J1815